=== PATIENT | female | born 1990 | race Caucasian/White ===

== ENCOUNTER 2020-11-03 13:00 | Outpatient (REF) | payer OTHER, SELFPAY ==
--- NOTE | ~2020-11-03 | CT_ITS ---
EXAMINATION: CT CHEST WITHOUT CONTRAST CLINICAL INFORMATION: Pulmonary nodules COMPARISON: Previous chest CT October 2019 TECHNIQUE: Multidetector volumetric CT imaging of the chest was done. Axial MIP volume rendering provided. Sagittal and coronal reformatted images were obtained. This CT examination was performed using dose optimization techniques as appropriate, variously including the following: *Automated exposure control *Adjustment of mA and/or kV according to patient size (this includes techniques or standardized protocols for targeted exams where dose is matched to indication/reason for exam; i.e. extremities or head) *Use of iterative reconstruction technique DLP: 250 mGy-cm FINDINGS: LUNGS: Evaluation of the lungs limited due to artifact from respiratory motion. There is a 3 mm peripheral or subpleural superior segment right lower lobe nodule axial image 135 series 6 that is stable. There is a 0.4 x 0.7 cm peripheral or subpleural right middle lobe nodule adjacent to the minor fissure axial image 1:15 2 series 6 that is stable. There is a 2 x 4 mm peripheral or subpleural right lower lobe nodule the major fissure axial image 176 series 6 that is stable. No new pulmonary nodule or MEDIASTINUM: The mediastinum is normal. PLEURA: There is no pleural effusion. No pleural mass or thickening. AXILLA: No lymphadenopathy. UPPER ABDOMEN: Unremarkable. OSSEOUS STRUCTURES: There is a 0.7 x 1.7 x 3 cm lytic lesion in the sternum that is stable going back to abdominal and pelvic CT October 2019. CT/CT chest wo con IMPRESSION: Limited exam due to respiratory motion. Stable right pulmonary nodules.
== END 2020-11-03 13:01 | disposition home or self-care (01) ==
LOC: HO.CT 13:00
PROVIDERS: PCP Internal Medicine; Visit Provider Internal Medicine Pulmonary Disease
DX: R91.8 Other nonspecific abnormal finding of lung field (principal)
CPT/HCPCS: 71250

== ENCOUNTER 2020-11-25 11:46 | Emergency (ER) | payer OTHER, SELFPAY ==
--- NOTE | ~2020-11-25 | XR_ITS ---
EXAMINATION: XR CHEST CLINICAL INFORMATION: Covid Pneumonia? Patient Shielded? Y COMPARISON: Chest x-ray June 30, 2019 TECHNIQUE: Frontal portable view of the chest was obtained. 3:20 PM FINDINGS: No significant abnormality is noted involving the heart, lungs, mediastinum, bony thorax or soft tissues. XR/XR chest 1V IMPRESSION: Unremarkable examination.
[2020-11-25 11:55] VITALS: BP 130/74; PULSE 89; RESP 20; TEMP 36.9; O2SAT 97; BMI 47.7
[2020-11-25 14:45] LABS: Influenza A PCR NEGATIVE (Negative); Influenza B PCR NEGATIVE (Negative); Resp Syncy Virus RNA Qual PCR NEGATIVE (Negative); SARS COV2 PCR INHOUSE POSITIVE (Negative)
--- NOTE | 2020-11-25 15:51 | ED_ITS ---
HPI - General Adult General Chief complaint: General Medical Stated complaint: diff breathing Time Seen by Provider: 11/25/20 15:20 Source: patient Mode of arrival: ambulatory Limitations: no limitations History of Present Illness HPI narrative: Patient presents to ED for COVID like symptoms. Patient states cough, body aches, fever, and chills. Patient is not vaccinated. Patient unaware of exposure, but does states she has been going onto the clubs. Related Data Home Medications Medication Instructions Recorded Confirmed albuterol sulfate 90 mcg/actuation 0 mcg INHALATION 05/26/20 10/06/20 aerosol inhaler aripiprazole 15 mg tablet 15 mg PO DAILY 05/26/20 10/06/20 fluticasone furoate 200 ea INHALATION 05/26/20 10/06/20 mcg-vilanterol 25 mcg/dose inhalation powder methylphenidate HCl 18 mg 18 mg PO QAM 05/26/20 10/06/20 tablet,extended release 24 hr Previous Rx's Medication Instructions Recorded desmopressin 0.2 mg tablet 0.6 mg PO BEDTIME 30 Days #90 tab 05/26/20 trazodone 100 mg tablet 100 mg PO BEDTIME PRN #30 tab 08/09/20 sulfamethoxazole 800 1 tab PO BID 5 Days #10 tab 10/06/20 mg-trimethoprim 160 mg tablet (Bactrim DS) simethicone 80 mg chewable tablet 80 mg PO QID #60 ea 10/07/20 montelukast 10 mg tablet 10 mg PO DAILY #30 tab 11/04/20 Allergies Allergy/AdvReac Type Severity Reaction Status Date / Time lithium [From LITHATE] Allergy Severe ANAPHYLAXIS Verified 10/06/20 13:58 codeine [CODEINE] Allergy Unknown UNKNOWN Verified 10/06/20 13:58 Review of Systems Review of Systems: Yes all other systems are reviewed and are negative Constitutional: Constitutional: Reports as per HPI, Reports no additional constitutional complaints, Reports body ache(s), Reports chills, Reports feve r(s) and Reports headache(s) Eyes: Eyes: Reports as per HPI and Reports no additional eye complaints ENT: Reports headache(s) Cardiovascular: Cardiovascular: Reports as per HPI and Reports no additional cardiovascular complaints Respiratory: Respiratory: Reports as per HPI, Reports no additional respiratory complaints and Reports cough Gastrointestinal: Gastrointestinal: Reports as per HPI and Reports no additional gastrointestinal complaints Genitourinary: Genitourinary: Reports no additional female genitourinary complaints and Reports as per HPI Musculoskeletal: Musculoskeletal: Reports no additional musculoskeletal complaints and Reports as per HPI Neurologic: Reports system reviewed and no additional complaints, except as documented, Reports as per HPI and Reports headache(s) Psychiatric: Psychiatric: Reports no additional psychiatric complaints and Reports as per HPI PMFSH Past Medical History Medical History (Reviewed 10/06/20 @ 13:55 by Portia Romero [facility]) Asthma Attention deficit hyperactivity disorder (ADHD) Bipolar affective disorder, current episode mixed GERD without esophagitis Insomnia Morbid obesity with BMI of 45.0-49.9, adult Nocturnal enuresis Pulmonary nodules Surgical History History of surgery Family History Family History Father Ketoacidosis Diabetes ADHD Chronic mental illness Substance abuse Mother Anxiety Hypertension Crohn disease Family/Other Chronic mental illness Social History Social History Housing: Apartment Alcohol intake: never Patient Tobacco Use Status: Never used Tobacco e-Cigarette/Vaping Use: Never Used Second Hand Smoke Exposure: Yes Advance Directives: Yes Advance Directives Information Provided: Yes Advance Directives on File: No service: No Current occupational status: unemployed Physical Exam Vital Signs: Vital Signs: Last Vital Signs Temp 98.5 F 11/25/20 11:55 Pulse 89 11/25/20 11:55 Resp 20 11/25/20 11:55 BP 130/74 11/25/20 11:55 Pulse Ox 97 11/25/20 11:55 Body Mass Index 47.7 Const: General: cooperative, healthy appearing, comfortable, no acute distress, well developed, alert, awake and Physically active Orientation/consciousness: patient oriented x3 HENMT: Head: Yes normal to inspection, Yes No palpable skull fracture present, Yes normocephalic, Yes atraumatic and No abrasion Eyes: General: appearance normal, both eyes and all related structures Neck: Neck: Yes normal visual inspection, Yes full ROM, Yes no lymphadenopathy, Yes no meningeal signs, Yes trachea midline, Yes supple and No tender Chest: Chest palpation & inspection: normal inspection of the chest and normal palpation of entire chest wall Resp: Effort & Inspection: normal respiratory effort and able to speak in complete sentences Auscultation: clear to auscultation bilaterally Cardio: Jugular venous distension: no JVD Heart sounds: S1 normal heart sound present and S2 normal heart sound present GI: Inspection: Yes normal to inspection and No abdominal wall ecchymosis Palpation (GI): Soft to palpation, not firm, nontender, no guarding and not rigid : General: No CVA tenderness and Yes no CVA tenderness Back/Spine/Pelvis: Back: no CVA tenderness, No CVA tenderness and No back tenderness Skin: General skin exam: no rashes or lesions noted and elasticity normal Neuro: General: patient oriented x3, no meningeal signs and CN's II-XI intact bilaterally Cranial nerves: Yes CN's II-XII intact bilaterally Extrem: Other: Lower extremities negative for swelling, pitting edema, redness, calf tenderness. General: Yes normal to inspection and Yes full ROM Psych: Appearance: grossly normal, well kempt and not disheveled Course Course Course Narrative: Patient speaking in full sentences and not using accessory muscles. Patient is not in distress. Patient is COVID positive. Was sent for chest x-ray. Patient typing on laptop. Reevaluation(s) Reevaluation #1: Chest x-ray came back negative for COVID pneumonia. Patient will be discharged. Patient informed to self quarantine for the next 14 days. Patient informed to return to the ED immediately if she has any chest pain, shortness of breath, weakness, dizziness, coughing up blood, or any other concerning symptoms. Time: 16:16 Medical Decision Making [facility] Narrative Medical decision making narrative: COVID-19 Lab Data Labs: Lab Results 11/25/20 Range/Units 13:30 Coronavirus (PCR) POSITIVE A (Negative) Influenza Type A (PCR) NEGATIVE (Negative) Influenza Type B (PCR) NEGATIVE (Negative) RSV RNA Qual (PCR) NEGATIVE (Negative) Discharge Plan Discharge Clinical Impression: COVID-19 Patient Disposition: Home, Self-Care Instructions: COVID-19 (Coronavirus Disease 2019) (ED) Additional Instructions: Recommend 14 days self-isolation. Return to the ED immediately for any chest pain, shortness of breath, nausea, vomiting, pleuritic chest pain, coughing up blood, weakness, dizziness, calf pain, intractable fever, or any other concerning symptoms. Please follow-up with PCP Prescriptions: No Action trazodone 100 mg tablet 100 mg PO BEDTIME PRN (Reason: for insomnia) Qty: 30 RF: 3 simethicone 80 mg tablet,chewable 80 mg PO QID Qty: 60 RF: 2 montelukast 10 mg tablet 10 mg PO DAILY Qty: 30 RF: 4 sulfamethoxazole-trimethoprim [Bactrim DS] 800-160 mg tablet 1 tab PO BID 5 Days Qty: 10 RF: 0 albuterol sulfate 90 mcg/actuation HFA aerosol inhaler 0 mcg inhalation RF: 0 aripiprazole 15 mg tablet 15 mg PO DAILY RF: 0 Breo Ellipta 200-25 mcg/dose blister with device inhalation RF: 0 methylphenidate HCl 18 mg tablet extended release 24hr 18 mg PO QAM RF: 0 desmopressin 0.2 mg tablet 0.6 mg PO BEDTIME 30 Days Qty: 90 RF: 3 Stand Alone Forms: Work/School Release Interventions: ED Discharge Assessment Last Done: 11/25/20 16:54 Discharge Date/Time: 11/25/20 16:54 Print Language: Swedish
== END 2020-11-25 16:54 | disposition home or self-care (01) ==
PROVIDERS: Emergency Provider Emergency Medicine Emergency Medical Services; PCP Internal Medicine
DX: U07.1 COVID-19 (principal); J45.909 Unspecified asthma, uncomplicated; Z79.899 Other long term (current) drug therapy
CPT/HCPCS: 0241U; 36415; 71045; 99283

== ENCOUNTER 2020-12-09 10:50 | Outpatient (REF) | payer OTHER, SELFPAY | END 2020-12-09 10:51 | disposition home or self-care (01) | LOC: HO.HMGCLDS 10:50 | PROVIDERS: PCP Internal Medicine; Visit Provider Internal Medicine | DX: Z20.822 Contact with and (suspected) exposure to COVID-19 (principal) | CPT/HCPCS: C9803; U0003; U0005 ==

== ENCOUNTER 2021-06-08 15:33 | Outpatient (REF) | payer OTHER, SELFPAY | END 2021-06-08 15:34 | disposition home or self-care (01) | LOC: HO.LAB 15:33 | PROVIDERS: PCP Internal Medicine | DX: N39.0 Urinary tract infection, site not specified (principal); N28.1 Cyst of kidney, acquired | CPT/HCPCS: 87086; 87088; 87186; 99202 ==

== ENCOUNTER 2021-07-13 08:15 | Outpatient (REF) | payer OTHER, SELFPAY ==
--- NOTE | ~2021-07-13 | US_ITS ---
EXAMINATION: US RETROPERITONEAL LIMITED (RENAL ONLY) CLINICAL INFORMATION: Cyst of kidney, acquired. COMPARISON: CT abdomen and pelvis with contrast 06/30/2019. Ultrasound abdomen complete 02/15/2017 and 07/29/2016. TECHNIQUE: Real-time imaging of the kidneys. FINDINGS: RIGHT KIDNEY: 11.4 x 5.0 x 5.0 cm (SAG x AP x TRV). The kidney is normal in size, contour, and echogenicity. Renal cortical thickness is normal. No renal calculi or hydronephrosis. There is an anechoic cyst mid to lower pole lateral cortex measuring 3.8 x 2.8 x 3.0 cm. It is unchanged to previous CT abdomen exam 06/30/2019. LEFT KIDNEY: 13.3 x 5.2 x 5.8 cm (SAG x AP x TRV). The kidney is normal in size, contour, and echogenicity. Renal cortical thickness is normal. No calculi or focal parenchymal lesions. No hydronephrosis. US/US renal BI IMPRESSION: Right renal cysts measuring 3.[address] it measured 3 cm. No echogenic renal calculi or hydronephrosis.
== END 2021-07-13 08:16 | disposition home or self-care (01) ==
LOC: HO.US 08:15
DX: N28.1 Cyst of kidney, acquired (principal)
CPT/HCPCS: 76775

== ENCOUNTER 2021-07-21 18:00 | Outpatient (REF) | payer OTHER, SELFPAY | END 2021-07-21 18:01 | disposition home or self-care (01) | LOC: HO.LNP 18:00 | PROVIDERS: Visit Provider Nurse Practitioner Family | DX: R30.0 Dysuria (principal) | CPT/HCPCS: 87086; 87088; 87186 ==

== ENCOUNTER 2021-07-22 09:35 | Outpatient (REF) | payer OTHER, SELFPAY ==
[2021-07-23 03:57] LABS: CT PCR NOT DETECTED (Not Detect.); NG PCR NOT DETECTED (Not Detect.)
[2021-07-23 10:58] LABS: BV Int Neg Control Negative (Negative); BV Int Pos Control Positive (Positive)
[2021-07-27 05:21] LABS: HPV 16 RNA NOT DETECTED (NOT DETECTED); HPV mRNA E6/E7 rflx Detected (Not Detected)
== END 2021-07-22 09:36 | disposition home or self-care (01) ==
LOC: HO.LAB 09:35
PROVIDERS: Visit Provider Advanced Practice Midwife
DX: Z01.419 Encounter for gynecological examination (general) (routine) without abnormal findings (principal); Z11.51 Encounter for screening for human papillomavirus (HPV); Z20.2 Contact with and (suspected) exposure to infections with a predominantly sexual mode of transmission; E66.01 Morbid (severe) obesity due to excess calories; Z68.43 Body mass index [BMI] 50.0-59.9, adult; Z71.3 Dietary counseling and surveillance
CPT/HCPCS: 87480; 87491; 87510; 87591; 87624; 87625; 87660; 88142

== ENCOUNTER 2021-09-14 10:22 | Emergency (ER) | payer OTHER, SELFPAY ==
[2021-09-14 10:50] VITALS: BP 127/74; PULSE 88; RESP 18; TEMP 36.8; O2SAT 98; BMI 48.9
[2021-09-14 11:17] LABS: Strep A Nucleic Acid Negative (Negative)
[2021-09-14 11:19] LABS: COVID-19 Test Negative (Negative); IDNOW Serial# 16C4AD1C
[2021-09-14 11:20] LABS: Influenza A Negative (Negative); Influenza B2 Negative (Negative)
--- NOTE | 2021-09-14 11:33 | ED_ITS ---
HPI - General Adult General Chief complaint: Upper Respiratory Symptoms Stated complaint: sore throat, body ache, headache Time Seen by Provider: 09/14/21 11:33 Source: patient Mode of arrival: ambulatory Limitations: no limitations History of Present Illness HPI narrative: Patient is a 31 year old female presenting to the emergency department today with a sore throat. Patient states that for the last few days, she has been having a worsening sore throat. Patient denies any dizziness, lightheadedness, abdominal pain, nausea, vomiting, fever, chills, blurry vision, double vision, loss of vision, chest pain, difficulty breathing, shortness of breath, back pain, night sweats, pain with urination, increased urinary frequency, increased urinary urgency, blood in her urine or stool, syncope or a near syncopal episode, recent trauma or falls, bowel incontinence, bladder incontinence, bowel retention, bladder retention, or any other complaints at this time. Onset (ago): day(s) Radiation: non-radiation Severity: mild Severity scale (1-10): 2 Quality: dull Pain Consistency: constant Relieving factors: none Exacerbating factors: none Associated symptoms: denies other symptoms Treatments prior to arrival: none Related Data Home Medications Medication Instructions Recorded Confirmed methylphenidate HCl 18 mg 18 mg PO QAM 05/26/20 07/22/21 tablet,extended release 24 hr Previous Rx's Medication Instructions Recorded simethicone 80 mg chewable tablet 80 mg PO QID #60 ea 10/07/20 montelukast 10 mg tablet 10 mg PO DAILY #30 tab 12/09/20 desmopressin 0.2 mg tablet 0.6 mg PO BEDTIME 30 Days #90 tab 04/12/21 NEBULIZER #1 ea 04/20/21 albuterol sulfate 2.5 mg (3 mL) INHALATION QID PRN 04/20/21 30 Days #120 ml fluticasone 250 mcg-salmeterol 50 1 inh INHALATION BID 30 Days #60 ea 04/20/21 mcg/dose blistr powdr for inhalation (Wixela Inhub) albuterol sulfate 90 mcg/actuation 2 puff INHALATION Q4-6H PRN #8.5 g 06/23/21 aerosol inhaler nitrofurantoin macrocrystal 100 mg 100 mg PO Q12H 5 Days #10 cap 04/06/22 capsule polyethylene glycol 3350 17 gram 17 g PO DAILY PRN #30 ea 07/21/21 oral powder packet (Miralax) sertraline 25 mg tablet 25 mg PO DAILY #30 tab 07/21/21 metronidazole 500 mg tablet 2,000 mg PO ONCE 1 Days #4 tab 08/04/21 trazodone 100 mg tablet 100 mg PO BEDTIME 30 Days #30 tab 08/20/21 lidocaine HCl 2 % mucosal solution 1.2 ml MUCOUS MEMBRANE BID PRN 09/14/21 (Lidocaine Viscous) #100 ml penicillin V potassium 500 mg 500 mg PO BID 10 Days #20 tab 09/14/21 tablet Allergies Allergy/AdvReac Type Severity Reaction Status Date / Time lithium [From LITHATE] Allergy Severe ANAPHYLAXIS Verified 09/14/21 10:49 codeine [CODEINE] Allergy Unknown UNKNOWN Verified 09/14/21 10:49 Review of Systems Constitutional: Constitutional: Reports no additional constitutional complaints, Denies chills, Denies fever(s) and Denies night sweats Eyes: Eyes: Reports no additional eye complaints, Denies blurry vision, Denies change in vision, Denies diplopia, Denies eye discharge, Denies loss of vision and Denies eye pain ENT: Denies dizziness and Reports sore throat Cardiovascular: Cardiovascular: Reports no additional cardiovascular complaints, Denies chest pain, Denies lightheadedness, Denies Loss of Consciousness and Denies dyspnea Respiratory: Respiratory: Reports no additional respiratory complaints and Denies dyspnea Gastrointestinal: Gastrointestinal: Reports no additional gastrointestinal complaints, Denies abdominal pain, Denies melena, Denies hematochezia, Denies change in bowel habits and Denies change in stool character Genitourinary: Genitourinary: Denies hematuria, Denies urinary frequency, Denies dysuria, Denies urinary incontinence, Denies urinary hesitancy and Denies urinary urgency Musculoskeletal: Musculoskeletal: Reports no additional musculoskeletal complaints, Denies numbness and Denies tingling Neurologic: Denies dizziness, Denies loss of vision, Denies numbness and Denies tingling Psychiatric: Psychiatric: Reports no additional psychiatric complaints Endocrine: Endocrine: Reports no additional endocrine complaints Hematologic/Lymphatic: Hematologic/Lymphatic: Reports no additional hematologic/lymphatic complaints Allergic/Immunologic: Allergic/Immunologic: Reports no additional allergic/immunologic complaints PMFSH Past Medical History Attestation statement: The following information was validated with the patient. Source: old records reviewed Medical History Asthma Attention deficit hyperactivity disorder (ADHD) Bipolar affective disorder, current episode mixed Environmental allergies GERD without esophagitis Insomnia Morbid obesity with BMI of 45.0-49.9, adult Nocturnal enuresis Obesity Pulmonary nodules Renal cyst Uses control UTI (urinary tract infection) Surgical History History of surgery Family History Family History Father Ketoacidosis Diabetes ADHD Chronic mental illness Substance abuse Mother Anxiety Hypertension Crohn disease Family/Other Chronic mental illness Social History Social History Housing: Apartment Alcohol intake: never Patient Tobacco Use Status: Never used Tobacco e-Cigarette/Vaping Use: Never Used Second Hand Smoke Exposure: Yes Advance Directives: No Advance Directives Information Provided: No service: No Current occupational status: employed Cognitive needs: No Hearing needs: No Vision needs: No Physical Exam ED Vital Signs: Vital Signs - 24 hr 09/14/21 10:50 Temperature 98.3 F Pulse Rate 88 Respiratory Rate 18 Blood Pressure 127/74 Pulse Oximetry 98 BMI result Body Mass Index 48.9 Const General: cooperative, no acute distress, alert and awake Nutritional Appearance: well nourished Orientation/consciousness: patient oriented x3 Limitations: no limitations HENMT Head: Yes normal to inspection and Yes atraumatic Ears: hearing grossly normal bilaterally and external ears normal General nose exam: Normal external nose present, no nasal discharge noted and no epistaxis Face and sinus: Yes normal facial exam, No abrasion and No laceration Mouth: Normal oral and palatal mucosa present, no drooling, no muffled voice and other (erythematous posterior pharynx) Eyes General: appearance normal, both eyes and all related structures Periorbital: periorbital findings normal Eyelids: Yes eyelids normal Conjunctivae: conjunctivae normal Pupils: Equal, round and reactive pupils present EOM: EOMs intact bilaterally Neck Neck: Yes normal visual inspection, Yes full ROM and Yes no lymphadenopathy Chest Chest palpation & inspection: normal inspection of the chest Resp Effort & Inspection: normal respiratory effort and able to speak in complete sentences Auscultation: clear to auscultation bilaterally Cardio Rate: regular rate Rhythm: regular rhythm GI Inspection: Yes normal to inspection Neuro General: patient oriented x3 and moves all extremities Cranial nerves: Yes Equal, round and reactive pupils present Cognition (Neuro): normal cognition Motor exam (neuro): 5/5 motor strength present throughout Sensory Exam: Normal double simultaneous stimulation for sensation Coordination: [id number] test normal Extrem General: Yes normal to inspection, Yes full ROM and Yes capillary refill normal Psych Appearance: grossly normal Mental Status: mental status grossly normal Affect: normal affect Attitude: cooperative Thought process: Normal thought process present Thought content: Normal thought content present Insight: Good insight present (Psych) Medical Decision Making MDM Narrative Medical decision making narrative: Patient is a 31 year old female presenting to the emergency department today with a sore throat. Patient's physical exam showed an erythematous posterior pharynx but was otherwise unremarkable. Patient's rapid COVID-19, influenza, and strep swabs were all negative. I explained my physical exam findings as well as all test results to the patient. I answered all questions asked by the patient. I stressed the importance of the patient taking her medication as prescribed. I stressed the importance of the patient following up with her primary care provider. I stressed the importance of the patient returning to the emergency department immediately if her symptoms were to worsen or if she were to develop any dizziness, shortness of breath, difficulty breathing, chest pain, blurry vision, loss of vision, nausea, vomiting, abdominal pain, fever, chills, back pain, or any other complaints. Patient verbalized agreement and understanding with this treatment plan and discharge. Differential Diagnosis Differential Diagnosis: pharyngitis Medical Records Medical records reviewed: Yes I reviewed the patient's medical records. Lab Data Lab results reviewed: Yes I reviewed the patient's lab results. Labs: Lab Results 09/14/21 09/14/21 09/14/21 Range/Units 10:53 10:53 10:53 COVID-19 ([facility]OSMO) Negative (Negative) COVID-19 Clin Com See Note Influenza Type A (AMEE) Negative (Negative) Influenza Type B (AMEE) Negative (Negative) Influenza A & B Note See Note S. pyogenes GrpA AMEE Negative (Negative) Discharge Plan Discharge Clinical Impression: Pharyngitis Patient Disposition: Home, Self-Care Instructions: Pharyngitis (ED) Additional Instructions: Follow up with your primary care provider. Return to the emergency department immediately if your symptoms worsen or if you develop any dizziness, shortness of breath, difficulty breathing, chest pain, blurry vision, loss of vision, nausea, vomiting, abdominal pain, fever, chills, back pain, or any other complaints. Prescriptions: New penicillin V potassium 500 mg tablet 500 mg PO BID 10 Days Qty: 20 0RF lidocaine HCl [Lidocaine Viscous] 2 % solution 1.2 ml mucous membrane BID PRN (Reason: pain) Qty: 100 0RF Rx Instructions: Gargle and spit. No Action simethicone 80 mg tablet,chewable 80 mg PO QID Qty: 60 2RF montelukast 10 mg tablet 10 mg PO DAILY Qty: 30 0RF desmopressin 0.2 mg tablet 0.6 mg PO BEDTIME 30 Days Qty: 90 3RF metronidazole 500 mg tablet 2,000 mg PO ONCE 1 Days Qty: 4 0RF Rx Instructions: Take with food, Avoid alcohol and vinegar products trazodone 100 mg tablet 100 mg PO BEDTIME 30 Days Qty: 30 1RF methylphenidate HCl 18 mg tablet extended release 24hr 18 mg PO QAM 0RF fluticasone propion-salmeterol [Wixela Inhub] 250-50 mcg/dose blister with device 1 inh inhalation BID 30 Days Qty: 60 3RF (DME) NEBULIZER See Rx Instructions .Route .MEDSUPPLY Qty: 1 0RF Rx Instructions: As directed 4 times a day as needed albuterol sulfate 2.5 mg /3 mL (0.083 %) solution for nebulization 2.5 mg inhalation QID PRN (Reason: shortness of breath or wheezing) 30 Days Qty: 120 5RF albuterol sulfate 90 mcg/actuation HFA aerosol inhaler 2 puff inhalation Q4-6H PRN (Reason: shortness of breath or wheezing) Qty: 8.5 3RF nitrofurantoin macrocrystal 100 mg capsule 100 mg PO Q12H 5 Days Qty: 10 0RF Rx Instructions: must administer with a meal/food sertraline 25 mg tablet 25 mg PO DAILY Qty: 30 0RF polyethylene glycol 3350 [Miralax] 17 gram powder in packet 17 g PO DAILY PRN (Reason: constipation) Qty: 30 0RF Referrals: Luis,Angelo S, MD [Primary Care Provider] - Print Language: Spanish
== END 2021-09-14 12:01 | disposition home or self-care (01) ==
PROVIDERS: Emergency Provider Emergency Medicine; PCP Internal Medicine
DX: J02.9 Acute pharyngitis, unspecified (principal); Z20.822 Contact with and (suspected) exposure to COVID-19
CPT/HCPCS: 87502; 87635; 87651; 99283

== ENCOUNTER 2021-09-27 14:50 | Outpatient (REF) | payer OTHER, SELFPAY ==
[2021-09-28 05:35] LABS: CT PCR NOT DETECTED (Not Detect.); NG PCR NOT DETECTED (Not Detect.)
[2021-09-28 13:11] LABS: BV Int Neg Control Negative (Negative); BV Int Pos Control Positive (Positive)
== END 2021-09-27 14:51 | disposition home or self-care (01) ==
LOC: HO.LAB 14:50
PROVIDERS: Visit Provider Advanced Practice Midwife
DX: Z11.3 Encounter for screening for infections with a predominantly sexual mode of transmission (principal); A59.9 Trichomoniasis, unspecified; Z20.2 Contact with and (suspected) exposure to infections with a predominantly sexual mode of transmission; F41.9 Anxiety disorder, unspecified; E66.01 Morbid (severe) obesity due to excess calories; Z68.42 Body mass index [BMI] 45.0-49.9, adult
CPT/HCPCS: 87480; 87491; 87510; 87591; 87660; 99212

== ENCOUNTER 2021-09-29 04:31 | Emergency (ER) | payer OTHER, SELFPAY ==
[2021-09-29 04:40] VITALS: BP 113/69; PULSE 77; RESP 20; TEMP 36.2; O2SAT 98; BMI 51.7
--- NOTE | 2021-09-29 06:32 | ED.SKABFB ---
HPI - Skin/Abscess/Foreign Bdy General Chief complaint: General Medical Stated complaint: Lac Time Seen by Provider: 09/29/21 06:31 Source: patient Mode of arrival: ambulatory Limitations: no limitations History of Present Illness complaint: lesion Onset (ago): day(s) (1) Tetanus up to date: yes Location: LLE and RLE Severity: moderate Quality: aching and dull Pain Consistency: constant Relieving factors: none Exacerbating factors: palpation Context: none Associated symptoms: other (no other symptoms just reports painful rash to anterior lower shins - no exposures no prior rash no swimming) Treatments prior to arrival: none Related Data Home Medications Medication Instructions Recorded Confirmed methylphenidate HCl 18 mg 18 mg PO QAM 05/26/20 09/27/21 tablet,extended release 24 hr etonogestrel 68 mg subdermal subdermal 09/27/21 09/27/21 implant (Nexplanon) Previous Rx's Medication Instructions Recorded desmopressin 0.2 mg tablet 0.6 mg PO BEDTIME 30 days #90 tabs 04/12/21 NEBULIZER #1 ea 04/20/21 fluticasone 250 mcg-salmeterol 50 1 inh inhalation BID 30 days #60 ea 04/20/21 mcg/dose blistr powdr for inhalation ([employer] Inhub) trazodone 100 mg tablet 100 mg PO BEDTIME 30 days #30 tabs 08/20/21 albuterol sulfate 2.5 mg (3 mL) inhalation QID PRN 09/24/21 shortness of breath or wheezing 30 days #120 mL albuterol sulfate 90 mcg/actuation 2 puff inhalation Q4-6H PRN 09/24/21 aerosol inhaler shortness of breath or wheezing #8.5 grams montelukast 10 mg tablet 10 mg PO DAILY #30 tabs 09/24/21 simethicone 80 mg chewable tablet 80 mg PO QID #60 ea 09/24/21 cephalexin 500 mg capsule 500 mg PO TID 7 days #21 caps 09/29/21 doxycycline hyclate 100 mg capsule 100 mg PO BID 7 days #14 caps 09/29/21 ondansetron 4 mg disintegrating 4 mg PO Q8H PRN nausea and 09/29/21 tablet vomiting #20 tabs prednisone 20 mg tablet 40 mg PO DAILY 5 days #10 tabs 09/29/21 Allergies Allergy/AdvReac Type Severity Reaction Status Date / Time lithium [From LITHATE] Allergy Severe ANAPHYLAXIS Verified 09/27/21 13:53 codeine [CODEINE] Allergy Unknown UNKNOWN Verified 09/27/21 13:53 Review of Systems Review of Systems: Constitutional : No Fever, No Chills ENT/Mouth : No sore throat, No Rhinorrhea Eyes: No Eye Pain, No Swelling, No Redness Cardiovascular : No Chest Pain, No SOB Respiratory : No Cough, No Sputum Gastrointestinal : No Nausea, No Vomiting, No Diarrhea, No abdominal Pain Genitourinary : No Dysuria, No Hematuria Musculoskeletal : No joint pain, No Myalgias, No Joint Swelling Skin : No Skin Lesions, positive skin rash Neuro : No Weakness, No Numbness, No Headache Psych : No Anxiety, No Depression Heme/Lymph: No Bruising, No Bleeding,No Lymphadenopathy Endocrine : No Polyuria, No Polydipsia All other systems reviewed and are negative PMFSH Past Medical History Attestation statement: The following information was validated with the patient. Medical History Environmental allergies Obesity Surgical History History of surgery Family History Family History Father Ketoacidosis Diabetes ADHD Chronic mental illness Substance abuse Mother Anxiety Hypertension Crohn disease Family/Other Chronic mental illness Social History Social History Housing: Apartment Alcohol intake: never Patient Tobacco Use Status: Never used Tobacco e-Cigarette/Vaping Use: Never Used Second Hand Smoke Exposure: Yes Advance Directives: No service: No Current occupational status: employed Cognitive needs: No Hearing needs: No Vision needs: No Physical Exam Vital Signs: Vital Signs: Last Vital Signs Temp 97.1 F 09/29/21 04:40 Pulse 77 09/29/21 04:40 Resp 20 09/29/21 04:40 BP 113/69 09/29/21 04:40 Pulse Ox 98 09/29/21 04:40 O2 Del Method 09/29/21 04:40 BMI result Body Mass Index 51.7 Appearance: Alert. Oriented X3. No acute distress. Eyes: Pupils equal, round and reactive to light. ENT: Pharynx normal. Neck: Normal inspection. Neck supple. CVS: Normal heart rate and rhythm. Pulses normal. Respiratory: No respiratory distress. Breath sounds normal. Abdomen: Soft and nontender. Skin: Skin warm and dry. Normal skin color. Normal skin turgor. Extremities: No lower extremity edema. Both anterior shins red raised nodules with mild surrounding erythema no fluctuance ttp no crepitus no calf pain not circumferential Neuro: Oriented X 3. No motor deficit. No sensory deficit. MDM - Skin/Abscess/Foreign Bdy MDM Narrative Medical decision making narrative: 31 yo female hx of asthma here with c/o painful red nodules over anterior shins - concerning for mild cellulitis vs erythema nodosum will start on antibiotics and low dose steroids - no signs of calf pain or swelling to suggest DVT Discharge Plan Discharge Clinical Impression: Erythema nodosum Cellulitis Qualifiers: Site of cellulitis: extremity Site of cellulitis of extremity: lower extremity Laterality: unspecified laterality Qualified Code(s): L03.119 - Cellulitis of unspecified part of limb Patient Disposition: Home, Self-Care Instructions: Cellulitis (ED) Additional Instructions: return to ED for any worsening symptoms or concerns possible skin infection vs inflammation of your skin in legs please follow up with your doctor to make this is not inflammatory condition called erythema nodosum take all medications follow up with doctor in 1 week Prescriptions: New doxycycline hyclate 100 mg capsule 100 mg PO BID 7 Days Qty: 14 0RF prednisone 20 mg tablet 40 mg PO DAILY 5 Days Qty: 10 0RF cephalexin 500 mg capsule 500 mg PO TID 7 Days Qty: 21 0RF ondansetron 4 mg tablet,disintegrating 4 mg PO Q8H PRN (Reason: nausea and vomiting) Qty: 20 0RF No Action desmopressin 0.2 mg tablet 0.6 mg PO BEDTIME 30 Days Qty: 90 3RF trazodone 100 mg tablet 100 mg PO BEDTIME 30 Days Qty: 30 1RF albuterol sulfate 2.5 mg /3 mL (0.083 %) solution for nebulization 2.5 mg inhalation QID PRN (Reason: shortness of breath or wheezing) 30 Days Qty: 120 5RF albuterol sulfate 90 mcg/actuation HFA aerosol inhaler 2 puff inhalation Q4-6H PRN (Reason: shortness of breath or wheezing) Qty: 8.5 3RF montelukast 10 mg tablet 10 mg PO DAILY Qty: 30 3RF simethicone 80 mg tablet,chewable 80 mg PO QID Qty: 60 3RF methylphenidate HCl 18 mg tablet extended release 24hr 18 mg PO QAM fluticasone propion-salmeterol [Wixela Inhub] 250-50 mcg/dose blister with device 1 inh inhalation BID 30 Days Qty: 60 3RF (DME) NEBULIZER See Rx Instructions .Route .MEDSUPPLY Qty: 1 0RF Rx Instructions: As directed 4 times a day as needed Nexplanon 68 mg implant subdermal Stand Alone Forms: Work/School Release
[2021-09-29] MEDS: cephALEXin 500 MG CAPSULE PO (06:48)
[2021-09-29 07:39] LABS: Basophils Percent Auto 0.3 % (0-2); Eosinophils Percent Auto 0.3 % (0-4); Hematocrit 35.9 % (37.0-47.0); Hemoglobin 11.9 g/dl (12.0-16.0); Imm Gran Abs Auto 0.02 X10*3/uL (0.00-0.03); Imm Gran Pct Auto 0.3 % (0.0-0.4); Lymphocytes Absolute Auto 2.8 X10*3/uL (1.2-4.9); Lymphocytes Percent Auto 41.1 % (20-40); MANUAL DIFF FLAG SCAN; Mean Corpuscular HGB Conc 33.1 g/dl (31.0-35.0); Mean Corpuscular Volume 84.5 fL (80.0-98.0); Mean Platelet Volume 9.9 fL (9.4-12.3); Monocytes Absolute Auto 0.6 X10*3/uL (0.1-1.2); Monocytes Percent Auto 8.7 % (2-11); Neutrophils Absolute Auto 3.3 x10*3/uL (2.0-8.3); Neutrophils Percent Auto 49.3 % (45-73); Platelet Count 238 X10*3/uL (160-400); Red Blood Count 4.25 X10*6/uL (4.20-5.50); Red Cell Distribution Width 13.2 % (11.0-16.0); SCAN SMEAR FLAG 1; White Blood Count 6.8 X10*3/uL (4.8-10.8)
[2021-09-29 07:52] LABS: Anion Gap 13 (12-20); Blood Urea Nitrogen 13 mg/dL (9-16); Calcium 9.4 mg/dL (8.4-10.2); Carbon Dioxide 25 mmol/L (22-29); Chloride 104 mmol/L (96-108); Creatinine Clr Calc Pharmacy 139.7; Estimated Glomerular Filt Rate > 60; Glucose Random 112 mg/dL (60-115); Potassium 3.5 mmol/L (3.3-5.1); Sodium 138 mmol/L (135-145)
[2021-09-29 07:58] LABS: SLIDE REVIEW VERIFIED
[2021-09-29 08:16] LABS: Erythrocyte Sedimentation Rate 34 MM/HR (0-20)
== END 2021-09-29 08:36 | disposition home or self-care (01) ==
PROVIDERS: Emergency Provider Emergency Medicine; PCP Internal Medicine
DX: L03.116 Cellulitis of left lower limb (principal); L03.115 Cellulitis of right lower limb; L52 Erythema nodosum; J45.909 Unspecified asthma, uncomplicated
CPT/HCPCS: 36415; 80048; 85025; 85652; 99282; 99283

== ENCOUNTER → 2021-10-13 13:52 | Outpatient (BNVA) | payer OTHER, SELFPAY | PROVIDERS: PCP Internal Medicine; Visit Provider Advanced Practice Midwife | DX: Z30.46 Encounter for surveillance of implantable subdermal contraceptive (principal); A59.9 Trichomoniasis, unspecified; E66.01 Morbid (severe) obesity due to excess calories; Z68.42 Body mass index [BMI] 45.0-49.9, adult; F41.9 Anxiety disorder, unspecified; F90.9 Attention-deficit hyperactivity disorder, unspecified type | CPT/HCPCS: 11982; 99212 ==

== ENCOUNTER 2021-11-02 10:00 | Emergency (ER) | payer OTHER, SELFPAY | END 2021-11-02 11:13 | disposition left against medical advice (07) | PROVIDERS: Emergency Provider Emergency Medicine; PCP Internal Medicine | DX: Z20.2 Contact with and (suspected) exposure to infections with a predominantly sexual mode of transmission (principal) ==

== ENCOUNTER 2021-12-16 12:07 | Emergency (ER) | payer OTHER, SELFPAY ==
[2021-12-16 12:11] VITALS: BP 126/67; PULSE 72; RESP 18; TEMP 36.9; O2SAT 99; BMI 45.3
--- NOTE | 2021-12-16 12:31 | ED_ITS ---
HPI - General Adult General Chief complaint: General Medical Stated complaint: STD issues/Covid symptoms Time Seen by Provider: 12/16/21 12:31 Source: patient Mode of arrival: ambulatory Limitations: no limitations History of Present Illness HPI narrative: 31-year-old female with history of obesity, anxiety, recurrent UTI, history of Trichomonas who presents to the ER for evaluation of painful urination, sore t hroat and body aches that started this morning. 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 She denies any abdominal pain, nausea, vomiting, diarrhea. She denies any pelvic pain or vaginal discharge. She denies any chance of . She reports she woke up in the middle of the night with a severe sore throat. she denies any cough or shortness of breath. No fever or chills. No known sick contacts. She reports her dysuria feels similar to her prior urinary tract infections. MD complaint: Dysuria, sore throat Onset (ago): hour(s) Location: mouth and genitals Radiation: non-radiation Severity: moderate Quality: burning and aching Pain Consistency: intermittent Relieving factors: none Exacerbating factors: other ( Swallowing worsened sore throat pain, and urination worsens her dysuria.) Associated symptoms: headaches, loss of appetite and malaise Treatments prior to arrival: none Related Data Home Medications Medication Instructions Recorded Confirmed methylphenidate HCl 18 mg 18 mg PO QAM 05/26/20 10/13/21 tablet,extended release 24 hr etonogestrel 68 mg subdermal subdermal 09/27/21 10/13/21 implant (Nexplanon) Previous Rx's Medication Instructions Recorded desmopressin 0.2 mg tablet 0.6 mg PO BEDTIME 30 days #90 tabs 04/12/21 NEBULIZER #1 ea 04/20/21 albuterol sulfate 2.5 mg/3 mL 2.5 mg (3 mL) inhalation QID PRN 09/24/21 (0.083 %) solution for nebulization shortness of breath or wheezing 30 days #120 mL albuterol sulfate 90 mcg/actuation 2 puff inhalation Q4-6H PRN 09/24/21 aerosol inhaler shortness of breath or wheezing #8.5 grams montelukast 10 mg tablet 10 mg PO DAILY #30 tabs 09/24/21 fluticasone 250 mcg-salmeterol 50 1 inh inhalation BID 30 days #60 ea 10/06/21 mcg/dose blistr powdr for inhalation ([employer] Inhub) sertraline 25 mg tablet 25 mg PO DAILY #30 tabs 11/01/21 nitrofurantoin 100 mg PO Q12H 7 days #14 caps 12/16/21 monohydrate/macrocrystals 100 mg capsule (Macrobid) Allergies Allergy/AdvReac Type Severity Reaction Status Date / Time lithium [From LITHATE] Allergy Severe ANAPHYLAXIS Verified 10/13/21 14:07 codeine [CODEINE] Allergy Unknown UNKNOWN Verified 10/13/21 14:07 Review of Systems Review of Systems: Constitutional: No Fever, No Chills ENT/Mouth: + sore throat, No Rhinorrhea, No Swallowing Difficulty Cardiovascular: No Chest Pain, No SOB Respiratory: No Cough, No Sputum, No Wheezing, No dyspnea Gastrointestinal: No Nausea, No Vomiting, No Diarrhea, No abdominal Pain Genitourinary: + Dysuria, + Urinary Frequency, No Hematuria Musculoskeletal: No joint pain, No Myalgias Skin: No Skin Lesions, No rash Neuro: No Weakness, No Dizziness, No Headache Psych: + Anxiety/Panic, No Depression Heme/Lymph: No Bruising, No Lymphadenopathy Endocrine: No Polyuria, No Polydipsia PMFSH Past Medical History Medical History Environmental allergies Obesity Surgical History History of surgery Family History Family History Father Ketoacidosis Diabetes ADHD Chronic mental illness Substance abuse Mother Anxiety Hypertension Crohn disease Family/Other Chronic mental illness Social History Social History Housing: Apartment Alcohol intake: never Patient Tobacco Use Status: Never used Tobacco e-Cigarette/Vaping Use: Never Used Second Hand Smoke Exposure: Yes Advance Directives: No Advance Directives Information Provided: No service: No Current occupational status: employed Cognitive needs: No Hearing needs: No Vision needs: No Physical Exam ED Vital Signs: Vital Signs - 24 hr 12/16/21 12:11 Temperature 98.4 F Pulse Rate 72 Respiratory Rate 18 Blood Pressure 126/67 Pulse Oximetry 99 Oxygen Delivery Method Room Air BMI result Body Mass Index 45.3 Appearance: Alert. Oriented X3. No acute distress. Eyes: Pupils equal, round and reactive to light. ENT: Pharynx with posterior pharyngeal erythema, no tonsillar exudate or swelling. Uvula midline. Handling secretions normally. Neck: Normal inspection. Neck supple. CVS: Normal heart rate and rhythm. Pulses normal. Respiratory: No respiratory distress. Breath sounds normal. Abdomen: Soft and nontender. +aBS x4. Pelvic deferred Skin: Skin warm and dry. Normal skin color. Normal skin turgor. No rashes. Extremities: No lower extremity edema. Neuro: Oriented X 3. Grossly normal, nonfocal Course Course Course Narrative: 31-year-old female with a history of HPV, recurrent UTIs, anxiety, Trichomonas, presents to the ER for evaluation of new onset dysuria that started this morning as well as sore throat that started last night and body aches. On arrival to the ER patient is afebrile with normal vital signs. Her exam is unremarkable. Her urinalysis is consistent with infection with positive nitrates. She is also found to be COVID positive. She is fully vaccinated. Her lungs are clear. We discussed the lab results and current management. Will give her a week of antibiotics for her UTI. She will follow-up with her PCP as needed. Return precautions were discussed. Stable for [place] Medical Decision Making Lab Data Labs: Lab Results 12/16/21 12/16/21 12/16/21 Range/Units 12:19 12:26 12:26 Urine Color Yellow Urine Appearance Cloudy Urine pH 5.5 (5.0-9.0) Ur Specific Central >= 1.030 H (1.005-1.025) Urine Protein 30 (1+) H (Neg-Trace) mg/dL Urine Glucose (UA) Negative (Negative) mg/dL Urine Ketones Negative (Negative) mg/dL Urine Blood Large (3+) H (Negative) Urine Nitrite Positive H (Negative) Ur Leukocyte Esterase Small (1+) H (Negative) Urine RBC >20 H (0-2) /HPF Urine WBC 11-20 (0-5) /HPF Ur Squamous Epith Cells 3-5 (0-2) /HPF Urine Bacteria 3+ (None Seen) Hyaline Casts 0-2 (0-2) /LPF Urine Test NEGATIVE (NEGATIVE) COVID-19 (COSMO) Positive A (Negative) COVID-19 Clin Com See Note Discharge Plan Discharge Clinical Impression: COVID-19, UTI (urinary tract infection) Patient Disposition: Home, Self-Care Instructions: Covid-19 Viral Syndrome and Novel Coronavirus (ED) Hey/Ath, Urinary Tract Infection in Women (ED) Additional Instructions: Your urinalysis today showed evidence of a urinary tract infection. It was negative for . Take the prescribed antibiotic as directed, complete the entire course. Rest and drink plenty fluids. Your also found to be COVID positive today. Do not go on public while not feeling well. Take [id number] cold and flu medicine as needed for your symptoms. If you develop new or worsening symptoms call 911 or come back to the ER for further evaluation. Prescriptions: New nitrofurantoin monohyd/m-cryst [Macrobid] 100 mg capsule 100 mg PO Q12H 7 Days Qty: 14 0RF Rx Instructions: must administer with a meal/food No Action desmopressin 0.2 mg tablet 0.6 mg PO BEDTIME 30 Days Qty: 90 3RF albuterol sulfate 2.5 mg /3 mL (0.083 %) solution for nebulization 2.5 mg inhalation QID PRN (Reason: shortness of breath or wheezing) 30 Days Qty: 120 5RF albuterol sulfate 90 mcg/actuation HFA aerosol inhaler 2 puff inhalation Q4-6H PRN (Reason: shortness of breath or wheezing) Qty: 8.5 3RF montelukast 10 mg tablet 10 mg PO DAILY Qty: 30 3RF fluticasone propion-salmeterol [Wixela Inhub] 250-50 mcg/dose blister with device 1 inh inhalation BID 30 Days Qty: 60 3RF sertraline 25 mg tablet 25 mg PO DAILY Qty: 30 3RF (DME) NEBULIZER See Rx Instructions .Route .MEDSUPPLY Qty: 1 0RF Rx Instructions: As directed 4 times a day as needed methylphenidate HCl 18 mg tablet extended release 24hr 18 mg PO QAM Nexplanon 68 mg implant subdermal Referrals: Angelo Smith MD [Primary Care Provider] - Stand Alone Forms: Work/School Release Interventions: ED Discharge Assessment Last Done: 12/16/21 13:08 Discharge Date/Time: 12/16/21 13:09
[2021-12-16 12:36] LABS: Appearance Urine Cloudy; Color Urine Yellow; Glucose Urine UA Negative (Negative); Leukocyte Esterase Urine Small (1+) (Negative); Nitrite Urine Positive (Negative); PH 5.5 (5.0-9.0); Specific Gravity - Urine >= 1.030 (1.005-1.025); Urine Blood Large (3+) (Negative); Urine Ketones Negative (Negative); Urine Protein 30 (1+) mg/dL (Neg-Trace)
[2021-12-16 12:38] LABS: COVID-19 Test Positive (Negative); IDNOW Serial# 16C4AD1C
[2021-12-16 12:39] LABS: UPreg QC Valid YES; Urine Pregnancy NEGATIVE (NEGATIVE)
[2021-12-16 12:48] LABS: RBC Urine >20 /HPF (0-2); UACC Culture Trigger YES
[2021-12-16 12:49] LABS: Hyaline Casts Urine 0-2 /LPF (0-2)
[2021-12-16 12:50] LABS: Bacteria Urine 3+ (None Seen)
== END 2021-12-16 13:09 | disposition home or self-care (01) ==
PROVIDERS: Emergency Provider Student in an Organized Health Care Education/Training Program; PCP Internal Medicine
DX: U07.1 COVID-19 (principal); N39.0 Urinary tract infection, site not specified
CPT/HCPCS: 81001; 81025; 87086; 87635; 99282; 99283

== ENCOUNTER 2022-03-17 11:45 | Outpatient (REF) | payer OTHER, SELFPAY ==
[2022-03-19 01:34] LABS: Rubella IgG Antibody 2.31 Index
== END 2022-03-17 11:46 | disposition home or self-care (01) ==
LOC: HO.LAB 11:45
PROVIDERS: PCP Internal Medicine; Visit Provider Internal Medicine
DX: Z01.84 Encounter for antibody response examination (principal); Z28.39 Other underimmunization status
CPT/HCPCS: 36415; 86735; 86762; 86765; 86787

== ENCOUNTER 2022-05-24 08:42 | Emergency (ER) | payer OTHER, SELFPAY ==
[2022-05-24 08:44] VITALS: BP 131/73; PULSE 76; RESP 16; TEMP 35.9; O2SAT 100; BMI 47.5
--- NOTE | 2022-05-24 08:51 | ED.FEMALEGU ---
HPI - Female Genitourinary General Chief complaint: Urogenital-Female Stated complaint: quest uti and Time Seen by Provider: 05/24/22 08:47 Source: patient Mode of arrival: ambulatory Limitations: no limitations History of Present Illness HPI Narrative: Patient is a 31 year old assigned female at with a history of asthma, ADHD, and UTIs presenting to the emergency department today with lower abdominal pain and pain with urination. Patient states that she has been having lower abdominal pain and pain with urination over the last 2 days. Patient denies any dizziness, lightheadedness, nausea, vomiting, fever, chills, blurry vision, double vision, loss of vision, chest pain, difficulty breathing, shortness of breath, back pain, night sweats, increased urinary frequency, increased urinary urgency, blood in her stool, syncope or a near syncopal episode, recent trauma or falls, bowel incontinence, bladder incontinence, bowel retention, bladder retention, or any other complaints at this time. MD elicited complaint: dysuria and UTI Pertinent past history: recurrent UTIs Onset (ago): day(s) (2) Severity: mild Severity scale (1-10): 2 Urinary symptoms: Dysuria Exacerbating factors: none Relieving factors: none Associated symptoms: abdominal pain Treatment prior to arrival: none Patient : No Related Data Home Medications Medication Instructions Recorded Confirmed methylphenidate HCl 18 mg 18 mg PO QAM 05/26/20 03/31/22 tablet,extended release 24 hr etonogestrel 68 mg subdermal subdermal 09/27/21 03/31/22 implant (Nexplanon) amoxicillin 500 mg capsule 500 mg PO TID 03/31/22 03/31/22 Previous Rx's Medication Instructions Recorded NEBULIZER #1 ea 04/20/21 albuterol sulfate 2.5 mg/3 mL 2.5 mg (3 mL) inhalation QID PRN 09/24/21 (0.083 %) solution for nebulization shortness of breath or wheezing 30 days #120 mL albuterol sulfate 90 mcg/actuation 2 puff inhalation Q4-6H PRN 09/24/21 aerosol inhaler shortness of breath or wheezing #8.5 grams montelukast 10 mg tablet 10 mg PO DAILY #30 tabs 09/24/21 desmopressin 0.2 mg tablet 0.6 mg PO BEDTIME 30 days #90 tabs 03/31/22 fluoxetine 20 mg capsule (Prozac) 20 mg PO DAILY #30 caps 03/31/22 fluticasone 250 mcg-salmeterol 50 1 inh inhalation BID 30 days #60 ea 03/31/22 mcg/dose blistr powdr for inhalation (Wixela Inhub) cephalexin 500 mg capsule 500 mg PO Q6H 7 days #28 caps 05/24/22 Allergies Allergy/AdvReac Type Severity Reaction Status Date / Time lithium [From LITHATE] Allergy Severe ANAPHYLAXIS Verified 03/31/22 10:58 codeine [CODEINE] Allergy Unknown UNKNOWN Verified 03/31/22 10:58 Review of Systems Constitutional: Constitutional: Reports no additional constitutional complaints, Denies chills, Denies fever(s) and Denies night sweats Eyes: Eyes: Reports no additional eye complaints, Denies blurry vision, Denies change in vision, Denies diplopia, Denies eye discharge, Denies loss of vision and Denies eye pain ENT: Denies dizziness Cardiovascular: Cardiovascular: Reports no additional cardiovascular complaints, Denies chest pain, Denies lightheadedness, Denies Loss of Consciousness and Denies dyspnea Respiratory: Respiratory: Reports no additional respiratory complaints and Denies dyspnea Gastrointestinal: Gastrointestinal: Reports no additional gastrointestinal complaints, Reports abdominal pain, Denies melena, Denies hematochezia, Denies change in bowel habits and Denies change in stool character Genitourinary: Genitourinary: Reports hematuria, Denies urinary frequency, Reports dysuria, Denies urinary incontinence, Denies urinary hesitancy and Denies urinary urgency Musculoskeletal: Musculoskeletal: Reports no additional musculoskeletal complaints, Denies numbness and Denies tingling Neurologic: Denies dizziness, Denies loss of vision, Denies numbness and Denies tingling Psychiatric: Psychiatric: Reports no additional psychiatric complaints Endocrine: Endocrine: Reports no additional endocrine complaints Hematologic/Lymphatic: Hematologic/Lymphatic: Reports no additional hematologic/lymphatic complaints Allergic/Immunologic: Allergic/Immunologic: Reports no additional allergic/immunologic complaints PMFSH Past Medical History Attestation statement: The following information was validated with the patient. Source: old records reviewed and nursing notes reviewed Medical History Asthma Attention deficit hyperactivity disorder (ADHD) Bipolar affective disorder, current episode mixed Environmental allergies GERD without esophagitis Insomnia Lumbar back pain Morbid obesity with BMI of 45.0-49.9, adult Nocturnal enuresis Obesity Pulmonary nodules Renal cyst Right knee pain Uses control UTI (urinary tract infection) Surgical History History of surgery Family History Family History Father Ketoacidosis Diabetes ADHD Chronic mental illness Substance abuse Mother Anxiety Hypertension Crohn disease Family/Other Chronic mental illness Social History Social History Housing: Apartment Alcohol intake: never Patient Tobacco Use Status: Never used Tobacco e-Cigarette/Vaping Use: Never Used Second Hand Smoke Exposure: Yes Advance Directives: No service: No Current occupational status: employed Cognitive needs: No Hearing needs: No Vision needs: No Physical Exam Vital Signs: Vital Signs: Last Vital Signs Temp 96.6 F L 05/24/22 08:44 Pulse 76 05/24/22 08:44 Resp 16 05/24/22 08:44 BP 131/73 05/24/22 08:44 Pulse Ox 100 05/24/22 08:44 O2 Del Method 05/24/22 08:44 BMI result Body Mass Index 47.5 Const: General: cooperative, no acute distress, alert and awake Nutritional Appearance: well nourished Orientation/consciousness: patient oriented x3 Limitations: no limitations HEENT: Head: Yes normal to inspection and Yes atraumatic Ears: hearing grossly normal bilaterally and external ears normal General nose exam: Normal external nose present, no nasal discharge noted and no epistaxis Face and sinus: Yes normal facial exam, No abrasion and No laceration Mouth: Normal oral and palatal mucosa present, no drooling and no muffled voice Eyes: General: appearance normal, both eyes and all related structures Periorbital: periorbital findings normal Eyelids: Yes eyelids normal Conjunctivae: conjunctivae normal Pupils: Equal, round and reactive pupils present EOM: EOMs intact bilaterally Neck: Neck: Yes normal visual inspection, Yes full ROM and Yes no lymphadenopathy Chest: Chest palpation & inspection: normal inspection of the chest Resp: Effort & Inspection: normal respiratory effort and able to speak in complete sentences Auscultation: clear to auscultation bilaterally GI: Inspection: Yes normal to inspection Palpation (GI): Soft to palpation, not firm, nontender, no guarding and not rigid Neuro: General: patient oriented x3 and moves all extremities Cranial nerves: Yes Equal, round and reactive pupils present Cognition (Neuro): normal cognition Motor exam (neuro): 5/5 motor strength present throughout Sensory Exam: Normal double simultaneous stimulation for sensation Coordination: [id number] test normal Extrem: General: Yes normal to inspection, Yes full ROM and Yes capillary refill normal Psych: Appearance: grossly normal Mental Status: mental status grossly normal Affect: normal affect Attitude: cooperative Thought process: Normal thought process present Thought content: Normal thought content present Insight: Good insight present (Psych) Medical Decision Making Medical Decision Making MDM Narrative: Patient is a 31 year old assigned female at with a history of asthma, ADHD, and recurrent UTIs presenting to the emergency department today with lower abdominal pain and pain with urination. Patient's physical exam was unremarkable. Patient's urine showed an acute UTI. I explained my physical exam findings as well as all test results to the patient. I answered all questions asked by the patient. I stressed the importance of the patient taking her medication as prescribed. I stressed the importance of the patient following up with her primary care provider. I stressed the importance of the patient returning to the emergency department immediately if her symptoms were to worsen or if she were to develop any dizziness, shortness of breath, difficulty breathing, chest pain, blurry vision, loss of vision, nausea, vomiting, abdominal pain, fever, chills, back pain, or any other complaints. Patient verbalized agreement and understanding with this treatment plan and discharge. Differential Diagnosis Differential Diagnoses: The differential diagnosis associated with the presentation includes UTI Lab Data [facility] Lab Attestation statement: I reviewed the patient's lab results. Labs: Lab Results 05/24/22 05/24/22 Range/Units 08:57 08:57 Urine Color Yellow Urine Appearance Clear Urine pH 5.5 (5.0-9.0) Ur Specific [place] 1.025 (1.005-1.025) Urine Protein Negative (Neg-Trace) mg/dL Urine Glucose (UA) Negative (Negative) mg/dL Urine Ketones Negative (Negative) mg/dL Urine Blood Large (3+) H (Negative) Urine Nitrite Positive H (Negative) Ur Leukocyte Esterase Small (1+) H (Negative) Urine RBC 11-20 H (0-2) /HPF Urine WBC 6-10 H (0-5) /HPF Ur Squamous Epith Cells 0-2 (0-2) /HPF Urine Bacteria 3+ (None Seen) Hyaline Casts 0-2 (0-2) /LPF Urine Test NEGATIVE (NEGATIVE) Discharge Plan Discharge Clinical Impression: UTI (urinary tract infection) Patient Disposition: Home, Self-Care Instructions: Urinary Tract Infection in Women (ED) Additional Instructions: Follow up with your primary care provider. Return to the emergency department immediately if your symptoms worsen or if you develop any dizziness, shortness of breath, difficulty breathing, chest pain, blurry vision, loss of vision, nausea, vomiting, abdominal pain, fever, chills, back pain, or any other complaints. Prescriptions: New cephalexin 500 mg capsule 500 mg PO Q6H 7 Days Qty: 28 0RF No Action albuterol sulfate 2.5 mg /3 mL (0.083 %) solution for nebulization 2.5 mg inhalation QID PRN (Reason: shortness of breath or wheezing) 30 Days Qty: 120 5RF albuterol sulfate 90 mcg/actuation HFA aerosol inhaler 2 puff inhalation Q4-6H PRN (Reason: shortness of breath or wheezing) Qty: 8.5 3RF montelukast 10 mg tablet 10 mg PO DAILY Qty: 30 3RF methylphenidate HCl 18 mg tablet extended release 24hr 18 mg PO QAM amoxicillin 500 mg capsule 500 mg PO TID desmopressin 0.2 mg tablet 0.6 mg PO BEDTIME 30 Days Qty: 90 3RF fluticasone propion-salmeterol [Wixela Inhub] 250-50 mcg/dose blister with device 1 inh inhalation BID 30 Days Qty: 60 3RF fluoxetine [Prozac] 20 mg capsule 20 mg PO DAILY Qty: 30 3RF (DME) NEBULIZER See Rx Instructions .Route .MEDSUPPLY Qty: 1 0RF Rx Instructions: As directed 4 times a day as needed Nexplanon 68 mg implant subdermal Referrals: Angelo Smith MD [Primary Care Provider] - Interventions: ED Discharge Assessment Last Done: 05/24/22 09:52 Discharge Date/Time: 05/24/22 09:53 Print Language: Mauritanian
--- NOTE | 2022-05-24 09:01 | PC.NURSE ---
Patient present with complaints of burning with urination. UA/C+S with u preg sent to lab. Patient appears well. Ambulating around ED and in NAD.
[2022-05-24 09:09] LABS: Appearance Urine Clear; Color Urine Yellow; Glucose Urine UA Negative (Negative); Leukocyte Esterase Urine Small (1+) (Negative); Nitrite Urine Positive (Negative); PH 5.5 (5.0-9.0); Specific Gravity - Urine 1.025 (1.005-1.025); UMIC TRIGGER UACC YES; Urine Blood Large (3+) (Negative); Urine Ketones Negative (Negative); Urine Protein Negative (Neg-Trace)
[2022-05-24 09:11] LABS: UPreg QC Valid YES; Urine Pregnancy NEGATIVE (NEGATIVE)
[2022-05-24 09:14] LABS: Bacteria Urine 3+ (None Seen); Hyaline Casts Urine 0-2 /LPF (0-2); Squamous Epithelial Cell Urine 0-2 /HPF (0-2); UACC Culture Trigger YES
== END 2022-05-24 09:53 | disposition home or self-care (01) ==
PROVIDERS: Emergency Provider Emergency Medicine; PCP Internal Medicine
DX: N39.0 Urinary tract infection, site not specified (principal); Z79.899 Other long term (current) drug therapy
CPT/HCPCS: 81001; 81025; 87086; 87088; 87186; 99282; 99283

== ENCOUNTER 2022-06-08 11:35 | Emergency (ER) | payer OTHER, SELFPAY ==
[2022-06-08 11:50] VITALS: BP 100/70; PULSE 71; RESP 16; TEMP 36.6; O2SAT 99; BMI 46.5
--- NOTE | 2022-06-08 11:52 | ED_ITS ---
HPI - General Adult General Chief complaint: General Medical Stated complaint: chronic uti, vomitting Time Seen by Provider: 06/08/22 14:34 Related Data Previous Rx's Medication Instructions Recorded NEBULIZER #1 ea 04/20/21 albuterol sulfate 2.5 mg/3 mL 2.5 mg (3 mL) inhalation QID PRN 09/24/21 (0.083 %) solution for nebulization shortness of breath or wheezing 30 days #120 mL albuterol sulfate 90 mcg/actuation 2 puff inhalation Q4-6H PRN 09/24/21 aerosol inhaler shortness of breath or wheezing #8.5 grams montelukast 10 mg tablet 10 mg PO DAILY #30 tabs 09/24/21 desmopressin 0.2 mg tablet 0.6 mg PO BEDTIME 30 days #90 tabs 06/08/22 fluticasone 250 mcg-salmeterol 50 1 inh inhalation BID 30 days #60 ea 06/08/22 mcg/dose blistr powdr for inhalation (Wixela Inhub) nitrofurantoin macrocrystal 100 mg 100 mg PO BID 7 days #14 caps 06/08/22 capsule Allergies Allergy/AdvReac Type Severity Reaction Status Date / Time lithium [From LITHATE] Allergy Severe ANAPHYLAXIS Verified 06/08/22 13:20 codeine [CODEINE] Allergy Unknown UNKNOWN Verified 06/08/22 13:20 [facility] Past Medical History Medical History Asthma Attention deficit hyperactivity disorder (ADHD) Bipolar affective disorder, current episode mixed Environmental allergies GERD without esophagitis Insomnia Lumbar back pain Morbid obesity with BMI of 45.0-49.9, adult Nocturnal enuresis Obesity Pulmonary nodules Renal cyst Right knee pain Uses control UTI (urinary tract infection) Surgical History History of surgery Family History Family History Father Ketoacidosis Diabetes ADHD Chronic mental illness Substance abuse Mother Anxiety Hypertension Crohn disease Family/Other Chronic mental illness Social History Social History Housing: Apartment Alcohol intake: never Patient Tobacco Use Status: Never used Tobacco e-Cigarette/Vaping Use: Never Used Second Hand Smoke Exposure: Yes service: No Current occupational status: employed Current occupational exposures/hazards: No Cognitive needs: No Hearing needs: No Vision needs: No Physical Exam ED Vital Signs: BMI result Body Mass Index 46.5 Course Course Course Narrative: RME: 31 y/o F presenting for evaluation of ?UTI x 2 weeks. Recently dx on 05/24/22 with E.coli UTI but did not complete the antibiotics. Has recurrent UTIs. Having low back pain, suprapubic pain, body aches, nausea. vaginal discharge, and foul smelling urine. Requesting HCG and STI testing. VSS in triage. Will order UA, hcg, and basic labs. Stable to return to the waiting room until room becomes available. Medical Decision Making Lab Data 06/08/22 12:38 06/08/22 12:38 Labs: Lab Results 06/08/22 06/08/22 Range/Units 12:38 12:38 WBC 8.8 (4.8-10.8) X10*3/uL RBC 4.63 (4.20-5.50) X10*6/uL Hgb 13.5 (12.0-16.0) g/dl Hct 40.7 (37.0-47.0) % MCV 87.9 (80.0-98.0) fL MCH 29.2 (27.0-33.0) pg MCHC 33.2 (31.0-35.0) g/dl RDW 12.9 (11.0-16.0) % Plt Count 210 (160-400) X10*3/uL MPV 11.2 (9.4-12.3) fL Immature Gran % (Auto) 0.2 (0.0-0.4) % Neut % (Auto) 60.1 (45-73) % Lymph % (Auto) 31.1 (20-40) % [place] % (Auto) 7.4 (2-11) % Eos % (Auto) 0.9 (0-4) % Baso % (Auto) 0.3 (0-2) % Lymph # (Auto) 2.7 (1.2-4.9) X10*3/uL [place] # (Auto) 0.7 (0.1-1.2) X10*3/uL Eos # (Auto) 0.1 (0.0-0.4) X10*3/uL Baso # (Auto) 0.0 (0.0-0.2) X10*3/uL Abs Immat Gran (auto) 0.02 (0.00-0.03) X10*3/uL Absolute Neuts (auto) 5.3 (2.0-8.3) x10*3/uL Absolute Nucleated RBC 0.000 (0.0-0.012) X10*3/uL Nucleated RBC % (auto) 0.0 (0.0-0.2) /100WBC Smear Tech's Comments VERIFIED Sodium 141 (135-145) mmol/L Potassium 4.2 (3.3-5.1) mmol/L Chloride 105 (96-108) mmol/L Carbon Dioxide 28 (22-29) mmol/L Anion Gap 12 (12-20) BUN 17 H (9-16) mg/dL Creatinine 0.85 (0.5-1.4) mg/dL Estim Creat Clear Calc 124.1 Estimated GFR > 60 Random Glucose 64 (60-115) mg/dL Calcium 9.6 (8.4-10.2) mg/dL Magnesium 1.9 (1.6-2.6) mg/dL Total Bilirubin 0.6 (0.0-1.0) mg/dL Direct Bilirubin 0.2 (0.0-0.5) mg/dL AST 17 (5-31) U/L ALT 26 (0-31) U/L Alkaline Phosphatase 111 (39-117) U/L Total Protein 8.2 H (6.5-8.0) g/dL Albumin 4.9 (3.5-5.0) g/dL Discharge Plan Discharge Clinical Impression: Recurrent UTI Patient Disposition: Elopement Prescriptions: No Action albuterol sulfate 2.5 mg /3 mL (0.083 %) solution for nebulization 2.5 mg inhalation QID PRN (Reason: shortness of breath or wheezing) 30 Days Qty: 120 5RF albuterol sulfate 90 mcg/actuation HFA aerosol inhaler 2 puff inhalation Q4-6H PRN (Reason: shortness of breath or wheezing) Qty: 8.5 3RF montelukast 10 mg tablet 10 mg PO DAILY Qty: 30 3RF nitrofurantoin macrocrystal 100 mg capsule 100 mg PO BID 7 Days Qty: 14 0RF Rx Instructions: must administer with a meal/food desmopressin 0.2 mg tablet 0.6 mg PO BEDTIME 30 Days Qty: 90 3RF fluticasone propion-salmeterol [Wixela Inhub] 250-50 mcg/dose blister with device 1 inh inhalation BID 30 Days Qty: 60 3RF (DME) NEBULIZER See Rx Instructions .Route .MEDSUPPLY Qty: 1 0RF Rx Instructions: As directed 4 times a day as needed Discharge Date/Time: 06/08/22 15:03
[2022-06-08 12:44] LABS: Hemoglobin 13.5 g/dl (12.0-16.0); Imm Gran Abs Auto 0.02 X10*3/uL (0.00-0.03); Imm Gran Pct Auto 0.2 % (0.0-0.4); MANUAL DIFF FLAG SCAN; Mean Corpuscular Hemoglobin 29.2 pg (27.0-33.0); PLT CLUMP 1; Red Blood Count 4.63 X10*6/uL (4.20-5.50); Red Cell Distribution Width 12.9 % (11.0-16.0); SCAN SMEAR FLAG 1
[2022-06-08 12:45] LABS: Basophils Percent Auto 0.3 % (0-2); Eosinophils Absolute Auto 0.1 X10*3/uL (0.0-0.4); Eosinophils Percent Auto 0.9 % (0-4); Hematocrit 40.7 % (37.0-47.0); Lymphocytes Absolute Auto 2.7 X10*3/uL (1.2-4.9); Lymphocytes Percent Auto 31.1 % (20-40); Mean Corpuscular HGB Conc 33.2 g/dl (31.0-35.0); Mean Corpuscular Volume 87.9 fL (80.0-98.0); Monocytes Absolute Auto 0.7 X10*3/uL (0.1-1.2); Monocytes Percent Auto 7.4 % (2-11); Neutrophils Absolute Auto 5.3 x10*3/uL (2.0-8.3); Neutrophils Percent Auto 60.1 % (45-73)
[2022-06-08 12:46] LABS: White Blood Count 8.8 X10*3/uL (4.8-10.8)
[2022-06-08 12:58] LABS: Alanine Aminotransferase 26 U/L (0-31); Albumin Level 4.9 g/dL (3.5-5.0); Alkaline Phosphatase 111 U/L (39-117); Anion Gap 12 (12-20); Aspartate Amino Transferase 17 U/L (5-31); Bilirubin Direct 0.2 mg/dL (0.0-0.5); Bilirubin Total 0.6 mg/dL (0.0-1.0); Blood Urea Nitrogen 17 mg/dL (9-16); Calcium 9.6 mg/dL (8.4-10.2); Carbon Dioxide 28 mmol/L (22-29); Chloride 105 mmol/L (96-108); Creatinine Clr Calc Pharmacy 124.1; Estimated Glomerular Filt Rate > 60; Glucose Random 64 mg/dL (60-115); Magnesium 1.9 mg/dL (1.6-2.6); Potassium 4.2 mmol/L (3.3-5.1); Sodium 141 mmol/L (135-145); Total Protein 8.2 g/dL (6.5-8.0)
[2022-06-08 13:06] LABS: Mean Platelet Volume 11.2 fL (9.4-12.3); Platelet Count 210 X10*3/uL (160-400)
[2022-06-08 13:07] LABS: SLIDE REVIEW VERIFIED
== END 2022-06-08 15:03 | disposition left against medical advice (07) ==
PROVIDERS: Physician Assistant; Emergency Provider Emergency Medicine
DX: N39.0 Urinary tract infection, site not specified (principal); Z79.899 Other long term (current) drug therapy
CPT/HCPCS: 36415; 80048; 80076; 83735; 85025; 99281; 99283

== ENCOUNTER 2022-06-08 18:31 | Outpatient (REF) | payer OTHER, SELFPAY | END 2022-06-08 18:32 | disposition home or self-care (01) | LOC: HO.LNP 18:31 | PROVIDERS: Visit Provider Internal Medicine | DX: R30.0 Dysuria (principal) | CPT/HCPCS: 87086 ==

== ENCOUNTER 2022-09-14 10:12 | Outpatient (REF) | payer OTHER, SELFPAY ==
[2022-09-14 13:12] LABS: Appearance Urine Cloudy; Color Urine Yellow; Glucose Urine UA Negative (Negative); Leukocyte Esterase Urine Small (1+) (Negative); Nitrite Urine Positive (Negative); PH 5.5 (5.0-9.0); Specific Gravity - Urine >= 1.030 (1.005-1.025); UMIC TRIGGER UACC YES; Urine Blood Trace (Negative); Urine Ketones Negative (Negative); Urine Protein Negative (Neg-Trace)
[2022-09-14 13:19] LABS: Bacteria Urine 4+ (None Seen); Hyaline Casts Urine 0-2 /LPF (0-2); RBC Urine 0-2 /HPF (0-2); Squamous Epithelial Cell Urine >20 /HPF (0-2); UACC Culture Trigger YES
== END 2022-09-14 10:13 | disposition home or self-care (01) ==
LOC: HO.LAB 10:12
PROVIDERS: PCP Internal Medicine; Visit Provider Internal Medicine
DX: R39.9 Unspecified symptoms and signs involving the genitourinary system (principal)
CPT/HCPCS: 81001; 81003; 87086

== ENCOUNTER 2022-09-20 03:05 | Emergency (ER) | payer OTHER, SELFPAY ==
[2022-09-20 03:13] VITALS: BP 102/46; PULSE 47; RESP 19; TEMP 36.7; O2SAT 100
[2022-09-20 03:17] VITALS: BP 102/46; BP 140/90; PULSE 48; PULSE 62; RESP 18; O2SAT 97; BMI 28.3
--- NOTE | 2022-09-20 04:54 | ED_ITS ---
HPI - Back Pain/Injury General Chief Complaint: Back Pain/Injury Stated Complaint: Multiple Complaints Time Seen by Provider: 09/20/22 04:44 Related Data Previous Rx's Medication Instructions Recorded NEBULIZER #1 ea 04/20/21 albuterol sulfate 2.5 mg/3 mL 2.5 mg (3 mL) inhalation QID PRN 09/24/21 (0.083 %) solution for nebulization shortness of breath or wheezing 30 days #120 mL montelukast 10 mg tablet 10 mg PO DAILY #30 tabs 09/24/21 desmopressin 0.2 mg tablet 0.6 mg PO BEDTIME 30 days #90 tabs 06/08/22 fluticasone 250 mcg-salmeterol 50 1 inh inhalation BID 30 days #60 ea 06/08/22 mcg/dose blistr powdr for inhalation (Wixela Inhub) nitrofurantoin macrocrystal 100 mg 100 mg PO BID 7 days #14 caps 06/08/22 capsule trazodone 100 mg tablet 100 mg PO BEDTIME 30 days #30 tabs 09/07/22 albuterol sulfate 90 mcg/actuation 2 puff PO Q4-6H PRN for wheezing 09/16/22 aerosol inhaler (Ventolin HFA) #18 ea nitrofurantoin 100 mg PO Q12H 7 days #14 caps 09/16/22 monohydrate/macrocrystals 100 mg capsule (Macrobid) Allergies Allergy/AdvReac Type Severity Reaction Status Date / Time lithium [From LITHATE] Allergy Severe ANAPHYLAXIS Verified 06/08/22 13:20 codeine [CODEINE] Allergy Unknown UNKNOWN Verified 06/08/22 13:20 [facility] Past Medical History Medical History Asthma Attention deficit hyperactivity disorder (ADHD) Bipolar affective disorder, current episode mixed Environmental allergies GERD without esophagitis Insomnia Lumbar back pain Morbid obesity with BMI of 45.0-49.9, adult Nocturnal enuresis Obesity Pulmonary nodules Renal cyst Right knee pain Uses control UTI (urinary tract infection) Surgical History History of surgery Family History Family History Father Ketoacidosis Diabetes ADHD Chronic mental illness Substance abuse Mother Anxiety Hypertension Crohn disease Family/Other Chronic mental illness Social History Social History Housing: Apartment Alcohol intake: never Patient Tobacco Use Status: Never used Tobacco e-Cigarette/Vaping Use: Never Used Second Hand Smoke Exposure: Yes Advance Directives: No Advance Directives Information Provided: Yes service: No Current occupational status: employed Current occupational exposures/hazards: No Cognitive needs: No Hearing needs: No Vision needs: No Physical Exam Vital Signs: Vital Signs: Last Vital Signs Temp 98.0 F 09/20/22 03:13 Pulse 48 L 09/20/22 03:17 Resp 18 09/20/22 03:17 BP 102/46 L 09/20/22 03:17 Pulse Ox 97 09/20/22 03:17 O2 Del Method Room Air 09/20/22 03:17 BMI result Body Mass Index 28.3 Medications Administered Discontinued Medications Generic Name Dose Route Start Last Admin Trade Name Freq PRN Reason Stop Dose Admin Hydromorphone HCl 0.5 mg 09/20/22 04:51 09/20/22 05:34 Hydromorphone Hcl 0.5 Mg/0.5 Ml Syringe IVPUSH 09/20/22 04:52 Not Given ONCE ONE Protocol Sodium Chloride 1,000 mls @ 999 mls/hr 09/20/22 05:00 09/20/22 06:34 Ns IV 09/20/22 06:00 Infused .Q1H1M WOO Infusion Ketorolac Tromethamine 30 mg 09/20/22 04:51 09/20/22 05:33 Ketorolac Tromethamine 30 Mg/Ml Vial IVPUSH 09/20/22 04:52 30 mg ONCE ONE Administration Medical Decision Making Medical Decision Making [facility] Narrative: Patient complaining of flank pain. CT scan of the abdomen ordered to rule out the possibility of kidney stone. Patient white count was normal. Hemoglobin is 11. Kidney function is normal at 0.79 creatinine test was negative. Patient did not provide a urine. Did not wait for CT scan. Understood the risk of infection. Understood the risk of kidney stone. Leaving against medical advice. Patient's BNP is 21 there is no evidence of congestive heart failure. She is in stable condition Lab Data [facility] Lab Attestation statement: I reviewed the patient's lab results. 09/20/22 05:16 09/20/22 05:16 Labs: Lab Results 09/20/22 09/20/22 09/20/22 Range/Units 05:16 05:16 05:16 WBC 7.7 (4.8-10.8) X10*3/uL RBC 3.92 L (4.20-5.50) X10*6/uL Hgb 11.5 L (12.0-16.0) g/dl Hct 34.7 L (37.0-47.0) % MCV 88.5 (80.0-98.0) fL MCH 29.3 (27.0-33.0) pg MCHC 33.1 (31.0-35.0) g/dl RDW 12.8 (11.0-16.0) % Plt Count 243 (160-400) X10*3/uL MPV 9.8 (9.4-12.3) fL Immature Gran % (Auto) 0.4 (0.0-0.4) % Neut % (Auto) 58.2 (45-73) % Lymph % (Auto) 32.4 (20-40) % [place] % (Auto) 7.8 (2-11) % Eos % (Auto) 0.9 (0-4) % Baso % (Auto) 0.3 (0-2) % Lymph # (Auto) 2.5 (1.2-4.9) X10*3/uL [place] # (Auto) 0.6 (0.1-1.2) X10*3/uL Eos # (Auto) 0.1 (0.0-0.4) X10*3/uL Baso # (Auto) 0.0 (0.0-0.2) X10*3/uL Abs Immat Gran (auto) 0.03 (0.00-0.03) X10*3/uL Absolute Neuts (auto) 4.5 (2.0-8.3) x10*3/uL Absolute Nucleated RBC 0.000 (0.0-0.012) X10*3/uL Nucleated RBC % (auto) 0.0 (0.0-0.2) /100WBC Sodium 139 (135-145) mmol/L Potassium 4.1 (3.3-5.1) mmol/L Chloride 104 (96-108) mmol/L Carbon Dioxide 28 (22-29) mmol/L Anion Gap 11 L (12-20) BUN 18 H (9-16) mg/dL Creatinine 0.79 (0.5-1.4) mg/dL Estim Creat Clear Calc 97.6 Estimated GFR > 60 Random Glucose 94 (60-115) mg/dL Calcium 9.3 (8.4-10.2) mg/dL Total Bilirubin 0.5 (0.0-1.0) mg/dL Direct Bilirubin 0.1 (0.0-0.5) mg/dL AST 14 (5-31) U/L ALT 14 (0-31) U/L Alkaline Phosphatase 91 (39-117) U/L B-Natriuretic Peptide (<100) pg/mL Total Protein 6.8 (6.5-8.0) g/dL Albumin 4.1 (3.5-5.0) g/dL Lipase 24 (8-78) U/L Beta HCG, Quant < 2 mIU/mL 09/20/22 Range/Units 05:16 WBC (4.8-10.8) X10*3/uL RBC (4.20-5.50) X10*6/uL Hgb (12.0-16.0) g/dl Hct (37.0-47.0) % MCV (80.0-98.0) fL MCH (27.0-33.0) pg MCHC (31.0-35.0) g/dl RDW (11.0-16.0) % Plt Count (160-400) X10*3/uL MPV (9.4-12.3) fL Immature Gran % (Auto) (0.0-0.4) % Neut % (Auto) (45-73) % Lymph % (Auto) (20-40) % [place] % (Auto) (2-11) % Eos % (Auto) (0-4) % Baso % (Auto) (0-2) % Lymph # (Auto) (1.2-4.9) X10*3/uL [place] # (Auto) (0.1-1.2) X10*3/uL Eos # (Auto) (0.0-0.4) X10*3/uL Baso # (Auto) (0.0-0.2) X10*3/uL Abs Immat Gran (auto) (0.00-0.03) X10*3/uL Absolute Neuts (auto) (2.0-8.3) x10*3/uL Absolute Nucleated RBC (0.0-0.012) X10*3/uL Nucleated RBC % (auto) (0.0-0.2) /100WBC Sodium (135-145) mmol/L Potassium (3.3-5.1) mmol/L Chloride (96-108) mmol/L Carbon Dioxide (22-29) mmol/L Anion Gap (12-20) BUN (9-16) mg/dL Creatinine (0.5-1.4) mg/dL Estim Creat Clear Calc Estimated GFR Random Glucose (60-115) mg/dL Calcium (8.4-10.2) mg/dL Total Bilirubin (0.0-1.0) mg/dL Direct Bilirubin (0.0-0.5) mg/dL AST (5-31) U/L ALT (0-31) U/L Alkaline Phosphatase (39-117) U/L B-Natriuretic Peptide 21 (<100) pg/mL Total Protein (6.5-8.0) g/dL Albumin (3.5-5.0) g/dL Lipase (8-78) U/L Beta HCG, Quant mIU/mL Discharge Plan Discharge Clinical Impression: Abdominal pain Patient Disposition: Home, Self-Care Instructions: Abdominal Pain (ED) Additional Instructions: Risk of kidney stone exists. Risk of urinary tract infection exists. You are leaving against medical advice. If he change of mind please come back to the hospital. Prescriptions: No Action albuterol sulfate 2.5 mg /3 mL (0.083 %) solution for nebulization 2.5 mg inhalation QID PRN (Reason: shortness of breath or wheezing) 30 Days Qty: 120 5RF montelukast 10 mg tablet 10 mg PO DAILY Qty: 30 3RF trazodone 100 mg tablet 100 mg PO BEDTIME 30 Days Qty: 30 1RF nitrofurantoin monohyd/m-cryst [Macrobid] 100 mg capsule 100 mg PO Q12H 7 Days Qty: 14 0RF Rx Instructions: must administer with a meal/food albuterol sulfate [Ventolin HFA] 90 mcg/actuation HFA aerosol inhaler 2 puff PO Q4-6H PRN (Reason: for wheezing) Qty: 18 1RF nitrofurantoin macrocrystal 100 mg capsule 100 mg PO BID 7 Days Qty: 14 0RF Rx Instructions: must administer with a meal/food desmopressin 0.2 mg tablet 0.6 mg PO BEDTIME 30 Days Qty: 90 3RF fluticasone propion-salmeterol [Wixela Inhub] 250-50 mcg/dose blister with device 1 inh inhalation BID 30 Days Qty: 60 3RF (DME) NEBULIZER See Rx Instructions .Route .MEDSUPPLY Qty: 1 0RF Rx Instructions: As directed 4 times a day as needed Referrals: Angelo Smith MD [Primary Care Provider] - 09/22/22 Stand Alone Forms: Against Medical Advice
[2022-09-20 05:27] LABS: MANUAL DIFF FLAG NO
[2022-09-20 05:28] LABS: Basophils Percent Auto 0.3 % (0-2); Eosinophils Absolute Auto 0.1 X10*3/uL (0.0-0.4); Eosinophils Percent Auto 0.9 % (0-4); Hematocrit 34.7 % (37.0-47.0); Hemoglobin 11.5 g/dl (12.0-16.0); Imm Gran Abs Auto 0.03 X10*3/uL (0.00-0.03); Imm Gran Pct Auto 0.4 % (0.0-0.4); Lymphocytes Absolute Auto 2.5 X10*3/uL (1.2-4.9); Lymphocytes Percent Auto 32.4 % (20-40); Mean Corpuscular HGB Conc 33.1 g/dl (31.0-35.0); Mean Corpuscular Hemoglobin 29.3 pg (27.0-33.0); Mean Corpuscular Volume 88.5 fL (80.0-98.0); Mean Platelet Volume 9.8 fL (9.4-12.3); Monocytes Absolute Auto 0.6 X10*3/uL (0.1-1.2); Monocytes Percent Auto 7.8 % (2-11); Neutrophils Absolute Auto 4.5 x10*3/uL (2.0-8.3); Neutrophils Percent Auto 58.2 % (45-73); Platelet Count 243 X10*3/uL (160-400); Red Blood Count 3.92 X10*6/uL (4.20-5.50); Red Cell Distribution Width 12.8 % (11.0-16.0); White Blood Count 7.7 X10*3/uL (4.8-10.8)
[2022-09-20] MEDS: 0.9 % Sodium Chloride 1,000 ML 999 ML IV (05:33)
[2022-09-20] MEDS: Ketorolac Tromethamine 30 MG/ML VIAL IVPUSH (05:33)
[2022-09-20 05:47] LABS: Alanine Aminotransferase 14 U/L (0-31); Albumin Level 4.1 g/dL (3.5-5.0); Alkaline Phosphatase 91 U/L (39-117); Anion Gap 11 (12-20); Aspartate Amino Transferase 14 U/L (5-31); Bilirubin Direct 0.1 mg/dL (0.0-0.5); Bilirubin Total 0.5 mg/dL (0.0-1.0); Blood Urea Nitrogen 18 mg/dL (9-16); Calcium 9.3 mg/dL (8.4-10.2); Carbon Dioxide 28 mmol/L (22-29); Chloride 104 mmol/L (96-108); Creatinine Clr Calc Pharmacy 97.6; Estimated Glomerular Filt Rate > 60; Glucose Random 94 mg/dL (60-115); Lipase 24 U/L (8-78); Potassium 4.1 mmol/L (3.3-5.1); Sodium 139 mmol/L (135-145); Total Protein 6.8 g/dL (6.5-8.0)
[2022-09-20 05:48] LABS: B Type Natriuretic Peptide 21 pg/mL (<100)
[2022-09-20 05:52] LABS: HCG Quantitative < 2 mIU/mL
== END 2022-09-20 08:14 | disposition home or self-care (01) ==
PROVIDERS: Emergency Provider Emergency Medicine Emergency Medical Services; PCP Internal Medicine
DX: R10.9 Unspecified abdominal pain (principal)
CPT/HCPCS: 36415; 80048; 80076; 83690; 83880; 84702; 85025; 96361; 96374; 99283; 99284; J1885

== ENCOUNTER 2022-10-09 18:21 | Emergency (ER) | payer OTHER, SELFPAY ==
--- NOTE | ~2022-10-09 | XR_ITS ---
EXAMINATION: XR CHEST CLINICAL INFORMATION: Chest pain COMPARISON: 11/25/2020 TECHNIQUE: 2 views of the chest were obtained. FINDINGS: Heart size is upper limits of normal. No significant abnormality is noted involving the heart, lungs, mediastinum, bony thorax or soft tissues. No interval change compared with 11/25/2020. XR/XR chest 2V IMPRESSION: No acute intrathoracic disease.
--- NOTE | ~2022-10-09 | US_ITS ---
EXAMINATION: US VENOUS ULTRASOUND WITH DOPPLER LOWER EXTREMITY, LEFT CLINICAL INFORMATION: Left lower extremity swelling COMPARISON: None available. TECHNIQUE: Ultrasound of the deep veins is performed from the hip to the calf with compression sonography and color and pulse Doppler assessment. Spectral analysis with color-flow imaging is performed. FINDINGS: There is normal venous compression and respiratory variation and augmented flow. The visualized common femoral vein, superficial femoral vein, profunda femoral vein, popliteal vein, and the trifurcation region shows no evidence of deep venous thrombosis. There is no significant popliteal fossa cyst. Contralateral right common femoral vein appears normal. If the patient's symptoms persist, followup ultrasound in 5 days 7 days might be of value to exclude proximal propagation from a non-visualized calf vein. US/US venous duplex LE IMPRESSION: No DVT demonstrated in the left lower extremity.
[2022-10-09 18:27] VITALS: BP 138/88; PULSE 62; O2SAT 97
[2022-10-09 19:06] VITALS: BP 111/91; PULSE 61; RESP 19; TEMP 36.8; O2SAT 98; BMI 46.9
--- NOTE | 2022-10-09 19:07 | ED.GENADULT ---
HPI - General Adult General Chief complaint: Chest Pain Stated complaint: leg edema chest pain Time Seen by Provider: 10/09/22 23:29 Related Data Previous Rx's Medication Instructions Recorded NEBULIZER #1 ea 04/20/21 albuterol sulfate 2.5 mg/3 mL 2.5 mg (3 mL) inhalation QID PRN 09/24/21 (0.083 %) solution for nebulization shortness of breath or wheezing 30 days #120 mL montelukast 10 mg tablet 10 mg PO DAILY #30 tabs 09/24/21 desmopressin 0.2 mg tablet 0.6 mg PO BEDTIME 30 days #90 tabs 06/08/22 fluticasone 250 mcg-salmeterol 50 1 inh inhalation BID 30 days #60 ea 06/08/22 mcg/dose blistr powdr for inhalation (Wixela Inhub) nitrofurantoin macrocrystal 100 mg 100 mg PO BID 7 days #14 caps 06/08/22 capsule trazodone 100 mg tablet 100 mg PO BEDTIME 30 days #30 tabs 09/07/22 albuterol sulfate 90 mcg/actuation 2 puff PO Q4-6H PRN for wheezing 09/16/22 aerosol inhaler (Ventolin HFA) #18 ea nitrofurantoin 100 mg PO Q12H 7 days #14 caps 09/16/22 monohydrate/macrocrystals 100 mg capsule (Macrobid) nitrofurantoin 100 mg PO Q12H 7 days #14 caps 10/10/22 monohydrate/macrocrystals 100 mg capsule (Macrobid) Allergies Allergy/AdvReac Type Severity Reaction Status Date / Time lithium [From LITHATE] Allergy Severe ANAPHYLAXIS Verified 06/08/22 13:20 codeine [CODEINE] Allergy Unknown UNKNOWN Verified 06/08/22 13:20 [facility] [place] Past Medical History Medical History Asthma Attention deficit hyperactivity disorder (ADHD) Bipolar affective disorder, current episode mixed Environmental allergies GERD without esophagitis Insomnia Lumbar back pain Morbid obesity with BMI of 45.0-49.9, adult Nocturnal enuresis Obesity Pulmonary nodules Renal cyst Right knee pain Uses control UTI (urinary tract infection) Surgical History History of surgery Family History Family History Father Ketoacidosis Diabetes ADHD Chronic mental illness Substance abuse Mother Anxiety Hypertension Crohn disease Family/Other Chronic mental illness Social History Social History Housing: Apartment Alcohol intake: former Patient Tobacco Use Status: Never used Tobacco Smoked in Last 30 Days: No e-Cigarette/Vaping Use: Never Used Second Hand Smoke Exposure: Yes Use of substances other than those prescribed or required for medical reasons: No Advance Directives: No Advance Directives Information Provided: Yes Patient : No service: No Current occupational status: employed Current occupational exposures/hazards: No Cognitive needs: No Hearing needs: No Vision needs: No Physical Exam ED Vital Signs: BMI result Body Mass Index 46.9 Course Course Course Narrative: This is an RME: Additional HPI, ROS, PE not included below will be deferred to primary provider. Patient is a 32-year-old female who presents emergency department via EMS. She is Complaining of mid chest pain x1 week, sharp in nature, that is intermittent in nature, unable to identify exacerbating factors, self-resolving. Has productive cough with dark green phlegm, and shortness of breath. Also she is reporting extremity swelling, she has a reported history of edema to the bilateral extremities, however, she is now experiencing unilateral increase of swelling to the left lower extremity chest, there is no pain to the lower extremity, erythema, warmth. No precipitating injury. Plan: Serum labs, venous duplex left lower extremity, EKG, chest XR Medications Administered Discontinued Medications Generic Name Dose Route Start Last Admin Trade Name Freq PRN Reason Stop Dose Admin Nitrofurantoin Macrocrystals 100 mg 10/10/22 00:27 10/10/22 00:30 Nitrofurantoin Monohyd/M-Cryst 100 Mg Capsule PO 10/10/22 00:28 100 mg ONCE ONE Administration Medical Decision Making Lab Data 10/09/22 20:13 10/09/22 20:13 Labs: Lab Results 10/09/22 10/09/22 10/09/22 Range/Units 20:12 20:13 20:13 WBC 7.6 (4.8-10.8) X10*3/uL RBC 3.92 L (4.20-5.50) X10*6/uL Hgb 11.4 L (12.0-16.0) g/dl Hct 34.7 L (37.0-47.0) % MCV 88.5 (80.0-98.0) fL MCH 29.1 (27.0-33.0) pg MCHC 32.9 (31.0-35.0) g/dl RDW 13.0 (11.0-16.0) % Plt Count 262 (160-400) X10*3/uL MPV 9.9 (9.4-12.3) fL Immature Gran % (Auto) 0.1 (0.0-0.4) % Neut % (Auto) 55.2 (45-73) % Lymph % (Auto) 35.8 (20-40) % [place] % (Auto) 7.8 (2-11) % Eos % (Auto) 0.8 (0-4) % Baso % (Auto) 0.3 (0-2) % Lymph # (Auto) 2.7 (1.2-4.9) X10*3/uL [place] # (Auto) 0.6 (0.1-1.2) X10*3/uL Eos # (Auto) 0.1 (0.0-0.4) X10*3/uL Baso # (Auto) 0.0 (0.0-0.2) X10*3/uL Abs Immat Gran (auto) 0.01 (0.00-0.03) X10*3/uL Absolute Neuts (auto) 4.2 (2.0-8.3) x10*3/uL Absolute Nucleated RBC 0.000 (0.0-0.012) X10*3/uL Nucleated RBC % (auto) 0.0 (0.0-0.2) /100WBC PT 11.0 (10.0-13.1) SEC INR 1.0 (0.9-1.1) Sodium (135-145) mmol/L Potassium (3.3-5.1) mmol/L Chloride (96-108) mmol/L Carbon Dioxide (22-29) mmol/L Anion Gap (12-20) BUN (9-16) mg/dL Creatinine (0.5-1.4) mg/dL Estim Creat Clear Calc Estimated GFR Random Glucose (60-115) mg/dL Calcium (8.4-10.2) mg/dL Total Bilirubin (0.0-1.0) mg/dL AST (5-31) U/L ALT (0-31) U/L Alkaline Phosphatase (39-117) U/L Troponin I High Sens (<3.5-17.0) ng/L B-Natriuretic Peptide 56 (<100) pg/mL Total Protein (6.5-8.0) g/dL Albumin (3.5-5.0) g/dL Urine Color Urine Appearance Urine pH (5.0-9.0) Ur Specific [place] (1.005-1.025) Urine Protein (Neg-Trace) mg/dL Urine Glucose (UA) (Negative) mg/dL Urine Ketones (Negative) mg/dL Urine Blood (Negative) Urine Nitrite (Negative) Ur Leukocyte Esterase (Negative) Urine RBC (0-2) /HPF Urine WBC (0-5) /HPF Ur Squamous Epith Cells (0-2) /HPF Urine Bacteria (None Seen) Hyaline Casts (0-2) /LPF 10/09/22 10/09/22 10/09/22 Range/Units 20:13 20:13 22:44 WBC (4.8-10.8) X10*3/uL RBC (4.20-5.50) X10*6/uL Hgb (12.0-16.0) g/dl Hct (37.0-47.0) % MCV (80.0-98.0) fL MCH (27.0-33.0) pg MCHC (31.0-35.0) g/dl RDW (11.0-16.0) % Plt Count (160-400) X10*3/uL MPV (9.4-12.3) fL Immature Gran % (Auto) (0.0-0.4) % Neut % (Auto) (45-73) % Lymph % (Auto) (20-40) % [place] % (Auto) (2-11) % Eos % (Auto) (0-4) % Baso % (Auto) (0-2) % Lymph # (Auto) (1.2-4.9) X10*3/uL [place] # (Auto) (0.1-1.2) X10*3/uL Eos # (Auto) (0.0-0.4) X10*3/uL Baso # (Auto) (0.0-0.2) X10*3/uL Abs Immat Gran (auto) (0.00-0.03) X10*3/uL Absolute Neuts (auto) (2.0-8.3) x10*3/uL Absolute Nucleated RBC (0.0-0.012) X10*3/uL Nucleated RBC % (auto) (0.0-0.2) /100WBC PT (10.0-13.1) SEC INR (0.9-1.1) Sodium 140 (135-145) mmol/L Potassium 4.0 (3.3-5.1) mmol/L Chloride 106 (96-108) mmol/L Carbon Dioxide 27 (22-29) mmol/L Anion Gap 11 L (12-20) BUN 17 H (9-16) mg/dL Creatinine 0.93 (0.5-1.4) mg/dL Estim Creat Clear Calc 112.9 Estimated GFR > 60 Random Glucose 87 (60-115) mg/dL Calcium 9.5 (8.4-10.2) mg/dL Total Bilirubin 0.4 (0.0-1.0) mg/dL AST 15 (5-31) U/L ALT 14 (0-31) U/L Alkaline Phosphatase 111 (39-117) U/L Troponin I High Sens < 2.7 (<3.5-17.0) ng/L B-Natriuretic Peptide (<100) pg/mL Total Protein 7.4 (6.5-8.0) g/dL Albumin 4.2 (3.5-5.0) g/dL Urine Color Yellow Urine Appearance Cloudy Urine pH 7.0 (5.0-9.0) Ur Specific [place] >= 1.030 H (1.005-1.025) Urine Protein Trace (Neg-Trace) mg/dL Urine Glucose (UA) Negative (Negative) mg/dL Urine Ketones Negative (Negative) mg/dL Urine Blood Large (3+) H (Negative) Urine Nitrite Positive H (Negative) Ur Leukocyte Esterase Small (1+) H (Negative) Urine RBC 11-20 H (0-2) /HPF Urine WBC 6-10 H (0-5) /HPF Ur Squamous Epith Cells 3-5 (0-2) /HPF Urine Bacteria 4+ (None Seen) Hyaline Casts 0-2 (0-2) /LPF Discharge Plan Discharge Clinical Impression: UTI (urinary tract infection), Chest pain, Pedal edema Patient Disposition: Home, Self-Care Instructions: Chest Pain (DC), Urinary Tract Infection in Women (DC), Leg Edema (ED) Prescriptions: New nitrofurantoin monohyd/m-cryst [Macrobid] 100 mg capsule 100 mg PO Q12H 7 Days Qty: 14 0RF Rx Instructions: must administer with a meal/food No Action albuterol sulfate 2.5 mg /3 mL (0.083 %) solution for nebulization 2.5 mg inhalation QID PRN (Reason: shortness of breath or wheezing) 30 Days Qty: 120 5RF montelukast 10 mg tablet 10 mg PO DAILY Qty: 30 3RF trazodone 100 mg tablet 100 mg PO BEDTIME 30 Days Qty: 30 1RF nitrofurantoin monohyd/m-cryst [Macrobid] 100 mg capsule 100 mg PO Q12H 7 Days Qty: 14 0RF Rx Instructions: must administer with a meal/food albuterol sulfate [Ventolin HFA] 90 mcg/actuation HFA aerosol inhaler 2 puff PO Q4-6H PRN (Reason: for wheezing) Qty: 18 1RF nitrofurantoin macrocrystal 100 mg capsule 100 mg PO BID 7 Days Qty: 14 0RF Rx Instructions: must administer with a meal/food desmopressin 0.2 mg tablet 0.6 mg PO BEDTIME 30 Days Qty: 90 3RF fluticasone propion-salmeterol [Wixela Inhub] 250-50 mcg/dose blister with device 1 inh inhalation BID 30 Days Qty: 60 3RF (DME) NEBULIZER See Rx Instructions .Route .MEDSUPPLY Qty: 1 0RF Rx Instructions: As directed 4 times a day as needed Referrals: Samy Shook MD [Physician] - Marco Antonio Hare MD [Physician] - Physician,Unknown J [Primary Care Provider] - Interventions: ED Discharge Assessment Last Done: 10/10/22 00:35 Discharge Date/Time: 10/10/22 00:35
--- NOTE | 2022-10-09 19:12 | ECG_ITS ---
Test Reason : CHEST PAIN Blood Pressure : / mmHG Vent. Rate : 066 BPM Atrial Rate : 066 BPM P-R Int : 214 ms QRS Dur : 098 ms QT Int : 426 ms P-R-T Axes : 033 012 027 degrees QTc Int : 446 ms Sinus rhythm with 1st degree A-V block Incomplete right bundle branch block Cannot rule out Anterior infarct , age undetermined Abnormal ECG When compared with ECG of 30-JUN-2019 13:58, OR interval has increased Referred By: Portia Baker Electronically Signed By:RAMONA ALEJO
--- NOTE | 2022-10-09 19:55 | MHC.EDTECH ---
Delayed EKG for chest pain due to patient being x-rayed and then taken to ultrasound.
[2022-10-09 20:18] LABS: MANUAL DIFF FLAG NO
[2022-10-09 20:19] LABS: Basophils Percent Auto 0.3 % (0-2); Eosinophils Absolute Auto 0.1 X10*3/uL (0.0-0.4); Eosinophils Percent Auto 0.8 % (0-4); Hematocrit 34.7 % (37.0-47.0); Hemoglobin 11.4 g/dl (12.0-16.0); Imm Gran Abs Auto 0.01 X10*3/uL (0.00-0.03); Imm Gran Pct Auto 0.1 % (0.0-0.4); Lymphocytes Absolute Auto 2.7 X10*3/uL (1.2-4.9); Lymphocytes Percent Auto 35.8 % (20-40); Mean Corpuscular HGB Conc 32.9 g/dl (31.0-35.0); Mean Corpuscular Hemoglobin 29.1 pg (27.0-33.0); Mean Corpuscular Volume 88.5 fL (80.0-98.0); Mean Platelet Volume 9.9 fL (9.4-12.3); Monocytes Absolute Auto 0.6 X10*3/uL (0.1-1.2); Monocytes Percent Auto 7.8 % (2-11); Neutrophils Absolute Auto 4.2 x10*3/uL (2.0-8.3); Neutrophils Percent Auto 55.2 % (45-73); Platelet Count 262 X10*3/uL (160-400); Red Blood Count 3.92 X10*6/uL (4.20-5.50); White Blood Count 7.6 X10*3/uL (4.8-10.8)
[2022-10-09 20:42] LABS: Alanine Aminotransferase 14 U/L (0-31); Albumin Level 4.2 g/dL (3.5-5.0); Alkaline Phosphatase 111 U/L (39-117); Anion Gap 11 (12-20); Aspartate Amino Transferase 15 U/L (5-31); Bilirubin Total 0.4 mg/dL (0.0-1.0); Blood Urea Nitrogen 17 mg/dL (9-16); Calcium 9.5 mg/dL (8.4-10.2); Carbon Dioxide 27 mmol/L (22-29); Chloride 106 mmol/L (96-108); Creatinine Clr Calc Pharmacy 112.9; Estimated Glomerular Filt Rate > 60; Glucose Random 87 mg/dL (60-115); Sodium 140 mmol/L (135-145); Total Protein 7.4 g/dL (6.5-8.0)
[2022-10-09 20:48] LABS: B Type Natriuretic Peptide 56 pg/mL (<100)
[2022-10-09 20:49] LABS: Troponin-I High Sensitivity < 2.7 ng/L (<3.5-17.0)
[2022-10-09 22:26] VITALS: BP 113/62; PULSE 66; PULSE 70; RESP 16; TEMP 36.5; O2SAT 99
[2022-10-09 22:52] LABS: Appearance Urine Cloudy; Color Urine Yellow; Glucose Urine UA Negative (Negative); Leukocyte Esterase Urine Small (1+) (Negative); Nitrite Urine Positive (Negative); Specific Gravity - Urine >= 1.030 (1.005-1.025); UMIC TRIGGER UACC YES; Urine Blood Large (3+) (Negative); Urine Ketones Negative (Negative); Urine Protein Trace mg/dL (Neg-Trace)
[2022-10-09 22:57] LABS: Bacteria Urine 4+ (None Seen); Hyaline Casts Urine 0-2 /LPF (0-2); UACC Culture Trigger YES
--- NOTE | 2022-10-10 00:04 | ED_ITS ---
HPI - Chest Pain General Chief Complaint: Chest Pain Stated Complaint: leg edema chest pain Time Seen by Provider: 10/09/22 23:29 History of Present Illness HPI narrative: patient is a 32-year-old female presents today with having chest pain has been ongoing all day today been on and off all week. No diaphoresis. No fever no chills. No shortness of breath. No specific trigger. No history of blood clot. Positive leg swelling to the left side. Patient from home. She has no travel. No history of blood clots. No history of control. No history of cancer. No history of diabetes, hypertension, high cholesterol, smoking, [place]. positive history of leg swelling in the past patient feels her left leg is more swollen. There is no trauma. She is able to ambulate well. Related Data Previous Rx's Medication Instructions Recorded NEBULIZER #1 ea 04/20/21 albuterol sulfate 2.5 mg/3 mL 2.5 mg (3 mL) inhalation QID PRN 09/24/21 (0.083 %) solution for nebulization shortness of breath or wheezing 30 days #120 mL montelukast 10 mg tablet 10 mg PO DAILY #30 tabs 09/24/21 desmopressin 0.2 mg tablet 0.6 mg PO BEDTIME 30 days #90 tabs 06/08/22 fluticasone 250 mcg-salmeterol 50 1 inh inhalation BID 30 days #60 ea 06/08/22 mcg/dose blistr powdr for inhalation (Wixela Inhub) nitrofurantoin macrocrystal 100 mg 100 mg PO BID 7 days #14 caps 06/08/22 capsule trazodone 100 mg tablet 100 mg PO BEDTIME 30 days #30 tabs 09/07/22 albuterol sulfate 90 mcg/actuation 2 puff PO Q4-6H PRN for wheezing 09/16/22 aerosol inhaler (Ventolin HFA) #18 ea nitrofurantoin 100 mg PO Q12H 7 days #14 caps 09/16/22 monohydrate/macrocrystals 100 mg capsule (Macrobid) nitrofurantoin 100 mg PO Q12H 7 days #14 caps 10/10/22 monohydrate/macrocrystals 100 mg capsule (Macrobid) Allergies Allergy/AdvReac Type Severity Reaction Status Date / Time lithium [From LITHATE] Allergy Severe ANAPHYLAXIS Verified 06/08/22 13:20 codeine [CODEINE] Allergy Unknown UNKNOWN Verified 06/08/22 13:20 Review of Systems Review of Systems: Positive left leg swelling. Positive chest pain. No diaphoresis Yes all other systems are reviewed and are negative [facility] Past Medical History Attestation statement: The following information was validated with the patient. Medical History Asthma Attention deficit hyperactivity disorder (ADHD) Bipolar affective disorder, current episode mixed Environmental allergies GERD without esophagitis Insomnia Lumbar back pain Morbid obesity with BMI of 45.0-49.9, adult Nocturnal enuresis Obesity Pulmonary nodules Renal cyst Right knee pain Uses control UTI (urinary tract infection) Surgical History History of surgery Family History Family History Father Ketoacidosis Diabetes ADHD Chronic mental illness Substance abuse Mother Anxiety Hypertension Crohn disease Family/Other Chronic mental illness Social History Social History Housing: Apartment Alcohol intake: former Patient Tobacco Use Status: Never used Tobacco Smoked in Last 30 Days: No e-Cigarette/Vaping Use: Never Used Second Hand Smoke Exposure: Yes Use of substances other than those prescribed or required for medical reasons: No Advance Directives: No Advance Directives Information Provided: Yes Patient : No service: No Current occupational status: employed Current occupational exposures/hazards: No Cognitive needs: No Hearing needs: No Vision needs: No Physical Exam Vital Signs: Vital Signs: Last Vital Signs Temp 97.7 F 10/09/22 22:26 Pulse 66 10/09/22 22:26 Resp 16 10/09/22 22:26 BP 113/62 10/09/22 22:26 Pulse Ox 99 10/09/22 22:26 O2 Del Method Room Air 10/09/22 22:26 BMI result Body Mass Index 46.9 Appearance: Alert. Oriented X3. No acute distress. Eyes: Pupils equal, round and reactive to light. ENT: Pharynx normal. Neck: Normal inspection. Neck supple. No lymph nodes noted. No crepitus CVS: Normal heart rate and rhythm. Pulses normal. Normal S1 and S2 Respiratory: No respiratory distress. Breath sounds normal. No Wheezing. No rales Abdomen: Soft and nontender. No rigidity. No distention. good BS x4 Skin: Skin warm and dry. Normal skin color. Normal skin turgor. Extremities: positive edema to the left lower extremity, 2+ edema distal pulses intact. Sensation intact no tenderness on palpation.. Neurovascular intact to all extremities. No Lacerations. No Rash Neuro: Oriented X 3. No motor deficit. No sensory deficit. Moving all extermities. No slurred speech Medical Decision Making Medical Decision Making [facility] Narrative: Doppler of the left lower extremity was negative for any acute evidence of DVT. My interpretation of the patient's EKG showed a sinus rhythm heart rate is 65 NC QRS QTC within normal limits is no acute ST elevation. Patient's troponin is negative despite having chest pain all day. Has no significant cardiac risk factor her pain is atypical. Making ACS unlikely. History not consistent with PE. Doppler of the lower extremity showed no DVT. Patient urine however did show a urinary tract infection. Patient's previous culture was reviewed. Positive history of having E coli grown out. Positive history of having resistance to Bactrim. Will go ahead and give patient Macrobid for 7 days. Close follow-up on an outpatient basis. No CVA tenderness elicited on palpation. Patient did complain of urinary symptoms. She will need follow-up with Urology she constantly has urinary tract infection in the past. In stable condition. Follow up Cardiology for the chest pain. Patient's BMP is 56 is no evidence for congestive heart failure Differential Diagnosis congestive heart failure, ACS, PE, DVT, pneumonia, liver disease, UTI, related issues Lab Data [facility] Lab Attestation statement: I reviewed the patient's lab results. 10/09/22 20:13 10/09/22 20:13 Labs: Lab Results 10/09/22 10/09/22 10/09/22 Range/Units 20:12 20:13 20:13 WBC 7.6 (4.8-10.8) X10*3/uL RBC 3.92 L (4.20-5.50) X10*6/uL Hgb 11.4 L (12.0-16.0) g/dl Hct 34.7 L (37.0-47.0) % MCV 88.5 (80.0-98.0) fL MCH 29.1 (27.0-33.0) pg MCHC 32.9 (31.0-35.0) g/dl RDW 13.0 (11.0-16.0) % Plt Count 262 (160-400) X10*3/uL MPV 9.9 (9.4-12.3) fL Immature Gran % (Auto) 0.1 (0.0-0.4) % Neut % (Auto) 55.2 (45-73) % Lymph % (Auto) 35.8 (20-40) % [place] % (Auto) 7.8 (2-11) % Eos % (Auto) 0.8 (0-4) % Baso % (Auto) 0.3 (0-2) % Lymph # (Auto) 2.7 (1.2-4.9) X10*3/uL [place] # (Auto) 0.6 (0.1-1.2) X10*3/uL Eos # (Auto) 0.1 (0.0-0.4) X10*3/uL Baso # (Auto) 0.0 (0.0-0.2) X10*3/uL Abs Immat Gran (auto) 0.01 (0.00-0.03) X10*3/uL Absolute Neuts (auto) 4.2 (2.0-8.3) x10*3/uL Absolute Nucleated RBC 0.000 (0.0-0.012) X10*3/uL Nucleated RBC % (auto) 0.0 (0.0-0.2) /100WBC PT 11.0 (10.0-13.1) SEC INR 1.0 (0.9-1.1) Sodium (135-145) mmol/L Potassium (3.3-5.1) mmol/L Chloride (96-108) mmol/L Carbon Dioxide (22-29) mmol/L Anion Gap (12-20) BUN (9-16) mg/dL Creatinine (0.5-1.4) mg/dL Estim Creat Clear Calc Estimated GFR Random Glucose (60-115) mg/dL Calcium (8.4-10.2) mg/dL Total Bilirubin (0.0-1.0) mg/dL AST (5-31) U/L ALT (0-31) U/L Alkaline Phosphatase (39-117) U/L Troponin I High Sens (<3.5-17.0) ng/L B-Natriuretic Peptide 56 (<100) pg/mL Total Protein (6.5-8.0) g/dL Albumin (3.5-5.0) g/dL Urine Color Urine Appearance Urine pH (5.0-9.0) Ur Specific [place] (1.005-1.025) Urine Protein (Neg-Trace) mg/dL Urine Glucose (UA) (Negative) mg/dL Urine Ketones (Negative) mg/dL Urine Blood (Negative) Urine Nitrite (Negative) Ur Leukocyte Esterase (Negative) Urine RBC (0-2) /HPF Urine WBC (0-5) /HPF Ur Squamous Epith Cells (0-2) /HPF Urine Bacteria (None Seen) Hyaline Casts (0-2) /LPF 10/09/22 10/09/22 10/09/22 Range/Units 20:13 20:13 22:44 WBC (4.8-10.8) X10*3/uL RBC (4.20-5.50) X10*6/uL Hgb (12.0-16.0) g/dl Hct (37.0-47.0) % MCV (80.0-98.0) fL MCH (27.0-33.0) pg MCHC (31.0-35.0) g/dl RDW (11.0-16.0) % Plt Count (160-400) X10*3/uL MPV (9.4-12.3) fL Immature Gran % (Auto) (0.0-0.4) % Neut % (Auto) (45-73) % Lymph % (Auto) (20-40) % [place] % (Auto) (2-11) % Eos % (Auto) (0-4) % Baso % (Auto) (0-2) % Lymph # (Auto) (1.2-4.9) X10*3/uL [place] # (Auto) (0.1-1.2) X10*3/uL Eos # (Auto) (0.0-0.4) X10*3/uL Baso # (Auto) (0.0-0.2) X10*3/uL Abs Immat Gran (auto) (0.00-0.03) X10*3/uL Absolute Neuts (auto) (2.0-8.3) x10*3/uL Absolute Nucleated RBC (0.0-0.012) X10*3/uL Nucleated RBC % (auto) (0.0-0.2) /100WBC PT (10.0-13.1) SEC INR (0.9-1.1) Sodium 140 (135-145) mmol/L Potassium 4.0 (3.3-5.1) mmol/L Chloride 106 (96-108) mmol/L Carbon Dioxide 27 (22-29) mmol/L Anion Gap 11 L (12-20) BUN 17 H (9-16) mg/dL Creatinine 0.93 (0.5-1.4) mg/dL Estim Creat Clear Calc 112.9 Estimated GFR > 60 Random Glucose 87 (60-115) mg/dL Calcium 9.5 (8.4-10.2) mg/dL Total Bilirubin 0.4 (0.0-1.0) mg/dL AST 15 (5-31) U/L ALT 14 (0-31) U/L Alkaline Phosphatase 111 (39-117) U/L Troponin I High Sens < 2.7 (<3.5-17.0) ng/L B-Natriuretic Peptide (<100) pg/mL Total Protein 7.4 (6.5-8.0) g/dL Albumin 4.2 (3.5-5.0) g/dL Urine Color Yellow Urine Appearance Cloudy Urine pH 7.0 (5.0-9.0) Ur Specific [place] >= 1.030 H (1.005-1.025) Urine Protein Trace (Neg-Trace) mg/dL Urine Glucose (UA) Negative (Negative) mg/dL Urine Ketones Negative (Negative) mg/dL Urine Blood Large (3+) H (Negative) Urine Nitrite Positive H (Negative) Ur Leukocyte Esterase Small (1+) H (Negative) Urine RBC 11-20 H (0-2) /HPF Urine WBC 6-10 H (0-5) /HPF Ur Squamous Epith Cells 3-5 (0-2) /HPF Urine Bacteria 4+ (None Seen) Hyaline Casts 0-2 (0-2) /LPF Independent Interpretation I performed an independent interpretation of an: EKG and Plain X-Ray Interpretation: my interpretation of the patient's EKG showed a sinus rhythm heart rate is 65 NC QRS QTC within normal limits there is no acute ST segment elevation noted. My interpretation of the patient's chest x-ray showed no pneumonia no pneumothorax Radiology Impression Discussion of test interpretation with radiology: I have reviewed the radiologist's reading. External Record Review External record reviewed: Inpatient record Chronic Conditions asthma Discharge Plan Discharge Clinical Impression: UTI (urinary tract infection), Chest pain, Pedal edema Patient Disposition: Home, Self-Care Instructions: Chest Pain (DC), Urinary Tract Infection in Women (DC), Leg Edema (ED) Prescriptions: New nitrofurantoin monohyd/m-cryst [Macrobid] 100 mg capsule 100 mg PO Q12H 7 Days Qty: 14 0RF Rx Instructions: must administer with a meal/food No Action albuterol sulfate 2.5 mg /3 mL (0.083 %) solution for nebulization 2.5 mg inhalation QID PRN (Reason: shortness of breath or wheezing) 30 Days Qty: 120 5RF montelukast 10 mg tablet 10 mg PO DAILY Qty: 30 3RF trazodone 100 mg tablet 100 mg PO BEDTIME 30 Days Qty: 30 1RF nitrofurantoin monohyd/m-cryst [Macrobid] 100 mg capsule 100 mg PO Q12H 7 Days Qty: 14 0RF Rx Instructions: must administer with a meal/food albuterol sulfate [Ventolin HFA] 90 mcg/actuation HFA aerosol inhaler 2 puff PO Q4-6H PRN (Reason: for wheezing) Qty: 18 1RF nitrofurantoin macrocrystal 100 mg capsule 100 mg PO BID 7 Days Qty: 14 0RF Rx Instructions: must administer with a meal/food desmopressin 0.2 mg tablet 0.6 mg PO BEDTIME 30 Days Qty: 90 3RF fluticasone propion-salmeterol [Wixela Inhub] 250-50 mcg/dose blister with device 1 inh inhalation BID 30 Days Qty: 60 3RF (DME) NEBULIZER See Rx Instructions .Route .MEDSUPPLY Qty: 1 0RF Rx Instructions: As directed 4 times a day as needed Referrals: Samy Shook MD [Physician] - Marco Antonio Hare MD [Physician] - Physician,Figueroa J [Primary Care Provider] -
[2022-10-10 00:08] VITALS: BP 129/73; PULSE 60; RESP 18; TEMP 36.5; O2SAT 99
[2022-10-10] MEDS: Nitrofurantoin Monohyd/M-Cryst 100 MG CAPSULE PO (00:30)
== END 2022-10-10 00:35 | disposition home or self-care (01) ==
PROVIDERS: Nurse Practitioner Family; Emergency Provider Emergency Medicine Emergency Medical Services
DX: N39.0 Urinary tract infection, site not specified (principal); R07.89 Other chest pain; R60.0 Localized edema; R06.02 Shortness of breath; Z79.899 Other long term (current) drug therapy
CPT/HCPCS: 36415; 71046; 80053; 81001; 83880; 84484; 85025; 85610; 87086; 93005; 93971; 99285

== ENCOUNTER 2022-11-09 10:57 | Outpatient (AMB) | payer OTHER, SELFPAY ==
--- NOTE | 2022-11-09 11:44 | MHC.OFFWIV ---
Intake Vital Signs 11/09/22 11:46 BP 124/72 Blood Pressure Location Rt brachial Position Sitting Pulse 72 Pulse Source Pulse Oximeter Temp 97.5 F Temp Source Temporal Artery Scan Pulse Oximetry (%) 97 Oxygen Delivery Method Room Air Intake Visit Reasons: EP leg swelling LT leg (lobby) Intake Note: Patient here for left leg swelling for about a month and possible UTI. Patient Tobacco Use Status: Tobacco use Unknown Allergies lithium [From LITHATE] Allergy (Severe, Verified 11/09/22 11:44) ANAPHYLAXIS codeine [CODEINE] Allergy (Unknown, Verified 11/09/22 11:44) UNKNOWN Do you need a note to return to daycare/school/sports/work: No HPI EP leg swelling LT leg (lobby) HPI Details 32-year-old female presents to the walk-in clinic today for multiple complaints. she has had left greater than right lower leg and ankle swelling for the last month. She states she has gained 15 lb over the last 2 months. She was seen in a [facility] emergency department on 10/09 for chest pain, lower extremity swelling, UTI. Cardiac event and DVT were ruled out. She was started on Macrobid for UTI. she reports that her UTI symptoms were improved for about a week, and then symptoms recurred. She was referred to Cardiology and also to urology for recurring UTIs. She returns today as she missed her scheduled primary care visit with Dr. Smith this morning and would like labs ordered as she continues to have weight gain, ankle swelling L>R as well as urinary frequency and burning. [facility] Medical History Asthma Attention deficit hyperactivity disorder (ADHD) Bipolar affective disorder, current episode mixed Environmental allergies GERD without esophagitis Insomnia Lumbar back pain Morbid obesity with BMI of 45.0-49.9, adult Nocturnal enuresis Obesity Pulmonary nodules Renal cyst Right knee pain Uses control UTI (urinary tract infection) Surgical History History of surgery Family History Father Ketoacidosis Diabetes ADHD Chronic mental illness Substance abuse Mother Anxiety Hypertension Crohn disease Family/Other Chronic mental illness Social History (Reviewed 11/09/22 @ 14:16 by FEDE Castillo Housing: Apartment Alcohol intake: former Patient Tobacco Use Status: Tobacco use Unknown e-Cigarette/Vaping Use: Never Used Second Hand Smoke Exposure: Yes service: No Current occupational status: employed Current occupational exposures/hazards: No Cognitive needs: No Hearing needs: No Vision needs: No Female Reproductive History Menstrual Age of Menarche: 11 Review of Systems Const All systems reviewed & are unremarkable except as noted in HPI and below Physical Exam Vital Signs: Last Vital Signs Temp 97.5 F 11/09/22 11:46 Pulse 72 11/09/22 11:46 BP 124/72 11/09/22 11:46 Pulse Ox 97 11/09/22 11:46 Oxygen Delivery Method Room Air 11/09/22 11:46 Const General: cooperative and no acute distress Nutritional Appearance: obese Neck Neck: Yes no lymphadenopathy Resp Effort & Inspection: normal respiratory effort and able to speak in complete sentences Auscultation: clear to auscultation bilaterally Cardio Jugular venous distension: no JVD Palpation: normal PMI Rate: regular rate Rhythm: regular rhythm GI Palpation (GI): Soft to palpation and No hepatosplenomegaly present General: Yes bladder normal to palpation and Yes no CVA tenderness Bimanual exam- vagina & uterus: bladder normal to palpation Back/Spine/Pelvis Back: no CVA tenderness Skin General skin exam: no rashes or lesions noted Neuro General: gait normal and deep tendon reflexes 2+ bilaterally Extrem Other: bilateral lower extremities with 1+ pedal and ankle edema, L slightly worse than R General: Yes capillary refill normal Psych Mental Status: mental status grossly normal Affect: Anxious affect present Results AMB Urinalysis, Automated UA Leukoctes 0 Santos/uL Last Edit by MAGNUS Rizvi on 11/09/22 11:58 UA Nitrite Positive Last Edit by MAGNUS Rizvi on 11/09/22 11:58 UA Urobilinogen 0.2 mg/dL Last Edit by MAGNUS Rizvi on 11/09/22 11:58 UA Protein 0 mg/dL Last Edit by MAGNUS Rizvi on 11/09/22 11:58 UA pH 6.0 Last Edit by MAGNUS Rizvi on 11/09/22 11:58 UA Blood 0 Os[place]/uL Last Edit by MAGNUS Rizvi on 11/09/22 11:58 UA Specific [place] 1.025 Last Edit by Morris Cordova CCM on 11/09/22 11:58 UA Ketone Negative Last Edit by Morris Cordova CCM on 11/09/22 11:58 UA Bilirubin 0 mg/dL Last Edit by Morris Cordova [facility] on 11/09/22 11:58 UA Glucose 0 mg/dL Last Edit by Morris Cordova [facility] on 11/09/22 11:58 Results Reviewed Results Reviewed: Laboratory Last Values Urine pH (Auto) 6.0 11/09/22 11:56 Specific [place] (Auto) 1.025 11/09/22 11:56 Urine Protein (Auto) 0 mg/dL 11/09/22 11:56 Glucose (UA)(Auto) 0 mg/dL 11/09/22 11:56 Urine Ketones (Auto) Negative 11/09/22 11:56 Urine Blood (Auto) 0 Os[place]/uL 11/09/22 11:56 Urine Nitrite (Auto) Positive 11/09/22 11:56 Urine Bilirubin (Auto) 0 mg/dL 11/09/22 11:56 Urine Urobilinogen (Auto) 0.2 mg/dL 11/09/22 11:56 Leukocyte Esterase (Auto) 0 Santos/uL 11/09/22 11:56 Assessment & Plan Assessment & Plan (1) Pedal edema: Code(s): R60.0 - Localized edema Plan: Patient continue to have mild LE edema and weight gain. She was supposed to see her PCP this morning however missed her appointment. I will order some labs today ( CBC, BMP, TSH, A1c) and I strongly encouraged her to f/u with her PCP as soon as possible. She can continue to wear compression stockings and I encouraged healthy, lower sodium diet. If new symptoms develop in the interim she should return to the clinic or the ED for further evaluation. (2) Weight gain: Code(s): R63.5 - Abnormal weight gain (3) Dysuria: Code(s): R30.0 - Dysuria Plan: Patient has recurrent UTI. She was recently on Macrobid. I will start her on Bactrim BID 3 days. She should return to clinic if unimproved with treatment. Advised to increase hydration. Orders: Orders Basic Metabolic Panel Today R60.0 - Localized edema Hemoglobin A1c Today R63.5 - Abnormal weight gain TSH reflex Free T4 Today R63.5 - Abnormal weight gain Complete Blood Count Auto Diff Today R60.0 - Localized edema AMB Urinalysis Automated Today Z13.9 - Encounter for screening, unspecified Medications: New sulfamethoxazole-trimethoprim 800-160 mg 1 tab PO BID 3 days 6 tabs 0RF R30.0 - Dysuria Coding Level of Care Code Est Pt Level 3 (38152) Diagnoses Pedal edema R60.0 Weight gain R63.5 Dysuria R30.0
[2022-11-09 11:46] VITALS: BP 124/72; PULSE 72; TEMP 36.4; O2SAT 97
== END 2022-11-09 13:00 | disposition home or self-care (01) ==
PROVIDERS: PCP Internal Medicine; Visit Provider Nurse Practitioner Family
DX: R60.0 Localized edema (principal); R63.5 Abnormal weight gain; R30.0 Dysuria
CPT/HCPCS: 81003; 99213

== ENCOUNTER 2022-11-09 12:28 | Outpatient (REF) | payer OTHER, SELFPAY ==
[2022-11-09 16:03] LABS: MANUAL DIFF FLAG NO
[2022-11-09 16:46] LABS: Basophils Percent Auto 0.1 % (0-2); Eosinophils Percent Auto 0.4 % (0-4); Hematocrit 37.9 % (37.0-47.0); Hemoglobin 12.3 g/dl (12.0-16.0); Imm Gran Abs Auto 0.03 X10*3/uL (0.00-0.03); Imm Gran Pct Auto 0.4 % (0.0-0.4); Lymphocytes Absolute Auto 2.3 X10*3/uL (1.2-4.9); Lymphocytes Percent Auto 27.5 % (20-40); Mean Corpuscular HGB Conc 32.5 g/dl (31.0-35.0); Mean Corpuscular Hemoglobin 28.9 pg (27.0-33.0); Mean Corpuscular Volume 89.2 fL (80.0-98.0); Mean Platelet Volume 10.5 fL (9.4-12.3); Monocytes Absolute Auto 0.6 X10*3/uL (0.1-1.2); Monocytes Percent Auto 6.8 % (2-11); Neutrophils Absolute Auto 5.3 x10*3/uL (2.0-8.3); Neutrophils Percent Auto 64.8 % (45-73); Platelet Count 264 X10*3/uL (160-400); Red Blood Count 4.25 X10*6/uL (4.20-5.50); Red Cell Distribution Width 12.5 % (11.0-16.0); White Blood Count 8.2 X10*3/uL (4.8-10.8)
[2022-11-09 16:57] LABS: Estimated Average Glucose 94 mg/dL; Hemoglobin A1c % 4.9 %
[2022-11-09 17:37] LABS: Anion Gap 14 (12-20); Blood Urea Nitrogen 19 mg/dL (9-16); Calcium 9.2 mg/dL (8.4-10.2); Carbon Dioxide 22 mmol/L (22-29); Chloride 106 mmol/L (96-108); Estimated Glomerular Filt Rate > 60; Glucose Random 90 mg/dL (60-115); Potassium 3.9 mmol/L (3.3-5.1); Sodium 138 mmol/L (135-145)
== END 2022-11-09 12:29 | disposition home or self-care (01) ==
LOC: HO.HMGCLDS 12:28
PROVIDERS: PCP Internal Medicine; Visit Provider Nurse Practitioner Family
DX: R60.0 Localized edema (principal); R53.83 Other fatigue; R35.0 Frequency of micturition; E66.01 Morbid (severe) obesity due to excess calories; Z83.3 Family history of diabetes mellitus
CPT/HCPCS: 36415; 80048; 83036; 84443; 85025

== ENCOUNTER 2022-11-25 03:17 | Emergency (ER) | payer OTHER, SELFPAY ==
--- NOTE | 2022-11-25 | ECG_ITS ---
Test Reason : CHEST PAIN Blood Pressure : / mmHG Vent. Rate : 060 BPM Atrial Rate : 060 BPM P-R Int : 218 ms QRS Dur : 098 ms QT Int : 444 ms P-R-T Axes : 029 007 029 degrees QTc Int : 444 ms Sinus rhythm with 1st degree A-V block Cannot rule out Anterior infarct (cited on or before 09-OCT-2022) Abnormal ECG When compared with ECG of 09-OCT-2022 20:03, Incomplete right bundle branch block is no longer Present Referred By: Generic ED Physician Electronically Signed By:Marco Antonio Hare
--- NOTE | ~2022-11-25 | CT_ITS ---
EXAMINATION: CT ABDOMEN AND PELVIS WITHOUT CONTRAST CLINICAL INFORMATION: Right flank pain. COMPARISON: 06/30/2019. Correlation made with CT of the chest performed 11/03/2020. TECHNIQUE: Multidetector volumetric imaging was performed from the superior aspect of the liver through the pubic symphysis. Sagittal and coronal reformatted images were obtained on the technologist's workstation. This CT examination was performed using dose optimization techniques as appropriate, variously including the following: *Automated exposure control *Adjustment of mA and/or kV according to patient size (this includes techniques or standardized protocols for targeted exams where dose is matched to indication/reason for exam; i.e. extremities or head) *Use of iterative reconstruction technique DLP: 1165 mGy-cm FINDINGS: LUNG BASES: There is scarring at the right lung base. There is a 6 mm right middle lobe nodule not imaged previously. LIVER, GALLBLADDER, AND BILIARY TREE: The liver is normal in size, shape, and attenuation. No focal hepatic lesion or biliary ductal dilatation is present. The gallbladder is unremarkable with no evidence of radiopaque gallstones, gallbladder wall thickening, or obvious pericholecystic inflammatory changes. PANCREAS: Unremarkable. SPLEEN: Unremarkable. ADRENAL GLANDS: Unremarkable. KIDNEYS AND URETERS: The kidneys are normal in size, shape, and attenuation. There is a 1 to 2 mm nonobstructing calculus midpole left kidney. There is no hydronephrosis. No perinephric stranding. There is a 3.5 cm cyst mid to lower pole right kidney similar to previous. BLADDER: Unremarkable. GASTROINTESTINAL TRACT: There is retained stool. The appendix is unremarkable. ABDOMINAL WALL: No significant hernia is appreciated. LYMPH NODES: Normal. VASCULAR: Unremarkable. PELVIC VISCERA: Unremarkable. OSSEOUS STRUCTURES: Unremarkable. CT/CT abdomen pelvis wo IV con IMPRESSION: 1-2 mm nonobstructing calculus midpole left kidney. No hydronephrosis. No acute intra-abdominal process. 6 mm right middle lobe nodule was seen on CT of the chest performed 11/03/2020 Fleischner guidelines were followed.
[2022-11-25 03:27] VITALS: BP 108/55; PULSE 50; RESP 17; TEMP 36.6; O2SAT 99; BMI 46.3
[2022-11-25 03:33] VITALS: BP 141/71; PULSE 62; O2SAT 99
--- NOTE | 2022-11-25 03:59 | ED.CHESTPAIN ---
HPI - Chest Pain General Chief Complaint: Chest Pain Stated Complaint: Chest pressure Time Seen by Provider: 11/25/22 03:49 Source: patient Mode of arrival: ambulatory Limitations: no limitations History of Present Illness HPI narrative: Patient history of anxiety depression frequent UTI with history of kidney cyst comes here for dysuria frequency for last few days patient was seen at urgent care and given Bactrim for 3 days still feel that she still has a UTI no fever no chills no nausea vomiting does have chronic flank pain also patient complaining of chest pain which on the right side started just prior to arrival is gone now also does have dependent edema which is going on for a long time off from no fever no chills Related Data Previous Rx's Medication Instructions Recorded NEBULIZER #1 ea 04/20/21 albuterol sulfate 2.5 mg/3 mL 2.5 mg (3 mL) inhalation QID PRN 09/24/21 (0.083 %) solution for nebulization shortness of breath or wheezing 30 days #120 mL montelukast 10 mg tablet 10 mg PO DAILY #30 tabs 09/24/21 desmopressin 0.2 mg tablet 0.6 mg PO BEDTIME 30 days #90 tabs 06/08/22 fluticasone 250 mcg-salmeterol 50 1 inh inhalation BID 30 days #60 ea 06/08/22 mcg/dose blistr powdr for inhalation (Wixela Inhub) nitrofurantoin macrocrystal 100 mg 100 mg PO BID 7 days #14 caps 06/08/22 capsule albuterol sulfate 90 mcg/actuation 2 puff PO Q4-6H PRN for wheezing 09/16/22 aerosol inhaler (Ventolin HFA) #18 ea nitrofurantoin 100 mg PO Q12H 7 days #14 caps 09/16/22 monohydrate/macrocrystals 100 mg capsule (Macrobid) nitrofurantoin 100 mg PO Q12H 7 days #14 caps 10/10/22 monohydrate/macrocrystals 100 mg capsule (Macrobid) trazodone 100 mg tablet 100 mg PO BEDTIME 30 days #30 tabs 11/01/22 sulfamethoxazole 800 1 tab PO BID 3 days #6 tabs 11/09/22 mg-trimethoprim 160 mg tablet cefuroxime axetil 250 mg tablet 250 mg PO BID 7 days #14 tabs 11/25/22 Allergies Allergy/AdvReac Type Severity Reaction Status Date / Time lithium [From LITHATE] Allergy Severe ANAPHYLAXIS Verified 11/09/22 11:44 codeine [CODEINE] Allergy Unknown UNKNOWN Verified 11/09/22 11:44 Review of Systems Review of Systems: Yes all other systems are reviewed and are negative [facility] Past Medical History Medical History Asthma Attention deficit hyperactivity disorder (ADHD) Bipolar affective disorder, current episode mixed Environmental allergies GERD without esophagitis Insomnia Lumbar back pain Morbid obesity with BMI of 45.0-49.9, adult Nocturnal enuresis Obesity Pulmonary nodules Renal cyst Right knee pain Uses control UTI (urinary tract infection) Surgical History History of surgery Family History Family History Father Ketoacidosis Diabetes ADHD Chronic mental illness Substance abuse Mother Anxiety Hypertension Crohn disease Family/Other Chronic mental illness Social History Social History Housing: Apartment Alcohol intake: never Patient Tobacco Use Status: Tobacco use Unknown Smoked in Last 30 Days: No e-Cigarette/Vaping Use: Never Used Second Hand Smoke Exposure: Yes Use of substances other than those prescribed or required for medical reasons: No Advance Directives: No Advance Directives Information Provided: No Patient : No service: No Current occupational status: employed Current occupational exposures/hazards: No Cognitive needs: No Hearing needs: No Vision needs: No Physical Exam Vital Signs: Vital Signs: Last Vital Signs Temp 97.7 F 11/25/22 06:16 Pulse 45 L 11/25/22 06:16 Resp 20 11/25/22 06:16 BP 113/65 11/25/22 06:16 Pulse Ox 99 11/25/22 03:27 O2 Del Method Room Air 11/25/22 03:27 BMI result Body Mass Index 46.3 Appearance: Alert. Oriented X3. No acute distress. Eyes: PERRLA, No Nystagmus ENT: Pharynx normal. Oral Mucosa moist Neck: Normal inspection. Neck supple. CVS: Normal heart rate and rhythm. Pulses normal. Respiratory: No respiratory distress. Equal air entry bilateral, no wheezing/rales/rhonchi Abdomen: Soft and nontender. Bowel sounds are present, no mass palpable, R CVA tenderness+ Skin: Skin warm and dry. Normal skin color. Normal skin turgor. Extremities: No calf tenderness nonpitting edema Neuro: Oriented X 3. No motor deficit. No sensory deficit.No cerebellar signs , cranial nerves II-XII intact Medications Administered Discontinued Medications Generic Name Dose Route Start Last Admin Trade Name Jacquelyn PRN Reason Stop Dose Admin Ceftriaxone Sodium 1 gm/ 50 mls @ 100 mls/hr 11/25/22 04:15 11/25/22 04:37 Sodium Chloride IV 11/25/22 04:44 100 mls/hr ONCE ONE Administration Sodium Chloride 1,000 mls @ 999 mls/hr 11/25/22 04:17 11/25/22 04:37 Ns IV 11/25/22 05:17 999 mls/hr .Q1H1M ONE Administration Ketorolac Tromethamine 30 mg 11/25/22 04:17 11/25/22 04:37 Ketorolac Tromethamine 30 Mg/Ml Vial IVPUSH 11/25/22 04:18 30 mg ONCE ONE Administration Medical Decision Making Medical Decision Making [facility] Narrative: Patient with possible interstitial cystitis has not been diagnosed in the past CT scan showed right kidney cyst final report is pending had atypical chest pain on the right side cardiac enzymes negative EKG without any ischemic changes will discharge patient home on Ceftin advised to follow-up with urology Differential Diagnosis Differential Diagnoses: The differential diagnosis associated with the presentation includes Musculoskeletal chest pain/UTI/interstitial cystitis Lab Data MDM Lab Attestation statement: I reviewed the patient's lab results. 11/25/22 03:56 11/25/22 03:56 Labs: Lab Results 11/25/22 11/25/22 11/25/22 Range/Units 03:56 03:56 03:56 WBC 6.8 (4.8-10.8) X10*3/uL RBC 3.83 L (4.20-5.50) X10*6/uL Hgb 11.1 L (12.0-16.0) g/dl Hct 33.9 L (37.0-47.0) % MCV 88.5 (80.0-98.0) fL MCH 29.0 (27.0-33.0) pg MCHC 32.7 (31.0-35.0) g/dl RDW 12.9 (11.0-16.0) % Plt Count 227 (160-400) X10*3/uL MPV 10.1 (9.4-12.3) fL Immature Gran % (Auto) 0.1 (0.0-0.4) % Neut % (Auto) 53.9 (45-73) % Lymph % (Auto) 37.5 (20-40) % [place] % (Auto) 7.1 (2-11) % Eos % (Auto) 1.0 (0-4) % Baso % (Auto) 0.4 (0-2) % Lymph # (Auto) 2.5 (1.2-4.9) X10*3/uL [place] # (Auto) 0.5 (0.1-1.2) X10*3/uL Eos # (Auto) 0.1 (0.0-0.4) X10*3/uL Baso # (Auto) 0.0 (0.0-0.2) X10*3/uL Abs Immat Gran (auto) 0.01 (0.00-0.03) X10*3/uL Absolute Neuts (auto) 3.7 (2.0-8.3) x10*3/uL Absolute Nucleated RBC 0.000 (0.0-0.012) X10*3/uL Nucleated RBC % (auto) 0.0 (0.0-0.2) /100WBC Sodium 140 (135-145) mmol/L Potassium 3.8 (3.3-5.1) mmol/L Chloride 110 H (96-108) mmol/L Carbon Dioxide 22 (22-29) mmol/L Anion Gap 12 (12-20) BUN 14 (9-16) mg/dL Creatinine 0.85 (0.5-1.4) mg/dL Estim Creat Clear Calc 122.7 Estimated GFR > 60 Random Glucose 102 (60-115) mg/dL Lactic Acid 1.1 (0.5-2.0) mmol/L Calcium 9.2 (8.4-10.2) mg/dL Total Bilirubin 0.2 (0.0-1.0) mg/dL AST 16 (5-31) U/L ALT 17 (0-31) U/L Alkaline Phosphatase 99 (39-117) U/L Troponin I High Sens (<3.5-17.0) ng/L Total Protein 6.7 (6.5-8.0) g/dL Albumin 3.9 (3.5-5.0) g/dL Urine Color Urine Appearance Urine pH (5.0-9.0) Ur Specific [place] (1.005-1.025) Urine Protein (Neg-Trace) mg/dL Urine Glucose (UA) (Negative) mg/dL Urine Ketones (Negative) mg/dL Urine Blood (Negative) Urine Nitrite (Negative) Ur Leukocyte Esterase (Negative) Urine RBC (0-2) /HPF Urine WBC (0-5) /HPF Ur Squamous Epith Cells (0-2) /HPF Urine Bacteria (None Seen) Hyaline Casts (0-2) /LPF Urine Test (NEGATIVE) 11/25/22 11/25/22 11/25/22 Range/Units 03:56 04:09 04:09 WBC (4.8-10.8) X10*3/uL RBC (4.20-5.50) X10*6/uL Hgb (12.0-16.0) g/dl Hct (37.0-47.0) % MCV (80.0-98.0) fL MCH (27.0-33.0) pg MCHC (31.0-35.0) g/dl RDW (11.0-16.0) % Plt Count (160-400) X10*3/uL MPV (9.4-12.3) fL Immature Gran % (Auto) (0.0-0.4) % Neut % (Auto) (45-73) % Lymph % (Auto) (20-40) % [place] % (Auto) (2-11) % Eos % (Auto) (0-4) % Baso % (Auto) (0-2) % Lymph # (Auto) (1.2-4.9) X10*3/uL [place] # (Auto) (0.1-1.2) X10*3/uL Eos # (Auto) (0.0-0.4) X10*3/uL Baso # (Auto) (0.0-0.2) X10*3/uL Abs Immat Gran (auto) (0.00-0.03) X10*3/uL Absolute Neuts (auto) (2.0-8.3) x10*3/uL Absolute Nucleated RBC (0.0-0.012) X10*3/uL Nucleated RBC % (auto) (0.0-0.2) /100WBC Sodium (135-145) mmol/L Potassium (3.3-5.1) mmol/L Chloride (96-108) mmol/L Carbon Dioxide (22-29) mmol/L Anion Gap (12-20) BUN (9-16) mg/dL Creatinine (0.5-1.4) mg/dL Estim Creat Clear Calc Estimated GFR Random Glucose (60-115) mg/dL Lactic Acid (0.5-2.0) mmol/L Calcium (8.4-10.2) mg/dL Total Bilirubin (0.0-1.0) mg/dL AST (5-31) U/L ALT (0-31) U/L Alkaline Phosphatase (39-117) U/L Troponin I High Sens < 2.7 (<3.5-17.0) ng/L Total Protein (6.5-8.0) g/dL Albumin (3.5-5.0) g/dL Urine Color Yellow Urine Appearance Clear Urine pH 6.5 (5.0-9.0) Ur Specific [place] 1.025 (1.005-1.025) Urine Protein Negative (Neg-Trace) mg/dL Urine Glucose (UA) Negative (Negative) mg/dL Urine Ketones Negative (Negative) mg/dL Urine Blood Moderate (2+) H (Negative) Urine Nitrite Negative (Negative) Ur Leukocyte Esterase Small (1+) H (Negative) Urine RBC >20 H (0-2) /HPF Urine WBC 6-10 H (0-5) /HPF Ur Squamous Epith Cells 6-10 (0-2) /HPF Urine Bacteria 3+ (None Seen) Hyaline Casts 0-2 (0-2) /LPF Urine Test NEGATIVE (NEGATIVE) Independent Interpretation I performed an independent interpretation of an: EKG Interpretation: First-degree heart block heart rate 60 beats per minute no acute ST changes no acute ischemia Discharge Plan Discharge Clinical Impression: Recurrent UTI, Atypical chest pain Patient Disposition: Home, Self-Care Instructions: Urinary Tract Infection in Women (DC), Noncardiac Chest Pain (ED) Additional Instructions: Drink plenty fluids Is not very clear that your UTI possible you have interstitial cystitis which is inflammation of the bladder not infection For now take the antibiotic and follow with urologist for further management Prescriptions: New cefuroxime axetil 250 mg tablet 250 mg PO BID 7 Days Qty: 14 0RF No Action albuterol sulfate 2.5 mg /3 mL (0.083 %) solution for nebulization 2.5 mg inhalation QID PRN (Reason: shortness of breath or wheezing) 30 Days Qty: 120 5RF montelukast 10 mg tablet 10 mg PO DAILY Qty: 30 3RF nitrofurantoin monohyd/m-cryst [Macrobid] 100 mg capsule 100 mg PO Q12H 7 Days Qty: 14 0RF Rx Instructions: must administer with a meal/food albuterol sulfate [Ventolin HFA] 90 mcg/actuation HFA aerosol inhaler 2 puff PO Q4-6H PRN (Reason: for wheezing) Qty: 18 1RF trazodone 100 mg tablet 100 mg PO BEDTIME 30 Days Qty: 30 1RF nitrofurantoin monohyd/m-cryst [Macrobid] 100 mg capsule 100 mg PO Q12H 7 Days Qty: 14 0RF Rx Instructions: must administer with a meal/food nitrofurantoin macrocrystal 100 mg capsule 100 mg PO BID 7 Days Qty: 14 0RF Rx Instructions: must administer with a meal/food desmopressin 0.2 mg tablet 0.6 mg PO BEDTIME 30 Days Qty: 90 3RF fluticasone propion-salmeterol [Wixela Inhub] 250-50 mcg/dose blister with device 1 inh inhalation BID 30 Days Qty: 60 3RF (DME) NEBULIZER See Rx Instructions .Route .MEDSUPPLY Qty: 1 0RF Rx Instructions: As directed 4 times a day as needed sulfamethoxazole-trimethoprim 800-160 mg tablet 1 tab PO BID 3 Days Qty: 6 0RF Referrals: Samy Shook MD [Physician] - 1 week
[2022-11-25 04:02] LABS: MANUAL DIFF FLAG NO
[2022-11-25 04:03] LABS: Basophils Percent Auto 0.4 % (0-2); Eosinophils Absolute Auto 0.1 X10*3/uL (0.0-0.4); Hematocrit 33.9 % (37.0-47.0); Hemoglobin 11.1 g/dl (12.0-16.0); Imm Gran Abs Auto 0.01 X10*3/uL (0.00-0.03); Imm Gran Pct Auto 0.1 % (0.0-0.4); Lymphocytes Absolute Auto 2.5 X10*3/uL (1.2-4.9); Lymphocytes Percent Auto 37.5 % (20-40); Mean Corpuscular HGB Conc 32.7 g/dl (31.0-35.0); Mean Corpuscular Volume 88.5 fL (80.0-98.0); Mean Platelet Volume 10.1 fL (9.4-12.3); Monocytes Absolute Auto 0.5 X10*3/uL (0.1-1.2); Monocytes Percent Auto 7.1 % (2-11); Neutrophils Absolute Auto 3.7 x10*3/uL (2.0-8.3); Neutrophils Percent Auto 53.9 % (45-73); Platelet Count 227 X10*3/uL (160-400); Red Blood Count 3.83 X10*6/uL (4.20-5.50); Red Cell Distribution Width 12.9 % (11.0-16.0); White Blood Count 6.8 X10*3/uL (4.8-10.8)
[2022-11-25 04:14] LABS: Lactic Acid 1.1 mmol/L (0.5-2.0)
[2022-11-25 04:19] LABS: Appearance Urine Clear; Color Urine Yellow; Glucose Urine UA Negative (Negative); Leukocyte Esterase Urine Small (1+) (Negative); Nitrite Urine Negative (Negative); PH 6.5 (5.0-9.0); Specific Gravity - Urine 1.025 (1.005-1.025); UMIC TRIGGER UACC YES; Urine Blood Moderate (2+) (Negative); Urine Ketones Negative (Negative); Urine Protein Negative (Neg-Trace)
[2022-11-25 04:19] LABS: Alanine Aminotransferase 17 U/L (0-31); Albumin Level 3.9 g/dL (3.5-5.0); Alkaline Phosphatase 99 U/L (39-117); Anion Gap 12 (12-20); Aspartate Amino Transferase 16 U/L (5-31); Bilirubin Total 0.2 mg/dL (0.0-1.0); Blood Urea Nitrogen 14 mg/dL (9-16); Calcium 9.2 mg/dL (8.4-10.2); Carbon Dioxide 22 mmol/L (22-29); Chloride 110 mmol/L (96-108); Creatinine Clr Calc Pharmacy 122.7; Estimated Glomerular Filt Rate > 60; Glucose Random 102 mg/dL (60-115); Potassium 3.8 mmol/L (3.3-5.1); Sodium 140 mmol/L (135-145); Total Protein 6.7 g/dL (6.5-8.0)
[2022-11-25 04:23] LABS: Troponin-I High Sensitivity < 2.7 ng/L (<3.5-17.0)
[2022-11-25 04:24] LABS: Bacteria Urine 3+ (None Seen); Hyaline Casts Urine 0-2 /LPF (0-2); RBC Urine >20 /HPF (0-2); UACC Culture Trigger YES
[2022-11-25 04:27] LABS: UPreg QC Valid YES; Urine Pregnancy NEGATIVE (NEGATIVE)
[2022-11-25] MEDS: 0.9 % Sodium Chloride 1,000 ML 999 ML IV (04:37)
[2022-11-25] MEDS: Ketorolac Tromethamine 30 MG/ML VIAL IVPUSH (04:37)
[2022-11-25] MEDS: cefTRIAXone sodium 1 GM in 0.9 % Sodium Chloride 50 ML IV (04:37)
--- NOTE | 2022-11-25 04:47 | PC.NURSE ---
PT BIBA with cc of chest pain and left ankle edema. PT states chest pain began today and edema began yesterday. This RN noted a foul smell when PT got off stretcher. PT noted she did have burning sensation when urinating, and lower back pain. Was recently treated for a UTI at [facility] took the full course of antibiotics with no relief of symptoms PT has chronic uti due to kidney cyst. EKG completed, 20 g IV access established in left forearm, labs drawn, UA sample collected, vss-pt afebrile, hr in the 50s, and medications administer per MAR. call gatica within reach.
[2022-11-25 06:16] VITALS: BP 113/65; PULSE 45; RESP 20; TEMP 36.5
== END 2022-11-25 07:07 | disposition home or self-care (01) ==
PROVIDERS: Emergency Provider Internal Medicine; PCP Internal Medicine
DX: R07.89 Other chest pain (principal); Z87.440 Personal history of urinary (tract) infections; R60.0 Localized edema; R10.9 Unspecified abdominal pain; E66.9 Obesity, unspecified; Z68.42 Body mass index [BMI] 45.0-49.9, adult
CPT/HCPCS: 36415; 74176; 80053; 81001; 81025; 83605; 84484; 85025; 87040; 87086; 93005; 96374; 96375; 99284; 99285; J0696; J1885

== ENCOUNTER → 2022-11-25 03:42 | Outpatient (BNV) | payer OTHER, SELFPAY | PROVIDERS: Emergency Provider Internal Medicine; PCP Internal Medicine; Visit Provider Internal Medicine Cardiovascular Disease | DX: I44.0 Atrioventricular block, first degree (principal); R94.31 Abnormal electrocardiogram [ECG] [EKG] | CPT/HCPCS: 93010 ==

== ENCOUNTER 2022-11-26 17:37 | Emergency (ER) | payer OTHER, SELFPAY ==
[2022-11-26 18:18] VITALS: BP 102/58; PULSE 56; RESP 16; TEMP 36.2; O2SAT 98; BMI 46.3
--- NOTE | 2022-11-26 18:20 | ED.GENADULT ---
HPI - General Adult General Chief complaint: Urogenital-Female Stated complaint: cyst/ blood in urine Time Seen by Provider: 11/26/22 19:38 Source: patient Mode of arrival: ambulatory Limitations: no limitations History of Present Illness HPI narrative: Patient is a 32 year old assigned female at with a history of asthma, anxiety, and recent UTI presenting to the emergency department today with flank pain. Patient states that she is continuing to have flank pain even though she started her antibiotic for her UTI yesterday. Patient denies any dizziness, lightheadedness, abdominal pain, nausea, vomiting, fever, chills, blurry vision, double vision, loss of vision, chest pain, difficulty breathing, shortness of breath, back pain, night sweats, pain with urination, increased urinary frequency, increased urinary urgency, blood in her stool, syncope or a near syncopal episode, recent trauma or falls, bowel incontinence, bladder incontinence, bowel retention, bladder retention, or any other complaints at this time. Onset (ago): day(s) Severity: mild Severity scale (1-10): 3 Quality: aching and dull Pain Consistency: constant Relieving factors: none Exacerbating factors: none Associated symptoms: denies other symptoms Treatments prior to arrival: other (antibiotic for UTI) Related Data Previous Rx's Medication Instructions Recorded NEBULIZER #1 ea 04/20/21 albuterol sulfate 2.5 mg/3 mL 2.5 mg (3 mL) inhalation QID PRN 09/24/21 (0.083 %) solution for nebulization shortness of breath or wheezing 30 days #120 mL montelukast 10 mg tablet 10 mg PO DAILY #30 tabs 09/24/21 desmopressin 0.2 mg tablet 0.6 mg PO BEDTIME 30 days #90 tabs 06/08/22 fluticasone 250 mcg-salmeterol 50 1 inh inhalation BID 30 days #60 ea 06/08/22 mcg/dose blistr powdr for inhalation (Wixela Inhub) nitrofurantoin macrocrystal 100 mg 100 mg PO BID 7 days #14 caps 06/08/22 capsule albuterol sulfate 90 mcg/actuation 2 puff PO Q4-6H PRN for wheezing 09/16/22 aerosol inhaler (Ventolin HFA) #18 ea nitrofurantoin 100 mg PO Q12H 7 days #14 caps 09/16/22 monohydrate/macrocrystals 100 mg capsule (Macrobid) nitrofurantoin 100 mg PO Q12H 7 days #14 caps 10/10/22 monohydrate/macrocrystals 100 mg capsule (Macrobid) trazodone 100 mg tablet 100 mg PO BEDTIME 30 days #30 tabs 11/01/22 sulfamethoxazole 800 1 tab PO BID 3 days #6 tabs 11/09/22 mg-trimethoprim 160 mg tablet cefuroxime axetil 250 mg tablet 250 mg PO BID 7 days #14 tabs 11/25/22 ibuprofen 400 mg tablet 400 mg PO Q6H 3 days #12 tabs 11/26/22 Allergies Allergy/AdvReac Type Severity Reaction Status Date / Time lithium [From LITHATE] Allergy Severe ANAPHYLAXIS Verified 11/26/22 18:18 codeine [CODEINE] Allergy Unknown UNKNOWN Verified 11/26/22 18:18 Review of Systems Constitutional: Constitutional: Reports no additional constitutional complaints, Denies chills, Denies fever(s) and Denies night sweats Eyes: Eyes: Reports no additional eye complaints, Denies blurry vision, Denies change in vision, Denies diplopia, Denies eye discharge, Denies loss of vision and Denies eye pain ENT: Denies dizziness Cardiovascular: Cardiovascular: Reports no additional cardiovascular complaints, Denies chest pain, Denies lightheadedness, Denies Loss of Consciousness and Denies dyspnea Respiratory: Respiratory: Reports no additional respiratory complaints and Denies dyspnea Gastrointestinal: Gastrointestinal: Reports no additional gastrointestinal complaints, Denies abdominal pain, Denies melena, Denies hematochezia, Denies change in bowel habits and Denies change in stool character Genitourinary: Genitourinary: Denies hematuria, Denies urinary frequency, Denies dysuria, Reports flank pain, Denies urinary incontinence, Denies urinary hesitancy and Denies urinary urgency Musculoskeletal: Musculoskeletal: Reports no additional musculoskeletal complaints, Denies numbness and Denies tingling Neurologic: Denies dizziness, Denies loss of vision, Denies numbness and Denies tingling Psychiatric: Psychiatric: Reports no additional psychiatric complaints Endocrine: Endocrine: Reports no additional endocrine complaints Hematologic/Lymphatic: Hematologic/Lymphatic: Reports no additional hematologic/lymphatic complaints Allergic/Immunologic: Allergic/Immunologic: Reports no additional allergic/immunologic complaints PMFSH Past Medical History Attestation statement: The following information was validated with the patient. Source: old records reviewed and nursing notes reviewed Medical History Asthma Attention deficit hyperactivity disorder (ADHD) Bipolar affective disorder, current episode mixed control counseling Cervical cancer screening Constipation COVID-19 Dysuria Dysuria Encounter for Nexplanon removal Environmental allergies Etonogestrel implant for control GERD without esophagitis Insomnia Lumbar back pain Missed period Morbid obesity with BMI of 45.0-49.9, adult Morbid obesity with BMI of 45.0-49.9, adult Nocturnal enuresis Obesity Obesity, morbid, BMI 50 or higher Potential exposure to STD Pulmonary nodules Recurrent UTI Renal cyst Right knee pain Trichomoniasis Uses control UTI (urinary tract infection) Women's annual routine gynecological examination Surgical History History of surgery Family History Family History Father Ketoacidosis Diabetes ADHD Chronic mental illness Substance abuse Mother Anxiety Hypertension Crohn disease Family/Other Chronic mental illness Social History Social History Housing: Apartment Alcohol intake: former Patient Tobacco Use Status: Tobacco use Unknown Smoked in Last 30 Days: No e-Cigarette/Vaping Use: Never Used Second Hand Smoke Exposure: Yes Use of substances other than those prescribed or required for medical reasons: No Advance Directives: No Advance Directives Information Provided: No Patient : No service: No Current occupational status: employed Current occupational exposures/hazards: No Cognitive needs: No Hearing needs: No Vision needs: No Physical Exam ED Vital Signs: Vital Signs - 24 hr 11/26/22 18:18 11/26/22 19:39 Temperature 97.1 F 98.0 F Pulse Rate 56 55 Respiratory Rate 16 18 Blood Pressure 102/58 L 115/61 Pulse Oximetry 98 98 Oxygen Delivery Method Room Air Room Air BMI result Body Mass Index 46.3 Const General: cooperative, no acute distress, alert and awake Nutritional Appearance: well nourished Orientation/consciousness: patient oriented x3 Limitations: no limitations HENMT Head: Yes normal to inspection and Yes atraumatic Ears: hearing grossly normal bilaterally and external ears normal General nose exam: Normal external nose present, no nasal discharge noted and no epistaxis Face and sinus: Yes normal facial exam, No abrasion and No laceration Mouth: Normal oral and palatal mucosa present, no drooling and no muffled voice Eyes General: appearance normal, both eyes and all related structures Periorbital: periorbital findings normal Eyelids: Yes eyelids normal Conjunctivae: conjunctivae normal Pupils: Equal, round and reactive pupils present EOM: EOMs intact bilaterally Neck Neck: Yes normal visual inspection, Yes full ROM and Yes no lymphadenopathy Chest Chest palpation & inspection: normal inspection of the chest Resp Effort & Inspection: normal respiratory effort and able to speak in complete sentences Auscultation: clear to auscultation bilaterally Cardio Rate: regular rate Rhythm: regular rhythm GI Inspection: Yes normal to inspection Palpation (GI): Soft to palpation, not firm, nontender and no guarding General: Yes Bimanual renal exam normal bilaterally and Yes no CVA tenderness Back/Spine/Pelvis Back: no CVA tenderness Neuro General: patient oriented x3 and moves all extremities Cranial nerves: Yes Equal, round and reactive pupils present Cognition (Neuro): normal cognition Motor exam (neuro): 5/5 motor strength present throughout Sensory Exam: Normal double simultaneous stimulation for sensation Coordination: [id number] test normal Extrem General: Yes normal to inspection, Yes full ROM and Yes capillary refill normal Psych Appearance: grossly normal Mental Status: mental status grossly normal Affect: normal affect Attitude: cooperative Thought process: Normal thought process present Thought content: Normal thought content present Insight: Good insight present (Psych) Course Course Course Narrative: RME- 32 year old female presents for evaluation of blood her urine and flank pain. She was seen here yesterday and had a workup a consistent labs, UA and CT scan of the pelvis. She reports blood worsened since yesterday despite being on antibiotics. Plan for repeat UA, lab Medical Decision Making Medical Decision Making MDM Narrative: Patient is a 32 year old assigned female at with a history of anxiety, asthma, and recent UTI presenting to the emergency department today with flank pain. Patient's physical exam was unremarkable. Patient's blood work was unremarkable. Patient's urine showed an improving UTI. I explained my physical exam findings as well as all test results to the patient. I answered all questions asked by the patient. I stressed the importance of the patient taking her medication as prescribed. I stressed the importance of the patient following up with her primary care provider. I stressed the importance of the patient returning to the emergency department immediately if her symptoms were to worsen or if she were to develop any dizziness, shortness of breath, difficulty breathing, chest pain, blurry vision, loss of vision, nausea, vomiting, abdominal pain, fever, chills, back pain, or any other complaints. Patient verbalized agreement and understanding with this treatment plan and discharge. Differential Diagnosis Differential Diagnoses: The differential diagnosis associated with the presentation includes Flank pain UTI Pyelonephritis Admission/Observation Consideration of admission/observation: Escalation of care including admission/observation considered Patient would have been admitted to the hospital had her work up had any findings where hospital admission was appropriate and her clinical presentation warranted hospital admission. Lab Data MDM Lab Attestation statement: I reviewed the patient's lab results. My interpretation of these studies and their corresponding values is that they are grossly normal. 11/26/22 18:48 11/26/22 18:48 Labs: Lab Results 11/26/22 11/26/22 11/26/22 Range/Units 18:48 18:48 18:48 WBC 8.0 (4.8-10.8) X10*3/uL RBC 3.78 L (4.20-5.50) X10*6/uL Hgb 11.1 L (12.0-16.0) g/dl Hct 33.3 L (37.0-47.0) % MCV 88.1 (80.0-98.0) fL MCH 29.4 (27.0-33.0) pg MCHC 33.3 (31.0-35.0) g/dl RDW 12.6 (11.0-16.0) % Plt Count 257 (160-400) X10*3/uL MPV 10.6 (9.4-12.3) fL Immature Gran % (Auto) 0.7 H (0.0-0.4) % Neut % (Auto) 59.4 (45-73) % Lymph % (Auto) 32.5 (20-40) % Garvin % (Auto) 6.2 (2-11) % Eos % (Auto) 1.0 (0-4) % Baso % (Auto) 0.2 (0-2) % Lymph # (Auto) 2.6 (1.2-4.9) X10*3/uL Garvin # (Auto) 0.5 (0.1-1.2) X10*3/uL Eos # (Auto) 0.1 (0.0-0.4) X10*3/uL Baso # (Auto) 0.0 (0.0-0.2) X10*3/uL Abs Immat Gran (auto) 0.06 H (0.00-0.03) X10*3/uL Absolute Neuts (auto) 4.8 (2.0-8.3) x10*3/uL Absolute Nucleated RBC 0.000 (0.0-0.012) X10*3/uL Nucleated RBC % (auto) 0.0 (0.0-0.2) /100WBC Sodium 139 (135-145) mmol/L Potassium 3.9 (3.3-5.1) mmol/L Chloride 107 (96-108) mmol/L Carbon Dioxide 23 (22-29) mmol/L Anion Gap 13 (12-20) BUN 17 H (9-16) mg/dL Creatinine 0.84 (0.5-1.4) mg/dL Estim Creat Clear Calc 124.1 Estimated GFR > 60 Random Glucose 86 (60-115) mg/dL Calcium 9.5 (8.4-10.2) mg/dL Urine Color Yellow Urine Appearance Clear Urine pH 6.5 (5.0-9.0) Ur Specific Piercy 1.020 (1.005-1.025) Urine Protein Negative (Neg-Trace) mg/dL Urine Glucose (UA) Negative (Negative) mg/dL Urine Ketones Negative (Negative) mg/dL Urine Blood Moderate (2+) H (Negative) Urine Nitrite Negative (Negative) Ur Leukocyte Esterase Negative (Negative) Urine RBC >20 H (0-2) /HPF Urine WBC 0-5 (0-5) /HPF Ur Squamous Epith Cells 3-5 (0-2) /HPF Urine Bacteria None Seen (None Seen) Hyaline Casts 0-2 (0-2) /LPF Discharge Plan Discharge Clinical Impression: Acute flank pain Patient Disposition: Home, Self-Care Instructions: Flank Pain (ED) Additional Instructions: Continue taking your antibiotic as prescribed. Follow up with your primary care provider. Return to the emergency department immediately if your symptoms worsen or if you develop any dizziness, shortness of breath, difficulty breathing, chest pain, blurry vision, loss of vision, nausea, vomiting, abdominal pain, fever, chills, back pain, or any other complaints. Prescriptions: New ibuprofen 400 mg tablet 400 mg PO Q6H 3 Days Qty: 12 0RF No Action albuterol sulfate 2.5 mg /3 mL (0.083 %) solution for nebulization 2.5 mg inhalation QID PRN (Reason: shortness of breath or wheezing) 30 Days Qty: 120 5RF montelukast 10 mg tablet 10 mg PO DAILY Qty: 30 3RF nitrofurantoin monohyd/m-cryst [Macrobid] 100 mg capsule 100 mg PO Q12H 7 Days Qty: 14 0RF Rx Instructions: must administer with a meal/food albuterol sulfate [Ventolin HFA] 90 mcg/actuation HFA aerosol inhaler 2 puff PO Q4-6H PRN (Reason: for wheezing) Qty: 18 1RF trazodone 100 mg tablet 100 mg PO BEDTIME 30 Days Qty: 30 1RF nitrofurantoin monohyd/m-cryst [Macrobid] 100 mg capsule 100 mg PO Q12H 7 Days Qty: 14 0RF Rx Instructions: must administer with a meal/food cefuroxime axetil 250 mg tablet 250 mg PO BID 7 Days Qty: 14 0RF nitrofurantoin macrocrystal 100 mg capsule 100 mg PO BID 7 Days Qty: 14 0RF Rx Instructions: must administer with a meal/food desmopressin 0.2 mg tablet 0.6 mg PO BEDTIME 30 Days Qty: 90 3RF fluticasone propion-salmeterol [Wixela Inhub] 250-50 mcg/dose blister with device 1 inh inhalation BID 30 Days Qty: 60 3RF (DME) NEBULIZER See Rx Instructions .Route .MEDSUPPLY Qty: 1 0RF Rx Instructions: As directed 4 times a day as needed sulfamethoxazole-trimethoprim 800-160 mg tablet 1 tab PO BID 3 Days Qty: 6 0RF Referrals: Angelo Smith MD [Primary Care Provider] - Stand Alone Forms: Work/School Release Interventions: ED Discharge Assessment Last Done: 11/26/22 20:16 Discharge Date/Time: 11/26/22 20:17 Print Language: Guamanian
[2022-11-26 18:54] LABS: MANUAL DIFF FLAG NO
[2022-11-26 18:57] LABS: Appearance Urine Clear; Color Urine Yellow; Glucose Urine UA Negative (Negative); Leukocyte Esterase Urine Negative (Negative); Nitrite Urine Negative (Negative); PH 6.5 (5.0-9.0); UMIC TRIGGER UACC YES; Urine Blood Moderate (2+) (Negative); Urine Ketones Negative (Negative); Urine Protein Negative (Neg-Trace)
[2022-11-26 18:59] LABS: Bacteria Urine None Seen (None Seen); Hyaline Casts Urine 0-2 /LPF (0-2); RBC Urine >20 /HPF (0-2); WBC Urine 0-5 /HPF (0-5)
[2022-11-26 19:02] LABS: Basophils Percent Auto 0.2 % (0-2); Eosinophils Absolute Auto 0.1 X10*3/uL (0.0-0.4); Hematocrit 33.3 % (37.0-47.0); Hemoglobin 11.1 g/dl (12.0-16.0); Imm Gran Abs Auto 0.06 X10*3/uL (0.00-0.03); Imm Gran Pct Auto 0.7 % (0.0-0.4); Lymphocytes Absolute Auto 2.6 X10*3/uL (1.2-4.9); Lymphocytes Percent Auto 32.5 % (20-40); Mean Corpuscular HGB Conc 33.3 g/dl (31.0-35.0); Mean Corpuscular Hemoglobin 29.4 pg (27.0-33.0); Mean Corpuscular Volume 88.1 fL (80.0-98.0); Mean Platelet Volume 10.6 fL (9.4-12.3); Monocytes Absolute Auto 0.5 X10*3/uL (0.1-1.2); Monocytes Percent Auto 6.2 % (2-11); Neutrophils Absolute Auto 4.8 x10*3/uL (2.0-8.3); Neutrophils Percent Auto 59.4 % (45-73); Platelet Count 257 X10*3/uL (160-400); Red Blood Count 3.78 X10*6/uL (4.20-5.50); Red Cell Distribution Width 12.6 % (11.0-16.0)
[2022-11-26 19:22] LABS: Anion Gap 13 (12-20); Blood Urea Nitrogen 17 mg/dL (9-16); Calcium 9.5 mg/dL (8.4-10.2); Carbon Dioxide 23 mmol/L (22-29); Chloride 107 mmol/L (96-108); Creatinine Clr Calc Pharmacy 124.1; Estimated Glomerular Filt Rate > 60; Glucose Random 86 mg/dL (60-115); Potassium 3.9 mmol/L (3.3-5.1); Sodium 139 mmol/L (135-145)
[2022-11-26 19:39] VITALS: BP 115/61; PULSE 55; RESP 18; TEMP 36.7; O2SAT 98
== END 2022-11-26 20:17 | disposition home or self-care (01) ==
PROVIDERS: Physician Assistant; Emergency Provider Emergency Medicine; PCP Internal Medicine
DX: R10.9 Unspecified abdominal pain (principal); Z87.440 Personal history of urinary (tract) infections
CPT/HCPCS: 36415; 80048; 81001; 85025; 99283; 99284

== ENCOUNTER 2022-12-21 07:44 | Emergency (ER) | payer OTHER, SELFPAY ==
[2022-12-21 08:00] VITALS: BP 124/77; PULSE 69; RESP 20; TEMP 36.4; O2SAT 97; BMI 46.3
[2022-12-21 08:57] LABS: COVID-19 Test Negative (Negative); IDNOW Serial# 08D9AD1C
== END 2022-12-21 09:12 | disposition left against medical advice (07) ==
PROVIDERS: Emergency Provider Emergency Medicine; PCP Internal Medicine
DX: J06.9 Acute upper respiratory infection, unspecified (principal); Z20.822 Contact with and (suspected) exposure to COVID-19
CPT/HCPCS: 87635; 99281; 99283

== ENCOUNTER 2023-01-16 14:53 | Outpatient (AMB) | payer OTHER, SELFPAY ==
--- NOTE | 2023-01-16 14:56 | A.OFFVIS_ITS ---
Intake Intake Visit Reasons: renal stones Intake Note: NEW Patient presents today to established treatment for Renal Stone: Meds- Noned Allergies to Antibiotic- No Known Allergies Blood Thinner- None Patient Symptoms: Dysuria, bleeding & lower back pain Public Area Supervisor Required: No Accompanied by: Self / Same As Patient Allergies lithium [From LITHATE] Allergy (Severe, Verified 01/16/23 14:58) ANAPHYLAXIS codeine [CODEINE] Allergy (Unknown, Verified 01/16/23 14:58) UNKNOWN HPI HPI Comments History of Present Illness Details Kamala is a 32-year-old female who presents today to the office to establish as a new patient to me for an evaluation of renal stones. 01/16/2023? She presents today for an evaluation of renal stones. She was in the ED on 11/26/22 for flank pain and blood in the urine. She states she has noted intermittent blood per her urethra. She complains of recurrent UTI's I reviewed the CT abdomen/pelvis results from 11/25/2022 revealed 1-2 mm nonobstructing calculus midpole left kidney. No hydronephrosis. I reviewed the urine culture results from 11/25/2022 which came back > 100,000 cfu/ml mixed bacterial lydia characteristic of urogenital contamination. She was started on Ceftin 250 mg on 11/25/2022. Evaluation today?UA? Leukocytes: negative; Nitrite: positive; blood: 3 +. Plan Metabolic work-up for kidney stone, serum calcium and serum PTH was ordered. Ordered 24-hour urine collection test. Start Vit B6 100 mg daily Instructed on diet modifications, Macrobid 100 mg BID for 7 days was ordered. and follow-up Cystoscopy for persistent gross hematuria. [facility] Medical History Morbid obesity with BMI of 45.0-49.9, adult Missed period Dysuria Right knee pain Lumbar back pain Encounter for Nexplanon removal Etonogestrel implant for control Trichomoniasis Obesity, morbid, BMI 50 or higher Potential exposure to STD Cervical cancer screening Women's annual routine gynecological examination control counseling Recurrent UTI Constipation Uses control Renal cyst UTI (urinary tract infection) Obesity Environmental allergies COVID-19 Dysuria Insomnia Morbid obesity with BMI of 45.0-49.9, adult Attention deficit hyperactivity disorder (ADHD) Bipolar affective disorder, current episode mixed Nocturnal enuresis GERD without esophagitis Pulmonary nodules Asthma Surgical History History of surgery Family History Father Ketoacidosis Diabetes ADHD Chronic mental illness Substance abuse Mother Anxiety Hypertension Crohn disease Family/Other Chronic mental illness Social History Housing: Apartment Alcohol intake: former Patient Tobacco Use Status: Tobacco use Unknown e-Cigarette/Vaping Use: Never Used Second Hand Smoke Exposure: Yes service: No Current occupational status: employed Current occupational exposures/hazards: No Cognitive needs: No Hearing needs: No Vision needs: No Female Reproductive History Menstrual Age of Menarche: 11 Review of Systems Const All systems reviewed & are unremarkable except as noted in HPI and below Reports no additional complaints Eyes Reports no additional complaints ENT Reports no additional complaints Card Denies dyspnea Resp Denies cough and Denies dyspnea GI Reports no additional complaints Reports no additional complaints Musc Reports no additional complaints Skin/Breast Denies rash and Denies unusual bruising Neuro Reports no additional complaints Psych Reports no additional complaints Endo Reports no additional complaints Osman/Lymph Reports no additional complaints Aller/Immun Reports no additional complaints Physical Exam Const General: cooperative, healthy appearing and no acute distress Nutritional Appearance: obese Orientation/consciousness: patient oriented x3 HEENT Head: Yes normal to inspection, Yes normocephalic and Yes atraumatic Eyes Conjunctivae: conjunctivae normal Neck Neck: Yes normal visual inspection and Yes trachea midline Chest Chest palpation & inspection: normal inspection of the chest Resp Effort & Inspection: normal respiratory effort Cardio Rate: regular rate GI Inspection: Yes normal to inspection Skin General skin exam: no rashes or lesions noted Neuro General: patient oriented x3 Extrem General: No edema Psych Appearance: grossly normal Results AMB Urinalysis, Automated UA Leukoctes 0 Santos/uL Last Edit by Rashmi Champagne Cehli on 01/16/23 15:12 UA Nitrite Positive Last Edit by Rashmi Champagne A on 01/16/23 15:12 UA Urobilinogen 0.2 mg/dL Last Edit by Rashmi Champagne A on 01/16/23 15:1 2 UA Protein 0 mg/dL Last Edit by Rashmi Champagne A on 01/16/23 15:12 UA pH 6.0 Last Edit by Rashmi Champagne A on 01/16/23 15:12 UA Blood 200 Osmin/uL Last Edit by Rashmi Champagne A on 01/16/23 15:12 3+ Rashmi Champagne 01/16/23 15:12 UA Specific Mohall 1.030 Last Edit by Rashmi Champagne [facility] on 01/16/23 15: 12 UA Ketone Negative Last Edit by Rashmi Champagne Cheli on 01/16/23 15:12 UA Bilirubin 0 mg/dL Last Edit by Rashmi Champagne [facility] on 01/16/23 15:12 UA Glucose 0 mg/dL Last Edit by Rashmi Champagne [facility] on 01/16/23 15:12 Results Reviewed Results Reviewed: Laboratory Last Values Urine pH (Auto) 6.0 01/16/23 14:58 Specific Mohall (Auto) 1.030 01/16/23 14:58 Urine Protein (Auto) 0 mg/dL 01/16/23 14:58 Glucose (UA)(Auto) 0 mg/dL 01/16/23 14:58 Urine Ketones (Auto) Negative 01/16/23 14:58 Urine Blood (Auto) 200 Osmin/uL 01/16/23 14:58 Urine Nitrite (Auto) Positive 01/16/23 14:58 Urine Bilirubin (Auto) 0 mg/dL 01/16/23 14:58 Urine Urobilinogen (Auto) 0.2 mg/dL 01/16/23 14:58 Leukocyte Esterase (Auto) 0 Santos/uL 01/16/23 14:58 Ordered:? Urine Culture? Procedure?Result?Verified?Site ? Urine Culture? Final?11/26/22-1115 ? Report Result?> 100,000 cfu/ml ? Mixed bacterial lydia characteristic of ? urogenital contamination. Date of Service: 11/25/22 EXAMINATION: CT ABDOMEN AND PELVIS WITHOUT CONTRAST?? CLINICAL INFORMATION: Right flank pain.?? COMPARISON: 06/30/2019. Correlation made with CT of the chest performed 11/03/2020. FINDINGS: LUNG BASES: There is scarring at the right lung base. There is a 6 mm right middle lobe nodule not imaged previously. LIVER, GALLBLADDER, AND BILIARY TREE: The liver is normal in size, shape, and attenuation. No focal hepatic lesion or biliary ductal dilatation is present. The gallbladder is unremarkable with no evidence of radiopaque gallstones, gallbladder wall thickening, or obvious pericholecystic inflammatory changes.?? PANCREAS: Unremarkable.?? SPLEEN: Unremarkable.?? ADRENAL GLANDS: Unremarkable.?? KIDNEYS AND URETERS: The kidneys are normal in size, shape, and attenuation. There is a 1 to 2 mm nonobstructing calculus midpole left kidney. There is no hydronephrosis. No perinephric stranding. There is a 3.5 cm cyst mid to lower pole right kidney similar to previous. BLADDER: Unremarkable.?? GASTROINTESTINAL TRACT: There is retained stool. The appendix is unremarkable.?? ABDOMINAL WALL: No significant hernia is appreciated.?? LYMPH NODES: Normal. VASCULAR: Unremarkable. PELVIC VISCERA: Unremarkable.?? OSSEOUS STRUCTURES: Unremarkable.?? IMPRESSION: 1-2 mm nonobstructing calculus midpole left kidney. No hydronephrosis. No acute intra-abdominal process. 6 mm right middle lobe nodule was seen on CT of the chest performed 11/03/2020 Assessment & Plan Assessment & Plan (1) Kidney stone on left side: Code(s): N20.0 - Calculus of kidney (2) Renal cyst: Code(s): N28.1 - Cyst of kidney, acquired (3) Gross hematuria: Code(s): R31.0 - Gross hematuria (4) UTI (urinary tract infection): Code(s): N39.0 - Urinary tract infection, site not specified Plan Metabolic work-up for kidney stone, serum calcium and serum PTH was ordered. Ordered 24-hour urine collection test. Start Vit B6 100 mg daily Instructed on diet modifications, Macrobid 100 mg BID for 7 days was ordered. and follow-up Cystoscopy for persistent gross hematuria. Orders: Orders AMB Urinalysis Automated 01/16/23 Z13.9 - Encounter for screening, unspecified Urine Culture 01/16/23 N39.0 - Urinary tract infection, site not specified Parathyroid Hormone Related Pr 01/16/23 N20.0 - Calculus of kidney Calcium 01/16/23 N20.0 - Calculus of kidney Medications: New pyridoxine (vitamin B6) 100 mg PO DAILY 90 tabs 3RF nitrofurantoin monohyd/m-cryst 100 mg (Macrobid) must administer with a meal/food 100 mg PO BID 14 caps 0RF Patient Instructions: The patient had an opportunity to ask questions regarding treatment plan. All questions were answered. Imaging, Laboratory studies and physical exam results were discussed and reviewed in detail. No major barriers to understanding were identified. The patient expressed understanding and agreement with the above treatment plan.? ? ? The patient is aware they should contact our office by phone for worsening of their current condition or the appearance of new symptoms. Compliance is encouraged with any medications and followup testing that is ordered.? ? ? It is a privilege to be allowed the opportunity to participate in the urologic care of your patient. If you have any questions or concerns regarding treatment for the above conditions please do not hesitate to contact me. The office telephone contact is [phone].? ? ? This note is constructed in part using voice recognition software. While every effort has been made to ensure accuracy rn outpatient surgery errors may have been included.? ? ? Yours sincerely,? ? ? Vincent Boyer MD? Coding Level of Care Code Est Pt Level 4 (57002) Diagnoses Kidney stone on left side N20.0 Renal cyst N28.1 Gross hematuria R31.0 UTI (urinary tract infection) N39.0
== END 2023-01-16 15:35 | disposition home or self-care (01) ==
PROVIDERS: PCP Internal Medicine; Visit Provider Urology
DX: N20.0 Calculus of kidney (principal); N28.1 Cyst of kidney, acquired; R31.0 Gross hematuria; N39.0 Urinary tract infection, site not specified
CPT/HCPCS: 99214

== ENCOUNTER 2023-01-16 14:53 | Outpatient (REF) | payer OTHER, SELFPAY | END 2023-01-16 14:54 | disposition home or self-care (01) | LOC: HO.LAB 14:53 | PROVIDERS: PCP Internal Medicine; Visit Provider Urology | DX: N39.0 Urinary tract infection, site not specified (principal); R31.0 Gross hematuria; N20.0 Calculus of kidney; R30.0 Dysuria; M54.50 Low back pain, unspecified; N28.1 Cyst of kidney, acquired | CPT/HCPCS: 81003; 87086; 87088; 87186; 99212 ==

== ENCOUNTER 2023-01-26 11:34 | Outpatient (REF) | payer OTHER, SELFPAY ==
[2023-01-26 12:59] LABS: Calcium 9.4 mg/dL (8.4-10.2)
[2023-01-31 18:14] LABS: Parathyroid Hormone Related Pr 12 pg/mL (11-20)
== END 2023-01-26 11:35 | disposition home or self-care (01) ==
LOC: HO.LAB 11:34
PROVIDERS: PCP Internal Medicine; Visit Provider Urology
DX: N20.0 Calculus of kidney (principal)
CPT/HCPCS: 36415; 82310; 83519

== ENCOUNTER 2023-04-15 13:24 | Emergency (ER) | payer OTHER, SELFPAY | END 2023-04-15 16:06 | disposition left against medical advice (07) | PROVIDERS: Emergency Provider Emergency Medicine; PCP Internal Medicine | DX: R05.9 Cough, unspecified (principal) ==

== ENCOUNTER 2023-06-26 02:00 | Emergency (ER) | payer OTHER, SELFPAY ==
[2023-06-26 02:01] VITALS: BP 120/58; PULSE 57; RESP 18; TEMP 36.8; O2SAT 98; BMI 48.3
[2023-06-26 02:30] LABS: Appearance Urine Turbid; Color Urine Yellow; Glucose Urine UA Negative (Negative); Leukocyte Esterase Urine Large (3+) (Negative); Nitrite Urine Positive (Negative); UMIC TRIGGER UACC YES; Urine Blood Trace (Negative); Urine Ketones Negative (Negative); Urine Protein 30 (1+) mg/dL (Neg-Trace)
[2023-06-26 02:35] LABS: Bacteria Urine 4+ (None Seen); Hyaline Casts Urine 0-2 /LPF (0-2); RBC Urine 0-2 /HPF (0-2); Squamous Epithelial Cell Urine 0-2 /HPF (0-2); UACC Culture Trigger YES; WBC Urine >50 /HPF (0-5)
[2023-06-26 02:50] LABS: Influenza A PCR NEGATIVE (Negative); Influenza B PCR NEGATIVE (Negative); Resp Syncy Virus RNA Qual PCR NEGATIVE (Negative); SARS COV2 PCR INHOUSE NEGATIVE (Negative)
[2023-06-26 03:28] LABS: IDNOW Serial# 6674DD1D; Strep A Nucleic Acid Negative (Negative)
[2023-06-26 06:32] VITALS: BP 137/81; PULSE 59; RESP 16; TEMP 36.4; O2SAT 99
[2023-06-26 07:00] LABS: CT PCR NOT DETECTED (Not Detect.); NG PCR NOT DETECTED (Not Detect.)
--- NOTE | 2023-06-26 07:00 | ED.GENADULT ---
HPI - General Adult General Chief complaint: General Medical Stated complaint: gen med Time Seen by Provider: 06/26/23 06:58 Source: patient Mode of arrival: ambulatory Limitations: no limitations History of Present Illness HPI narrative: 33 yo female PMH of asthma, UTI, bipolar here with c/o having sexual intercourse with person no condom used now with sore throat and dysuria. No vesicles noted in genital area. No fevers, n/v/d. She wants STI treatment and swabs / urine done. She does know this person. No other complaints MD complaint: sore throat, dysuria Onset (ago): day(s) (1) Location: mouth and genitals Radiation: non-radiation Severity: mild Quality: burning Pain Consistency: intermittent Relieving factors: none Exacerbating factors: other (swallowing, urination) Associated symptoms: denies other symptoms Treatments prior to arrival: none Related Data Home Medications Medication Instructions Recorded Confirmed aripiprazole 10 mg tablet 10 mg PO DAILY 01/16/23 guanfacine 1 mg tablet,extended 2 mg PO DAILY 01/16/23 release 24 hr sertraline 25 mg tablet 25 mg PO DAILY 01/16/23 Previous Rx's Medication Instructions Recorded NEBULIZER #1 ea 04/20/21 albuterol sulfate 2.5 mg/3 mL 2.5 mg (3 mL) inhalation QID PRN 09/24/21 (0.083 %) solution for nebulization shortness of breath or wheezing 30 days #120 mL fluticasone 250 mcg-salmeterol 50 1 inh inhalation BID 30 days #60 ea 06/08/22 mcg/dose blistr powdr for inhalation (Wixela Inhub) albuterol sulfate 90 mcg/actuation 2 puff PO Q4-6H PRN for wheezing 09/16/22 aerosol inhaler (Ventolin HFA) #18 ea ibuprofen 400 mg tablet 400 mg PO Q6H 3 days #12 tabs 11/26/22 trazodone 100 mg tablet 100 mg PO BEDTIME 30 days #30 tabs 12/20/22 NEBULIZER and all related #1 ea 01/06/23 accessories nitrofurantoin 100 mg PO BID #14 caps 01/16/23 monohydrate/macrocrystals 100 mg capsule (Macrobid) pyridoxine (vitamin B6) 100 mg 100 mg PO DAILY #90 tabs 01/16/23 tablet nitrofurantoin 100 mg PO BID 7 days #14 caps 06/26/23 monohydrate/macrocrystals 100 mg capsule (Macrobid) Allergies Allergy/AdvReac Type Severity Reaction Status Date / Time lithium [From LITHATE] Allergy Severe ANAPHYLAXIS Verified 06/26/23 02:03 codeine [CODEINE] Allergy Unknown UNKNOWN Verified 06/26/23 02:03 Review of Systems Review of Systems: Constitutional : No Fever, No Chills, No Fatigue ENT/Mouth : pos sore throat, No Rhinorrhea Eyes: No Eye Pain, No Swelling, No Redness Cardiovascular : No Chest Pain, No SOB, No Dyspnea on Exertion Respiratory : No Cough, No Sputum Gastrointestinal : No Nausea, No Vomiting, No Diarrhea, No abdominal Pain Genitourinary : pos Dysuria, pos Urinary Frequency, No Hematuria, Musculoskeletal : No joint pain, No Myalgias, No Joint Swelling Skin : No Skin Lesions, No rash Neuro : No Weakness, No Numbness, No Dizziness, no Headache Psych : No Anxiety/Panic, No Depression All other systems reviewed and are negative [facility] Past Medical History Attestation statement: The following information was validated with the patient. Source: old records reviewed Medical History Morbid obesity with BMI of 45.0-49.9, adult Missed period Dysuria Right knee pain Lumbar back pain Encounter for Nexplanon removal Etonogestrel implant for control Trichomoniasis Obesity, morbid, BMI 50 or higher Potential exposure to STD Cervical cancer screening Women's annual routine gynecological examination control counseling Recurrent UTI Constipation Uses control Renal cyst UTI (urinary tract infection) Obesity Environmental allergies COVID-19 Dysuria Insomnia Morbid obesity with BMI of 45.0-49.9, adult Attention deficit hyperactivity disorder (ADHD) Bipolar affective disorder, current episode mixed Nocturnal enuresis GERD without esophagitis Pulmonary nodules Asthma Surgical History History of surgery Family History Family History Father Ketoacidosis Diabetes ADHD Chronic mental illness Substance abuse Mother Anxiety Hypertension Crohn disease Family/Other Chronic mental illness Social History Social History Housing: Apartment Alcohol intake: former Patient Tobacco Use Status: Tobacco use Unknown Smoked in Last 30 Days: No e-Cigarette/Vaping Use: Never Used Second Hand Smoke Exposure: Yes Use of substances other than those prescribed or required for medical reasons: No Advance Directives: No Advance Directives Information Provided: No Patient : No service: No Current occupational status: employed Current occupational exposures/hazards: No Cognitive needs: No Hearing needs: No Vision needs: No Physical Exam ED Vital Signs: Vital Signs - 24 hr 06/26/23 02:01 06/26/23 06:32 Temperature 98.2 F 97.6 F Pulse Rate 57 59 Respiratory Rate 18 16 Blood Pressure 120/58 L 137/81 Pulse Oximetry 98 99 Oxygen Delivery Method Room Air Room Air BMI result Body Mass Index 48.3 Appearance: Alert. Oriented X3. No acute distress. Eyes: Pupils equal, round and reactive to light. ENT: Pharynx normal. no exudates no vesicles Neck: Normal inspection. Neck supple. CVS: Normal heart rate and rhythm. Pulses normal. Respiratory: No respiratory distress. Breath sounds normal. Abdomen: Soft and non-tender. Back: no CVA ttp Skin: Skin warm and dry. Normal skin color. Normal skin turgor. Extremities: No lower extremity edema. Neuro: Oriented X 3. No motor deficit. No sensory deficit. Medical Decision Making Medical Decision Making MDM Narrative: 33 yo female PMH of asthma, UTI, bipolar here with c/o dysuria and pharyngitis at this time not toxic appearing no n/v no CVA ttp no signs of vesicles in the throat at this time will offer ceftriaxone and doxy which she wants as well as macrobid for UTI - last UA S to macrobid. She has no signs of pyelo. Differential Diagnosis Differential Diagnoses: The differential diagnosis associated with the presentation includes pharyngitis, UTI, STI exposure Admission/Observation Consideration of admission/observation: Escalation of care including admission/observation considered no systemic symptoms not toxic Lab Data [facility] Lab Attestation statement: I reviewed the patient's lab results. Labs: Lab Results 06/26/23 06/26/23 Range/Units 02:07 02:18 Urine Color Yellow Urine Appearance Turbid Urine pH 6.0 (5.0-9.0) Ur Specific [place] 1.020 (1.005-1.025) Urine Protein 30 (1+) H (Neg-Trace) mg/dL Urine Glucose (UA) Negative (Negative) mg/dL Urine Ketones Negative (Negative) mg/dL Urine Blood Trace H (Negative) Urine Nitrite Positive H (Negative) Ur Leukocyte Esterase Large (3+) H (Negative) Urine RBC 0-2 (0-2) /HPF Urine WBC >50 H (0-5) /HPF Ur Squamous Epith Cells 0-2 (0-2) /HPF Urine Bacteria 4+ (None Seen) Hyaline Casts 0-2 (0-2) /LPF Chlam trachomat DNA PCR NOT DETECTED (Not Detect.) Influenza Type A (PCR) NEGATIVE (Negative) Influenza Type B (PCR) NEGATIVE (Negative) N.gonorrhoeae DNA (PCR) NOT DETECTED (Not Detect.) RSV RNA Qual (PCR) NEGATIVE (Negative) SARS-CoV-2 RNA (RT-PCR) NEGATIVE (Negative) S. pyogenes GrpA AMEE Negative (Negative) External Record Review External record reviewed: Office record Prescription Management I considered prescription management with: Antibiotic Discharge Plan Discharge Clinical Impression: Encounter for assessment of STD exposure, Acute UTI Pharyngitis Qualifiers: Pharyngitis/tonsillitis etiology: unspecified etiology Qualified Code(s): J02.9 - Acute pharyngitis, unspecified Patient Disposition: Home, Self-Care Instructions: Urinary Tract Infection in Women (ED), Pharyngitis (ED) Additional Instructions: you were treated for uti and possible gonorrhea and chlamydia throat swab will not be back for 48 hours if positive we will call you [facility]ill[facility] and further testing. practice safe sex in the future return for worsening symptoms, fevers, vomiting, inability to tolerate PO Prescriptions: New nitrofurantoin monohyd/m-cryst [Macrobid] 100 mg capsule 100 mg PO BID 7 Days Qty: 14 0RF Rx Instructions: must administer with a meal/food No Action albuterol sulfate 2.5 mg /3 mL (0.083 %) solution for nebulization 2.5 mg inhalation QID PRN (Reason: shortness of breath or wheezing) 30 Days Qty: 120 5RF albuterol sulfate [Ventolin HFA] 90 mcg/actuation HFA aerosol inhaler 2 puff PO Q4-6H PRN (Reason: for wheezing) Qty: 18 1RF trazodone 100 mg tablet 100 mg PO BEDTIME 30 Days Qty: 30 1RF (DME) NEBULIZER and all related accessories See Rx Instructions .Route .MEDSUPPLY Qty: 1 0RF Rx Instructions: As directed ibuprofen 400 mg tablet 400 mg PO Q6H 3 Days Qty: 12 0RF fluticasone propion-salmeterol [Wixela Inhub] 250-50 mcg/dose blister with device 1 inh inhalation BID 30 Days Qty: 60 3RF (DME) NEBULIZER See Rx Instructions .Route .MEDSUPPLY Qty: 1 0RF Rx Instructions: As directed 4 times a day as needed nitrofurantoin monohyd/m-cryst [Macrobid] 100 mg capsule 100 mg PO BID Qty: 14 0RF Rx Instructions: must administer with a meal/food guanfacine 1 mg tablet extended release 24 hr 2 mg PO DAILY sertraline 25 mg tablet 25 mg PO DAILY aripiprazole 10 mg tablet 10 mg PO DAILY pyridoxine (vitamin B6) 100 mg tablet 100 mg PO DAILY Qty: 90 3RF
[2023-06-26] MEDS: cefTRIAXone sodium 500 MG, Lidocaine HCl 1 % MPF 1 ML IM (07:46)
[2023-06-26] MEDS: Doxycycline Monohydrate 100 MG CAPSULE PO (07:47)
[2023-07-01 15:03] LABS: C. Trachomatis RNA TMA, Throat NOT DETECTED; N. gonorrhoeae RNA TMA, Throat NOT DETECTED
== END 2023-06-26 07:58 | disposition home or self-care (01) ==
PROVIDERS: Emergency Provider Emergency Medicine; PCP Internal Medicine
DX: N39.0 Urinary tract infection, site not specified (principal); J02.9 Acute pharyngitis, unspecified; J45.909 Unspecified asthma, uncomplicated; Z20.2 Contact with and (suspected) exposure to infections with a predominantly sexual mode of transmission; Z11.52 Encounter for screening for COVID-19; Z20.828 Contact with and (suspected) exposure to other viral communicable diseases
CPT/HCPCS: 0241U; 0353U; 81001; 87086; 87088; 87186; 87491; 87591; 87651; 96372; 99284; J0696

== ENCOUNTER 2023-08-13 22:22 | Emergency (ER) | payer OTHER, SELFPAY ==
--- NOTE | 2023-08-13 | ECG_ITS ---
Test Reason : CP Blood Pressure : / mmHG Vent. Rate : 062 BPM Atrial Rate : 062 BPM P-R Int : 194 ms QRS Dur : 102 ms QT Int : 432 ms P-R-T Axes : 020 008 023 degrees QTc Int : 438 ms Normal sinus rhythm Incomplete right bundle branch block Borderline ECG When compared with ECG of 25-NOV-2022 03:42, No significant change was found Referred By: Generic ED Physician Electronically Signed By:RAMONA ALEJO
[2023-08-13 22:27] VITALS: BP 130/90; PULSE 64; O2SAT 99
[2023-08-13 22:45] VITALS: BP 109/72; PULSE 64; RESP 16; TEMP 36.4; O2SAT 99; BMI 57.0
[2023-08-13 23:09] LABS: Hematocrit 34.4 % (37.0-47.0); Hemoglobin 11.7 g/dl (12.0-16.0); Mean Corpuscular Hemoglobin 29.2 pg (27.0-33.0); Mean Corpuscular Volume 85.8 fL (80.0-98.0); Mean Platelet Volume 9.8 fL (9.4-12.3); Platelet Count 282 X10*3/uL (160-400); Red Blood Count 4.01 X10*6/uL (4.20-5.50); White Blood Count 8.5 X10*3/uL (4.8-10.8)
[2023-08-13 23:11] LABS: Appearance Urine Cloudy; Color Urine Yellow; Glucose Urine UA Negative (Negative); Leukocyte Esterase Urine Small (1+) (Negative); Nitrite Urine Positive (Negative); PH 5.5 (5.0-9.0); Specific Gravity - Urine 1.025 (1.005-1.025); UMIC TRIGGER UACC YES; Urine Blood Large (3+) (Negative); Urine Ketones Negative (Negative); Urine Protein Trace mg/dL (Neg-Trace)
[2023-08-13 23:13] LABS: Bacteria Urine 3+ (None Seen); Hyaline Casts Urine 0-2 /LPF (0-2); RBC Urine >20 /HPF (0-2); UACC Culture Trigger YES; WBC Urine 21-50 /HPF (0-5)
[2023-08-13 23:22] LABS: Alanine Aminotransferase 20 U/L (0-31); Albumin Level 4.3 g/dL (3.5-5.0); Alkaline Phosphatase 111 U/L (39-117); Anion Gap 13 (12-20); Aspartate Amino Transferase 16 U/L (5-31); Bilirubin Total 0.3 mg/dL (0.0-1.0); Blood Urea Nitrogen 19 mg/dL (9-16); Calcium 9.6 mg/dL (8.4-10.2); Carbon Dioxide 24 mmol/L (22-29); Chloride 105 mmol/L (96-108); Creatinine Clr Calc Pharmacy 176.5; Estimated Glomerular Filt Rate > 60; Glucose Random 100 mg/dL (60-115); Potassium 3.8 mmol/L (3.3-5.1); Sodium 138 mmol/L (135-145); Total Protein 7.6 g/dL (6.5-8.0)
[2023-08-13 23:32] LABS: Troponin-I High Sensitivity < 2.7 ng/L (<3.5-17.0)
--- NOTE | 2023-08-14 00:22 | ED_ITS ---
HPI - Back Pain/Injury General Chief Complaint: Back Pain/Injury Stated Complaint: low back pain x 4days Time Seen by Provider: 08/14/23 00:10 Source: patient Mode of arrival: ambulatory Limitations: no limitations History of Present Illness HPI Narrative: Patient has irregular periods has not seen any winding inspector and tester lately not taking any control pills not sexually active comes here for back pain dysuria frequency had last menstrual period ended 1 week ago and restarted in 4 days ago unlikely to be per patient no fever no chills no nausea no vomiting Related Data Home Medications ?Medication ?Instructions ?Recorded ?Confirmed aripiprazole 10 mg tablet 10 mg PO DAILY 01/16/23 guanfacine 1 mg tablet,extended 2 mg PO DAILY 01/16/23 release 24 hr sertraline 25 mg tablet 25 mg PO DAILY 01/16/23 Previous Rx's ?Medication ?Instructions ?Recorded NEBULIZER #1 ea 04/20/21 albuterol sulfate 2.5 mg/3 mL 2.5 mg (3 mL) inhalation QID PRN 09/24/21 (0.083 %) solution for nebulization shortness of breath or wheezing 30 days #120 mL fluticasone 250 mcg-salmeterol 50 1 inh inhalation BID 30 days #60 ea 06/08/22 mcg/dose blistr powdr for inhalation (Wixela Inhub) albuterol sulfate 90 mcg/actuation 2 puff PO Q4-6H PRN for wheezing 09/16/22 aerosol inhaler (Ventolin HFA) #18 ea ibuprofen 400 mg tablet 400 mg PO Q6H 3 days #12 tabs 11/26/22 trazodone 100 mg tablet 100 mg PO BEDTIME 30 days #30 tabs 12/20/22 NEBULIZER and all related #1 ea 01/06/23 accessories nitrofurantoin 100 mg PO BID #14 caps 01/16/23 monohydrate/macrocrystals 100 mg capsule (Macrobid) pyridoxine (vitamin B6) 100 mg 100 mg PO DAILY #90 tabs 01/16/23 tablet nitrofurantoin 100 mg PO BID 7 days #14 caps 06/26/23 monohydrate/macrocrystals 100 mg capsule (Macrobid) cefuroxime axetil 250 mg tablet 250 mg PO BID 7 days #14 tabs 04/29/24 ibuprofen 600 mg tablet 600 mg PO Q6H PRN fever or pain 08/14/23 #30 tabs Allergies Allergy/AdvReac Type Severity Reaction Status Date / Time lithium [From LITHATE] Allergy Severe ANAPHYLAXIS Verified 08/13/23 22:51 codeine [CODEINE] Allergy Unknown UNKNOWN Verified 08/13/23 22:51 Review of Systems 2 Review of Systems: Yes all other systems are reviewed and are negative PMFSH Past Medical History Medical History Morbid obesity with BMI of 45.0-49.9, adult Missed period Dysuria Right knee pain Lumbar back pain Encounter for Nexplanon removal Etonogestrel implant for control Trichomoniasis Obesity, morbid, BMI 50 or higher Potential exposure to STD Cervical cancer screening Women's annual routine gynecological examination control counseling Recurrent UTI Constipation Uses control Renal cyst UTI (urinary tract infection) Obesity Environmental allergies COVID-19 Dysuria Insomnia Morbid obesity with BMI of 45.0-49.9, adult Attention deficit hyperactivity disorder (ADHD) Bipolar affective disorder, current episode mixed Nocturnal enuresis GERD without esophagitis Pulmonary nodules Asthma Surgical History History of surgery Family History Family History Father Ketoacidosis Diabetes ADHD Chronic mental illness Substance abuse Mother Anxiety Hypertension Crohn disease Family/Other Chronic mental illness Social History Social History Housing: Apartment Alcohol intake: former Patient Tobacco Use Status: Tobacco use Unknown e-Cigarette/Vaping Use: Never Used Second Hand Smoke Exposure: Yes Advance Directives: No Advance Directives Information Provided: No Do you have a plan to hurt others: No Plan service: No Current occupational status: employed Current occupational exposures/hazards: No Cognitive needs: No Hearing needs: No Vision needs: No Physical Exam 2 Vital Signs: Vital Signs: Last Vital Signs Temp 98.7 F 08/14/23 00:50 Pulse 79 08/14/23 00:50 Resp 17 08/14/23 00:50 BP 124/79 08/14/23 00:50 Pulse Ox 98 08/14/23 00:50 O2 Del Method Room Air 08/14/23 00:50 BMI result Body Mass Index 57.0 Appearance: Alert. Oriented X3. No acute distress. Eyes: No pallor or icterus ENT: Pharynx normal. Oral Mucosa moist Neck: Normal inspection. Neck supple. CVS: Normal heart rate and rhythm. Pulses normal. Respiratory: No respiratory distress. Equal air entry bilateral, no wheezing/rales/rhonchi Abdomen: Soft and nontender. Bowel sounds are present, no mass palpable, L CVA tenderness Skin: Skin warm and dry. Normal skin color. Normal skin turgor. Neuro: Oriented X 3. No motor deficit. Medications Administered Discontinued Medications Generic Name Dose Route Start Last Admin Trade Name Freq PRN Reason Stop Dose Admin Cefuroxime Axetil 250 mg 08/14/23 00:29 08/14/23 00:48 Cefuroxime Axetil 250 Mg Tablet PO 08/14/23 00:30 250 mg ONCE ONE Administration Phenazopyridine HCl 200 mg 08/14/23 00:29 08/14/23 00:47 Phenazopyridine Hcl 200 Mg Tablet PO 08/14/23 00:30 200 mg ONCE ONE Administration Medical Decision Making Medical Decision Making [facility] Narrative: Patient with UTI with low back pain with dysfunctional uterine bleed. Patient is not urine shows WBCs discharge patient home on Ceftin advised to follow with winding inspector and tester for further management Lab Data [facility] Lab Attestation statement: I reviewed the patient's lab results. 08/13/23 23:02 08/13/23 23:02 Labs: Lab Results 08/13/23 Range/Units 23:02 WBC 8.5 (4.8-10.8) X10*3/uL RBC 4.01 L (4.20-5.50) X10*6/uL Hgb 11.7 L (12.0-16.0) g/dl Hct 34.4 L (37.0-47.0) % MCV 85.8 (80.0-98.0) fL MCH 29.2 (27.0-33.0) pg MCHC 34.0 (31.0-35.0) g/dl RDW 13.0 (11.0-16.0) % Plt Count 282 (160-400) X10*3/uL MPV 9.8 (9.4-12.3) fL Absolute Nucleated RBC 0.000 (0.0-0.012) X10*3/uL Nucleated RBC % (auto) 0.0 (0.0-0.2) /100WBC Sodium 138 (135-145) mmol/L Potassium 3.8 (3.3-5.1) mmol/L Chloride 105 (96-108) mmol/L Carbon Dioxide 24 (22-29) mmol/L Anion Gap 13 (12-20) BUN 19 H (9-16) mg/dL Creatinine 0.69 (0.5-1.4) mg/dL Estim Creat Clear Calc 176.5 Estimated GFR > 60 Random Glucose 100 (60-115) mg/dL Calcium 9.6 (8.4-10.2) mg/dL Total Bilirubin 0.3 (0.0-1.0) mg/dL AST 16 (5-31) U/L ALT 20 (0-31) U/L Alkaline Phosphatase 111 (39-117) U/L Troponin I High Sens < 2.7 (<3.5-17.0) ng/L Total Protein 7.6 (6.5-8.0) g/dL Albumin 4.3 (3.5-5.0) g/dL Urine Color Yellow Urine Appearance Cloudy Urine pH 5.5 (5.0-9.0) Ur Specific [place] 1.025 (1.005-1.025) Urine Protein Trace (Neg-Trace) mg/dL Urine Glucose (UA) Negative (Negative) mg/dL Urine Ketones Negative (Negative) mg/dL Urine Blood Large (3+) H (Negative) Urine Nitrite Positive H (Negative) Ur Leukocyte Esterase Small (1+) H (Negative) Urine RBC >20 H (0-2) /HPF Urine WBC 21-50 H (0-5) /HPF Ur Squamous Epith Cells 6-10 (0-2) /HPF Urine Bacteria 3+ (None Seen) Hyaline Casts 0-2 (0-2) /LPF Urine Test NEGATIVE (NEGATIVE) Discharge Plan Discharge Clinical Impression: UTI (urinary tract infection), DUB (dysfunctional uterine bleeding) Patient Disposition: Home, Self-Care Instructions: Dysfunctional Uterine Bleeding (ED), Urinary Tract Infection in Women (ED) Additional Instructions: Drink plenty of fluids Antibiotic as prescribed Follow up with winding inspector and tester for further evaluation about irregular periods Your test is negative Prescriptions: New cefuroxime axetil 250 mg tablet 250 mg PO BID 7 Days Qty: 14 0RF ibuprofen 600 mg tablet 600 mg PO Q6H PRN (Reason: fever or pain) Qty: 30 0RF No Action albuterol sulfate 2.5 mg /3 mL (0.083 %) solution for nebulization 2.5 mg inhalation QID PRN (Reason: shortness of breath or wheezing) 30 Days Qty: 120 5RF albuterol sulfate [Ventolin HFA] 90 mcg/actuation HFA aerosol inhaler 2 puff PO Q4-6H PRN (Reason: for wheezing) Qty: 18 1RF trazodone 100 mg tablet 100 mg PO BEDTIME 30 Days Qty: 30 1RF (DME) NEBULIZER and all related accessories See Rx Instructions .Route .MEDSUPPLY Qty: 1 0RF Rx Instructions: As directed ibuprofen 400 mg tablet 400 mg PO Q6H 3 Days Qty: 12 0RF nitrofurantoin monohyd/m-cryst [Macrobid] 100 mg capsule 100 mg PO BID 7 Days Qty: 14 0RF Rx Instructions: must administer with a meal/food fluticasone propion-salmeterol [Wixela Inhub] 250-50 mcg/dose blister with device 1 inh inhalation BID 30 Days Qty: 60 3RF (DME) NEBULIZER See Rx Instructions .Route .MEDSUPPLY Qty: 1 0RF Rx Instructions: As directed 4 times a day as needed nitrofurantoin monohyd/m-cryst [Macrobid] 100 mg capsule 100 mg PO BID Qty: 14 0RF Rx Instructions: must administer with a meal/food guanfacine 1 mg tablet extended release 24 hr 2 mg PO DAILY sertraline 25 mg tablet 25 mg PO DAILY aripiprazole 10 mg tablet 10 mg PO DAILY pyridoxine (vitamin B6) 100 mg tablet 100 mg PO DAILY Qty: 90 3RF Interventions: ED Discharge Assessment Last Done: 08/14/23 00:50 Discharge Date/Time: 08/14/23 00:50 Print Language: Bangladeshi
[2023-08-14 00:34] LABS: UPreg QC Valid YES; Urine Pregnancy NEGATIVE (NEGATIVE)
[2023-08-14] MEDS: Phenazopyridine HCL 200 MG TABLET PO (00:47)
[2023-08-14] MEDS: cefuroxime axetiL 250 MG TABLET PO (00:48)
[2023-08-14 00:49] VITALS: BP 124/79; PULSE 79; RESP 17; TEMP 37.1; O2SAT 98
[2023-08-14 00:50] VITALS: BP 124/79; PULSE 79; RESP 17; TEMP 37.1; O2SAT 98
== END 2023-08-14 00:50 | disposition home or self-care (01) ==
PROVIDERS: Emergency Provider Internal Medicine; PCP Internal Medicine
DX: N39.0 Urinary tract infection, site not specified (principal); N93.8 Other specified abnormal uterine and vaginal bleeding; I45.10 Unspecified right bundle-branch block; M54.50 Low back pain, unspecified; R07.89 Other chest pain; R30.0 Dysuria; R35.0 Frequency of micturition; Z79.899 Other long term (current) drug therapy
CPT/HCPCS: 36415; 80053; 81001; 81025; 84484; 85027; 87086; 87088; 87186; 93005; 99283; 99284

== ENCOUNTER → 2023-08-13 22:31 | Outpatient (BNV) | payer OTHER, SELFPAY | PROVIDERS: Emergency Provider Internal Medicine; PCP Internal Medicine; Visit Provider Internal Medicine | DX: I45.10 Unspecified right bundle-branch block (principal) | CPT/HCPCS: 93010 ==

== ENCOUNTER 2023-08-22 12:57 | Outpatient (AMB) | payer OTHER, SELFPAY ==
[2023-08-22 12:58] VITALS: BP 118/70; PULSE 64; O2SAT 97; BMI 54.2
--- NOTE | 2023-08-22 12:58 | MHC.PC.OV ---
Vital Signs 08/22/23 12:58 Height 5 ft 5 in Weight 326 lb 0.6 oz BMI 54.2 BP 118/70 Blood Pressure Location Lt brachial Position Sitting Pulse 64 Pulse Source Pulse Oximeter Pulse Oximetry (%) 97 Oxygen Delivery Method Room Air Intake Visit Reasons: Annual PE Intake Note: Patient is here today for a physical. 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 Allergies lithium [From LITHATE] Allergy (Severe, Verified 02/02/24 11:29) ANAPHYLAXIS codeine [CODEINE] Allergy (Unknown, Verified 02/02/24 11:29) UNKNOWN Medication List - Last Reconciled 08/22/23 by Angelo Smith MD albuterol sulfate 90 mcg/actuation (Ventolin HFA) 2 puffs PO Q4-6H PRN albuterol sulfate 2.5 mg continuous nebulization QID PRN aripiprazole 10 mg PO DAILY atomoxetine 18 mg PO QAM cefuroxime axetil 250 mg PO BID 7 days fluticasone propion-salmeterol 250-50 mcg/dose (Wixela Inhub) 1 inh inhalation BID 30 days guanfacine ER 2 mg PO DAILY ibuprofen 600 mg PO Q6H PRN [NEBULIZER As directed 4 times a day as needed] [NEBULIZER and all related accessories As directed] pyridoxine (vitamin B6) 100 mg PO DAILY sertraline 100 mg PO DAILY trazodone 100 mg PO BEDTIME 30 days Tobacco use date assessed: 08/22/23 Dental Screening Dental Screen Date: 08/22/23 Did you have a dental visit in the last 12 months?: Yes Did you have a dental problem in the last 6 months where you did not have access to dental care?: No Was dental information given to patient?: Patient has dentist HPI Annual PE HPI Details Patient comes in today for her annual physical examination She went to the ER last week for increasing low back pain x 4 days Work ups done in the ER revealed findings of UTI - she was started on oral Cefuroxime x 7 days, with gradual resolution of her symptoms Patient states that she currently feels okay and that her low back pain has completely cleared up with treatment She denies any headaches or dizziness Denies any chest pains, no SOB No nausea/vomiting, no abdominal pain Relates that she frequently has loose stools and would like to know what she can do to help correct this - states that she has not noticed any blood or mucus in her stool She denies any acute urinary symptoms at present She has not seen gynecology in over a year and is due for her yearly gynecology exam [facility] Medical History (Updated 02/04/24 @ 08:25 by Angelo Smith MD) Cervical cancer screening Anemia Vitamin D deficiency Morbid obesity with BMI of 50.0-59.9, adult Morbid obesity with BMI of 45.0-49.9, adult Missed period Dysuria Right knee pain Lumbar back pain Encounter for Nexplanon removal Etonogestrel implant for control Trichomoniasis Obesity, morbid, BMI 50 or higher Potential exposure to STD Women's annual routine gynecological examination control counseling Recurrent UTI Constipation Uses control Renal cyst UTI (urinary tract infection) Obesity Environmental allergies COVID-19 Dysuria Insomnia Morbid obesity with BMI of 45.0-49.9, adult Attention deficit hyperactivity disorder (ADHD) Bipolar affective disorder, current episode mixed Nocturnal enuresis GERD without esophagitis Pulmonary nodules Asthma Surgical History History of surgery Family History Father Ketoacidosis Diabetes ADHD Chronic mental illness Substance abuse Mother Anxiety Hypertension Crohn disease Family/Other Chronic mental illness Social History Housing: Apartment Alcohol intake: former Patient Tobacco Use Status: Tobacco use Unknown e-Cigarette/Vaping Use: Never Used Second Hand Smoke Exposure: Yes service: No Current occupational status: employed Current occupational exposures/hazards: No Cognitive needs: No Hearing needs: No Vision needs: No Female Reproductive History Menstrual Age of Menarche: 11 Questionnaire PHQ-9 Over the last 2 weeks, how often have you been bothered by any of the following problems? 1. Little interest or pleasure in doing things: not at all 2. Feeling down, depressed, or hopeless: not at all 3. Trouble falling or staying asleep, or sleeping too much: not at all 4. Feeling tired or having little energy: not at all 5. Poor appetite or overeating: not at all 6. Feeling bad about yourself - or that you are a failure or have let yourself or your family down: not at all 7. Trouble concentrating on things, such as reading the newspaper or watching television: not at all 8. Moving or speaking so slowly that other people could have noticed. Or the opposite - being so fidgety or restless that you have been moving around a lot more than usual: not at all 9. Thoughts that you would be better off or of hurting yourself in some way: not at all Total score: 0 Depression Screening Interpretation: Positive Depression Screening Follow-up: Existing condition and In treatment Depression Screening Done: Yes 27540 - PHQ-9 Billing: Yes Source: Developed by Drs. Gerald Costa, Emily Villalobos, Jonathon Delcid and colleagues, with an educational yandel from [employer]. Thrive Questionnaire Date Thrive assessed: 08/22/23 I am a: Patient What is your living situation today?: I have a steady place to live Within the past 12 months, did the food you bought not last and you didn't have the money to get more?: Never true Within the past 12 months, did you worry whether your food would run out before you got money to buy more?: Never true Do you have trouble paying for medicines?: No Do you have trouble getting transportation to medical appointments?: No Do you have trouble paying your heating and electricity bill?: No Do you have trouble taking care of your child, family member or friend?: No Do you have trouble with day-to-day activities such as bathing, preparing meals, shopping, managing finances, etc.?: No Are you currently unemployed and looking for a job?: No Are you interested in more education?: No Please select the resources that you would like help with: None Currently or been in a relationship where the following occur: no concerns reported THRIVE Score: 0 AUDIT C Alcohol Use Questionnaire (AUDIT-C) 1. How often do you have a drink containing alcohol?: Never 3. How often do you have six or more drinks on one occasion?: Never Total Score: 0 Score Reviewed/Action Taken: Yes DESIRE-7 AMB Questionnaire DESIRE-7 Date DESIRE - 7 assessed: 08/22/23 Feeling nervous, anxious, or on edge: 0 = Not at all Not being able to stop or control worryin = Not at all Worrying too much about different things: 0 = Not at all Trouble relaxin = Not at all Being so restless that it is hard to sit still: 0 = Not at all Becoming easily annoyed or irritable: 0 = Not at all Feeling afraid as if something awful might happen: 0 = Not at all Total DESIRE-7 score (0-4 normal; 5-9 mild; 10-14 moderate; 15-21 severe): 0 Source: Developed by Drs. Gerald Costa, Emily Villalobos, Jonathon Delcid and colleagues, with an educational yandel from [employer]. DESIRE-7 Assessment Billing DESIRE-7 Assessment Tool: DESIRE-7 Assessment 94114 Review of Systems Const Denies chills, Denies fatigue, Denies fever(s), Denies headache(s) and Denies malaise Eyes Denies blurry vision, Denies change in vision, Denies irritation and Denies itchy eyes ENT Denies dysphagia, Denies dizziness, Denies otalgia, Denies headache(s), Denies nasal congestion, Denies neck pain, Denies odynophagia, Denies sinus pain and Denies sore throat Card Denies chest pain, Denies rapid heart rate, Denies irregular heart rhythm, Denies palpitations and Denies dyspnea Resp Denies chest congestion, Denies cough, Denies dyspnea and Denies wheezing GI Denies abdominal pain, Denies bloating, Denies constipation, Denies dysphagia, Denies heartburn, Reports loose stools (frequent/recurrent), Denies nausea, Denies odynophagia and Denies vomiting Denies hematuria, Denies urinary frequency, Denies dysuria, Denies urinary incontinence and Denies urinary urgency Musc Denies back pain, Denies arthralgias, Denies joint swelling, Denies muscle weakness and Denies neck pain Skin/Breast Denies breast pain, Denies breast mass, Denies change in pigmentation, Denies lesions, Denies rash and Denies unusual bruising Neuro Denies dizziness, Denies headache(s) and Denies paresthesias Psych Denies anxiety and Denies depression Endo Denies fatigue and Denies palpitations Osman/Lymph Denies easy bruising Aller/Immun Denies itchy eyes and Denies wheezing Physical exam (Primary Care) Vital Signs: Last Vital Signs Pulse 64 05/07/24 12:58 BP 118/70 08/22/23 12:58 Pulse Ox 97 08/22/23 12:58 Oxygen Delivery Method Room Air 08/22/23 12:58 BMI result Body Mass Index 54.2 Tobacco/Smoking Status: Tobacco use Status Tobacco use date assessed 08/22/23 08/22/23 12:59 Patient Tobacco Use Status Tobacco use Unknown 08/22/23 12:59 e-Cigarette/Vaping Use Never Used 08/22/23 12:59 PHQ-9: PHQ-9 Score PHQ-9: Total score 0 08/22/23 13:41 Depression Screening Interpretation: Positive Depression Screening Follow-up: Existing condition and In treatment Thrive Assessment: Date of Thrive Assessment Date Thrive assessed 08/22/23 08/22/23 12:59 Currently or been in a relationship where the following occur: no concerns reported Const General: no acute distress, alert and awake Orientation/consciousness: patient oriented x3 HENMT Head: Yes normocephalic and Yes atraumatic Ears: external ears normal, TM's normal bilaterally and EAC's normal General nose exam: No nasal discharge present Face and sinus: Yes normal facial exam and Yes sinuses nontender Teeth and gingiva: dentition normal Throat: Yes posterior oropharynx normal and Yes tonsils normal (no TP congestion) Eyes Eyelids: Yes eyelids normal Conjunctivae: conjunctivae normal Pupils: Equal, round and reactive pupils present EOM: EOMs intact bilaterally Neck Neck: Yes no lymphadenopathy and Yes supple Thyroid: Thyroid normal Resp Auscultation: clear to auscultation bilaterally, no rales and no wheezes Cardio Rate: regular rate Rhythm: regular rhythm Heart sounds: no murmurs GI Palpation (GI): Soft to palpation, nontender and No hepatosplenomegaly present Auscultation: normal bowel sounds General: Yes no CVA tenderness Back/Spine/Pelvis Back: no CVA tenderness Thoracic/Lumbar Spine: thoracic and lumbar spine normal to inspection Skin Lesions: no lesions Rashes: no rashes Neuro General: patient oriented x3, moves all extremities, no focal motor deficits and CN's II-XI intact bilaterally Cranial nerves: Yes Equal, round and reactive pupils present Cognition (Neuro): normal cognition Gait exam (Neuro): Normal gait present Extrem General: Yes no clubbing, cyanosis or edema Coding Level of Care Code Est Pt Prev Care 18-39y(54918) Diagnoses Annual physical exam Z00.00 Iron deficiency anemia due to chronic blood loss D50.0 Anemia type: iron deficiency Iron deficiency anemia type: chronic blood loss Moderate persistent asthma, unspecified whether complicated J45.40 Asthma severity: moderate Asthma persistence: persistent Asthma complication type: unspecified Renal cyst N28.1 Vitamin D deficiency E55.9 Diarrhea, unspecified type R19.7 Diarrhea type: unspecified type Insomnia, unspecified type G47.00 Insomnia type: unspecified Attention deficit hyperactivity disorder (ADHD), unspecified ADHD type F90.9 Attention deficit-hyperactivity disorder type: unspecified Anxiety F41.9 Bipolar affective disorder, current episode mixed, current episode severity unspecified F31.60 Current episode severity: unspecified Morbid obesity with BMI of 50.0-59.9, adult E66.01; Z68.43 Cervical cancer screening Z12.4 Additional Codes DESIRE-7 Assessment Billing - DESIRE-7 Assessment Tool: DESIRE-7 Assessment 92495 ([id number])
== END 2023-08-22 13:52 | disposition home or self-care (01) ==
PROVIDERS: PCP Internal Medicine; Visit Provider Internal Medicine
DX: Z00.00 Encounter for general adult medical examination without abnormal findings (principal); D50.0 Iron deficiency anemia secondary to blood loss (chronic); J45.40 Moderate persistent asthma, uncomplicated; N28.1 Cyst of kidney, acquired; E55.9 Vitamin D deficiency, unspecified; R19.7 Diarrhea, unspecified; G47.00 Insomnia, unspecified; F90.9 Attention-deficit hyperactivity disorder, unspecified type; F41.9 Anxiety disorder, unspecified; F31.60 Bipolar disorder, current episode mixed, unspecified; E66.01 Morbid (severe) obesity due to excess calories; Z68.43 Body mass index [BMI] 50.0-59.9, adult; Z12.4 Encounter for screening for malignant neoplasm of cervix
CPT/HCPCS: 99499

== ENCOUNTER 2023-08-23 07:36 | Outpatient (REF) | payer OTHER, SELFPAY ==
[2023-08-23 07:50] LABS: MANUAL DIFF FLAG NO
[2023-08-23 08:30] LABS: Basophils Percent Auto 0.1 % (0-2); Eosinophils Percent Auto 0.3 % (0-4); Hemoglobin 11.7 g/dl (12.0-16.0); Imm Gran Abs Auto 0.02 X10*3/uL (0.00-0.03); Imm Gran Pct Auto 0.3 % (0.0-0.4); Lymphocytes Absolute Auto 2.3 X10*3/uL (1.2-4.9); Lymphocytes Percent Auto 31.7 % (20-40); Mean Corpuscular HGB Conc 33.4 g/dl (31.0-35.0); Mean Corpuscular Hemoglobin 29.1 pg (27.0-33.0); Mean Corpuscular Volume 87.1 fL (80.0-98.0); Monocytes Absolute Auto 0.5 X10*3/uL (0.1-1.2); Monocytes Percent Auto 6.7 % (2-11); Neutrophils Absolute Auto 4.4 x10*3/uL (2.0-8.3); Neutrophils Percent Auto 60.9 % (45-73); Platelet Count 275 X10*3/uL (160-400); Red Blood Count 4.02 X10*6/uL (4.20-5.50); Red Cell Distribution Width 12.9 % (11.0-16.0); White Blood Count 7.3 X10*3/uL (4.8-10.8)
[2023-08-23 09:21] LABS: Alanine Aminotransferase 23 U/L (0-31); Albumin Level 4.2 g/dL (3.5-5.0); Alkaline Phosphatase 97 U/L (39-117); Anion Gap 13 (12-20); Aspartate Amino Transferase 18 U/L (5-31); Bilirubin Total 0.3 mg/dL (0.0-1.0); Blood Urea Nitrogen 14 mg/dL (9-16); Calcium 9.5 mg/dL (8.4-10.2); Carbon Dioxide 27 mmol/L (22-29); Chloride 103 mmol/L (96-108); Cholesterol 147 mg/dL (<200); Estimated Glomerular Filt Rate > 60; Glucose Fasting 93 mg/dL (60-99); HDL Cholesterol 53 mg/dL (>40); LDL Cholesterol Calculated 82 mg/dL (<100); Potassium 4.3 mmol/L (3.3-5.1); Sodium 139 mmol/L (135-145); Total Protein 7.4 g/dL (6.5-8.0); Triglycerides 62 mg/dL (<150)
[2023-08-23 09:28] LABS: TSH reflex Free T4 1.22 uIU/mL (0.32-4.0); Vitamin D 25-OH Total 23.6 ng/mL (>30)
[2023-08-23 09:55] LABS: Appearance Urine Clear; Color Urine Yellow; Glucose Urine UA Negative (Negative); Leukocyte Esterase Urine Negative (Negative); Nitrite Urine Negative (Negative); PH 6.5 (5.0-9.0); Urine Blood Negative (Negative); Urine Ketones Negative (Negative); Urine Protein Negative (Neg-Trace)
[2023-08-24 11:04] LABS: Rubella IgG Antibody 1.75 Index
[2023-08-26 07:24] LABS: TS Negative Control Passed; TS Panel A 0; TS Panel B 0; TS Positive Control Passed; TSpotTB Negative (Negative)
== END 2023-08-23 07:37 | disposition home or self-care (01) ==
LOC: HO.LAB 07:36
PROVIDERS: Visit Provider Internal Medicine
DX: Z00.00 Encounter for general adult medical examination without abnormal findings (principal); D64.9 Anemia, unspecified; E78.00 Pure hypercholesterolemia, unspecified; E55.9 Vitamin D deficiency, unspecified; Z28.39 Other underimmunization status; R30.0 Dysuria
CPT/HCPCS: 36415; 80053; 80061; 81003; 82306; 84443; 85025; 86481; 86735; 86762; 86765; 86787

== ENCOUNTER 2023-11-27 09:22 | Outpatient (AMB) | payer OTHER, SELFPAY ==
[2023-11-27 09:44] VITALS: BP 120/90; PULSE 70; O2SAT 96; BMI 54.9
--- NOTE | 2023-11-27 09:44 | MHC.OFFWIV ---
Intake Vital Signs 11/27/23 09:44 Height 5 ft 5 in Weight 330 lb BMI 54.9 BP 120/90 H Blood Pressure Location Rt brachial Position Sitting Pulse 70 Pulse Source Pulse Oximeter Pulse Oximetry (%) 96 Oxygen Delivery Method Room Air Intake Visit Reasons: EP ?UTI Intake Note: Patient here for possible UTI, burning when urinating, chills, foul odor which has been worsening over the past 2 days. She notes that she has had a UTI before and this has been similar. She has had no back pain. Patient Tobacco Use Status: Tobacco use Unknown Allergies lithium [From LITHATE] Allergy (Severe, Verified 11/27/23 09:46) ANAPHYLAXIS codeine [CODEINE] Allergy (Unknown, Verified 11/27/23 09:46) UNKNOWN Do you need a note to return to daycare/school/sports/work: Yes HPI EP ?UTI HPI Details This note is constructed using voice recognition software. While every effort has been made to ensure accuracy, medical transcriptionist errors may have been included. The patient is a 33 year old female who presents to the clinic today with concern for urinary tract infection. She complains of burning, urgency, frequency as well as chills over the past 2 days. [facility] Medical History Morbid obesity with BMI of 45.0-49.9, adult Missed period Dysuria Right knee pain Lumbar back pain Encounter for Nexplanon removal Etonogestrel implant for control Trichomoniasis Obesity, morbid, BMI 50 or higher Potential exposure to STD Cervical cancer screening Women's annual routine gynecological examination control counseling Recurrent UTI Constipation Uses control Renal cyst UTI (urinary tract infection) Obesity Environmental allergies COVID-19 Dysuria Insomnia Morbid obesity with BMI of 45.0-49.9, adult Attention deficit hyperactivity disorder (ADHD) Bipolar affective disorder, current episode mixed Nocturnal enuresis GERD without esophagitis Pulmonary nodules Asthma Surgical History History of surgery Family History Father Ketoacidosis Diabetes ADHD Chronic mental illness Substance abuse Mother Anxiety Hypertension Crohn disease Family/Other Chronic mental illness Social History Housing: Apartment Alcohol intake: former Patient Tobacco Use Status: Tobacco use Unknown e-Cigarette/Vaping Use: Never Used Second Hand Smoke Exposure: Yes service: No Current occupational status: employed Current occupational exposures/hazards: No Cognitive needs: No Hearing needs: No Vision needs: No Female Reproductive History Menstrual Age of Menarche: 11 Review of Systems Const All systems reviewed & are unremarkable except as noted in HPI and below Physical Exam Vital Signs: Last Vital Signs Pulse 70 11/27/23 09:44 BP 120/90 H 11/27/23 09:44 Pulse Ox 96 11/27/23 09:44 Oxygen Delivery Method Room Air 11/27/23 09:44 BMI result Body Mass Index 54.9 Const General: cooperative, healthy appearing, comfortable, no acute distress and alert Orientation/consciousness: patient oriented x3 Limitations: no limitations Resp Effort & Inspection: normal respiratory effort and able to speak in complete sentences Auscultation: clear to auscultation bilaterally Cardio Jugular venous distension: no JVD Palpation: normal PMI Rate: regular rate Heart sounds: S1 normal heart sound present, S2 normal heart sound present, no click, no gallops, no murmurs and no rubs General: Yes no CVA tenderness Back/Spine/Pelvis Back: no CVA tenderness Skin General skin exam: no rashes or lesions noted, elasticity normal and turgor normal Neuro General: patient oriented x3 Psych Appearance: grossly normal Mental Status: mental status grossly normal Speech and movement: Normal speech and movement present Affect: normal affect Results AMB Urinalysis, Automated UA Leukoctes 0 Santos/uL Last Edit by MAGNUS Rizvi on 11/27/23 09:59 UA Nitrite Negative Last Edit by MAGNUS Rizvi on 11/27/23 09:59 UA Urobilinogen 0.2 mg/dL Last Edit by MAGNUS Rizvi on 11/27/23 09:59 UA Protein 0 mg/dL Last Edit by MAGNUS Rizvi on 11/27/23 09:59 UA pH 5.5 Last Edit by MAGNUS Rizvi on 11/27/23 09:59 UA Blood 10 Osmin/uL Last Edit by MAGNUS Rizvi on 11/27/23 09:59 UA Specific [place] 1.015 Last Edit by MAGNUS Rizvi on 11/27/23 09:59 UA Ketone Negative Last Edit by MAGNUS Rizvi on 11/27/23 09:59 UA Bilirubin 0 mg/dL Last Edit by MAGNUS Rizvi on 11/27/23 09:59 UA Glucose 0 mg/dL Last Edit by MAGNUS Rizvi on 11/27/23 09:59 Results Reviewed Results Reviewed: Laboratory Last Values Urine pH (Auto) 5.5 11/27/23 09:58 Specific [place] (Auto) 1.015 11/27/23 09:58 Urine Protein (Auto) 0 mg/dL 11/27/23 09:58 Glucose (UA)(Auto) 0 mg/dL 11/27/23 09:58 Urine Ketones (Auto) Negative 11/27/23 09:58 Urine Blood (Auto) 10 Osmin/uL 11/27/23 09:58 Urine Nitrite (Auto) Negative 11/27/23 09:58 Urine Bilirubin (Auto) 0 mg/dL 11/27/23 09:58 Urine Urobilinogen (Auto) 0.2 mg/dL 11/27/23 09:58 Leukocyte Esterase (Auto) 0 Santos/uL 11/27/23 09:58 Assessment & Plan Assessment & Plan (1) Dysuria: Code(s): R30.0 - Dysuria Plan: In office urine does not appear consistent with UTI, however symptoms do appear to be, and we will treat based on symptoms. Antimicrobial therapy sent to requested pharmacy. Advised patient to follow up with worsening symptoms or failure to resolve, especially in setting of results of rapid urinalysis. Advised to increase hydration. Plan See above for full details and plan. Orders: Orders AMB Urinalysis Automated Today Yazmin Wang PA-C Z13.9 - Encounter for screening, unspecified Medications: New nitrofurantoin monohyd/m-cryst 100 mg (Macrobid) must administer with a meal/food 100 mg PO Q12H 3 days 6 caps 0RF Marina Lee NP Coding Level of Care Code Est Pt Level 3 (06417) Diagnoses Dysuria R30.0
== END 2023-11-27 10:15 | disposition home or self-care (01) ==
PROVIDERS: PCP Internal Medicine; Visit Provider Registered Nurse
DX: R30.0 Dysuria (principal); Z13.9 Encounter for screening, unspecified
CPT/HCPCS: 81003; 99213

== ENCOUNTER 2023-12-06 14:55 | Emergency (ER) | payer OTHER, SELFPAY ==
--- NOTE | ~2023-12-06 | XR_ITS ---
EXAMINATION: XR CHEST CLINICAL INFORMATION: Pain, cough COMPARISON: 10/09/2022 TECHNIQUE: 2 views of the chest were obtained. FINDINGS: Cardiomediastinal silhouette is stable. No consolidation, pleural effusion or pneumothorax. Low lung volumes. No acute osseous abnormalities. XR/XR chest 2V IMPRESSION: Low lung volumes. No acute cardiopulmonary process. Electronically signed by: Gerald Sánchez MD 12/06/2023 05:05 PM EDT RP
--- NOTE | 2023-12-06 14:59 | ECG_ITS ---
Test Reason : chest pain Blood Pressure : / mmHG Vent. Rate : 079 BPM Atrial Rate : 079 BPM P-R Int : 200 ms QRS Dur : 096 ms QT Int : 376 ms P-R-T Axes : 020 000 009 degrees QTc Int : 431 ms Normal sinus rhythm Incomplete right bundle branch block Borderline ECG When compared with ECG of 13-AUG-2023 22:31, Nonspecific T wave abnormality now evident in Anterior leads Referred By: Generic ED Physician Electronically Signed By:VALENTINE NIELSEN
[2023-12-06 15:01] VITALS: BP 118/76; BP 129/84; PULSE 73; PULSE 79; RESP 18; TEMP 36.5; O2SAT 98; BMI 57.9
[2023-12-06 15:17] LABS: MANUAL DIFF FLAG NO
[2023-12-06 15:19] LABS: Basophils Percent Auto 0.2 % (0-2); Eosinophils Absolute Auto 0.1 X10*3/uL (0.0-0.4); Eosinophils Percent Auto 0.6 % (0-4); Hematocrit 37.5 % (37.0-47.0); Hemoglobin 12.3 g/dl (12.0-16.0); Imm Gran Abs Auto 0.04 X10*3/uL (0.00-0.03); Imm Gran Pct Auto 0.4 % (0.0-0.4); Lymphocytes Absolute Auto 2.3 X10*3/uL (1.2-4.9); Lymphocytes Percent Auto 22.8 % (20-40); Mean Corpuscular HGB Conc 32.8 g/dl (31.0-35.0); Mean Corpuscular Hemoglobin 27.7 pg (27.0-33.0); Mean Corpuscular Volume 84.5 fL (80.0-98.0); Mean Platelet Volume 9.8 fL (9.4-12.3); Monocytes Absolute Auto 0.6 X10*3/uL (0.1-1.2); Monocytes Percent Auto 6.3 % (2-11); Neutrophils Absolute Auto 6.9 x10*3/uL (2.0-8.3); Neutrophils Percent Auto 69.7 % (45-73); Platelet Count 273 X10*3/uL (160-400); Red Blood Count 4.44 X10*6/uL (4.20-5.50); Red Cell Distribution Width 12.9 % (11.0-16.0); White Blood Count 9.9 X10*3/uL (4.8-10.8)
[2023-12-06 15:27] LABS: Prothrombin Time 12.2 SEC (11.1-13.3)
[2023-12-06 15:34] LABS: Alanine Aminotransferase 25 U/L (0-31); Albumin Level 4.2 g/dL (3.5-5.0); Alkaline Phosphatase 93 U/L (39-117); Anion Gap 10 (12-20); Aspartate Amino Transferase 18 U/L (5-31); Bilirubin Total 0.4 mg/dL (0.0-1.0); Blood Urea Nitrogen 15 mg/dL (9-16); Calcium 9.6 mg/dL (8.4-10.2); Carbon Dioxide 28 mmol/L (22-29); Chloride 104 mmol/L (96-108); Creatinine Clr Calc Pharmacy 158.3; Estimated Glomerular Filt Rate > 60; Glucose Random 98 mg/dL (60-115); Sodium 138 mmol/L (135-145); Total Protein 7.5 g/dL (6.5-8.0)
[2023-12-06 15:41] LABS: Troponin-I High Sensitivity 31.5 ng/L (<3.5-17.0)
[2023-12-06] MEDS: Ibuprofen 600 MG TABLET PO (16:42)
== END 2023-12-06 18:33 | disposition left against medical advice (07) ==
PROVIDERS: Emergency Provider Emergency Medicine
DX: R05.9 Cough, unspecified (principal); R07.9 Chest pain, unspecified; Z53.21 Procedure and treatment not carried out due to patient leaving prior to being seen by health care provider
CPT/HCPCS: 36415; 71046; 80053; 84484; 85025; 85610; 93005; 99283

== ENCOUNTER 2024-02-02 11:01 | Outpatient (AMB) | payer OTHER, SELFPAY ==
[2024-02-02 11:08] VITALS: BP 122/78; PULSE 83; O2SAT 98; BMI 57.8
--- NOTE | 2024-02-02 11:08 | MHC.PC.OV ---
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: No Accompanied by: Self / Same As Patient Allergies lithium [From LITHATE] Allergy (Severe, Verified 02/02/24 11:29) ANAPHYLAXIS codeine [CODEINE] Allergy (Unknown, Verified 02/02/24 11:29) UNKNOWN Medication List - Last Reconciled 02/02/24 by Angelo Smith MD albuterol sulfate 2.5 mg continuous nebulization QID PRN albuterol sulfate 90 mcg/actuation (Ventolin HFA) 2 puffs PO Q4-6H PRN aripiprazole 10 mg PO DAILY cholecalciferol (vitamin D3) 25 mcg PO DAILY ferrous sulfate 325 mg PO DAILY 90 days fluticasone propion-salmeterol 250-50 mcg/dose (Wixela Inhub) 1 inh inhalation BID 30 days guanfacine ER 2 mg PO DAILY ibuprofen 600 mg PO Q6H PRN [NEBULIZER As directed 4 times a day as needed] [NEBULIZER and all related accessories As directed] sertraline 100 mg PO DAILY trazodone 100 mg PO BEDTIME 30 days Tobacco use date assessed: 02/02/24 Dental Screening Dental Screen Date: 02/02/24 Did you have a dental visit in the last 12 months?: Yes Did you have a dental problem in the last 6 months where you did not have access to dental care?: No Was dental information given to patient?: Patient has dentist HPI left leg edema and numbness and tingling HPI Details Patient comes in today complaining of increasing swelling and on and off pain of her left lower leg and foot for the past month now She denies any recent injury or trauma to her left leg She denies any SOB or chest pains - states that her asthma has been well-controlled on her current Rx and she will need her Wixela Rx refilled Denies any fever, headaches or dizziness No nausea/vomiting; reports (+) recurrent abdominal cramping pain and frequent passage of loose stools, which she states have been going on for some time now She has never noticed any blood in her stool in the past Abdominal and pelvic CT done last year (2022) revealed no acute intra-abdominal findings Adds that she has been experiencing recurrent low back pain again lately and would like to have her urine checked as well to make sure she does not have a UTI Would also like to get referred to PT again but she would like to have this somewhere closer to home for her, as she now lives [facility] on [facility] in [facility] Medical History (Updated 02/02/24 @ 12:00 by Angelo Smith MD) Vitamin D deficiency Morbid obesity with BMI of 50.0-59.9, adult Morbid obesity with BMI of 45.0-49.9, adult Missed period Dysuria Right knee pain Lumbar back pain Encounter for Nexplanon removal Etonogestrel implant for control Trichomoniasis Obesity, morbid, BMI 50 or higher Potential exposure to STD Cervical cancer screening Women's annual routine gynecological examination control counseling Recurrent UTI Constipation Uses control Renal cyst UTI (urinary tract infection) Obesity Environmental allergies COVID-19 Dysuria Insomnia Morbid obesity with BMI of 45.0-49.9, adult Attention deficit hyperactivity disorder (ADHD) Bipolar affective disorder, current episode mixed Nocturnal enuresis GERD without esophagitis Pulmonary nodules Asthma Surgical History History of surgery Family History Father Ketoacidosis Diabetes ADHD Chronic mental illness Substance abuse Mother Anxiety Hypertension Crohn disease Family/Other Chronic mental illness Social History Housing: Apartment Alcohol intake: former Patient Tobacco Use Status: Tobacco use Unknown e-Cigarette/Vaping Use: Never Used Second Hand Smoke Exposure: Yes service: No Current occupational status: employed Current occupational exposures/hazards: No Cognitive needs: No Hearing needs: No Vision needs: No Female Reproductive History Menstrual Age of Menarche: 11 Questionnaire PHQ-9 Over the last 2 weeks, how often have you been bothered by any of the following problems? 1. Little interest or pleasure in doing things: not at all 2. Feeling down, depressed, or hopeless: not at all 3. Trouble falling or staying asleep, or sleeping too much: not at all 4. Feeling tired or having little energy: not at all 5. Poor appetite or overeating: not at all 6. Feeling bad about yourself - or that you are a failure or have let yourself or your family down: not at all 7. Trouble concentrating on things, such as reading the newspaper or watching television: not at all 8. Moving or speaking so slowly that other people could have noticed. Or the opposite - being so fidgety or restless that you have been moving around a lot more than usual: not at all 9. Thoughts that you would be better off or of hurting yourself in some way: not at all Total score: 0 Depression Screening Interpretation: Positive Depression Screening Follow-up: Existing condition and In treatment Depression Screening Done: Yes 55843 - PHQ-9 Billing: Yes Source: Developed by Drs. Gerald Costa, Emily Villalobos, Jonathon Delcid and colleagues, with an educational yandel from [employer]. Thrive Questionnaire Date Thrive assessed: 02/02/24 I am a: Patient What is your living situation today?: I have a steady place to live Within the past 12 months, did the food you bought not last and you didn't have the money to get more?: Never true Within the past 12 months, did you worry whether your food would run out before you got money to buy more?: Never true Do you have trouble paying for medicines?: No Do you have trouble getting transportation to medical appointments?: No Do you have trouble paying your heating and electricity bill?: No Do you have trouble taking care of your child, family member or friend?: No Do you have trouble with day-to-day activities such as bathing, preparing meals, shopping, managing finances, etc.?: No Are you currently unemployed and looking for a job?: No Are you interested in more education?: No Please select the resources that you would like help with: None Currently or been in a relationship where the following occur: No concerns reported THRIVE Score: 0 AUDIT C Alcohol Use Questionnaire (AUDIT-C) 1. How often do you have a drink containing alcohol?: Never 3. How often do you have six or more drinks on one occasion?: Never Total Score: 0 Score Reviewed/Action Taken: Yes DESIRE-7 AMB Questionnaire DESIRE-7 Date DESIRE - 7 assessed: 02/02/24 Feeling nervous, anxious, or on edge: 0 = Not at all Not being able to stop or control worryin = Not at all Worrying too much about different things: 0 = Not at all Trouble relaxin = Not at all Being so restless that it is hard to sit still: 0 = Not at all Becoming easily annoyed or irritable: 0 = Not at all Feeling afraid as if something awful might happen: 0 = Not at all Total DESIRE-7 score (0-4 normal; 5-9 mild; 10-14 moderate; 15-21 severe): 0 Source: Developed by Drs. Gerald Costa, Emily Villalobos, Jonathon Delcid and colleagues, with an educational yandel from [employer]. DESIRE-7 Assessment Billing DESIRE-7 Assessment Tool: DESIRE-7 Assessment 89503 Review of Systems Const Denies chills, Denies fatigue, Denies fever(s) and Denies headache(s) ENT Denies dysphagia, Denies dizziness, Denies otalgia, Denies headache(s), Denies neck pain, Denies odynophagia and Denies sore throat Card Denies chest pain, Denies palpitations and Denies dyspnea Resp Denies cough and Denies dyspnea GI Reports abdominal pain (on and off cramping pain), Denies hematochezia, Denies constipation, Denies dysphagia, Denies heartburn, Reports loose stools (frequent), Denies nausea, Denies odynophagia and Denies vomiting Denies difficulty voiding, Denies nocturia, Denies dysuria and Denies urinary urgency Musc Details: increasing pain and swelling of her left lower extremity lately Reports back pain (recurrent, over the lower back) and Denies neck pain Skin/Breast Denies rash Neuro Denies dizziness and Denies headache(s) Endo Denies fatigue and Denies palpitations Physical exam (Primary Care) Vital Signs: Last Vital Signs Pulse 83 02/02/24 11:08 BP 122/78 02/02/24 11:08 Pulse Ox 98 02/02/24 11:08 Oxygen Delivery Method Room Air 02/02/24 11:08 BMI result Body Mass Index 57.8 Tobacco/Smoking Status: Tobacco use Status Tobacco use date assessed 02/02/24 02/02/24 11:12 Patient Tobacco Use Status Tobacco use Unknown 02/02/24 11:12 e-Cigarette/Vaping Use Never Used 02/02/24 11:12 PHQ-9: PHQ-9 Score PHQ-9: Total score 0 02/02/24 11:12 Depression Screening Interpretation: Positive Depression Screening Follow-up: Existing condition and In treatment Thrive Assessment: Date of Thrive Assessment Date Thrive assessed 02/02/24 02/02/24 11:12 Currently or been in a relationship where the following occur: No concerns reported Const General: no acute distress and alert HENMT Throat: Yes posterior oropharynx normal and Yes tonsils normal (no TP congestion) Neck Neck: Yes no lymphadenopathy and Yes supple Thyroid: Thyroid normal Resp Auscultation: clear to auscultation bilaterally, no rales and no wheezes Cardio Rate: regular rate Rhythm: regular rhythm Heart sounds: no murmurs GI Palpation (GI): Soft to palpation and nontender Auscultation: normal bowel sounds General: Yes no CVA tenderness Back/Spine/Pelvis Back: no CVA tenderness Thoracic/Lumbar Spine: lumbar spinal tenderness Extrem Other: 3+ pitting edema on the left lower extremity; 2+ edema on the right lower extremity Office Procedures Flu Questionnaire Does the patient have a severe egg allergy?: No Immunizations Fluarix Triv [id number] (PF) 45 mcg (15 mcg x 3)/0.5 mL IM syringe Performing Provider: Angelo Smith MD Per[facility] [place] [facility] Documented (not given) by: PARKER Damon on 02/02/24 11:13 Reason Not Given: Patient Refused Coding Level of Care Code Est Pt Level 4 (22732) Diagnoses Pain and swelling of left lower extremity M79.605; M79.89 Bilateral chronic knee pain M25.561; M25.562; G89.29 Lumbar back pain M54.50 Diarrhea, unspecified type R19.7 Diarrhea type: unspecified type Moderate persistent asthma, unspecified whether complicated J45.40 Asthma severity: moderate Asthma persistence: persistent Asthma complication type: unspecified Vitamin D deficiency E55.9 Insomnia, unspecified type G47.00 Insomnia type: unspecified Anxiety F41.9 Bipolar affective disorder, current episode mixed, current episode severity unspecified F31.60 Current episode severity: unspecified Morbid obesity with BMI of 50.0-59.9, adult E66.01; Z68.43 Additional Codes DESIRE-7 Assessment Billing - DESIRE-7 Assessment Tool: DESIRE-7 Assessment 20977 ([id number]) Assessment & Plan Assessment & Plan (1) Pain and swelling of left lower extremity: Code(s): M79.605 - Pain in left leg; M79.89 - Other specified soft tissue disorders Category: Medical Plan: Will send patient for some labs AILEEN for further evaluation Will also send her for an urgent venous doppler of the left lower extremity AILEEN to r/o DVT (2) Bilateral chronic knee pain: Code(s): M25.561 - Pain in right knee; M25.562 - Pain in left knee; G89.29 - Other chronic pain Category: Medical Plan: Per request, will refer her to physical therapy for her knees - she prefers somewhere in [place] that is closer to home for her Continue Ibuprofen 600 mg Q 6 hours PRN with food for pain (3) Lumbar back pain: Code(s): M54.50 - Low back pain, unspecified Category: Medical Plan: Reinforced activity and weight-lifting restrictions Will also refer her to PT for her low back pain (4) Frequent loose stools: Code(s): R19.7 - Diarrhea, unspecified Category: Medical Qualifiers: Diarrhea type: unspecified type Qualified Code(s): R19.7 - Diarrhea, unspecified Plan: Will refer her to GI for further evaluation and management She did have abdominal and pelvic CT done last year (2022) that revealed no acute intra-abdominal findings (5) Asthma: Code(s): J45.909 - Unspecified asthma, uncomplicated Category: Medical Qualifiers: Asthma severity: moderate Asthma persistence: persistent Asthma complication type: unspecified Qualified Code(s): J45.40 - Moderate persistent asthma, uncomplicated Plan: Appears to be stable lately Continue Wixela Inhub 250-50 mcg 1 inhalation BID (Rx refilled) and Albuterol HFA 1 to 2 inhalations Q 6 hours PRN (6) Vitamin D deficiency: Code(s): E55.9 - Vitamin D deficiency, unspecified Category: Medical Plan: Continue Vitamin D3 1000 units QD (7) Insomnia: Code(s): G47.00 - Insomnia, unspecified Category: Medical Qualifiers: Insomnia type: unspecified Qualified Code(s): G47.00 - Insomnia, unspecified Plan: Sleep hygiene reinforced Continue Trazodone 100 mg Q HS PRN (8) Anxiety: Code(s): F41.9 - Anxiety disorder, unspecified Category: Medical Plan: Continue Setraline 100 mg QD (9) Bipolar affective disorder, current episode mixed: Code(s): F31.60 - Bipolar disorder, current episode mixed, unspecified Category: Medical Qualifiers: Current episode severity: unspecified Qualified Code(s): F31.60 - Bipolar disorder, current episode mixed, unspecified Plan: Continue Aripiprazole 10 mg Q HS and Sertraline 100 mg QD Follow up with psychiatry as scheduled (10) Morbid obesity with BMI of 50.0-59.9, adult: Code(s): E66.01 - Morbid (severe) obesity due to excess calories; Z68.43 - Body mass index [BMI] 50.0-59.9, adult Category: Medical Plan: Reinforced diet/exercise as tolerated/lose weight Plan To return as scheduled in August 2024 for her next annual physical examination Orders: Orders Complete Blood Count Auto Diff Today D64.9 - Anemia, unspecified, M79.605 - Pain in left leg, M79.89 - Other specified soft tissue disorders Comprehensive Met. Panel Today M79.605 - Pain in left leg, M79.89 - Other specified soft tissue disorders B Type Natriuretic Peptide Today R60.9 - Edema, unspecified UA CC w/rflx Micro + Cult Today R30.0 - Dysuria Influenza [id number] Immunization Today Z23 - Encounter for immunization Erythrocyte Sedimentation Rate Today M79.605 - Pain in left leg, M79.89 - Other specified soft tissue disorders D Dimer High Sensitivity Today M79.605 - Pain in left leg, M79.89 - Other specified soft tissue disorders US venous duplex LE LT Today M79.605 - Pain in left leg, M79.89 - Other specified soft tissue disorders PT Evaluation and Treatment Today G89.29 - Other chronic pain, M25.561 - Pain in right knee, M25.562 - Pain in left knee, M54.50 - Low back pain, unspecified Referrals Gastroenterology Referral R19.7 - Diarrhea, unspecified Medications: Refilled fluticasone propion-salmeterol 250-50 mcg/dose (Ej Marie) 1 inh inhalation BID 30 days 60 ea 3RF
== END 2024-02-02 11:49 | disposition home or self-care (01) ==
PROVIDERS: PCP Internal Medicine; Visit Provider Internal Medicine
DX: M79.605 Pain in left leg (principal); F31.60 Bipolar disorder, current episode mixed, unspecified; Z68.43 Body mass index [BMI] 50.0-59.9, adult; E66.813 Obesity, class 3; M79.89 Other specified soft tissue disorders; M25.561 Pain in right knee; M25.562 Pain in left knee; G89.29 Other chronic pain; M54.50 Low back pain, unspecified; R19.7 Diarrhea, unspecified; J45.40 Moderate persistent asthma, uncomplicated; E55.9 Vitamin D deficiency, unspecified

== ENCOUNTER → 2024-02-02 11:01 | Outpatient (BNVA) | payer OTHER, SELFPAY | PROVIDERS: PCP Internal Medicine; Visit Provider Internal Medicine | DX: M79.605 Pain in left leg (principal); M79.89 Other specified soft tissue disorders; G89.29 Other chronic pain; M25.561 Pain in right knee; M25.562 Pain in left knee; M54.50 Low back pain, unspecified; R19.7 Diarrhea, unspecified; J45.40 Moderate persistent asthma, uncomplicated; E55.9 Vitamin D deficiency, unspecified; G47.00 Insomnia, unspecified; F41.9 Anxiety disorder, unspecified; F31.60 Bipolar disorder, current episode mixed, unspecified; E66.01 Morbid (severe) obesity due to excess calories; Z68.43 Body mass index [BMI] 50.0-59.9, adult; Z79.899 Other long term (current) drug therapy; Z28.21 Immunization not carried out because of patient refusal | CPT/HCPCS: 90471; 96127; 99212 ==

== ENCOUNTER 2024-02-02 12:15 | Outpatient (REF) | payer OTHER, SELFPAY ==
--- NOTE | ~2024-02-02 | US_ITS ---
EXAMINATION: US TRIPLEX LOWER EXTREMITY, LEFT CLINICAL INFORMATION: Pain in left leg COMPARISON: Ultrasound 10/09/2022 TECHNIQUE: Color-flow triplex imaging with spectral analysis and compression Doppler were performed on the left lower extremity. FINDINGS: Respiratory variation, normal compression and augmented flow are noted throughout the left lower extremity. The visualized common femoral vein, superficial femoral vein, profunda femoral vein, popliteal vein and midcalf peroneal and posterior tibial venous segments show no evidence of deep venous thrombosis. There is no Souza's cyst. US/US venous duplex LE LT IMPRESSION: No evidence of deep venous thrombosis involving the left lower extremity. Electronically signed by: Jeff Mustafa MD 02/02/2024 02:26 PM EDT
[2024-02-02 13:11] LABS: MANUAL DIFF FLAG NO
[2024-02-02 13:29] LABS: Basophils Percent Auto 0.3 % (0-2); Eosinophils Absolute Auto 0.1 X10*3/uL (0.0-0.4); Eosinophils Percent Auto 0.8 % (0-4); Hematocrit 34.9 % (37.0-47.0); Hemoglobin 11.4 g/dl (12.0-16.0); Imm Gran Abs Auto 0.02 X10*3/uL (0.00-0.03); Imm Gran Pct Auto 0.3 % (0.0-0.4); Lymphocytes Absolute Auto 2.3 X10*3/uL (1.2-4.9); Mean Corpuscular HGB Conc 32.7 g/dl (31.0-35.0); Mean Corpuscular Volume 85.7 fL (80.0-98.0); Mean Platelet Volume 9.9 fL (9.4-12.3); Monocytes Absolute Auto 0.7 X10*3/uL (0.1-1.2); Monocytes Percent Auto 8.2 % (2-11); Neutrophils Absolute Auto 4.9 x10*3/uL (2.0-8.3); Neutrophils Percent Auto 61.4 % (45-73); Platelet Count 286 X10*3/uL (160-400); Red Blood Count 4.07 X10*6/uL (4.20-5.50); Red Cell Distribution Width 13.7 % (11.0-16.0)
[2024-02-02 13:34] LABS: D Dimer High Sensitivity < 150 NG/ML
[2024-02-02 13:36] LABS: Appearance Urine Clear; Color Urine Yellow; Glucose Urine UA Negative (Negative); Leukocyte Esterase Urine Negative (Negative); Nitrite Urine Positive (Negative); Specific Gravity - Urine 1.025 (1.005-1.025); UMIC TRIGGER UACC YES; Urine Blood Large (3+) (Negative); Urine Ketones Negative (Negative); Urine Protein Negative (Neg-Trace)
[2024-02-02 13:47] LABS: Bacteria Urine 4+ (None Seen); Hyaline Casts Urine 0-2 /LPF (0-2); RBC Urine 0-2 /HPF (0-2); UACC Culture Trigger YES; WBC Urine 0-5 /HPF (0-5)
[2024-02-02 14:04] LABS: Erythrocyte Sedimentation Rate 14 MM/HR (0-20)
[2024-02-02 14:12] LABS: Alanine Aminotransferase 29 U/L (0-31); Albumin Level 4.1 g/dL (3.5-5.0); Alkaline Phosphatase 98 U/L (39-117); Anion Gap 12 (12-20); Aspartate Amino Transferase 21 U/L (5-31); Bilirubin Total 0.4 mg/dL (0.0-1.0); Blood Urea Nitrogen 11 mg/dL (9-16); Calcium 8.8 mg/dL (8.4-10.2); Carbon Dioxide 29 mmol/L (22-29); Chloride 105 mmol/L (96-108); Estimated Glomerular Filt Rate > 60; Glucose Random 96 mg/dL (60-115); Potassium 3.9 mmol/L (3.3-5.1); Sodium 142 mmol/L (135-145); Total Protein 6.9 g/dL (6.5-8.0)
[2024-02-02 14:14] LABS: B Type Natriuretic Peptide 67 pg/mL (<100)
== END 2024-02-02 12:16 | disposition home or self-care (01) ==
LOC: HO.US 12:15
PROVIDERS: PCP Internal Medicine; Visit Provider Internal Medicine
DX: M79.605 Pain in left leg (principal); R60.0 Localized edema; D64.9 Anemia, unspecified; R82.90 Unspecified abnormal findings in urine
CPT/HCPCS: 36415; 80053; 81001; 83880; 85025; 85379; 85652; 87086; 87088; 87186; 93971

== ENCOUNTER 2024-03-16 04:45 | Emergency (ER) | payer OTHER, SELFPAY ==
[2024-03-16 04:47] VITALS: BP 148/78; PULSE 81; RESP 20; TEMP 36.8; O2SAT 98; BMI 56.1
[2024-03-16 05:13] LABS: Appearance Urine Cloudy; Color Urine Yellow; Glucose Urine UA Negative (Negative); Leukocyte Esterase Urine Small (1+) (Negative); Nitrite Urine Negative (Negative); UMIC TRIGGER UACC YES; Urine Blood Negative (Negative); Urine Ketones Negative (Negative); Urine Protein Negative (Neg-Trace)
[2024-03-16 05:21] LABS: Bacteria Urine 4+ (None Seen); Hyaline Casts Urine 0-2 /LPF (0-2); RBC Urine 0-2 /HPF (0-2); Squamous Epithelial Cell Urine 0-2 /HPF (0-2); UACC Culture Trigger YES; WBC Urine 21-50 /HPF (0-5)
--- NOTE | 2024-03-16 05:43 | ED.GENADULT ---
HPI - General Adult General Chief complaint: General Medical Stated complaint: gen med Time Seen by Provider: 03/16/24 05:29 Source: patient Mode of arrival: ambulatory Limitations: no limitations History of Present Illness ED Provider: HPI narrative: Patient has been complaining of dysuria frequency for last 3 days along with having sore throat and cough and nasal congestion no fever does not have any vaginal discharge but requesting STI testing Related Data Home Medications ?Medication ?Instructions ?Recorded ?Confirmed aripiprazole 10 mg tablet 10 mg PO DAILY 01/16/23 02/02/24 guanfacine 1 mg tablet,extended 2 mg PO DAILY 01/16/23 02/02/24 release 24 hr albuterol sulfate 2.5 mg/3 mL 2.5 mg continuous nebulization QID 08/22/23 02/02/24 (0.083 %) solution for nebulization PRN shortness of breath or wheezing sertraline 100 mg tablet 100 mg PO DAILY 08/22/23 02/02/24 Previous Rx's ?Medication ?Instructions ?Recorded NEBULIZER #1 ea 04/20/21 trazodone 100 mg tablet 100 mg PO BEDTIME 30 days #30 tabs 12/20/22 NEBULIZER and all related #1 ea 01/06/23 accessories ibuprofen 600 mg tablet 600 mg PO Q6H PRN fever or pain 08/14/23 #30 tabs cholecalciferol (vitamin D3) 25 25 mcg PO DAILY #90 caps 01/10/24 mcg (1,000 unit) capsule ferrous sulfate 325 mg (65 mg 325 mg PO DAILY 90 days #90 tabs 01/31/24 iron) tablet fluticasone 250 mcg-salmeterol 50 1 inh inhalation BID 30 days #60 ea 02/02/24 mcg/dose blistr powdr for inhalation (Wixela Inhub) albuterol sulfate 90 mcg/actuation 2 puff PO Q4-6H PRN for wheezing 02/27/24 aerosol inhaler (Ventolin HFA) #18 ea cefuroxime axetil 500 mg tablet 500 mg PO BID 7 days #14 tabs 03/16/24 phenazopyridine 200 mg tablet 200 mg PO TID 2 days #6 tabs 03/16/24 (Pyridium) Allergies Allergy/AdvReac Type Severity Reaction Status Date / Time lithium [From LITHATE] Allergy Severe ANAPHYLAXIS Verified 03/16/24 04:50 codeine [CODEINE] Allergy Unknown UNKNOWN Verified 03/16/24 04:50 Review of Systems Review of Systems: Yes all other systems are reviewed and are negative [facility] Past Medical History Medical History Cervical cancer screening Anemia Vitamin D deficiency Morbid obesity with BMI of 50.0-59.9, adult Morbid obesity with BMI of 45.0-49.9, adult Missed period Dysuria Right knee pain Lumbar back pain Encounter for Nexplanon removal Etonogestrel implant for control Trichomoniasis Obesity, morbid, BMI 50 or higher Potential exposure to STD Women's annual routine gynecological examination control counseling Recurrent UTI Constipation Uses control Renal cyst UTI (urinary tract infection) Obesity Environmental allergies COVID-19 Dysuria Insomnia Morbid obesity with BMI of 45.0-49.9, adult Attention deficit hyperactivity disorder (ADHD) Bipolar affective disorder, current episode mixed Nocturnal enuresis GERD without esophagitis Pulmonary nodules Asthma Surgical History History of surgery Family History Family History Father Ketoacidosis Diabetes ADHD Chronic mental illness Substance abuse Mother Anxiety Hypertension Crohn disease Family/Other Chronic mental illness Social History Social History Housing: Apartment Alcohol intake: former Patient Tobacco Use Status: Tobacco use Unknown e-Cigarette/Vaping Use: Never Used Second Hand Smoke Exposure: Yes Advance Directives: No Advance Directives Information Provided: Yes Do you have a plan to hurt others: No Plan service: No Current occupational status: employed Current occupational exposures/hazards: No Cognitive needs: No Hearing needs: No Vision needs: No Physical Exam ED Vital Signs: Vital Signs - 24 hr 03/16/24 04:47 Temperature 98.2 F Pulse Rate 81 Respiratory Rate 20 Blood Pressure 148/78 H Pulse Oximetry 98 Oxygen Delivery Method Room Air BMI result Body Mass Index 56.1 Appearance: Alert. Oriented X3. No acute distress. ENT: Pharynx erythematous Oral Mucosa moist Neck: Normal inspection. Neck supple. CVS: Normal heart rate and rhythm. Pulses normal. Respiratory: No respiratory distress. Equal air entry bilateral, no wheezing/rales/rhonchi Abdomen: Soft and nontender. Bowel sounds are present, no mass palpable, no CVA tenderness Skin: Skin warm and dry. Normal skin color. Normal skin turgor. Extremities: No lower extremity edema. No calf tenderness Neuro: Oriented X 3. No motor deficit. No sensory deficit.No cerebellar signs , cranial nerves II-XII intact Medical Decision Making Lab Data MDM Lab Attestation statement: I reviewed the patient's lab results. Labs: Lab Results 03/16/24 03/16/24 Range/Units 05:05 05:45 Urine Color Yellow Urine Appearance Cloudy Urine pH 7.0 (5.0-9.0) Ur Specific [place] 1.020 (1.005-1.025) Urine Protein Negative (Neg-Trace) mg/dL Urine Glucose (UA) Negative (Negative) mg/dL Urine Ketones Negative (Negative) mg/dL Urine Blood Negative (Negative) Urine Nitrite Negative (Negative) Ur Leukocyte Esterase Small (1+) H (Negative) Urine RBC 0-2 (0-2) /HPF Urine WBC 21-50 H (0-5) /HPF Ur Squamous Epith Cells 0-2 (0-2) /HPF Urine Bacteria 4+ (None Seen) Hyaline Casts 0-2 (0-2) /LPF Influenza Type A (PCR) NEGATIVE (Negative) Influenza Type B (PCR) NEGATIVE (Negative) RSV RNA Qual (PCR) NEGATIVE (Negative) SARS-CoV-2 RNA (RT-PCR) NEGATIVE (Negative) S. pyogenes GrpA AMEE Negative (Negative) Discharge Plan Discharge Clinical Impression: UTI (urinary tract infection), URI (upper respiratory infection) Patient Disposition: Home, Self-Care Instructions: Urinary Tract Infection in Women (DC), Upper Respiratory Infection (DC) Additional Instructions: Drink plenty of fluids Take antibiotic as prescribed Pyridium for pain Follow with your PCP if not better Your COVID flu strep negative Prescriptions: New phenazopyridine [Pyridium] 200 mg tablet 200 mg PO TID 2 Days Qty: 6 0RF cefuroxime axetil 500 mg tablet 500 mg PO BID 7 Days Qty: 14 0RF No Action trazodone 100 mg tablet 100 mg PO BEDTIME 30 Days Qty: 30 1RF (DME) NEBULIZER and all related accessories See Rx Instructions .Route .MEDSUPPLY Qty: 1 0RF Rx Instructions: As directed cholecalciferol (vitamin D3) 25 mcg (1,000 unit) capsule 25 mcg PO DAILY Qty: 90 3RF ferrous sulfate 325 mg (65 mg iron) tablet 325 mg PO DAILY 90 Days Qty: 90 1RF albuterol sulfate [Ventolin HFA] 90 mcg/actuation HFA aerosol inhaler 2 puff PO Q4-6H PRN (Reason: for wheezing) Qty: 18 1RF ibuprofen 600 mg tablet 600 mg PO Q6H PRN (Reason: fever or pain) Qty: 30 0RF (DME) NEBULIZER See Rx Instructions .Route .MEDSUPPLY Qty: 1 0RF Rx Instructions: As directed 4 times a day as needed sertraline 100 mg tablet 100 mg PO DAILY albuterol sulfate 2.5 mg /3 mL (0.083 %) solution for nebulization 2.5 mg continuous nebulization QID PRN (Reason: shortness of breath or wheezing) guanfacine 1 mg tablet extended release 24 hr 2 mg PO DAILY aripiprazole 10 mg tablet 10 mg PO DAILY fluticasone propion-salmeterol [Wixela Inhub] 250-50 mcg/dose blister with device 1 inh inhalation BID 30 Days Qty: 60 3RF Print Language: Mongolian
[2024-03-16 05:49] LABS: Influenza A PCR NEGATIVE (Negative); Influenza B PCR NEGATIVE (Negative); Resp Syncy Virus RNA Qual PCR NEGATIVE (Negative); SARS COV2 PCR INHOUSE NEGATIVE (Negative)
[2024-03-16 06:02] LABS: IDNOW Serial# 6674DD1D; Strep A Nucleic Acid Negative (Negative)
[2024-03-16] MEDS: Phenazopyridine HCL 200 MG TABLET PO (06:13)
[2024-03-16] MEDS: cefuroxime axetiL 500 MG TABLET PO (06:13)
[2024-03-16 06:14] VITALS: BP 134/61; PULSE 76; RESP 16; TEMP 36.7; O2SAT 99
[2024-03-16 06:42] LABS: CT PCR NOT DETECTED (Not Detect.); NG PCR NOT DETECTED (Not Detect.)
== END 2024-03-16 06:35 | disposition home or self-care (01) ==
PROVIDERS: Emergency Provider Internal Medicine; PCP Internal Medicine
DX: N39.0 Urinary tract infection, site not specified (principal); J06.9 Acute upper respiratory infection, unspecified; J02.9 Acute pharyngitis, unspecified; Z03.818 Encounter for observation for suspected exposure to other biological agents ruled out; J45.909 Unspecified asthma, uncomplicated
CPT/HCPCS: 0241U; 81001; 87086; 87088; 87186; 87491; 87591; 87651; 99283; 99284

== ENCOUNTER 2024-07-22 13:22 | Outpatient (REF) | payer OTHER, SELFPAY ==
[2024-07-22 14:25] LABS: Hematocrit 37.8 % (37.0-47.0); Hemoglobin 12.5 g/dl (12.0-16.0); Mean Corpuscular HGB Conc 33.1 g/dl (31.0-35.0); Mean Corpuscular Hemoglobin 28.2 pg (27.0-33.0); Mean Corpuscular Volume 85.1 fL (80.0-98.0); Mean Platelet Volume 9.8 fL (9.4-12.3); Platelet Count 280 X10*3/uL (160-400); Red Blood Count 4.44 X10*6/uL (4.20-5.50); Red Cell Distribution Width 13.2 % (11.0-16.0); White Blood Count 7.5 X10*3/uL (4.8-10.8)
--- OUTSIDE RECORDS SUMMARY | 2024-07-22 16:41 | XMS_ITS | Clinical Summary ---
Author Organization [facility] it Address [address] [place] [address] Care Team Providers Care Department Editor Name Role Phone Unavailable Primary Care Provider [...]
[2024-07-22 19:09] LABS: Alanine Aminotransferase 40 U/L (0-31); Albumin Level 4.3 g/dL (3.5-5.0); Alkaline Phosphatase 103 U/L (39-117); Anion Gap 11 (12-20); Aspartate Amino Transferase 32 U/L (5-31); Bilirubin Total 0.4 mg/dL (0.0-1.0); Blood Urea Nitrogen 17 mg/dL (9-16); Calcium 9.7 mg/dL (8.4-10.2); Carbon Dioxide 24 mmol/L (22-29); Chloride 107 mmol/L (96-108); Estimated Glomerular Filt Rate > 60; Glucose Random 92 mg/dL (60-115); Potassium 4.1 mmol/L (3.3-5.1); Sodium 138 mmol/L (135-145); Total Protein 7.6 g/dL (6.5-8.0)
[2024-07-22 19:15] LABS: TSH reflex Free T4 1.71 uIU/mL (0.32-4.0); Vitamin D 25-OH Total 17.4 ng/mL (>30)
[2024-07-23 04:38] LABS: HBS Num1 74.16 mIU/mL (0-7.99); HBc Num1 0.13 S/CO (0.00-0.79); HBsAGNum1 0.28 S/CO (0.00-0.99); HIV AB/AG Nonreactive (Nonreactive); HIV Num 1 0.07 S/CO (0.00-0.99); Hepatitis B Core Antibody Nonreactive (Nonreactive); Hepatitis B Surface Antigen Negative (Negative); ~HepC Num1 0.22 S/CO (0.00-0.79); ~Hepatitis B Surface Antibody REACTIVE (Nonreactive); ~Hepatitis C Antibody Nonreactive (Nonreactive)
[2024-07-24 04:39] LABS: Hepatitis A Antibody IgG Nonreactive (Nonreactive); ~Hepatitis A Antibody IgG 0.32 S/CO (0.00-0.99)
[2024-07-24 05:53] LABS: Transglutaminase IgA <1.0 U/mL
[2024-07-24 08:44] LABS: HCV Log PCR <1.18 NOT DETECTED Log IU/mL (NOT DETECTED); HepC Viral Load <15 NOT DETECTED IU/mL (NOT DETECTED)
== END 2024-07-22 13:23 | disposition home or self-care (01) ==
LOC: HO.LAB 13:22
PROVIDERS: PCP Internal Medicine; Visit Provider Internal Medicine
DX: E66.01 Morbid (severe) obesity due to excess calories (principal); Z68.43 Body mass index [BMI] 50.0-59.9, adult; K52.9 Noninfective gastroenteritis and colitis, unspecified; B18.2 Chronic viral hepatitis C; K74.60 Unspecified cirrhosis of liver; E55.9 Vitamin D deficiency, unspecified
CPT/HCPCS: 36415; 80053; 82306; 84443; 85027; 86364; 86704; 86706; 86708; 86803; 87340; 87389; 87522; 99202

== ENCOUNTER 2024-07-22 13:22 | Outpatient (AMB) | payer OTHER, SELFPAY ==
[2024-07-22 13:26] VITALS: BP 125/95; PULSE 79; BMI 57.9
--- NOTE | 2024-07-22 13:26 | A.OFFVIS_ITS ---
Vital Signs 07/22/24 13:26 Height 5 ft 4 in Weight 337 lb 4.916 oz BMI 57.9 BP 125/95 H Blood Pressure Location Lt radial Position Sitting Pulse 79 Intake Visit Reasons: Diarrhea Intake Note: Kamala presents in the office as a new patient for diarrhea. CC: She states that she is not sure if it is her kidneys but she has frequent UTis. She has issues with diarrhea that she states it is all the time. She states that she eats bad but that it is not normal the way her bowels come out. Mom had crohns. She states no matter what she eats she has to have a BM. 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 Reports has had poor dietary habits in the previous 2-3years leading to significant weight gain. Has gone up by 5 pant sizes since 2022. Reports having 10 slices of pizza last night due to impulse control issue. Main CC is chronic diarrhea. Reports has always had frequent BMs even as a child. More recently has increased to 3-4 BMs per day. Stools are mushy sometimes with blood in it. BM itself green/yellow. Sees blood on wiping. Sometimes has burning pain in ano. Fluctuates with really hard stools occasionally 2-3 times a day. Has urgency. Has to wake up at night to go to the bathroom. Has lower abd pain and cramping which gets worse with defecation. Also reports frequent UTIs due to hx of renal stones. On Abx at least once a month. Last use was 1 month ago. No fam hx of CRC, mom may have gotten diagnosed with crohns. [facility] Medical History Cervical cancer screening Anemia Vitamin D deficiency Morbid obesity with BMI of 50.0-59.9, adult Morbid obesity with BMI of 45.0-49.9, adult Missed period Dysuria Right knee pain Lumbar back pain Encounter for Nexplanon removal Etonogestrel implant for control Trichomoniasis Obesity, morbid, BMI 50 or higher Potential exposure to STD Women's annual routine gynecological examination control counseling Recurrent UTI Constipation Uses control Renal cyst UTI (urinary tract infection) Obesity Environmental allergies COVID-19 Dysuria Insomnia Morbid obesity with BMI of 45.0-49.9, adult Attention deficit hyperactivity disorder (ADHD) Bipolar affective disorder, current episode mixed Nocturnal enuresis GERD without esophagitis Pulmonary nodules Asthma Surgical History History of surgery Family History Father Ketoacidosis Diabetes ADHD Chronic mental illness Substance abuse Mother Anxiety Hypertension Crohn disease Family/Other Chronic mental illness Social History Housing: Apartment Alcohol intake: former Patient Tobacco Use Status: Tobacco use Unknown e-Cigarette/Vaping Use: Never Used Second Hand Smoke Exposure: Yes service: No Current occupational status: employed Current occupational exposures/hazards: No Cognitive needs: No Hearing needs: No Vision needs: No Female Reproductive History Menstrual Age of Menarche: 11 Review of Systems Const All systems reviewed & are unremarkable except as noted in HPI and below Physical Exam Vital Signs: Last Vital Signs Pulse 79 07/22/24 13:26 BP 125/95 H 07/22/24 13:26 BMI result Body Mass Index 57.9 No apparent distress Nonicteric Abdomen soft, nondistended Alert and oriented x3, normal gait Assessment & Plan Assessment & Plan (1) Chronic diarrhea: Code(s): K52.9 - Noninfective gastroenteritis and colitis, unspecified Category: Medical (2) Morbid obesity with BMI of 50.0-59.9, adult: Code(s): E66.01 - Morbid (severe) obesity due to excess calories; Z68.43 - Body mass index [BMI] 50.0-59.9, adult Category: Medical (3) Vitamin D deficiency: Code(s): E55.9 - Vitamin D deficiency, unspecified Category: Medical Plan Ddx include malabsorption, dietary intolerance to dairy or gluten for e.g, CSID, IBD, SIBO, IBS. Pt also with frequent exposure to Abx so will check CDiff as well. Plan: - Labs as below - Empiric trial of gluten and dairy avoidance x 4-6 weeks - Add fiber as a bulking agent - Eventually, will also need to review concern for binge eating disorder given eating patterns described by the pt - may also need eval for ? derek murillo Follow up 6 weeks Orders: Orders TSH reflex Free T4 Today E66.01 - Morbid (severe) obesity due to excess calories, K52.9 - Noninfective gastroenteritis and colitis, unspecified, Z68.43 - Body mass index [BMI] 50.0-59.9, adult HIV Ab/Ag Today E66.01 - Morbid (severe) obesity due to excess calories, K52.9 - Noninfective gastroenteritis and colitis, unspecified, Z68.43 - Body mass index [BMI] 50.0-59.9, adult Hepatitis C Antibody Today E66.01 - Morbid (severe) obesity due to excess calories, K52.9 - Noninfective gastroenteritis and colitis, unspecified, Z68.43 - Body mass index [BMI] 50.0-59.9, adult Hepatitis B Surface Antibody Today E66.01 - Morbid (severe) obesity due to excess calories, K52.9 - Noninfective gastroenteritis and colitis, unspecified, Z68.43 - Body mass index [BMI] 50.0-59.9, adult Calprotectin, Fecal Today E66.01 - Morbid (severe) obesity due to excess calories, K52.9 - Noninfective gastroenteritis and colitis, unspecified, Z68.43 - Body mass index [BMI] 50.0-59.9, adult CDiff Gene PCR Today E66.01 - Morbid (severe) obesity due to excess calories, K52.9 - Noninfective gastroenteritis and colitis, unspecified, Z68.43 - Body mass index [BMI] 50.0-59.9, adult Complete Blood Count no Diff Today E66.01 - Morbid (severe) obesity due to excess calories, K52.9 - Noninfective gastroenteritis and colitis, unspecified, Z68.43 - Body mass index [BMI] 50.0-59.9, adult Comprehensive Met. Panel Today E66.01 - Morbid (severe) obesity due to excess calories, K52.9 - Noninfective gastroenteritis and colitis, unspecified, Z68.43 - Body mass index [BMI] 50.0-59.9, adult Transglutaminase IgA Today E66.01 - Morbid (severe) obesity due to excess calories, K52.9 - Noninfective gastroenteritis and colitis, unspecified, Z68.43 - Body mass index [BMI] 50.0-59.9, adult Hepatitis C Viral Load Today B18.2 - Chronic viral hepatitis C, E66.01 - Morbid (severe) obesity due to excess calories, K52.9 - Noninfective gastroenteritis and colitis, unspecified, Z68.43 - Body mass index [BMI] 50.0-59.9, adult Hepatitis C Antibody Reflex Today E66.01 - Morbid (severe) obesity due to excess calories, K52.9 - Noninfective gastroenteritis and colitis, unspecified, K74.60 - Unspecified cirrhosis of liver, Z68.43 - Body mass index [BMI] 50.0- 59.9, adult Hepatitis A IgG Today E66.01 - Morbid (severe) obesity due to excess calories, K52.9 - Noninfective gastroenteritis and colitis, unspecified, Z68.43 - Body mass index [BMI] 50.0-59.9, adult Hepatitis B Core Antibody Today E66.01 - Morbid (severe) obesity due to excess calories, K52.9 - Noninfective gastroenteritis and colitis, unspecified, Z68.43 - Body mass index [BMI] 50.0-59.9, adult Hepatitis B Surface Antigen Today E66.01 - Morbid (severe) obesity due to excess calories, K52.9 - Noninfective gastroenteritis and colitis, unspecified, Z68.43 - Body mass index [BMI] 50.0-59.9, adult Vitamin D 25-OH Total Today E55.9 - Vitamin D deficiency, unspecified Coding Level of Care Code New Pt Level 4 (03055) Complex EM visit Add On G2211 Diagnoses Chronic diarrhea K52.9 Morbid obesity with BMI of 50.0-59.9, adult E66.01; Z68.43 Vitamin D deficiency E55.9
--- OUTSIDE RECORDS SUMMARY | 2024-07-22 15:54 | XMS_ITS | Clinical Summary ---
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 Name Role Phone Unavailable Primary Care Provider Unavailabl e Social History Tobacco Use Types Packs/Day Years Used Date Smoking Tobacco: Never Assessed Comments Unknown Sex and Gender Information Value Date Recorded Sex Assigned at Not on file Legal Sex Female 10:23 PM EST Gender Identity Not on file Sexual Orientation Not on file Plan of Treatment Health Maintenance Due Date Last Done Comments DTaP,Tdap,and Td Vaccines (1 - Tdap) 2009 Hepatitis B Vaccines (1 of 3 - 19+ 3-dose series) 2009 Cervical Cancer Screening: P ap Smear 06/18/2011 Depression Screening 03/20/2022 HIV Screening 03/20/2022 Hepatitis C Screening 03/20/2022 Social Influencers of Health Screening 03/20/2022 COVID-19 Vaccine ( - 2023-2 5 season) 2023 Influenza Vaccine (#1) 2023 HIB Vaccines Aged Out No longer eligi ble based on patient's age to complete this topic HPV Vaccines Aged Out No longer eligi ble based on patient's age to complete this topic Hepatitis A Vaccines Aged Out No long er eligible based on patient's age to complete this topic IPV Vaccines Aged Out No longer eligi ble based on patient's age to complete this topic MMR Vaccines Aged Out No longer eligi ble based on patient's age to complete this topic Meningococcal ACWY Vaccine Aged Out N o longer eligible based on patient's age to complete this topic Meningococcal B Vaccine Aged Out No l onger eligible based on patient's age to complete this topic Pneumococcal Vaccine: Pediat rics (0 to 5 Years) and At-Risk Patients (6 to 64 Years) Aged Out No longer eligible b ased on patient's age to complete this topic RSV Immunization Patients Un becky 20 months Aged Out No longer eligible b ased on patient's age to complete this topic Varicella Vaccines Aged Out No longer eligible based on patient's age to complete this topic
== END 2024-07-22 13:50 | disposition home or self-care (01) ==
LOC: HO.HGI 13:23
PROVIDERS: PCP Internal Medicine; Visit Provider Internal Medicine
DX: K52.9 Noninfective gastroenteritis and colitis, unspecified (principal); E66.01 Morbid (severe) obesity due to excess calories; Z68.43 Body mass index [BMI] 50.0-59.9, adult; E55.9 Vitamin D deficiency, unspecified
CPT/HCPCS: 99204; G2211

== ENCOUNTER 2024-07-25 10:13 | Emergency (ER) | payer OTHER, SELFPAY ==
--- NOTE | ~2024-07-25 | CT_ITS ---
EXAMINATION: CT ABDOMEN AND PELVIS WITHOUT CONTRAST CLINICAL INFORMATION: Flank pain. COMPARISON: 11/25/2022. 06/30/2019. TECHNIQUE: Multidetector volumetric imaging was performed from the superior aspect of the liver through the pubic symphysis. Sagittal and coronal reformatted images were obtained on the technologist's workstation. This CT examination was performed using dose optimization techniques as appropriate, variously including the following: *Automated exposure control *Adjustment of mA and/or kV according to patient size (this includes techniques or standardized protocols for targeted exams where dose is matched to indication/reason for exam; i.e. extremities or head) *Use of iterative reconstruction technique FINDINGS: LUNG BASES: Lung bases are clear bilaterally. 6 mm groundglass nodule right middle lobe, unchanged. 3 mm pleural-based nodule right lower lobe posteriorly, unchanged. There are no effusions. There is mild cardiac enlargement. LIVER, GALLBLADDER, AND BILIARY TREE: The liver is enlarged with diffuse fatty infiltration. There is no suspicious focal lesion along for nonenhanced technique. The gallbladder is unremarkable with no evidence of radiopaque gallstones, gallbladder wall thickening, or obvious pericholecystic inflammatory changes. PANCREAS: Mild fatty change of the head. It is otherwise normal without definite inflammation. SPLEEN: Mildly enlarged measuring 13.9 cm in length. Otherwise normal. ADRENAL GLANDS: Unremarkable. KIDNEYS AND URETERS: No hydronephrosis or hydroureter. Nonobstructing 3 mm calculus left kidney midpole. There is a 3.6 cm simple cyst in the inferior pole of the right kidney. Focal scarring in both kidneys and abdominal milan. No masses. BLADDER: Unremarkable. GASTROINTESTINAL TRACT: Normal appendix. Stomach is largely decompressed. Duodenum appears normal. The small bowel is normal in caliber and course. No wall thickening or inflammation. The colon is normal in caliber and course. No wall thickening or inflammation. ABDOMINAL WALL: No significant hernia is appreciated. LYMPH NODES: Normal. VASCULAR: Unremarkable. PELVIC VISCERA: The uterus and adnexa are unremarkable. OSSEOUS STRUCTURES: No suspicious lytic or blastic bone lesions. CT/CT abdomen pelvis wo IV con IMPRESSION: 1. Nonobstructing 3 mm calculus left mid kidney. No hydronephrosis or hydroureter. 2. Diffuse fatty infiltration of the liver. Hepatosplenomegaly. 3. Stable 6 mm groundglass very nodule right middle lobe. This is unchanged from 2020 consistent with a benign entity. Electronically signed by: Mann Fleming MD 07/25/2024 12:42 PM EDT RP
[2024-07-25 10:38] VITALS: BP 150/93; PULSE 85; RESP 20; TEMP 36.6; O2SAT 96; BMI 56.8
[2024-07-25 11:05] LABS: MANUAL DIFF FLAG NO
[2024-07-25 11:10] LABS: Basophils Percent Auto 0.3 % (0-2); Eosinophils Percent Auto 0.1 % (0-4); Hematocrit 37.9 % (37.0-47.0); Imm Gran Abs Auto 0.02 X10*3/uL (0.00-0.03); Imm Gran Pct Auto 0.3 % (0.0-0.4); Lymphocytes Absolute Auto 1.9 X10*3/uL (1.2-4.9); Lymphocytes Percent Auto 28.4 % (20-40); Mean Corpuscular HGB Conc 34.3 g/dl (31.0-35.0); Mean Corpuscular Hemoglobin 28.1 pg (27.0-33.0); Mean Platelet Volume 9.5 fL (9.4-12.3); Monocytes Absolute Auto 0.4 X10*3/uL (0.1-1.2); Monocytes Percent Auto 6.1 % (2-11); Neutrophils Absolute Auto 4.4 x10*3/uL (2.0-8.3); Neutrophils Percent Auto 64.8 % (45-73); Platelet Count 258 X10*3/uL (160-400); Red Blood Count 4.62 X10*6/uL (4.20-5.50); Red Cell Distribution Width 13.2 % (11.0-16.0); White Blood Count 6.8 X10*3/uL (4.8-10.8)
[2024-07-25 11:15] LABS: Appearance Urine Cloudy; Color Urine Yellow; Glucose Urine UA Negative (Negative); Leukocyte Esterase Urine Moderate (2+) (Negative); Nitrite Urine Positive (Negative); Specific Gravity - Urine 1.025 (1.005-1.025); UMIC TRIGGER UACC YES; Urine Blood Large (3+) (Negative); Urine Ketones Negative (Negative); Urine Protein Trace mg/dL (Neg-Trace)
[2024-07-25 11:17] LABS: Bacteria Urine 4+ (None Seen); Hyaline Casts Urine 0-2 /LPF (0-2); RBC Urine >20 /HPF (0-2); Squamous Epithelial Cell Urine 0-2 /HPF (0-2); UACC Culture Trigger YES; UPreg QC Valid YES; Urine Pregnancy NEGATIVE (NEGATIVE); WBC Urine >50 /HPF (0-5)
[2024-07-25 11:19] LABS: Anion Gap 12 (12-20); Blood Urea Nitrogen 12 mg/dL (9-16); Calcium 9.2 mg/dL (8.4-10.2); Carbon Dioxide 24 mmol/L (22-29); Chloride 106 mmol/L (96-108); Creatinine Clr Calc Pharmacy 169.4; Estimated Glomerular Filt Rate > 60; Glucose Random 100 mg/dL (60-115); Potassium 3.9 mmol/L (3.3-5.1); Sodium 138 mmol/L (135-145)
--- NOTE | 2024-07-25 11:37 | ED.GENADULT ---
HPI - General Adult General Chief complaint: General Medical Stated complaint: facial infection? , UTI Time Seen by Provider: 07/25/24 11:37 Source: patient, RN notes reviewed and old records reviewed Mode of arrival: ambulatory Limitations: no limitations History of Present Illness ED Provider: Usha Colby PA-C HPI narrative: Patient seeks medical attention emergency department today for evaluation of symptoms associated with flank pain. Onset was approximately 5 days ago she has had 2 episodes of feeling nauseous with vomiting pain is not intractable or colicky like in nature but she thinks she has a kidney stone. Every time she urinates she reports dysuria and urgency. She has had UTIs before in the past 2 months ago and this feels the same to her. She is without any vaginal symptoms and would like to make sure she does not have an STI. She has not had any fevers chills or sweats. Denying any respiratory symptoms. She has no abdominal discomfort either. She is able tolerate p.o. fluids and void regularly. Denies any pelvic trauma. No history of kidney stones in the past no falls. She is not currently feel nauseous pain is well-controlled. Pain is only present when she urinates. She also notes a rash on the left side of her face which is not painful or itchy but does report that is crusting and discharge she has tried Vaseline on it as well as bacitracin does not seem to be going away or spreading. The rash is nowhere else on the rest of her body. She can not recall this ever happened to her before in the past she is not sure how it started either. No lip or tongue swelling no difficulty with breathing and no nasal congestion or sore throat. Patient saw urologist Dr. Titi kendrick via [facility] for renal stones no surgery last visit being on 01/16/2023. A cystoscopy was part of plan, but I do not see results for this or any f/u with urology after this original consult. Related Data Home Medications ?Medication ?Instructions ?Recorded ?Confirmed albuterol sulfate 2.5 mg/3 mL 2.5 mg continuous nebulization QID 08/22/23 02/02/24 (0.083 %) solution for nebulization PRN shortness of breath or wheezing trazodone 100 mg tablet 100 mg PO BEDTIME PRN 07/22/24 Previous Rx's ?Medication ?Instructions ?Recorded NEBULIZER #1 ea 04/20/21 NEBULIZER and all related #1 ea 01/06/23 accessories ibuprofen 600 mg tablet 600 mg PO Q6H PRN fever or pain 08/14/23 #30 tabs cholecalciferol (vitamin D3) 25 25 mcg PO DAILY #90 caps 01/10/24 mcg (1,000 unit) capsule ferrous sulfate 325 mg (65 mg 325 mg PO DAILY 90 days #90 tabs 01/31/24 iron) tablet fluticasone 250 mcg-salmeterol 50 1 inh inhalation BID 30 days #60 ea 02/02/24 mcg/dose blistr powdr for inhalation (Wixela Inhub) albuterol sulfate 90 mcg/actuation 2 puff PO Q4-6H PRN for wheezing 02/27/24 aerosol inhaler (Ventolin HFA) #18 ea sertraline 100 mg tablet 100 mg PO DAILY 90 days #90 tabs 07/02/24 cephalexin 500 mg capsule 500 mg PO QID UTI as well as 07/25/24 impetigo 7 days #28 caps mupirocin 2 % topical ointment 1 appl topical TID Apply thin 07/25/24 amount to rash on face 7 days #15 grams Allergies Allergy/AdvReac Type Severity Reaction Status Date / Time lithium [From LITHATE] Allergy Severe ANAPHYLAXIS Verified 07/25/24 10:40 codeine [CODEINE] Allergy Unknown UNKNOWN Verified 07/25/24 10:40 [facility] Past Medical History Attestation statement: The following information was validated with the patient. Source: old records reviewed and nursing notes reviewed Medical History Cervical cancer screening Anemia Vitamin D deficiency Morbid obesity with BMI of 50.0-59.9, adult Morbid obesity with BMI of 45.0-49.9, adult Missed period Dysuria Right knee pain Lumbar back pain Encounter for Nexplanon removal Etonogestrel implant for control Trichomoniasis Obesity, morbid, BMI 50 or higher Potential exposure to STD Women's annual routine gynecological examination control counseling Recurrent UTI Constipation Uses control Renal cyst UTI (urinary tract infection) Obesity Environmental allergies COVID-19 Dysuria Insomnia Morbid obesity with BMI of 45.0-49.9, adult Attention deficit hyperactivity disorder (ADHD) Bipolar affective disorder, current episode mixed Nocturnal enuresis GERD without esophagitis Pulmonary nodules Asthma Surgical History History of surgery Family History Family History Father Ketoacidosis Diabetes ADHD Chronic mental illness Substance abuse Mother Anxiety Hypertension Crohn disease Family/Other Chronic mental illness Social History Social History Housing: Apartment Alcohol intake: never Patient Tobacco Use Status: Tobacco use Unknown e-Cigarette/Vaping Use: Never Used Second Hand Smoke Exposure: Yes service: No Current occupational status: employed Current occupational exposures/hazards: No Cognitive needs: No Hearing needs: No Vision needs: No Physical Exam ED Vital Signs: Vital Signs - 24 hr 07/25/24 10:38 Temperature 97.9 F Pulse Rate 85 Respiratory Rate 20 Blood Pressure 150/93 H Pulse Oximetry 96 Oxygen Delivery Method Room Air BMI result Body Mass Index 56.8 Face: Patch on the skin 2 cm lateral to the lateral lip closure on the left side there is a 1.5 cm patch of skin that is erythematous base honey-crusted but nontender, no pustules spares the rest of face Const General: cooperative, healthy appearing, comfortable, no acute distress and alert Nutritional Appearance: obese Orientation/consciousness: patient oriented x3 Limitations: no limitations HENMT Head: Yes normal to inspection General nose exam: Normal external nose present, Normal nares present and Normal nasal mucous membranes and turbinates present Face and sinus: Yes other Mouth: Normal oral and palatal mucosa present Throat: Yes posterior oropharynx normal Eyes General: appearance normal, both eyes and all related structures Conjunctivae: conjunctivae normal Sclerae: sclerae normal Pupils: Equal, round and reactive pupils present Neck Neck: Yes full ROM and Yes no lymphadenopathy Resp Effort & Inspection: normal respiratory effort and able to speak in complete sentences Auscultation: clear to auscultation bilaterally Cardio Jugular venous distension: no JVD Rate: regular rate Rhythm: regular rhythm GI Inspection: Yes normal to inspection and Yes other (Morbid obese abdomen but nontender, suprapubic tenderness noted) General: Yes CVA tenderness bilateral Back/Spine/Pelvis Back: CVA tenderness Skin General skin exam: other (See above for rash on face) Neuro General: patient oriented x3 Cranial nerves: Yes Equal, round and reactive pupils present Cognition (Neuro): normal cognition Motor exam (neuro): 5/5 motor strength present throughout Sensory Exam: Normal double simultaneous stimulation for sensation Medical Decision Making Medical Decision Making [facility] Narrative: Well-appearing 34-year-old female here today for evaluation of symptoms and rash on her face. She is nontoxic or ill appearing with reassuring vitals. Given her complaint of symptoms and back pain associated with single episode nausea vomiting abdominal labs were ordered along with a UA. She is exhibiting bilateral CVA tenderness were order CT of the abdomen non-con to rule out potential kidney stone that she has had renal cyst before in the past and UA is suggestive of urinary tract infection. She has a nontender nonacute abdomen otherwise. Not currently nauseous pain well controlled. No evidence of leukocytosis or electrolyte imbalance or kidney or metabolic dysfunction. She has a rash on face is a honey-crusted like appearance most consistent with impetigo. Anticipate placing on both topical mupirocin as well as a cephalosporin to provider co-coverage for urinary tract infection. We will continue to monitor while awaiting CT results but anticipate discharging home with oral antibiotics and will update plan if any obstruction noted. Differential Diagnosis Differential Diagnoses: The differential diagnosis associated with the presentation includes See above Lab Data [facility] Lab Attestation statement: I reviewed the patient's lab results. 07/25/24 11:01 07/25/24 11:01 Labs: Lab Results 07/25/24 07/25/24 Range/Units 11:01 11:09 WBC 6.8 (4.8-10.8) X10*3/uL RBC 4.62 (4.20-5.50) X10*6/uL Hgb 13.0 (12.0-16.0) g/dl Hct 37.9 (37.0-47.0) % MCV 82.0 (80.0-98.0) fL MCH 28.1 (27.0-33.0) pg MCHC 34.3 (31.0-35.0) g/dl RDW 13.2 (11.0-16.0) % Plt Count 258 (160-400) X10*3/uL MPV 9.5 (9.4-12.3) fL Immature Gran % (Auto) 0.3 (0.0-0.4) % Neut % (Auto) 64.8 (45-73) % Lymph % (Auto) 28.4 (20-40) % Hoke % (Auto) 6.1 (2-11) % Eos % (Auto) 0.1 (0-4) % Baso % (Auto) 0.3 (0-2) % Lymph # (Auto) 1.9 (1.2-4.9) X10*3/uL Hoke # (Auto) 0.4 (0.1-1.2) X10*3/uL Eos # (Auto) 0.0 (0.0-0.4) X10*3/uL Baso # (Auto) 0.0 (0.0-0.2) X10*3/uL Abs Immat Gran (auto) 0.02 (0.00-0.03) X10*3/uL Absolute Neuts (auto) 4.4 (2.0-8.3) x10*3/uL Absolute Nucleated RBC 0.000 (0.0-0.012) X10*3/uL Nucleated RBC % (auto) 0.0 (0.0-0.2) /100WBC Sodium 138 (135-145) mmol/L Potassium 3.9 (3.3-5.1) mmol/L Chloride 106 (96-108) mmol/L Carbon Dioxide 24 (22-29) mmol/L Anion Gap 12 (12-20) BUN 12 (9-16) mg/dL Creatinine 0.71 (0.5-1.4) mg/dL Estim Creat Clear Calc 169.4 Estimated GFR > 60 Random Glucose 100 (60-115) mg/dL Calcium 9.2 (8.4-10.2) mg/dL Urine Color Yellow Urine Appearance Cloudy Urine pH 6.0 (5.0-9.0) Ur Specific Climax 1.025 (1.005-1.025) Urine Protein Trace (Neg-Trace) mg/dL Urine Glucose (UA) Negative (Negative) mg/dL Urine Ketones Negative (Negative) mg/dL Urine Blood Large (3+) H (Negative) Urine Nitrite Positive H (Negative) Ur Leukocyte Esterase Moderate (2+) H (Negative) Urine RBC >20 H (0-2) /HPF Urine WBC >50 H (0-5) /HPF Ur Squamous Epith Cells 0-2 (0-2) /HPF Urine Bacteria 4+ (None Seen) Hyaline Casts 0-2 (0-2) /LPF Urine Test NEGATIVE (NEGATIVE) Independent Interpretation I performed an independent interpretation of an: CT Scan Interpretation: No obstructive stone or hydronephrosis. Radiology Impression Discussion of test interpretation with radiology: I have reviewed the radiologist's reading. Radiologist Impression: see report. External Record Review External record reviewed: Outpatient record and Primary care record Prescription Management I considered prescription management with: Antibiotic Discharge Plan Discharge Clinical Impression: UTI (urinary tract infection), Impetigo, Bilateral flank pain Patient Disposition: Home, Self-Care Instructions: Urinary Tract Infection in Women (DC), Impetigo (DC) Additional Instructions: You were seen in the emergency department today over concerns of a urinary tract infection as well as a rash on her face. You had imaging done of your abdomen and pelvis showing no evidence of an obstructive stone or hydronephrosis concerning for pyelonephritis you have no increased white blood cell count for this either. Her urine did show evidence for urinary tract infection I am placing you on Keflex which will also help cover for the rash on your face. Take the antibiotics as prescribed.?? Even if you are feeling better, take the entire prescription of antibiotics to further ensure complete resolution of the infection.?? Drink plenty of fluids.? Return to the emergency room if your symptoms worsen (fever, flank/back pain, nausea/vomiting) or if your symptoms are not improved by 72 hours after starting treatment. Face: Give a bacterial infection on her face noticed impetigo see handout for additional details about this. Please use the prescription medication to put on it topically the medicine for UTI also will help with this as well. Please return if you notice any fevers with this or worsening of symptoms however you should follow up with your primary care provider to ensure adequate resolution it could take 1-2 weeks. Prescriptions: New cephalexin 500 mg capsule 500 mg PO QID 7 Days Qty: 28 0RF mupirocin 2 % ointment 1 appl topical TID 7 Days Qty: 15 0RF No Action (DME) NEBULIZER and all related accessories See Rx Instructions .Route .MEDSUPPLY Qty: 1 0RF Rx Instructions: As directed cholecalciferol (vitamin D3) 25 mcg (1,000 unit) capsule 25 mcg PO DAILY Qty: 90 3RF ferrous sulfate 325 mg (65 mg iron) tablet 325 mg PO DAILY 90 Days Qty: 90 1RF albuterol sulfate [Ventolin HFA] 90 mcg/actuation HFA aerosol inhaler 2 puff PO Q4-6H PRN (Reason: for wheezing) Qty: 18 1RF sertraline 100 mg tablet 100 mg PO DAILY 90 Days Qty: 90 0RF ibuprofen 600 mg tablet 600 mg PO Q6H PRN (Reason: fever or pain) Qty: 30 0RF (DME) NEBULIZER See Rx Instructions .Route .MEDSUPPLY Qty: 1 0RF Rx Instructions: As directed 4 times a day as needed albuterol sulfate 2.5 mg /3 mL (0.083 %) solution for nebulization 2.5 mg continuous nebulization QID PRN (Reason: shortness of breath or wheezing) fluticasone propion-salmeterol [Wixela Inhub] 250-50 mcg/dose blister with device 1 inh inhalation BID 30 Days Qty: 60 3RF trazodone 100 mg tablet 100 mg PO BEDTIME PRN Interventions: ED Discharge Assessment Last Done: 07/25/24 13:25 Discharge Date/Time: 07/25/24 13:27 Print Language: Montserratian
[2024-07-25 13:25] VITALS: BP 130/74; PULSE 66; RESP 16; TEMP 36.6; O2SAT 100
--- OUTSIDE RECORDS SUMMARY | 2024-07-25 14:06 | XMS_ITS | Clinical Summary ---
Author Organization [facility] it Address [address] [place] [address] Care Team Providers Care Mobile Paint Specialist Name Role Phone Unavailable Primary Care Provider [...] - 2023-2 5 season) 2023 Influenza Vaccine (Season Ended) 2024 HIB Vaccines Aged Out No longer eligi [...]
== END 2024-07-25 13:27 | disposition home or self-care (01) ==
PROVIDERS: Emergency Provider Emergency Medicine; PCP Internal Medicine
DX: N39.0 Urinary tract infection, site not specified (principal); L01.00 Impetigo, unspecified; R10.9 Unspecified abdominal pain; R10.2 Pelvic and perineal pain; Z79.899 Other long term (current) drug therapy
CPT/HCPCS: 36415; 74176; 80048; 81001; 81025; 83993; 85025; 87086; 87088; 87186; 87493; 99284

== ENCOUNTER → 2024-07-25 11:55 | Outpatient (BNV) | payer OTHER, SELFPAY | PROVIDERS: Emergency Provider Emergency Medicine; PCP Internal Medicine; Visit Provider Radiology Diagnostic Radiology | DX: N20.0 Calculus of kidney (principal); R16.2 Hepatomegaly with splenomegaly, not elsewhere classified; R91.8 Other nonspecific abnormal finding of lung field | CPT/HCPCS: 74176 ==

== ENCOUNTER 2024-07-25 21:30 | Outpatient (REF) | payer OTHER, SELFPAY ==
--- OUTSIDE RECORDS SUMMARY | 2024-07-26 11:59 | XMS_ITS | Clinical Summary ---
Author Organization [facility] it Address [address] [place] [address] Care Team Providers Care Field Sales Trainer Name Role Phone Unavailable Primary Care Provider [...]
[2024-07-26 12:01] LABS: CDiff Gene PCR NEGATIVE (Negative)
[2024-08-03 04:18] LABS: Calprotectin, Fecal 48 mcg/g
== END 2024-07-25 21:31 | disposition home or self-care (01) ==
LOC: HO.LNP 21:30
PROVIDERS: Visit Provider Internal Medicine
DX: Z13.89 Encounter for screening for other disorder (principal)
CPT/HCPCS: 83993; 87493

== ENCOUNTER → 2024-09-02 08:40 | Outpatient (AMB) | payer OTHER, SELFPAY ==
--- NOTE | 2024-09-02 08:41 | MHC.OFFVIS ---
Intake Visit Reasons: 6 weeks f/u Intake Note: Kamala presents as as telehehealth today. CC: She is concerned of her lab results and want to know if she tested positive for anything. She is realizing gluten and diary seem to give her diarrhea. Allergies lithium [From LITHATE] Allergy (Severe, Verified 09/02/24 08:41) ANAPHYLAXIS codeine [CODEINE] Allergy (Unknown, Verified 09/02/24 08:41) UNKNOWN HPI Comments Details: 34 y.o F with PMH of obesity BMI 57 who is here for chronic diarrhea x 1 year. Reports has had poor dietary habits in the previous 2-3years leading to significant weight gain. Has gone up by 5 pant sizes since 2022. Reports having 10 slices of pizza last night due to impulse control issue. Main CC is chronic diarrhea. Reports has always had frequent BMs even as a child. More recently has increased to 3-4 BMs per day. Stools are mushy sometimes with blood in it. BM itself green/yellow. Sees blood on wiping. Sometimes has burning pain in ano. Fluctuates with really hard stools occasionally 2-3 times a day. Has urgency. Has to wake up at night to go to the bathroom. Has lower abd pain and cramping which gets worse with defecation. Also reports frequent UTIs due to hx of renal stones. On Abx at least once a month. Last use was 1 month ago. No fam hx of CRC, mom may have gotten diagnosed with crohns. 09/02/24: Being seen as video televisit. Reports good response to resolution of sx with avoidance of gluten and dairy. Thinks sx may be more 2/2 dairy as having an ice cream 2 days ago triggered abd bloating and diarrhea despite no gluten ingestion that day. Minimal fiber in deit - again reminded to picker / packer psyllium or a variation OTC. Impulse control remains an issue. Seems not just with food, also lost temper over the phone with the PCP office - see workloads. Has appt with endocrine in 2 weeks for super morbid obesity. Labs reviewed and all normal including thyroid, fecal felicia, CDiff. TTg IgA normal, however IgA not checked inadvertently. Will reorder, to be done on non urgent basis. [facility] Medical History Cervical cancer screening Anemia Vitamin D deficiency Morbid obesity with BMI of 50.0-59.9, adult Morbid obesity with BMI of 45.0-49.9, adult Missed period Dysuria Right knee pain Lumbar back pain Encounter for Nexplanon removal Etonogestrel implant for control Trichomoniasis Obesity, morbid, BMI 50 or higher Potential exposure to STD Women's annual routine gynecological examination control counseling Recurrent UTI Constipation Uses control Renal cyst UTI (urinary tract infection) Obesity Environmental allergies COVID-19 Dysuria Insomnia Morbid obesity with BMI of 45.0-49.9, adult Attention deficit hyperactivity disorder (ADHD) Bipolar affective disorder, current episode mixed Nocturnal enuresis GERD without esophagitis Pulmonary nodules Asthma Surgical History History of surgery Family History Father Ketoacidosis Diabetes ADHD Chronic mental illness Substance abuse Mother Anxiety Hypertension Crohn disease Family/Other Chronic mental illness Social History Housing: Apartment Alcohol intake: never Patient Tobacco Use Status: Tobacco use Unknown e-Cigarette/Vaping Use: Never Used Second Hand Smoke Exposure: Yes service: No Current occupational status: employed Current occupational exposures/hazards: No Cognitive needs: No Hearing needs: No Vision needs: No Female Reproductive History Menstrual Age of Menarche: 11 Review of Systems Const All systems reviewed & are unremarkable except as noted in HPI and below Physical Exam Vital Signs: Video visit: No acute distress No icterus noted No facial asymmetry Speaking in full sentences Telehealth Telehealth Telehealth Platform: [employer] MasonWebPT Location of provider rendering services: practice address Location of patient: address on file Patient Identification confirmed using: Name, : Yes Telehealth method: video Patient verbally consented to treatment: Yes Patient verbally consented to billing insurance company: Yes Patient informed of any privacy concerns related to visit: Yes Minutes spent on Phone/Video with Pt.: 16 Assessment & Plan Assessment & Plan (1) Chronic diarrhea: Code(s): K52.9 - Noninfective gastroenteritis and colitis, unspecified Category: Medical (2) Morbid obesity with BMI of 50.0-59.9, adult: Code(s): E66.01 - Morbid (severe) obesity due to excess calories; Z68.43 - Body mass index [BMI] 50.0-59.9, adult Category: Medical (3) Food intolerance: Code(s): K90.49 - Malabsorption due to intolerance, not elsewhere classified Category: Medical Plan So far clinical assessment consistent with dietary intolerance to dairy and/or gluten. Reviewed with the patient to keep symptom diary and try 4 weeks gluten free followed by 4 weeks dairy free diet to help delineate what the intolerance may be. If this is truly lactose intolerance, okay to take Lactaid as needed. Also reviewed that although tissue transglutaminase antibody negative, have some additional testing pending to rule out celiac definitively. This can be done anytime she goes for blood work. Testing to be done while there is active gluten ingestion in the background. Patient also request composition mixer referral for food allergy testing. Plan: - Labs as below to r/o celiac - Elimination diet trial as above - Low FODMAP diet handout to be mailed - pt requests this be mailed after a few days as she is figuring out mail forwarding with the local post office - Add fiber as a bulking agent - Endocrine referral pending - Allergy referral requested - No indication for urgent endoscopy at this time Follow up 6 months Orders: Orders Immunoglobulin G Today K90.49 - Malabsorption due to intolerance, not elsewhere classified Immunoglobulin A Today K90.49 - Malabsorption due to intolerance, not elsewhere classified Transglutaminase Ab IgG Today K90.49 - Malabsorption due to intolerance, not elsewhere classified Referrals Allergy & Immunology Referral K90.49 - Malabsorption due to intolerance, not elsewhere classified Coding Level of Care Code Tele Est Pt Level 4 (13225) Diagnoses Chronic diarrhea K52.9 Morbid obesity with BMI of 50.0-59.9, adult E66.01; Z68.43 Food intolerance K90.49
--- OUTSIDE RECORDS SUMMARY | 2024-09-02 08:47 | XMS_ITS | Clinical Summary ---
Author Organization [facility] it Address [address] [place] [address] Care Team Providers Care Ecosystem Ecology Professor Name Role Phone Unavailable Primary Care Provider [...]
== END ==
LOC: HO.HGI 08:40
PROVIDERS: PCP Internal Medicine; Visit Provider Internal Medicine
DX: K52.9 Noninfective gastroenteritis and colitis, unspecified (principal); E66.01 Morbid (severe) obesity due to excess calories; Z68.43 Body mass index [BMI] 50.0-59.9, adult; K90.49 Malabsorption due to intolerance, not elsewhere classified
CPT/HCPCS: 99214

== ENCOUNTER 2024-09-19 10:10 | Outpatient (AMB) | payer OTHER, SELFPAY ==
[2024-09-19 10:13] VITALS: BP 130/76; PULSE 91; O2SAT 97; BMI 57.6
--- NOTE | 2024-09-19 10:13 | MHC.OFFVIS ---
Vital Signs 09/19/24 10:13 Height 5 ft 5 in Weight 346 lb 2.012 oz BMI 57.6 BP 130/76 Blood Pressure Location Lt brachial Position Sitting Pulse 91 Pulse Source Pulse Oximeter Pulse Oximetry (%) 97 Oxygen Delivery Method Room Air Intake Visit Reasons: Obesity Intake Note: New patient present today for Obesity. Lathe Winder Required: No Accompanied by: Self / Same As Patient Allergies lithium [From LITHATE] Allergy (Severe, Verified 09/19/24 10:17) ANAPHYLAXIS codeine [CODEINE] Allergy (Unknown, Verified 09/19/24 10:17) UNKNOWN Medication List - Last Reconciled 09/19/24 by Joselyn Harp MD albuterol sulfate 2.5 mg continuous nebulization QID PRN albuterol sulfate 90 mcg/actuation (Ventolin HFA) 2 puffs PO Q4-6H PRN cholecalciferol (vitamin D3) 1,250 mcg PO QWEEK 90 days ferrous sulfate 325 mg PO DAILY 90 days fluticasone propion-salmeterol 250-50 mcg/dose (Wixela Inhub) 1 inh inhalation BID 30 days ibuprofen 600 mg PO Q6H PRN mupirocin 2% 1 appl topical TID 7 days [NEBULIZER As directed 4 times a day as needed] [NEBULIZER and all related accessories As directed] sertraline 100 mg PO DAILY 90 days trazodone 100 mg PO BEDTIME PRN HPI Comments Details: 34-year-old female coming in today for initial evaluation of obesity. 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, 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 she is on her feet all days Lives by herself Exericise: Hasnt for the last few months, but just hired a clinical trainer went this Thursday, to [employer], plan is to go 4-5 days a week, they are also providing her with a meal plan Hasnt seen a pressure supervisor Diet : FODMAP diet due to chronic diarrhea DOwnloaded weight watchers today Feels like impulse could be sometimes an issue Binge eating is an issue when she has depressive episodes / low mood She isnt interested in weight loss surgery Family history Maternal aunt : DM Maternal GM : DM Mother: Crohns , HTN GF : colon cancer PMHx: Anxiety Depression PTSD ADHD Frequent UTIs PSHx: some repair of a boil Physical exam General: sitting comfortably in no acute distress HEENT: normocephalic/atraumatic, Neck: supple, symmetrical, does have dorsocervical and supraclavicular fat pads Cardiac: normal heart sounds Pulm: normal breath sounds B/L, no added breath sounds Abd: not distended, no tenderness, stretch parson noted on abdomen, however not purple or thick. Extremities: Mild bilateral pitting edema Neuro: AAO x3, Speech: normal, no facial droop, moving all 4 extremities Laboratory Tests 11/09/22 08/23/23 07/22/24 12:39 07:49 14:12 Creatinine Estimated GFR Random Glucose Hemoglobin A1c % 4.9 AST 32 H ALT 40 H Triglycerides 62 Cholesterol 147 LDL Cholesterol, Calc 82 HDL Cholesterol 53 TSH 1.71 07/25/24 11:01 Creatinine 0.71 Estimated GFR > 60 Random Glucose 100 Hemoglobin A1c % AST ALT Triglycerides Cholesterol LDL Cholesterol, Calc HDL Cholesterol TSH [facility] Medical History Cervical cancer screening Anemia Vitamin D deficiency Morbid obesity with BMI of 50.0-59.9, adult Morbid obesity with BMI of 45.0-49.9, adult Missed period Dysuria Right knee pain Lumbar back pain Encounter for Nexplanon removal Etonogestrel implant for control Trichomoniasis Obesity, morbid, BMI 50 or higher Potential exposure to STD Women's annual routine gynecological examination control counseling Recurrent UTI Constipation Uses control Renal cyst UTI (urinary tract infection) Obesity Environmental allergies COVID-19 Dysuria Insomnia Morbid obesity with BMI of 45.0-49.9, adult Attention deficit hyperactivity disorder (ADHD) Bipolar affective disorder, current episode mixed Nocturnal enuresis GERD without esophagitis Pulmonary nodules Asthma Surgical History History of surgery Family History Father Ketoacidosis Diabetes ADHD Chronic mental illness Substance abuse Mother Anxiety Hypertension Crohn disease Family/Other Chronic mental illness Social History Housing: Apartment Alcohol intake: never Patient Tobacco Use Status: Tobacco use Unknown e-Cigarette/Vaping Use: Never Used Second Hand Smoke Exposure: Yes service: No Current occupational status: employed Current occupational exposures/hazards: No Cognitive needs: No Hearing needs: No Vision needs: No Female Reproductive History Menstrual Age of Menarche: 11 Assessment & Plan Assessment & Plan (1) Morbid obesity with BMI of 50.0-59.9, adult: Code(s): E66.01 - Morbid (severe) obesity due to excess calories; Z68.43 - Body mass index [BMI] 50.0-59.9, adult Category: Medical Plan: 34-year-old female coming in today for initial evaluation for morbid obesity with BMI 57.6 kg per m2, current weight 346 lb. This is the highest weight patient has ever been, she also had weight management issues as a child, however says that in her teenage years she was able to come down to 120 lb, while she was having mental health issues. It does seem she has a component of binge eating with food cravings but usually this follows pattern of mood symptoms, and seems to be associated with depressive feelings. Also I think the fact that she endorses that her weight reduced to 120 lb in her teenage years, lower likelihood of monogenic causes of obesity. She does report change in shoe size, I will check IGF-1 level to rule out acromegaly. She does endorse some easy bruising, and given morbid obesity I will check 24 hour urine cortisol level however we will have to be careful about results because sometimes patients with the obesity can have pseudo Peyman's. However we will check 24 hour urine cortisol levels but she does not have any facial plethora, skin thinning, abdominal striae or any specific features of Peyman's. No history of diabetes. I reviewed with patient the importance of weight loss as it relates to decreasing the risk of diabetes, cardiovascular disease, obstructive sleep apnea,PCOS, arthritis. We reviewed the importance of decreasing total calorie consumption, minimizing fats and carbohydrates. We reviewed the importance of calorie counting, with the 500 calorie deficit daily leading to 1 lb weight loss per week, she just downloaded weight watchers today, and is planning to calorie restrict through that. She was advised to start exercising 30-45 mins a day for 5 days a week for aerobic exercise +2-3 days of resistance training. She meets criteria for weight loss surgery and given morbid obesity she would be a good candidate for it. However she is not interested in surgical management. She would be a good candidate for weight loss medications, given her current weight, she needs at least 20% of weight loss, she would be a good candidate for GLP 1 agonist which result in 15-20% weight loss. She does not have any history of pancreatitis, does not drink alcohol, no family history of thyroid cancer. We will see her back in 5 weeks with the above testing and then consider starting weight loss medications. In the meantime she is going to continue going to the gym which she recently started and working with her personal banking officer along with following calorie deficit plan through weight watchers. Plan: -ordered IGF-1 level, 24 hour urine cortisol level, lipid panel, A1c -lifestyle modification as discussed above -nutrition referral placed -follow up in 5 weeks Plan I spent 45 minutes in reviewing the record, seeing the patient and documenting in the medical record. Orders: Orders IGF-1 (Somatomedin C) Today E66.01 - Morbid (severe) obesity due to excess calories, Z68.43 - Body mass index [BMI] 50.0-59.9, adult Lipid Panel Today E66.01 - Morbid (severe) obesity due to excess calories, Z68.43 - Body mass index [BMI] 50.0-59.9, adult Hemoglobin A1c Today E66.01 - Morbid (severe) obesity due to excess calories, Z68.43 - Body mass index [BMI] 50.0-59.9, adult Human Growth Hormone Today E66.01 - Morbid (severe) obesity due to excess calories, Z68.43 - Body mass index [BMI] 50.0-59.9, adult Cortisol, Free 24Hr Urine Today E66.01 - Morbid (severe) obesity due to excess calories, Z68.43 - Body mass index [BMI] 50.0-59.9, adult Creatinine, 24 Hr Group Today E66.01 - Morbid (severe) obesity due to excess calories, Z68.43 - Body mass index [BMI] 50.0-59.9, adult Referrals Field Identification Specialist Nutrition Referral E66.01 - Morbid (severe) obesity due to excess calories, Z68.43 - Body mass index [BMI] 50.0-59.9, adult Patient Instructions: 30 mins of aerobic exercise 5 days a week ,plus 2-3 days of resistance training in a week Weight loss counselling ? Limit added sugars to less than 25 grams daily. There are 4.2 grams of sugar per teaspoon of sugar. A teaspoon of honey has 6 grams of sugar! Bread also can have more sugar than you think-check labels ? No soda or juices. Drink water, unsweetened iced tea or seltzer ? Limit eating out/take out or prepared meals to twice weekly at most ? Avoid red meat, hot dogs, cheema and deli meat. Substitute plant protein for animal protein as much as you can. Beans, nuts, tofu, soy milk ? Limit cheese to 1 ounce a few times weekly ? Eat high fiber foods like beans, apples and green veggies, salsa is a great snack with whole grain cracker like Wasa ? Look for the whole grain stamp when choosing bread etc. Aim for 48 grams of whole grains daily. Whole wheat does not equal whole grains! ? Don't keep tempting treats in the house. Go out once in a while for a treat. ? Don't eat anything deep fried or cream based-no sour cream 24 hr urine collection instructions You have been asked to collect your urine for 24 hours to assess for cortisol excretion. You must choose a 24 hour period of time when you will be home. The morning of the first day, DISCARD the FIRST morning void and then note the time. You will collect every single void from then on for 24 hours. For example, if you wake up at 6am and urinate, flush down that void. You will then collect every drop of urine all day and all night through 6am the following day. You will urinate one last time at 6am for the collection. The jug of urine must be kept in the refrigerator until you bring it to the lab. Do fasting blood work Referral for nutrionist Follow up in 5 weeks Coding Level of Care Code New Pt Level 4 (40239) Diagnoses Morbid obesity with BMI of 50.0-59.9, adult E66.01; Z68.43 Time Spent (min) 45
== END 2024-09-19 11:02 | disposition home or self-care (01) ==
LOC: HO.ENCR 10:11
PROVIDERS: PCP Internal Medicine; Visit Provider Student in an Organized Health Care Education/Training Program
DX: E66.01 Morbid (severe) obesity due to excess calories (principal); Z68.43 Body mass index [BMI] 50.0-59.9, adult
CPT/HCPCS: 99204

== ENCOUNTER → 2024-09-19 10:10 | Outpatient (BNVA) | payer OTHER, SELFPAY | PROVIDERS: PCP Internal Medicine; Visit Provider Student in an Organized Health Care Education/Training Program | DX: E66.01 Morbid (severe) obesity due to excess calories (principal); Z68.43 Body mass index [BMI] 50.0-59.9, adult | CPT/HCPCS: 99202 ==

== ENCOUNTER 2024-09-29 15:42 | Emergency (ER) | payer OTHER, SELFPAY ==
[2024-09-29 15:59] VITALS: BP 150/81; PULSE 83; RESP 18; TEMP 36.2; O2SAT 96; BMI 57.6
--- NOTE | 2024-09-29 16:01 | ED.WOUNDLAC ---
HPI - Wound/Laceration General Chief Complaint: Fall Stated Complaint: fell in a carter, laceration controlled bledding Time Seen by Provider: 09/29/24 16:00 Source: patient, EMS, RN notes reviewed and old records reviewed Mode of arrival: EMS Limitations: no limitations History of Present Illness ED Provider: Usha Colby PA-C HPI narrative: Patient reports to the emergency department today for evaluation of laceration to her right posterior arm and chin. She states that she was walking outside and she accidentally tripped falling into a carter causing the branch hit her right side of her arm as well as the chin. She denies any head trauma to the ground or directly fall onto the cement. She denies any prodromal symptoms following this and does not feel dizzy. He had even though she reported LOC to EMS patient and I talked again about this but she states she only closed her eyes upon following but there was no loss of consciousness she knew the entire time what will happen both before and after the fall. She does not have a headache and no visual changes. She denies any chest pain or shortness of breath. Her tetanus is up-to-date she is not on any anticoagulation. Patient also noted to be on the phone with her mom and tell her the same story as myself but I repaired her wound. She is denying any paresthesias or weakness and no associated neck pain or other injuries reported other than noted above Place: other Patient tetanus UTD: Yes Context: accidental Associated symptoms: pain Treatments prior to arrival: bandage Related Data Home Medications ?Medication ?Instructions ?Recorded ?Confirmed albuterol sulfate 2.5 mg/3 mL 2.5 mg continuous nebulization QID 08/22/23 09/19/24 (0.083 %) solution for nebulization PRN shortness of breath or wheezing trazodone 100 mg tablet 100 mg PO BEDTIME PRN 07/22/24 09/19/24 Previous Rx's ?Medication ?Instructions ?Recorded NEBULIZER #1 ea 04/20/21 NEBULIZER and all related #1 ea 01/06/23 accessories ibuprofen 600 mg tablet 600 mg PO Q6H PRN fever or pain 08/14/23 #30 tabs ferrous sulfate 325 mg (65 mg 325 mg PO DAILY 90 days #90 tabs 01/31/24 iron) tablet fluticasone 250 mcg-salmeterol 50 1 inh inhalation BID 30 days #60 ea 02/02/24 mcg/dose blistr powdr for inhalation (Wixela Inhub) albuterol sulfate 90 mcg/actuation 2 puff PO Q4-6H PRN for wheezing 02/27/24 aerosol inhaler (Ventolin HFA) #18 ea mupirocin 2 % topical ointment 1 appl topical TID Apply thin 07/25/24 amount to rash on face 7 days #15 grams cholecalciferol (vitamin D3) 1,250 1,250 mcg PO QWEEK 90 days #13 caps 08/19/24 mcg (50,000 unit) capsule cephalexin 500 mg capsule 500 mg PO Q8H #21 caps 09/29/24 sertraline 100 mg tablet 100 mg PO DAILY #90 tabs 10/01/24 Allergies Allergy/AdvReac Type Severity Reaction Status Date / Time lithium (From LITHATE) Allergy Severe ANAPHYLAXIS Verified 09/29/24 16:00 codeine (CODEINE) Allergy Unknown UNKNOWN Verified 09/29/24 16:00 Review of Systems Review of Systems: Yes all other systems are reviewed and are negative PMFSH Past Medical History Attestation statement: The following information was validated with the patient. Source: old records reviewed and nursing notes reviewed Medical History Cervical cancer screening Anemia Vitamin D deficiency Morbid obesity with BMI of 50.0-59.9, adult Morbid obesity with BMI of 45.0-49.9, adult Missed period Dysuria Right knee pain Lumbar back pain Encounter for Nexplanon removal Etonogestrel implant for control Trichomoniasis Obesity, morbid, BMI 50 or higher Potential exposure to STD Women's annual routine gynecological examination control counseling Recurrent UTI Constipation Uses control Renal cyst UTI (urinary tract infection) Obesity Environmental allergies COVID-19 Dysuria Insomnia Morbid obesity with BMI of 45.0-49.9, adult Attention deficit hyperactivity disorder (ADHD) Bipolar affective disorder, current episode mixed Nocturnal enuresis GERD without esophagitis Pulmonary nodules Asthma Surgical History History of surgery Family History Family History Father Ketoacidosis Diabetes ADHD Chronic mental illness Substance abuse Mother Anxiety Hypertension Crohn disease Family/Other Chronic mental illness Social History Social History Housing: Apartment Alcohol intake: never Patient Tobacco Use Status: Tobacco use Unknown e-Cigarette/Vaping Use: Never Used Second Hand Smoke Exposure: Yes service: No Current occupational status: employed Current occupational exposures/hazards: No Cognitive needs: No Hearing needs: No Vision needs: No Physical Exam Vital Signs: Vital Signs: Last Vital Signs Temp 98.4 F 09/29/24 18:06 Pulse 66 09/29/24 18:06 Resp 16 09/29/24 18:06 BP 133/71 09/29/24 18:06 Pulse Ox 99 09/29/24 18:06 O2 Del Method Room Air 09/29/24 18:06 BMI result Body Mass Index 57.6 Const: Orientation/consciousness: patient oriented x3 HEENT: Other: 5.7cm puncture wound of right posterior mid upper arm, only approx 2.75cm shows subcutaneous tissue, the rest is shallow, no visible f/b able to explore entire wound margins, no tendon rupture arterior bleed or muscle puncture, some carter present, multiple superficial abrasions right arm and on chin, nontender, full ROM all limbs. Cranial nerves II through XII intact, speech fluent and appropriate, no [id number] ataxia, no [id number] ataxia, no palmar drift, strength 4+ throughout, sensory intact throughout to soft touch and equal bilaterally, no raccoon eyes, castillo sign, septal hematoma or hemotympanum noted bilaterally. No midline tenderness step-offs or deformities of entire spine able to move neck 45 degrees each direction without any pain, morbidly obese Head: Yes normal to inspection Ears: TM's normal bilaterally General nose exam: Normal external nose present Face and sinus: Yes normal facial exam Mouth: Normal oral and palatal mucosa present Teeth and gingiva: dentition normal Eyes: General: appearance normal, both eyes and all related structures Eyelids: Yes eyelids normal Conjunctivae: conjunctivae normal Sclerae: sclerae normal Corneas: corneas normal Pupils: Equal, round and reactive pupils present EOM: EOMs intact bilaterally Chest: Chest palpation & inspection: normal inspection of the chest Resp: Effort & Inspection: normal respiratory effort and able to speak in complete sentences Auscultation: clear to auscultation bilaterally Cardio: Rate: regular rate Rhythm: regular rhythm Peripheral pulses: Peripheral pulses 2+ throughout GI: Inspection: Yes normal to inspection Neuro: General: patient oriented x3, gait normal, tone normal, moves all extremities, Normal light touch and pain sensation and no focal motor deficits Cranial nerves: Yes CN's II-XII intact bilaterally, Yes Facial sensation intact/muscles of mastication intact and Yes Equal, round and reactive pupils present Cognition (Neuro): normal cognition Gait exam (Neuro): Normal gait present Romberg Test: Negative Medical Decision Making Medical Decision Making MDM Narrative: Pt is a ?34 yo F who presents after trip and fall outside into a carter. There was no head trauma or direct fall to the ground patient does not present with evidence of ICH or concussion clinically. She has no risk for cervical spine fracture via nexus criteria. Secondary trauma exam is clinically significant for laceration to her right forearm. As she is not on anticoagulation blood work was deferred. X-ray was considered but given mechanism of the injury and the ablility to explore the wound margins was therefore deferred: no concern for ?fracture, dislocation, or foreign body. Laceration likely contaminated requiring PO ABX. Clean bottom of a bloodless field was witnessed on exam. Neurosensory exams and circulation appropriate distal to the wound. FROM. Wound closed with both nonabsorbable and absorbable sutures with steri strips and neurosensory + circulatory exams same after repair as before. Will DC with return precautions, instructions for home care and follow up for suture removal. Pain is under control. Admission/Observation Consideration of admission/observation: Escalation of care including admission/observation considered Patient would have been admitted to the hospital had [his/her/their] work up had any findings where hospital admission was appropriate and [his/her/their] clinical presentation warranted hospital admission. Independent Historian Clinical information obtained from an independent historian. History obtained from or confirmed by: EMS Tests considered The following testing was considered but not selected: see MDM Prescription Management I considered prescription management with: Antibiotic Chronic Conditions Patient?s care impacted by: Other OBESITY Discharge Plan Discharge Clinical Impression: Laceration of muscle of right upper arm, Abrasion, multiple sites Patient Disposition: Home, Self-Care Instructions: Laceration (ED), Skin Adhesive Strips (ED) Additional Instructions: You were seen in the emergency department today status post a trip and fall that resulted in a puncture wound to her right posterior arm. You did have slight contamination and there width pieces of brush that were debrided out. There was no puncture into the muscle or tendon tissue. No evidence of arterial bleed either or neurovascular compromise. After wound was cleansed thoroughly of contaminants we then closed it with stitches both on the inside which are absorbable as well as stitches on the outside. The stitches that are on the outside we will need to be removed in the next 10-14 days. You had 5 sutures placed on the outside with several Steri-Strips. Do not pick the strips off, they will fall off? naturally in the next few days.?? Try not to get the strips wet with fluid as this can loosen the adhesive and the strips can fall off prematurely.?? If the strips fall off in the next day or so and the wound opens up, then return to the Urgent Care or pcp for re-evaluation or the emergency department. Keep clean and dry for 24 hours. After this showering and washing is OK but no soaking in water until the sutures have been removed. Keep the area clean with gentle soap and water- do not put the wound directly under a high pressure stream of water.? Cover the wound with antibiotic ointment and a band-aid or sterile gauze dressing 2-3 times a day.? You will need your sutures removed in 10-14 days.? You may return to the clinic to have these removed. Return immediately or call your doctor for signs of infection that include the following:? Red streaks from wound or surrounding the wound, pus draining from the wound, increased pain, or fever > 100.4 degrees F.? The amount of scarring will take 6 months to a year to be determined.? To minimize the risk of scarring, avoid prolonged sunlight exposure (i.e., use sunscreen when the sutures are removed). Prescriptions: New cephalexin 500 mg capsule 500 mg PO Q8H Qty: 21 0RF No Action (DME) NEBULIZER and all related accessories See Rx Instructions .Route .MEDSUPPLY Qty: 1 0RF Rx Instructions: As directed ferrous sulfate 325 mg (65 mg iron) tablet 325 mg PO DAILY 90 Days Qty: 90 1RF albuterol sulfate [Ventolin HFA] 90 mcg/actuation HFA aerosol inhaler 2 puff PO Q4-6H PRN (Reason: for wheezing) Qty: 18 1RF cholecalciferol (vitamin D3) 1,250 mcg (50,000 unit) capsule 1,250 mcg PO QWEEK 90 Days Qty: 13 1RF sertraline 100 mg tablet 100 mg PO DAILY Qty: 90 0RF ibuprofen 600 mg tablet 600 mg PO Q6H PRN (Reason: fever or pain) Qty: 30 0RF mupirocin 2 % ointment 1 appl topical TID 7 Days Qty: 15 0RF (DME) NEBULIZER See Rx Instructions .Route .MEDSUPPLY Qty: 1 0RF Rx Instructions: As directed 4 times a day as needed albuterol sulfate 2.5 mg /3 mL (0.083 %) solution for nebulization 2.5 mg continuous nebulization QID PRN (Reason: shortness of breath or wheezing) fluticasone propion-salmeterol [Wixela Inhub] 250-50 mcg/dose blister with device 1 inh inhalation BID 30 Days Qty: 60 3RF trazodone 100 mg tablet 100 mg PO BEDTIME PRN Referrals: Angelo Smith MD [Primary Care Provider, Internal Medicine] - 2 days Referral Note: wound recheck Stand Alone Forms: Work/School Release Interventions: ED Discharge Assessment Last Done: 09/29/24 18:06 Discharge Date/Time: 09/29/24 18:06 Print Language: Citizen [place] Laceration Repair Procedure Location: right upper posterior mid arm EMLA: 1% Lidocaine Text: After discussion of risk and benefits, written informed consent was obtained. The area was cleaned, prepped, and draped using sterile technique. The wound was debrided of any foreign material or devitalized tissue. Wound edges were approximated and closed using both absorbable 5-0 chromic gut (5) in subcutaneous tissue and nonabsorable 4-0 prolene (5) simple interrupted( this length 2.75 cm, 6 steri strips were then applied to distal portion of laceration which was more shallow in depth (3cm x 2mm x 1mm). Standard wound dressing was applied. Wound care instructions were given [ The patient tolerated the procedure well. The patient was instructed to return for increased redness or red streaking, pain, swelling, pus, fevers, chills, or any other signs or symptoms of infection or worsening. x Patient was instructed to return for suture removal in 10-14 days.
--- NOTE | 2024-09-29 17:00 | PC.NURSE ---
provider at bedside, cleaned wounds and sutured patient- pt tolerated well. pt remained a&ox3, vitals stable, pt ambulatory with steady gait, pt to discharge home.
[2024-09-29 17:37] VITALS: BP 133/71; PULSE 66; RESP 16; TEMP 36.9; O2SAT 99
[2024-09-29 18:06] VITALS: BP 133/71; PULSE 66; RESP 16; TEMP 36.9; O2SAT 99
== END 2024-09-29 18:06 | disposition home or self-care (01) ==
PROVIDERS: Emergency Provider Internal Medicine; PCP Internal Medicine
DX: S41.111A Laceration without foreign body of right upper arm, initial encounter (principal); T14.8XXA Other injury of unspecified body region, initial encounter; W01.198A Fall on same level from slipping, tripping and stumbling with subsequent striking against other object, initial encounter; E66.9 Obesity, unspecified; Z68.43 Body mass index [BMI] 50.0-59.9, adult; Y93.01 Activity, walking, marching and hiking; Y92.480 Sidewalk as the place of occurrence of the external cause; Y99.9 Unspecified external cause status
CPT/HCPCS: 12032; 99283; 99284

== ENCOUNTER 2024-10-03 11:45 | Outpatient (REF) | payer OTHER, SELFPAY ==
[2024-10-03 12:38] LABS: Estimated Average Glucose 105 mg/dL; Hemoglobin A1c % 5.3 % (<6.0)
[2024-10-03 12:54] LABS: Alanine Aminotransferase 33 U/L (0-31); Albumin Level 4.6 g/dL (3.5-5.0); Alkaline Phosphatase 95 U/L (39-117); Aspartate Amino Transferase 27 U/L (5-31); Bilirubin Direct 0.2 mg/dL (0.0-0.5); Bilirubin Total 0.4 mg/dL (0.0-1.0); Cholesterol 140 mg/dL (<200); HDL Cholesterol 41 mg/dL (>40); LDL Cholesterol Calculated 82 mg/dL (<100); Total Protein 7.5 g/dL (6.5-8.0); Triglycerides 87 mg/dL (<150)
--- OUTSIDE RECORDS SUMMARY | 2024-10-03 13:15 | XMS_ITS | Clinical Summary ---
Author Organization [facility] it Address [address] [place] [address] Care Team Providers Care Hood Maker Name Role Phone Unavailable Primary Care Provider [...]
[2024-10-04 13:42] LABS: Immunoglobulin A 177 mg/dL (47-310); Immunoglobulin G 1352 mg/dL (600-1640)
[2024-10-04 19:44] LABS: Human Growth Hormone 0.2 ng/mL (< OR = 7.1)
[2024-10-04 20:57] LABS: Transglutaminase Ab IgG <1.0 U/mL
[2024-10-09 13:37] LABS: IGF-1 (Somatomedin C) 103 ng/mL (53-331); IGF-1 Z Score (Female) -0.7 SD (-2.0 - +2.0)
== END 2024-10-03 11:46 | disposition home or self-care (01) ==
LOC: HO.LAB 11:45
PROVIDERS: Internal Medicine; PCP Internal Medicine; Visit Provider Student in an Organized Health Care Education/Training Program
DX: K90.49 Malabsorption due to intolerance, not elsewhere classified (principal); R74.01 Elevation of levels of liver transaminase levels; E66.01 Morbid (severe) obesity due to excess calories; Z68.43 Body mass index [BMI] 50.0-59.9, adult
CPT/HCPCS: 36415; 80061; 80076; 82784; 83003; 83036; 84305; 86364

== ENCOUNTER 2024-10-24 08:01 | Emergency (ER) | payer OTHER, SELFPAY ==
[2024-10-24 08:06] VITALS: BP 143/85; PULSE 65; RESP 16; TEMP 36.8; O2SAT 99; BMI 56.9
[2024-10-24 08:41] LABS: Appearance Urine Clear; Glucose Urine UA Negative (Negative); PH 5.5 (5.0-9.0); Specific Gravity - Urine 1.020 (1.005-1.025); UMIC TRIGGER UACC YES
[2024-10-24 08:43] LABS: UACC Culture Trigger YES
--- OUTSIDE RECORDS SUMMARY | 2024-10-24 09:11 | XMS_ITS | Clinical Summary ---
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
[2024-10-24 09:50] LABS: MANUAL DIFF FLAG NO
[2024-10-24 09:55] LABS: Hematocrit 35.0 % (37.0-47.0); Hemoglobin 12.0 g/dl (12.0-16.0); Imm Gran Abs Auto 0.01 X10*3/uL (0.00-0.03); Imm Gran Pct Auto 0.2 % (0.0-0.4); Lymphocytes Absolute Auto 2.1 X10*3/uL (1.2-4.9); Mean Corpuscular HGB Conc 34.3 g/dl (31.0-35.0); Mean Corpuscular Hemoglobin 28.7 pg (27.0-33.0); Mean Corpuscular Volume 83.7 fL (80.0-98.0); NRBC Abs Auto 0.000 X10*3/uL (0.0-0.012); NRBC Pct Auto 0.0 /100WBC (0.0-0.2); Platelet Count 257 X10*3/uL (160-400); Red Blood Count 4.18 X10*6/uL (4.20-5.50); White Blood Count 6.0 X10*3/uL (4.8-10.8)
[2024-10-24 10:07] LABS: Alanine Aminotransferase 37 U/L (0-31); Albumin Level 4.3 g/dL (3.5-5.0); Alkaline Phosphatase 110 U/L (39-117); Anion Gap 8 (12-20); Aspartate Amino Transferase 28 U/L (5-31); Blood Urea Nitrogen 11 mg/dL (9-16); Calcium 9.1 mg/dL (8.4-10.2); Carbon Dioxide 28 mmol/L (22-29); Chloride 106 mmol/L (96-108); Creatinine Clr Calc Pharmacy 174.5; Estimated Glomerular Filt Rate > 60; Potassium 3.9 mmol/L (3.3-5.1); Sodium 138 mmol/L (135-145); Total Protein 7.2 g/dL (6.5-8.0)
--- NOTE | 2024-10-24 10:58 | ED_ITS ---
HPI - General Adult General Chief complaint: General Medical Stated complaint: suture removal Time Seen by Provider: 10/24/24 10:19 Source: patient, RN notes reviewed and old records reviewed Mode of arrival: ambulatory Limitations: no limitations History of Present Illness ED Provider: Edwige HPI narrative: 34-year-old female presents for evaluation of suture removal. She was seen here on 09/29/2024 after falling into a carter She had 5 sutures placed to her right upper arm in his requesting that they be removed. She has no further pain, no redness or swelling around the area, no drainage from the area. She does complain of burning with urination that she has had for the last few days Denies any fevers or chills pain She reports frequent UTIs and follows with urology Related Data Home Medications ?Medication ?Instructions ?Recorded ?Confirmed albuterol sulfate 2.5 mg/3 mL 2.5 mg continuous nebuli zation QID 08/22/23 09/19/24 (0.083 %) solution for nebulization PRN shortness of b reath or wheezing trazodone 100 mg tablet 100 mg PO BEDTIME PRN 09/19/24 Previous Rx's ?Medication ?Instructions ?Recorded NEBULIZER #1 ea 04/20/21 NEBULIZER and all related #1 ea 01/06/23 accessories ibuprofen 600 mg tablet 600 mg PO Q6H PRN fever or p ain 08/14/23 #30 tabs ferrous sulfate 325 mg (65 mg 325 mg PO DAILY 90 days #90 tabs 01/31/24 iron) tablet fluticasone 250 mcg-salmeterol 50 1 inh inhalation BID 30 days #60 ea 02/02/24 mcg/dose blistr powdr for inhalation (Wixela Inhub) albuterol sulfate 90 mcg/actuation 2 puff PO Q4-6H PRN for wheezing 02/27/24 aerosol inhaler (Ventolin HFA) #18 ea mupirocin 2 % topical ointment 1 appl topical TID Appl y thin 07/25/24 amount to rash on face 7 days #15 grams cholecalciferol (vitamin D3) 1,250 1,250 mcg PO QWEEK 90 days #13 caps 08/19/24 mcg (50,000 unit) capsule cephalexin 500 mg capsule 500 mg PO Q8H #21 caps 09/29 sertraline 100 mg tablet 100 mg PO DAILY #90 tabs cefuroxime axetil 250 mg tablet 250 mg PO Q12H #10 tab s 10/24/24 Allergies Allergy/AdvReac Type Severity Reaction Status Date / Time lithium (From LITHATE) Allergy Severe ANAPHYLAXIS Verified 10/24/24 08:08 codeine (CODEINE) Allergy Unknown UNKNOWN Verified 10/24/24 08:08 Review of Systems 2 Constitutional: Constitutional: Denies body ache(s), Denies chills and Denies fever(s) Cardiovascular: Cardiovascular: Denies chest pain and Denies dyspnea on exertion Respiratory: Respiratory: Denies cough and Denies dyspnea on exertion Gastrointestinal: Gastrointestinal: Denies abdominal pain, Denies nausea and Denies vomiting Genitourinary: Genitourinary: Reports dysuria and Denies pelvic pain Musculoskeletal: Musculoskeletal: Denies back pain Integumentary/Breasts: Skin/Breast: Denies rash and Reports wounds (healing wound to right upper extremity) COUNTS INCLUDE 234 BEDS AT THE [facility] Past Medical History Medical History Cervical cancer screening Anemia Vitamin D deficiency Morbid obesity with BMI of 50.0-59.9, adult Morbid obesity with BMI of 45.0-49.9, adult Missed period Dysuria Right knee pain Lumbar back pain Encounter for Nexplanon removal Etonogestrel implant for control Trichomoniasis Obesity, morbid, BMI 50 or higher Potential exposure to STD Women's annual routine gynecological examination control counseling Recurrent UTI Constipation Uses control Renal cyst UTI (urinary tract infection) Obesity Environmental allergies COVID-19 Dysuria Insomnia Morbid obesity with BMI of 45.0-49.9, adult Attention deficit hyperactivity disorder (ADHD) Bipolar affective disorder, current episode mixed Nocturnal enuresis GERD without esophagitis Pulmonary nodules Asthma Surgical History History of surgery Family History Family History Father Ketoacidosis Diabetes ADHD Chronic mental illness Substance abuse Mother Anxiety Hypertension Crohn disease Family/Other Chronic mental illness Social History Social History Housing: Apartment Alcohol intake: never Patient Tobacco Use Status: Tobacco use Unknown e-Cigarette/Vaping Use: Never Used Second Hand Smoke Exposure: Yes Advance Directives: No Advance Directives Information Provided: Yes Patient : No service: No Current occupational status: employed Current occupational exposures/hazards: No Cognitive needs: No Hearing needs: No Vision needs: No Physical Exam ED Vital Signs: Vital Signs - 24 hr 10/24/24 08:06 Temperature 98.3 F Pulse Rate 65 Respiratory Rate 16 Blood Pressure 143/85 H Pulse Oximetry 99 Oxygen Delivery Method Room Air BMI result Body Mass Index 56.9 Const General: healthy appearing, comfortable, no acute distress, alert and awake Nutritional Appearance: well nourished Orientation/consciousness: patient oriented x3 HENMT Head: Yes normocephalic and Yes atraumatic Eyes Eyelids: Yes eyelids normal Conjunctivae: conjunctivae normal Sclerae: sclerae normal Corneas: corneas normal Pupils: Equal, round and reactive pupils present EOM: EOMs intact bilaterally Neck Neck: Yes full ROM Resp Effort & Inspection: normal respiratory effort, able to speak in complete sentences and not labored GI Inspection: No distended Palpation (GI): Soft to palpation, not firm, nontender, no guarding and not rigid Skin Other: Healing laceration to right upper arm, 5 sutures visible. Wound appears well healed, no surrounding erythema or purulent drainage General skin exam: elasticity normal Neuro General: patient oriented x3 Cranial nerves: Yes Equal, round and reactive pupils present and Yes Bilaterally intact EOM present Cognition (Neuro): normal cognition Extrem Other: Moving all extremities well without any obvious deformities Medical Decision Making Medical Decision Making [facility] Narrative: 34-year-old female presents for evaluation of a suture removal. Also notes symptoms with burning with urination. She has frequent UTIs, all of her recent cultures have shown E coli susceptible to cephalosporins. We will treat with cefuroxime b.i.d. x5 days. There was no evidence of systemic infection, no fevers or chills, no leukocytosis. The patient has 5 sutures are removed easily. Differential Diagnosis Differential Diagnoses: The differential diagnosis associated with the presentation includes UTI Cystitis Laceration Suture removal Lab Data [facility] Lab Attestation statement: I reviewed the patient's lab results. No leukocytosis or significant anemia. Normal platelet count. No electrolyte abnormalities warranting intervention 10/24/24 09:45 10/24/24 09:45 Labs: Lab Results 10/24/24 10/24/24 Range/Units 08:30 09:45 WBC 6.0 (4.8-10.8) X10*3/uL RBC 4.18 L (4.20-5.50) X10*6/uL Hgb 12.0 (12.0-16.0) g/dl Hct 35.0 L (37.0-47.0) % MCV 83.7 (80.0-98.0) fL MCH 28.7 (27.0-33.0) pg MCHC 34.3 (31.0-35.0) g/dl RDW 12.8 (11.0-16.0) % Plt Count 257 (160-400) X10*3/uL MPV 9.3 L (9.4-12.3) fL Immature Gran % (Auto) 0.2 (0.0-0.4) % Neut % (Auto) 57.9 (45-73) % Lymph % (Auto) 34.6 (20-40) % [place] % (Auto) 6.3 (2-11) % Eos % (Auto) 0.7 (0-4) % Baso % (Auto) 0.3 (0-2) % Lymph # (Auto) 2.1 (1.2-4.9) X10*3/uL [place] # (Auto) 0.4 (0.1-1.2) X10*3/uL Eos # (Auto) 0.0 (0.0-0.4) X10*3/uL Baso # (Auto) 0.0 (0.0-0.2) X10*3/uL Abs Immat Gran (auto) 0.01 (0.00-0.03) X10*3/uL Absolute Neuts (auto) 3.5 (2.0-8.3) x10*3/uL Absolute Nucleated RBC 0.000 (0.0-0.012) X10*3/uL Nucleated RBC % (auto) 0.0 (0.0-0.2) /100WBC Sodium 138 (135-145) mmol/L Potassium 3.9 (3.3-5.1) mmol/L Chloride 106 (96-108) mmol/L Carbon Dioxide 28 (22-29) mmol/L Anion Gap 8 L (12-20) BUN 11 (9-16) mg/dL Creatinine 0.69 (0.5-1.4) mg/dL Estim Creat Clear Calc 174.5 Estimated GFR > 60 Random Glucose 92 (60-115) mg/dL Calcium 9.1 (8.4-10.2) mg/dL Total Bilirubin 0.3 (0.0-1.0) mg/dL AST 28 (5-31) U/L ALT 37 H (0-31) U/L Alkaline Phosphatase 110 (39-117) U/L Total Protein 7.2 (6.5-8.0) g/dL Albumin 4.3 (3.5-5.0) g/dL Urine Color Yellow Urine Appearance Clear Urine pH 5.5 (5.0-9.0) Ur Specific [place] 1.020 (1.005-1.025) Urine Protein Negative (Neg-Trace) mg/dL Urine Glucose (UA) Negative (Negative) mg/dL Urine Ketones Negative (Negative) mg/dL Urine Blood Negative (Negative) Urine Nitrite Positive H (Negative) Ur Leukocyte Esterase Small (1+) H (Negative) Urine RBC 0-2 (0-2) /HPF Urine WBC 11-20 H (0-5) /HPF Ur Squamous Epith Cells 0-2 (0-2) /HPF Urine Bacteria 4+ (None Seen) Hyaline Casts 0-2 (0-2) /LPF Discharge Plan Discharge Clinical Impression: Encounter for removal of sutures, UTI (urinary tract infection) Patient Disposition: Home, Self-Care Instructions: Stitches Removal (ED) Additional Instructions: You had 4 sutures removed today. Your wound appears to be healing quite well. Return for any redness, swelling or increasing pain in the area. Take cefuroxime twice daily for the next 5 days to treat your urinary tract infection Prescriptions: New cefuroxime axetil 250 mg tablet 250 mg PO Q12H Qty: 10 0RF No Action (DME) NEBULIZER and all related accessories See Rx Instructions .Route .MEDSUPPLY Qty: 1 0RF Rx Instructions: As directed ferrous sulfate 325 mg (65 mg iron) tablet 325 mg PO DAILY 90 Days Qty: 90 1RF albuterol sulfate [Ventolin HFA] 90 mcg/actuation HFA aerosol inhaler 2 puff PO Q4-6H PRN (Reason: for wheezing) Qty: 18 1RF cholecalciferol (vitamin D3) 1,250 mcg (50,000 unit) capsule 1,250 mcg PO QWEEK 90 Days Qty: 13 1RF sertraline 100 mg tablet 100 mg PO DAILY Qty: 90 0RF cephalexin 500 mg capsule 500 mg PO Q8H Qty: 21 0RF ibuprofen 600 mg tablet 600 mg PO Q6H PRN (Reason: fever or pain) Qty: 30 0RF mupirocin 2 % ointment 1 appl topical TID 7 Days Qty: 15 0RF (DME) NEBULIZER See Rx Instructions .Route .MEDSUPPLY Qty: 1 0RF Rx Instructions: As directed 4 times a day as needed albuterol sulfate 2.5 mg /3 mL (0.083 %) solution for nebulization 2.5 mg continuous nebulization QID PRN (Reason: shortness of breath or wheezing) fluticasone propion-salmeterol [Wixela Inhub] 250-50 mcg/dose blister with device 1 inh inhalation BID 30 Days Qty: 60 3RF trazodone 100 mg tablet 100 mg PO BEDTIME PRN Interventions: ED Discharge Assessment Last Done: 10/24/24 11:20 Print Language: [place]
[2024-10-24 11:20] VITALS: BP 00/00; PULSE 0; RESP 0; TEMP -17.7; TEMP 0; O2SAT 0
== END 2024-10-24 11:21 | disposition home or self-care (01) ==
PROVIDERS: Emergency Provider Emergency Medicine; PCP Internal Medicine
DX: Z48.02 Encounter for removal of sutures (principal); N39.0 Urinary tract infection, site not specified; R30.0 Dysuria; E66.01 Morbid (severe) obesity due to excess calories; B96.20 Unspecified Escherichia coli [E. coli] as the cause of diseases classified elsewhere; Z71.3 Dietary counseling and surveillance; Z79.899 Other long term (current) drug therapy; Z68.43 Body mass index [BMI] 50.0-59.9, adult
CPT/HCPCS: 36415; 80053; 81001; 85025; 87086; 87088; 87186; 97802; 99283; 99284

== ENCOUNTER 2024-10-24 13:17 | Outpatient (AMB) | payer OTHER, SELFPAY ==
[2024-10-24 13:19] VITALS: BMI 55.9
--- NOTE | 2024-10-24 13:19 | MHC.AMNUTRGE ---
VS Expanded 10/24/24 13:19 10/29/24 13:37 Height 5 ft 5 in 5 ft 5 in Weight 335 lb 15.752 oz 336 lb BMI 55.9 55.9 Intake Visit Reasons: f/u obesity Allergies lithium (From LITHATE) Allergy (Severe, Verified 10/24/24 08:08) ANAPHYLAXIS codeine (CODEINE) Allergy (Unknown, Verified 10/24/24 08:08) UNKNOWN Nutrition Presentation Details: Pt presents for MNT for obesity Pt reports typically eating out the majority of the time and large portion sizes. food frequency fruits: 0-1/d dairy: 0- 2/d ve-2/d fish : 0-/wk beverages:water, juices, soda etoh/smoking-denies physical activity: ADL BS Monitoring Most Recent Diabetes Results: Cholesterol, (<200) 140 mg/dL 10/03/24 HDL Cholesterol, (>40) 41 mg/dL 10/03/24 Triglycerides, (<150) 87 mg/dL 10/03/24 Creatinine, (0.5-1.4) 0.69 mg/dL 10/24/24 BUN, (9-16) 11 mg/dL 10/24/24 Sodium, (135-145) 138 mmol/L 10/24/24 Potassium, (3.3-5.1) 3.9 mmol/L 10/24/24 Chloride, (96-108) 106 mmol/L 10/24/24 Carbon Dioxide, (22-29) 28 mmol/L 10/24/24 Calcium, (8.4-10.2) 9.1 mg/dL 10/24/24 AST, (5-31) 28 U/L 10/24/24 ALT, (0-31) 37 U/L H 10/24/24 Total Protein, (6.5-8.0) 7.2 g/dL 10/24/24 Albumin, (3.5-5.0) 4.3 g/dL 10/24/24 [id number] Equation Height: 5 ft 5 in Weight: 336 lb Resting Metabolic Rate: 2226.14 Calculated Activity Level: Sedentary Calories Needed to Maintain Weight: 2671.37 Diagnosis Nutrition problem #1: food nutri know defi As related to (etiology) #1: diagnosis As evidenced by (sign/symptom) #1: knowledge deficit of diet [facility] Medical History Cervical cancer screening Anemia Vitamin D deficiency Morbid obesity with BMI of 50.0-59.9, adult Morbid obesity with BMI of 45.0-49.9, adult Missed period Dysuria Right knee pain Lumbar back pain Encounter for Nexplanon removal Etonogestrel implant for control Trichomoniasis Obesity, morbid, BMI 50 or higher Potential exposure to STD Women's annual routine gynecological examination control counseling Recurrent UTI Constipation Uses control Renal cyst UTI (urinary tract infection) Obesity Environmental allergies COVID-19 Dysuria Insomnia Morbid obesity with BMI of 45.0-49.9, adult Attention deficit hyperactivity disorder (ADHD) Bipolar affective disorder, current episode mixed Nocturnal enuresis GERD without esophagitis Pulmonary nodules Asthma Surgical History History of surgery Family History Father Ketoacidosis Diabetes ADHD Chronic mental illness Substance abuse Mother Anxiety Hypertension Crohn disease Family/Other Chronic mental illness Social History Housing: Apartment Alcohol intake: never Patient Tobacco Use Status: Tobacco use Unknown e-Cigarette/Vaping Use: Never Used Second Hand Smoke Exposure: Yes service: No Current occupational status: employed Current occupational exposures/hazards: No Cognitive needs: No Hearing needs: No Vision needs: No Female Reproductive History Menstrual Age of Menarche: 11 Assessment & Plan Assessment & Plan (1) Morbid obesity with BMI of 50.0-59.9, adult: Code(s): E66.01 - Morbid (severe) obesity due to excess calories; Z68.43 - Body mass index [BMI] 50.0-59.9, adult Category: Medical Plan: Wt: 153 Kg ( 11/08 ) Est kcal needs as per MSJ: 2700 (40% carb, 30% protein/fat) Est fluid needs as per 25-30 ml/d: 4600 Est prot per day as per 1 g/kg bw: 160 Recommend fiber intake : 8-10 g per day and gradually increase to 25-28 g per day for women and 35-38 g for men or as tolerated Recommend sodium intake per day : less than 1500 mg less than 2000 mg Educated patient on: ( R = reviewed V = verbalizes understanding N/R = needs review N/A = not applicable Food sources of carbohydrate, adequate serving sizes and its role in various health conditions: R V N/R Differences between complex carbohydrates a simple carbohydrates, role of fiber in diet: R Lean protein sources of foods: R Differences between types of fats and role in diet (mono on saturated fat fatty acids, saturated fatty acids, trans fats): R basic Food sources of sodium in salt and healthy modifications for heart health in kidney health: R V R/V Vitamins and minerals: R V N/R Healthy plate method concept: R V N/R Physical activity: Benefits a precaution: R V N/R Patient Instructions: Practice mindful eating Reduce on sugar - choose water, fruit/herb infused water , read food labels follow healthy plate method at dinner Coding Level of Care Code Nutr Indiv Intake (71988) Diagnoses Morbid obesity with BMI of 50.0-59.9, adult E66.01; Z68.43 Time Spent (min) 30
[2024-10-29 13:37] VITALS: BMI 55.9
== END 2024-10-24 13:48 | disposition home or self-care (01) ==
LOC: HO.ENCR 13:17
PROVIDERS: PCP Internal Medicine; Visit Provider Dietitian, Registered
DX: E66.01 Morbid (severe) obesity due to excess calories (principal); Z68.43 Body mass index [BMI] 50.0-59.9, adult

== ENCOUNTER 2024-11-03 23:22 | Emergency (ER) | payer OTHER, SELFPAY ==
--- NOTE | ~2024-11-03 | XR_ITS ---
CLINICAL HISTORY: cough, weakness 2 view chest x-ray Comparison: 12/06/2023 Findings: Lungs are clear without acute infiltrates. No pneumothorax. Heart size normal. No acute bony abnormalities. Impression: No acute processes This document has been electronically signed by: Dex Jean MD on 11/04/2024 00:49:16
[2024-11-03 23:30] VITALS: BP 137/89; BP 140/48; PULSE 76; PULSE 78; RESP 20; TEMP 36.4; O2SAT 95; BMI 57.1
--- NOTE | 2024-11-03 23:36 | ED_ITS ---
HPI - Female Genitourinary General Chief complaint: Urogenital-Female Stated complaint: CHEST DISCOMFORT/LOWER BACK PAIN/COUGH Time Seen by Provider: 11/03/24 23:36 Source: patient Mode of arrival: ambulatory Limitations: no limitations History of Present Illness ED Provider: HPI Narrative: 34-year-old woman with history of asthma, restrictive lung disease, states that she has stood did have a chance to fill her antibiotics for recent UTI, and presenting feeling worse feels chills, coughing, no rashes no nausea no vomiting. Related Data Home Medications ?Medication ?Instructions ?Recorded ?Confirmed albuterol sulfate 2.5 mg/3 mL 2.5 mg continuous nebuli zation QID 08/22/23 09/19/24 (0.083 %) solution for nebulization PRN shortness of b reath or wheezing trazodone 100 mg tablet 100 mg PO BEDTIME PRN 09/19/24 Previous Rx's ?Medication ?Instructions ?Recorded NEBULIZER #1 ea 04/20/21 NEBULIZER and all related #1 ea 01/06/23 accessories ibuprofen 600 mg tablet 600 mg PO Q6H PRN fever or p ain 08/14/23 #30 tabs ferrous sulfate 325 mg (65 mg 325 mg PO DAILY 90 days #90 tabs 01/31/24 iron) tablet fluticasone 250 mcg-salmeterol 50 1 inh inhalation BID 30 days #60 ea 02/02/24 mcg/dose blistr powdr for inhalation (Wixela Inhub) albuterol sulfate 90 mcg/actuation 2 puff PO Q4-6H PRN for wheezing 02/27/24 aerosol inhaler (Ventolin HFA) #18 ea mupirocin 2 % topical ointment 1 appl topical TID Appl y thin 07/25/24 amount to rash on face 7 days #15 grams cholecalciferol (vitamin D3) 1,250 1,250 mcg PO QWEEK 90 days #13 caps 08/19/24 mcg (50,000 unit) capsule cephalexin 500 mg capsule 500 mg PO Q8H #21 caps 09/29 sertraline 100 mg tablet 100 mg PO DAILY #90 tabs cefuroxime axetil 250 mg tablet 250 mg PO Q12H #10 tab s 10/24/24 Allergies Allergy/AdvReac Type Severity Reaction Status Date / Time lithium (From LITHATE) Allergy Severe ANAPHYLAXIS Verified 11/03/24 23:35 codeine (CODEINE) Allergy Unknown UNKNOWN Verified 11/03/24 23:35 Review of Systems 2 Constitutional: Constitutional: Reports as per HPI [facility] Past Medical History Medical History Cervical cancer screening Anemia Vitamin D deficiency Morbid obesity with BMI of 50.0-59.9, adult Morbid obesity with BMI of 45.0-49.9, adult Missed period Dysuria Right knee pain Lumbar back pain Encounter for Nexplanon removal Etonogestrel implant for control Trichomoniasis Obesity, morbid, BMI 50 or higher Potential exposure to STD Women's annual routine gynecological examination control counseling Recurrent UTI Constipation Uses control Renal cyst UTI (urinary tract infection) Obesity Environmental allergies COVID-19 Dysuria Insomnia Morbid obesity with BMI of 45.0-49.9, adult Attention deficit hyperactivity disorder (ADHD) Bipolar affective disorder, current episode mixed Nocturnal enuresis GERD without esophagitis Pulmonary nodules Asthma Surgical History History of surgery Family History Family History Father Ketoacidosis Diabetes ADHD Chronic mental illness Substance abuse Mother Anxiety Hypertension Crohn disease Family/Other Chronic mental illness Social History Social History Housing: Apartment Alcohol intake: never Patient Tobacco Use Status: Tobacco use Unknown Smoked in Last 30 Days: No e-Cigarette/Vaping Use: Never Used Second Hand Smoke Exposure: Yes Use of substances other than those prescribed or required for medical reasons: No Advance Directives: No Advance Directives Information Provided: No service: No Current occupational status: employed Current occupational exposures/hazards: No Cognitive needs: No Hearing needs: No Vision needs: No Physical Exam 2 Vital Signs: Vital Signs: Last Vital Signs Temp 97.6 F 11/03/24 23:30 Pulse 78 11/03/24 23:30 Resp 20 11/03/24 23:30 BP 140/48 H 11/03/24 23:30 Pulse Ox 95 11/03/24 23:30 O2 Del Method Room Air 11/03/24 23:30 BMI result Body Mass Index 57.1 Const: Other: * Gen: ?Overall well-appearing patient * HEENT: PERRLA, EOMI, MMM, * Neck: Supple, no LAD * CV: RRR, no obvious murmurs appreciated * Resp: ?Had minimal wheezing, no rhonchi and no stridor * Abd: ?Bowel sounds are present, no tenderness no rebound no rigidity * MSK: FROM, strength 5/5 all extremities * Skin: Warm, dry, intact, * Neuro: ?Alert and oriented x3, moving upper and lower extremities symmetrically, no obvious facial asymmetry noted Medications Administered Discontinued Medications Generic Name Dose Route Start Last Admin Trade Name Freq PRN Reason Stop Dose Admin Cefuroxime Axetil 500 mg 11/03/24 23:58 11/04/24 00:13 Cefuroxime Axetil 500 Mg Tablet PO 11/03/24 23:59 500 mg ONCE ONE Administration Medical Decision Making Medical Decision Making MDM Narrative: Patient reports unable to or her antibiotics because she was busy and also has been coughing now and felt like she is having chills, on examination she is afebrile, minimal wheezing she does have history of asthma, we will obtain chest x-ray to make sure his underlying pneumonia, we will check blood work to make sure there was no worsening renal function or significant spike and leukocytes, we will hold off urine for now, did review culture, she is on appropriate antibiotic, we will dose her in the ER and 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 Differential Diagnosis Differential Diagnoses: The differential diagnosis associated with the presentation includes Pneumonia, PEPITO, pyelonephritis, asthma, bacteremia Admission/Observation Consideration of admission/observation: Escalation of care including admission/observation considered 2022 Emergency Medicine Coding Guide from [email or web address] on 11/03/2024 All calculations should be rechecked by clinician prior to use RESULT SUMMARY: 4 Estimated Level of Service Problems: Low (3) Risk: Moderate (4) Data: Moderate (4) NARRATIVE MDM: This patient's problem complexity is Low as patient: has =2 minor problems. This patient's risk is Moderate due to: overall presentation requiring evaluation for a potentially Moderate-risk process. This patient's data complexity is Moderate due to: -independent interpretation of imaging or EKG INPUTS: Number and Complexity ?> 8 = 3: 2 minor problems (h) Risk level ?> 3 = Moderate Tests ordered ?> 1 = 1 Tests results reviewed (excluding labs) ?> 1 = 1 Prior external notes reviewed ?> 0 = 0 Assessment requiring and independent historian ?> 0 = No Independent interpretation of tests ?> 1 = Yes Discussed management/test interpretation w/external professional ?> 0 = No Lab Data MDM Lab Attestation statement: I reviewed the patient's lab results. 11/04/24 00:17 11/04/24 00:17 Labs: Lab Results 11/04/24 Range/Units 00:17 WBC 13.0 H (4.8-10.8) X10*3/uL RBC 4.40 (4.20-5.50) X10*6/uL Hgb 12.4 (12.0-16.0) g/dl Hct 37.2 (37.0-47.0) % MCV 84.5 (80.0-98.0) fL MCH 28.2 (27.0-33.0) pg MCHC 33.3 (31.0-35.0) g/dl RDW 12.9 (11.0-16.0) % Plt Count 271 (160-400) X10*3/uL MPV 9.6 (9.4-12.3) fL Immature Gran % (Auto) 0.4 (0.0-0.4) % Neut % (Auto) 74.6 H (45-73) % Lymph % (Auto) 18.6 L (20-40) % [place] % (Auto) 5.9 (2-11) % Eos % (Auto) 0.3 (0-4) % Baso % (Auto) 0.2 (0-2) % Lymph # (Auto) 2.4 (1.2-4.9) X10*3/uL [place] # (Auto) 0.8 (0.1-1.2) X10*3/uL Eos # (Auto) 0.0 (0.0-0.4) X10*3/uL Baso # (Auto) 0.0 (0.0-0.2) X10*3/uL Abs Immat Gran (auto) 0.05 H (0.00-0.03) X10*3/uL Absolute Neuts (auto) 9.7 H (2.0-8.3) x10*3/uL Absolute Nucleated RBC 0.000 (0.0-0.012) X10*3/uL Nucleated RBC % (auto) 0.0 (0.0-0.2) /100WBC Sodium 140 (135-145) mmol/L Potassium 4.0 (3.3-5.1) mmol/L Chloride 104 (96-108) mmol/L Carbon Dioxide 26 (22-29) mmol/L Anion Gap 14 (12-20) BUN 12 (9-16) mg/dL Creatinine 0.82 (0.5-1.4) mg/dL Estim Creat Clear Calc 147.1 Estimated GFR > 60 Random Glucose 98 (60-115) mg/dL Calcium 9.4 (8.4-10.2) mg/dL Independent Interpretation I performed an independent interpretation of an: Plain X-Ray (My independent chest xray interpretation: Lungs: Lungs are clear bilaterally without evidence of focal consolidation, pleural effusion, or pneumothorax. Cardiac silhouette is unremarkable, no obvious mediastinal widening, no obvious bony abnormalities such as fractures. Impression: Normal chest X-r) Radiology Impression Discussion of test interpretation with radiology: I have reviewed the radiologist's reading. Discharge Plan Discharge Clinical Impression: UTI (urinary tract infection), Wheezing Additional Instructions: Your workup today has been reassuring, blood work, chest x-ray, physical exam and vital signs, I gave you a dose of antibiotics for the day, continue antibiotics starting tomorrow Follow up with the PCP any other issues concerns come back to the ER Prescriptions: No Action (DME) NEBULIZER and all related accessories See Rx Instructions .Route .MEDSUPPLY Qty: 1 0RF Rx Instructions: As directed ferrous sulfate 325 mg (65 mg iron) tablet 325 mg PO DAILY 90 Days Qty: 90 1RF albuterol sulfate [Ventolin HFA] 90 mcg/actuation HFA aerosol inhaler 2 puff PO Q4-6H PRN (Reason: for wheezing) Qty: 18 1RF cholecalciferol (vitamin D3) 1,250 mcg (50,000 unit) capsule 1,250 mcg PO QWEEK 90 Days Qty: 13 1RF sertraline 100 mg tablet 100 mg PO DAILY Qty: 90 0RF cephalexin 500 mg capsule 500 mg PO Q8H Qty: 21 0RF ibuprofen 600 mg tablet 600 mg PO Q6H PRN (Reason: fever or pain) Qty: 30 0RF mupirocin 2 % ointment 1 appl topical TID 7 Days Qty: 15 0RF cefuroxime axetil 250 mg tablet 250 mg PO Q12H Qty: 10 0RF (DME) NEBULIZER See Rx Instructions .Route .MEDSUPPLY Qty: 1 0RF Rx Instructions: As directed 4 times a day as needed albuterol sulfate 2.5 mg /3 mL (0.083 %) solution for nebulization 2.5 mg continuous nebulization QID PRN (Reason: shortness of breath or wheezing) fluticasone propion-salmeterol [Wixela Inhub] 250-50 mcg/dose blister with device 1 inh inhalation BID 30 Days Qty: 60 3RF trazodone 100 mg tablet 100 mg PO BEDTIME PRN Stand Alone Forms: Work/School Release Print Language: Nepali
[2024-11-04 00:25] LABS: Hematocrit 37.2 % (37.0-47.0); Hemoglobin 12.4 g/dl (12.0-16.0); Imm Gran Abs Auto 0.05 X10*3/uL (0.00-0.03); Imm Gran Pct Auto 0.4 % (0.0-0.4); Lymphocytes Absolute Auto 2.4 X10*3/uL (1.2-4.9); MANUAL DIFF FLAG NO; Mean Corpuscular HGB Conc 33.3 g/dl (31.0-35.0); Mean Corpuscular Hemoglobin 28.2 pg (27.0-33.0); Mean Corpuscular Volume 84.5 fL (80.0-98.0); NRBC Abs Auto 0.000 X10*3/uL (0.0-0.012); NRBC Pct Auto 0.0 /100WBC (0.0-0.2); Platelet Count 271 X10*3/uL (160-400); Red Blood Count 4.40 X10*6/uL (4.20-5.50); White Blood Count 13.0 X10*3/uL (4.8-10.8)
[2024-11-04 00:39] LABS: Anion Gap 14 (12-20); Blood Urea Nitrogen 12 mg/dL (9-16); Calcium 9.4 mg/dL (8.4-10.2); Carbon Dioxide 26 mmol/L (22-29); Chloride 104 mmol/L (96-108); Creatinine Clr Calc Pharmacy 147.1; Estimated Glomerular Filt Rate > 60; Potassium 4.0 mmol/L (3.3-5.1); Sodium 140 mmol/L (135-145)
[2024-11-04 01:26] VITALS: BP 138/79; PULSE 77; RESP 20; TEMP 36.6; O2SAT 96
== END 2024-11-04 01:40 | disposition home or self-care (01) ==
PROVIDERS: Emergency Provider Emergency Medicine
DX: N39.0 Urinary tract infection, site not specified (principal); R06.2 Wheezing; R07.89 Other chest pain; M54.50 Low back pain, unspecified; R05.9 Cough, unspecified; Z79.899 Other long term (current) drug therapy
CPT/HCPCS: 36415; 71046; 80048; 85025; 99283

== ENCOUNTER → 2024-11-03 23:49 | Outpatient (BNV) | payer OTHER, SELFPAY | PROVIDERS: Emergency Provider Emergency Medicine; Visit Provider Radiology Diagnostic Radiology | DX: R05.9 Cough, unspecified (principal); R53.1 Weakness | CPT/HCPCS: 71046 ==

== ENCOUNTER 2025-01-02 15:07 | Outpatient (AMB) | payer OTHER, SELFPAY ==
[2025-01-02 15:38] VITALS: BP 120/80; PULSE 83; RESP 18; TEMP 36.3; O2SAT 96; BMI 56.8
--- NOTE | 2025-01-02 15:38 | MHC.PC.OV ---
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 Accompanied by: Self / Same As Patient Allergies lithium (From LITHATE) Allergy (Severe, Verified 01/02/25 16:05) ANAPHYLAXIS codeine (CODEINE) Allergy (Unknown, Verified 01/02/25 16:05) UNKNOWN Medication List - Last Reconciled 01/02/25 by JACQUELINE Islas albuterol sulfate 2.5 mg continuous nebulization QID PRN albuterol sulfate 90 mcg/actuation (Ventolin HFA) 2 puffs PO Q4-6H PRN cephalexin 500 mg PO Q8H cholecalciferol (vitamin D3) 1,250 mcg PO QWEEK 90 days ferrous sulfate 325 mg PO DAILY 90 days fluticasone propion-salmeterol 250-50 mcg/dose (Wixela Inhub) 1 inh inhalation BID 30 days ibuprofen 600 mg PO Q6H PRN [NEBULIZER As directed 4 times a day as needed] [NEBULIZER and all related accessories As directed] sertraline 100 mg PO DAILY trazodone 100 mg PO BEDTIME PRN 30 days Tobacco use date assessed: 01/02/25 Dental Screening Dental Screen Date: 01/02/25 Did you have a dental visit in the last 12 months?: Yes Did you have a dental problem in the last 6 months where you did not have access to dental care?: No Was dental information given to patient?: Patient has dentist HPI annual exam HPI Details Dentist: up to date Eye: Snellen: Right: Left: Corrected vision: glasses, needs to see a new ophthalmology. Decreased vision STI screening: Colonoscopy: n/a Pap Smer: Needs to be referral to obyn PHQ-9: Flu: COVID:x2 Tdap:2018 Diet:regular Exercise: reports that she walks intermittently The patient is a 34-year-old female presenting for a wellness visit and management of chronic conditions. The patient reports difficulty seeing at a distance, which is consistent with myopia. She also mentions having astigmatism, which affects her vision clarity. The patient has a history of asthma and requires a nebulizer for management. She recently moved and left her equipment behind, necessitating a new nebulizer. The patient expresses concern about a possible urinary tract infection and requests testing. She is overdue for a Pap smear and influenza vaccination, which are part of her preventative care. [facility] Medical History Cervical cancer screening Anemia Vitamin D deficiency Morbid obesity with BMI of 50.0-59.9, adult Morbid obesity with BMI of 45.0-49.9, adult Missed period Dysuria Right knee pain Lumbar back pain Encounter for Nexplanon removal Etonogestrel implant for control Trichomoniasis Obesity, morbid, BMI 50 or higher Potential exposure to STD Women's annual routine gynecological examination control counseling Recurrent UTI Constipation Uses control Renal cyst UTI (urinary tract infection) Obesity Environmental allergies COVID-19 Dysuria Insomnia Morbid obesity with BMI of 45.0-49.9, adult Attention deficit hyperactivity disorder (ADHD) Bipolar affective disorder, current episode mixed Nocturnal enuresis GERD without esophagitis Pulmonary nodules Asthma Surgical History History of surgery Family History Father Ketoacidosis Diabetes ADHD Chronic mental illness Substance abuse Mother Anxiety Hypertension Crohn disease Family/Other Chronic mental illness Social History Housing: Apartment Alcohol intake: never Patient Tobacco Use Status: Tobacco use Unknown e-Cigarette/Vaping Use: Never Used Second Hand Smoke Exposure: Yes service: No Current occupational status: employed Current occupational exposures/hazards: No Cognitive needs: No Hearing needs: No Vision needs: No Female Reproductive History Menstrual Age of Menarche: 11 Questionnaire PHQ-9 Over the last 2 weeks, how often have you been bothered by any of the following problems? 1. Little interest or pleasure in doing things: not at all 2. Feeling down, depressed, or hopeless: not at all 3. Trouble falling or staying asleep, or sleeping too much: not at all 4. Feeling tired or having little energy: not at all 5. Poor appetite or overeating: not at all 6. Feeling bad about yourself - or that you are a failure or have let yourself or your family down: not at all 7. Trouble concentrating on things, such as reading the newspaper or watching television: not at all 8. Moving or speaking so slowly that other people could have noticed. Or the opposite - being so fidgety or restless that you have been moving around a lot more than usual: not at all 9. Thoughts that you would be better off or of hurting yourself in some way: not at all Total score: 0 Depression Screening Interpretation: Negative Depression Screening Done: Yes 60569 - PHQ-9 Billing: Yes Source: Developed by Drs. Gerald Costa, Emily Villalobos, Jonathon Delcid and colleagues, with an educational yandel from [employer]. Thrive Questionnaire Date Thrive assessed: 01/02/25 I am a: Patient What is your living situation today?: I have a steady place to live Within the past 12 months, did the food you bought not last and you didn't have the money to get more?: Never true Within the past 12 months, did you worry whether your food would run out before you got money to buy more?: Never true Do you have trouble paying for medicines?: No Do you have trouble getting transportation to medical appointments?: No Do you have trouble paying your heating and electricity bill?: I choose not to answer this question Do you have trouble taking care of your child, family member or friend?: No Do you have trouble with day-to-day activities such as bathing, preparing meals, shopping, managing finances, etc.?: No Are you currently unemployed and looking for a job?: No Are you interested in more education?: No Please select the resources that you would like help with: None Currently or been in a relationship where the following occur: No concerns reported THRIVE Score: 0 AUDIT C Alcohol Use Questionnaire (AUDIT-C) 1. How often do you have a drink containing alcohol?: Never Total Score: 0 DESIRE-7 AMB Questionnaire DESIRE-7 Date DESIRE - 7 assessed: 01/02/25 Feeling nervous, anxious, or on edge: 0 = Not at all Not being able to stop or control worryin = Not at all Worrying too much about different things: 0 = Not at all Trouble relaxin = Not at all Being so restless that it is hard to sit still: 0 = Not at all Becoming easily annoyed or irritable: 0 = Not at all Feeling afraid as if something awful might happen: 0 = Not at all Total DESIRE-7 score (0-4 normal; 5-9 mild; 10-14 moderate; 15-21 severe): 0 Source: Developed by Drs. Gerald Costa, Emily Villalobos, Jonathon Delcid and colleagues, with an educational yandel from [employer]. DESIRE-7 Assessment Billing DESIRE-7 Assessment Tool: DESIRE-7 Assessment 78219 Review of Systems Const Denies headache(s) Eyes Denies loss of vision ENT Denies vertigo, Denies dizziness, Denies headache(s) and Denies sore throat Card Denies chest pain, Denies leg edema and Denies lightheadedness Resp Denies cough, Denies hemoptysis and Denies wheezing GI Denies abdominal pain, Denies melena, Denies constipation, Reports GI cramping (On and off), Reports diarrhea (On and off) and Denies vomiting Denies urinary frequency, Denies dysuria, Denies urinary urgency and Reports other (Frequent urination) Musc Denies arthralgias, Denies joint swelling, Denies numbness and Denies tingling Neuro Denies Abnormal speech present, Denies behavioral changes, Denies vertigo, Denies dizziness, Denies headache(s), Denies loss of vision, Denies memory loss, Denies numbness and Denies tingling Psych Denies anxiety, Denies behavioral changes, Denies depression, Denies memory loss and Denies panic attacks Osman/Lymph Denies easy bleeding and Denies easy bruising Aller/Immun Denies wheezing Physical exam (Primary Care) Vital Signs: Last Vital Signs Temp 97.3 F 01/02/25 15:38 Pulse 83 01/02/25 15:38 Resp 18 01/02/25 15:38 BP 120/80 01/02/25 15:38 Pulse Ox 96 01/02/25 15:38 Oxygen Delivery Method Room Air 01/02/25 15:38 BMI result Body Mass Index 56.8 Tobacco/Smoking Status: Tobacco use Status Tobacco use date assessed 01/02/25 01/02/25 15:50 Patient Tobacco Use Status Tobacco use Unknown 01/02/25 15:50 e-Cigarette/Vaping Use Never Used 01/02/25 15:50 PHQ-9: PHQ-9 Score PHQ-9: Total score 0 01/02/25 16:09 Depression Screening Interpretation: Negative Thrive Assessment: Date of Thrive Assessment Date Thrive assessed 01/02/25 01/02/25 15:50 Currently or been in a relationship where the following occur: No concerns reported Const General: healthy appearing, no acute distress, alert and awake Nutritional Appearance: well nourished Orientation/consciousness: oriented to person, oriented to place and oriented to time HENMT Ears: TM's normal bilaterally General nose exam: Normal nasal mucous membranes and turbinates present Eyes Conjunctivae: conjunctivae normal Sclerae: sclerae normal Pupils: Equal, round and reactive pupils present Neck Neck: Yes no lymphadenopathy and Yes no JVD Thyroid: Thyroid normal Carotids: no bruits Resp Effort & Inspection: normal respiratory effort and not tachypneic Auscultation: no crackles, no rales, no rhonchi and no wheezes Cardio Rate: regular rate Rhythm: regular rhythm Heart sounds: no murmurs and normal S1 and S2 GI Inspection: Yes obesity Palpation (GI): Soft to palpation, nontender, no hepatomegaly and no splenomegaly Auscultation: normal bowel sounds Back/Spine/Pelvis Thoracic/Lumbar Spine: thoracic and lumbar spine normal to inspection Skin General skin exam: no rashes or lesions noted and dry skin Neuro General: oriented to person, oriented to place and oriented to time Cranial nerves: Yes CN's II-XII intact bilaterally and Yes Equal, round and reactive pupils present Speech: No Abnormal speech present Gait exam (Neuro): Normal gait present Motor exam (neuro): no tremor noted Deep tendon reflexes (DTR's): Right triceps reflex intensity grade: 2+, Left triceps reflex intensity grade: 2+, Rt Biceps (C5, C6): 2+, Left biceps reflex intensity grade: 2+, Right brachioradialis reflex intensity grade: 2+, Left brachioradialis reflex intensity grade: 2+, Right patellar reflex intensity grade: 2+ and Left patellar reflex intensity grade: 2+ Extrem Right upper extremity: full ROM Left upper extremity: full ROM Right lower extremity: full ROM; no edema Left lower extremity: full ROM; no edema Psych Mental Status: mental status grossly normal Speech and movement: Normal speech and movement present Affect: normal affect Attitude: cooperative Thought process: Normal thought process present Coding Level of Care Code Est Pt Prev Care 18-39y([id number]) Diagnoses Annual physical exam Z00.00 Moderate persistent asthma, unspecified whether complicated J45.40 Asthma complication type: unspecified Asthma persistence: persistent Asthma severity: moderate Morbid obesity with BMI of 50.0-59.9, adult E66.01; Z68.43 GERD without esophagitis K21.9 Chronic diarrhea K52.9 Screening for STD (sexually transmitted disease) Z11.3 Additional Codes PHQ-9 - 39286 - PHQ-9 Billing: Yes ([id number]) DESIRE-7 Assessment Billing - DESIRE-7 Assessment Tool: DESIRE-7 Assessment [id number] ([id number]) Time Spent (min) 38 Assessment & Plan Assessment & Plan (1) Annual physical exam: Code(s): Z00.00 - Encounter for general adult medical examination without abnormal findings Category: Medical Plan: Preventative guidelines and labs from 2 months ago reviewed with the patient. She is due for her Pap smear and thinks that she might need a new referral. She was referred to [facility]. (2) Asthma: Code(s): J45.909 - Unspecified asthma, uncomplicated Category: Medical Qualifiers: Asthma complication type: unspecified Asthma persistence: persistent Asthma severity: moderate Qualified Code(s): J45.40 - Moderate persistent asthma, uncomplicated Plan: Reports being stable on current regimen. Continue neb treatment q.i.d. p.r.n., MDI 2 puffs q.4 to 6 H p.r.n., Wixela Inhub 1 inh BID (3) Morbid obesity with BMI of 50.0-59.9, adult: Code(s): E66.01 - Morbid (severe) obesity due to excess calories; Z68.43 - Body mass index [BMI] 50.0-59.9, adult Category: Medical Plan: The patient is requesting to be started on a GLP-1, discussed with the patient that she has a follow up appointment with Endocrine coming up to evaluate her weight. The patient stated that she is aware that the medication is difficult to get approved and she wants to get the process started and have her insurance personnel help with her with getting it approved. Encouraged the patient to continue a low cholesterol diet and increase activity as tolerated. Follow up with Endocrine for weight management as scheduled. (4) GERD without esophagitis: Code(s): K21.9 - Gastro-esophageal reflux disease without esophagitis Category: Medical Plan: Do not eat meals or drink carbonated beverages within 3 hr of bedtime Decrease the amount of fried, fatty, and spicy foods to decrease gastric acid production Raise the head of the bed using 4 to 6-inch blocks, especially if nocturnal symptoms are present Lose weight if indicated; avoid tight-fitting clothing, especially around the waist Avoid foods that relax the Lower esophageal sphincter (chocolate, peppermint, high-fat foods etc.,) (5) Chronic diarrhea: Code(s): K52.9 - Noninfective gastroenteritis and colitis, unspecified Category: Medical Plan: Continue FODMAP diet and follow up with GI as scheduled (6) Screening for STD (sexually transmitted disease): Code(s): Z11.3 - Encounter for screening for infections with a predominantly sexual mode of transmission Category: Medical Plan: STD tests ordered Orders: Orders Comprehensive [place]. Panel Fast 01/02/25 D50.0 - Iron deficiency anemia secondary to blood loss (chronic), E55.9 - Vitamin D deficiency, unspecified, E66.01 - Morbid (severe) obesity due to excess calories, F31.60 - Bipolar disorder, current episode mixed, unspecified, F41.9 - Anxiety disorder, unspecified, F90.9 - Attention-deficit hyperactivity disorder, unspecified type, G47.00 - Insomnia, unspecified, J45.40 - Moderate persistent asthma, uncomplicated, K21.9 - Gastro-esophageal reflux disease without esophagitis, K52.9 - Noninfective gastroenteritis and colitis, unspecified, K90.49 - Malabsorption due to intolerance, not elsewhere classified, R74.01 - Elevation of levels of liver transaminase levels, Z11.3 - Encounter for screening for infections with a predominantly sexual mode of transmission, Z68.42 - Body mass index [BMI] 45.0-49.9, adult Lipid Panel 01/02/25 D50.0 - Iron deficiency anemia secondary to blood loss (chronic), E55.9 - Vitamin D deficiency, unspecified, E66.01 - Morbid (severe) obesity due to excess calories, F31.60 - Bipolar disorder, current episode mixed, unspecified, F41.9 - Anxiety disorder, unspecified, F90.9 - Attention-deficit hyperactivity disorder, unspecified type, G47.00 - Insomnia, unspecified, J45.40 - Moderate persistent asthma, uncomplicated, K21.9 - Gastro-esophageal reflux disease without esophagitis, K52.9 - Noninfective gastroenteritis and colitis, unspecified, K90.49 - Malabsorption due to intolerance, not elsewhere classified, R74.01 - Elevation of levels of liver transaminase levels, Z11.3 - Encounter for screening for infections with a predominantly sexual mode of transmission, Z68.42 - Body mass index [BMI] 45.0-49.9, adult Syphilis Screen 01/02/25 D50.0 - Iron deficiency anemia secondary to blood loss (chronic), E55.9 - Vitamin D deficiency, unspecified, E66.01 - Morbid (severe) obesity due to excess calories, F31.60 - Bipolar disorder, current episode mixed, unspecified, F41.9 - Anxiety disorder, unspecified, F90.9 - Attention-deficit hyperactivity disorder, unspecified type, G47.00 - Insomnia, unspecified, J45.40 - Moderate persistent asthma, uncomplicated, K21.9 - Gastro-esophageal reflux disease without esophagitis, K52.9 - Noninfective gastroenteritis and colitis, unspecified, K90.49 - Malabsorption due to intolerance, not elsewhere classified, R74.01 - Elevation of levels of liver transaminase levels, Z11.3 - Encounter for screening for infections with a predominantly sexual mode of transmission, Z68.42 - Body mass index [BMI] 45.0-49.9, adult HIV Ab/Ag 01/02/25 D50.0 - Iron deficiency anemia secondary to blood loss (chronic), E55.9 - Vitamin D deficiency, unspecified, E66.01 - Morbid (severe) obesity due to excess calories, F31.60 - Bipolar disorder, current episode mixed, unspecified, F41.9 - Anxiety disorder, unspecified, F90.9 - Attention-deficit hyperactivity disorder, unspecified type, G47.00 - Insomnia, unspecified, J45.40 - Moderate persistent asthma, uncomplicated, K21.9 - Gastro-esophageal reflux disease without esophagitis, K52.9 - Noninfective gastroenteritis and colitis, unspecified, K90.49 - Malabsorption due to intolerance, not elsewhere classified, R74.01 - Elevation of levels of liver transaminase levels, Z11.3 - Encounter for screening for infections with a predominantly sexual mode of transmission, Z68.42 - Body mass index [BMI] 45.0-49.9, adult Hemoglobin A1c 01/02/25 D50.0 - Iron deficiency anemia secondary to blood loss (chronic), E55.9 - Vitamin D deficiency, unspecified, E66.01 - Morbid (severe) obesity due to excess calories, F31.60 - Bipolar disorder, current episode mixed, unspecified, F41.9 - Anxiety disorder, unspecified, F90.9 - Attention-deficit hyperactivity disorder, unspecified type, G47.00 - Insomnia, unspecified, J45.40 - Moderate persistent asthma, uncomplicated, K21.9 - Gastro-esophageal reflux disease without esophagitis, K52.9 - Noninfective gastroenteritis and colitis, unspecified, K90.49 - Malabsorption due to intolerance, not elsewhere classified, R74.01 - Elevation of levels of liver transaminase levels, Z11.3 - Encounter for screening for infections with a predominantly sexual mode of transmission, Z68.42 - Body mass index [BMI] 45.0-49.9, adult Complete Blood Count Auto Diff 01/02/25 D50.0 - Iron deficiency anemia secondary to blood loss (chronic), E55.9 - Vitamin D deficiency, unspecified, E66.01 - Morbid (severe) obesity due to excess calories, F31.60 - Bipolar disorder, current episode mixed, unspecified, F41.9 - Anxiety disorder, unspecified, F90.9 - Attention-deficit hyperactivity disorder, unspecified type, G47.00 - Insomnia, unspecified, J45.40 - Moderate persistent asthma, uncomplicated, K21.9 - Gastro-esophageal reflux disease without esophagitis, K52.9 - Noninfective gastroenteritis and colitis, unspecified, K90.49 - Malabsorption due to intolerance, not elsewhere classified, R74.01 - Elevation of levels of liver transaminase levels, Z11.3 - Encounter for screening for infections with a predominantly sexual mode of transmission, Z68.42 - Body mass index [BMI] 45.0-49.9, adult UA CC w/rflx Micro + Cult 01/02/25 D50.0 - Iron deficiency anemia secondary to blood loss (chronic), E55.9 - Vitamin D deficiency, unspecified, E66.01 - Morbid (severe) obesity due to excess calories, F31.60 - Bipolar disorder, current episode mixed, unspecified, F41.9 - Anxiety disorder, unspecified, F90.9 - Attention-deficit hyperactivity disorder, unspecified type, G47.00 - Insomnia, unspecified, J45.40 - Moderate persistent asthma, uncomplicated, K21.9 - Gastro-esophageal reflux disease without esophagitis, K52.9 - Noninfective gastroenteritis and colitis, unspecified, K90.49 - Malabsorption due to intolerance, not elsewhere classified, R74.01 - Elevation of levels of liver transaminase levels, Z11.3 - Encounter for screening for infections with a predominantly sexual mode of transmission, Z68.42 - Body mass index [BMI] 45.0-49.9, adult TSH reflex Free T4 01/02/25 D50.0 - Iron deficiency anemia secondary to blood loss (chronic), E55.9 - Vitamin D deficiency, unspecified, E66.01 - Morbid (severe) obesity due to excess calories, F31.60 - Bipolar disorder, current episode mixed, unspecified, F41.9 - Anxiety disorder, unspecified, F90.9 - Attention-deficit hyperactivity disorder, unspecified type, G47.00 - Insomnia, unspecified, J45.40 - Moderate persistent asthma, uncomplicated, K21.9 - Gastro-esophageal reflux disease without esophagitis, K52.9 - Noninfective gastroenteritis and colitis, unspecified, K90.49 - Malabsorption due to intolerance, not elsewhere classified, R74.01 - Elevation of levels of liver transaminase levels, Z11.3 - Encounter for screening for infections with a predominantly sexual mode of transmission, Z68.42 - Body mass index [BMI] 45.0-49.9, adult CT NG by PCR Urine 01/02/25 D50.0 - Iron deficiency anemia secondary to blood loss (chronic), E55.9 - Vitamin D deficiency, unspecified, E66.01 - Morbid (severe) obesity due to excess calories, F31.60 - Bipolar disorder, current episode mixed, unspecified, F41.9 - Anxiety disorder, unspecified, F90.9 - Attention-deficit hyperactivity disorder, unspecified type, G47.00 - Insomnia, unspecified, J45.40 - Moderate persistent asthma, uncomplicated, K21.9 - Gastro-esophageal reflux disease without esophagitis, K52.9 - Noninfective gastroenteritis and colitis, unspecified, K90.49 - Malabsorption due to intolerance, not elsewhere classified, R74.01 - Elevation of levels of liver transaminase levels, Z11.3 - Encounter for screening for infections with a predominantly sexual mode of transmission, Z68.42 - Body mass index [BMI] 45.0-49.9, adult Referrals GRAPH[employer] ARTIST Referral Z01.419 - Encounter for gynecological examination (general) (routine) without abnormal findings Medications: New albuterol sulfate 2.5 mg (3 mL) continuous nebulization QID PRN 75 mL 3RF shortness of breath or wheezing J45.909 - Unspecified asthma, uncomplicated Refilled fluticasone propion-salmeterol 250-50 mcg/dose (Wixela Inhub) 1 inh inhalation BID 60 ea 3RF 30 days albuterol sulfate 90 mcg/actuation (Ventolin HFA) 2 puffs PO Q4-6H PRN 18 ea 1RF for wheezing
== END 2025-01-02 17:37 | disposition home or self-care (01) ==
LOC: HO.HMCH 15:08
PROVIDERS: PCP Internal Medicine
DX: Z00.00 Encounter for general adult medical examination without abnormal findings (principal); J45.40 Moderate persistent asthma, uncomplicated; E66.01 Morbid (severe) obesity due to excess calories; Z68.43 Body mass index [BMI] 50.0-59.9, adult; K21.9 Gastro-esophageal reflux disease without esophagitis; K52.9 Noninfective gastroenteritis and colitis, unspecified; Z11.3 Encounter for screening for infections with a predominantly sexual mode of transmission

== ENCOUNTER → 2025-01-02 15:07 | Outpatient (BNVA) | payer OTHER, SELFPAY | PROVIDERS: PCP Internal Medicine | DX: Z00.00 Encounter for general adult medical examination without abnormal findings (principal); J45.40 Moderate persistent asthma, uncomplicated; E66.01 Morbid (severe) obesity due to excess calories; K52.9 Noninfective gastroenteritis and colitis, unspecified; D50.0 Iron deficiency anemia secondary to blood loss (chronic); E55.9 Vitamin D deficiency, unspecified; F31.60 Bipolar disorder, current episode mixed, unspecified; Z68.43 Body mass index [BMI] 50.0-59.9, adult; Z79.899 Other long term (current) drug therapy | CPT/HCPCS: 96127; 99395 ==

== ENCOUNTER 2025-01-06 12:19 | Outpatient (REF) | payer OTHER, SELFPAY ==
[2025-01-06 12:43] LABS: MANUAL DIFF FLAG NO
[2025-01-06 13:11] LABS: Hematocrit 37.0 % (37.0-47.0); Hemoglobin 12.2 g/dl (12.0-16.0); Imm Gran Abs Auto 0.03 X10*3/uL (0.00-0.03); Imm Gran Pct Auto 0.4 % (0.0-0.4); Lymphocytes Absolute Auto 2.3 X10*3/uL (1.2-4.9); Mean Corpuscular HGB Conc 33.0 g/dl (31.0-35.0); Mean Corpuscular Hemoglobin 28.4 pg (27.0-33.0); Mean Corpuscular Volume 86.0 fL (80.0-98.0); NRBC Abs Auto 0.000 X10*3/uL (0.0-0.012); NRBC Pct Auto 0.0 /100WBC (0.0-0.2); Platelet Count 278 X10*3/uL (160-400); Red Blood Count 4.30 X10*6/uL (4.20-5.50); White Blood Count 8.0 X10*3/uL (4.8-10.8)
[2025-01-06 13:31] LABS: Hemoglobin A1C 114.9370 umol/L; Total Hemoglobin (HGBA1C) 3243.3104 umol/L
[2025-01-06 13:51] LABS: Appearance Urine Clear; Glucose Urine UA Negative (Negative); PH 6.0 (5.0-9.0); Specific Gravity - Urine 1.020 (1.005-1.025); UMIC TRIGGER UACC YES
[2025-01-06 13:57] LABS: UACC Culture Trigger YES
[2025-01-06 14:17] LABS: Alanine Aminotransferase 42 U/L (0-31); Albumin Level 4.7 g/dL (3.5-5.0); Anion Gap 11 (12-20); Aspartate Amino Transferase 28 U/L (5-31); Blood Urea Nitrogen 14 mg/dL (9-16); Calcium 9.3 mg/dL (8.4-10.2); Carbon Dioxide 27 mmol/L (22-29); Chloride 103 mmol/L (96-108); Cholesterol 139 mg/dL (<200); Estimated Glomerular Filt Rate > 60; Potassium 3.8 mmol/L (3.3-5.1); Sodium 137 mmol/L (135-145); Total Protein 7.6 g/dL (6.5-8.0); Triglycerides 94 mg/dL (<150)
[2025-01-06 14:18] LABS: Alkaline Phosphatase 112 U/L (39-117); HDL Cholesterol 45 mg/dL (>40)
[2025-01-06 15:11] LABS: CT PCR Urine NOT DETECTED (Not Detect.); NG PCR Urine NOT DETECTED (Not Detect.)
[2025-01-07 13:08] LABS: Syphilis Screen Nonreactive (Nonreactive)
[2025-01-07 13:51] LABS: HIV Num 1 0.04 S/CO (0.00-0.99)
== END 2025-01-06 12:20 | disposition home or self-care (01) ==
LOC: HO.LAB 12:19
PROVIDERS: PCP Internal Medicine
DX: Z11.3 Encounter for screening for infections with a predominantly sexual mode of transmission (principal); Z13.1 Encounter for screening for diabetes mellitus; Z11.8 Encounter for screening for other infectious and parasitic diseases; Z11.4 Encounter for screening for human immunodeficiency virus [HIV]; F31.60 Bipolar disorder, current episode mixed, unspecified; F90.9 Attention-deficit hyperactivity disorder, unspecified type; F41.9 Anxiety disorder, unspecified; E66.01 Morbid (severe) obesity due to excess calories; E55.9 Vitamin D deficiency, unspecified; K21.9 Gastro-esophageal reflux disease without esophagitis; K52.9 Noninfective gastroenteritis and colitis, unspecified; K90.49 Malabsorption due to intolerance, not elsewhere classified; R74.01 Elevation of levels of liver transaminase levels; D50.0 Iron deficiency anemia secondary to blood loss (chronic); J45.40 Moderate persistent asthma, uncomplicated; G47.00 Insomnia, unspecified; Z68.42 Body mass index [BMI] 45.0-49.9, adult
CPT/HCPCS: 80053; 80061; 81001; 83036; 84443; 85025; 86780; 87086; 87088; 87186; 87389; 87491; 87591

== ENCOUNTER 2025-02-01 03:16 | Emergency (ER) | payer OTHER, SELFPAY ==
--- NOTE | ~2025-02-01 | XR_ITS ---
CLINICAL HISTORY: cough 1 view chest x-ray Comparison: 11/04/2024 Findings: No consolidation or effusion. Normal size heart. No acute fracture. IMPRESSION: 1. No acute findings. This document has been electronically signed by: Luke West MD on 02/01/2025 05:09:41
[2025-02-01 03:19] VITALS: BP 143/78; PULSE 84; RESP 18; TEMP 37.2; O2SAT 98; BMI 55.7
[2025-02-01 04:11] LABS: Hematocrit 37.3 % (37.0-47.0); Hemoglobin 12.2 g/dl (12.0-16.0); Imm Gran Abs Auto 0.02 X10*3/uL (0.00-0.03); Imm Gran Pct Auto 0.3 % (0.0-0.4); Lymphocytes Absolute Auto 2.5 X10*3/uL (1.2-4.9); MANUAL DIFF FLAG NO; Mean Corpuscular HGB Conc 32.7 g/dl (31.0-35.0); Mean Corpuscular Hemoglobin 27.9 pg (27.0-33.0); Mean Corpuscular Volume 85.4 fL (80.0-98.0); NRBC Abs Auto 0.000 X10*3/uL (0.0-0.012); NRBC Pct Auto 0.0 /100WBC (0.0-0.2); Platelet Count 262 X10*3/uL (160-400); Red Blood Count 4.37 X10*6/uL (4.20-5.50); White Blood Count 7.1 X10*3/uL (4.8-10.8)
[2025-02-01 04:24] LABS: Alanine Aminotransferase 37 U/L (0-31); Albumin Level 4.2 g/dL (3.5-5.0); Alkaline Phosphatase 114 U/L (39-117); Anion Gap 12 (12-20); Aspartate Amino Transferase 28 U/L (5-31); Blood Urea Nitrogen 13 mg/dL (9-16); Calcium 9.3 mg/dL (8.4-10.2); Carbon Dioxide 26 mmol/L (22-29); Chloride 105 mmol/L (96-108); Creatinine Clr Calc Pharmacy 169.7; Estimated Glomerular Filt Rate > 60; Potassium 4.0 mmol/L (3.3-5.1); Sodium 139 mmol/L (135-145); Total Protein 7.0 g/dL (6.5-8.0)
[2025-02-01 04:28] LABS: COVID-19 Test Negative (Negative); IDNOW Serial# 55D5AD1C
[2025-02-01 04:29] LABS: IDNOW Serial# 58CA691E; Influenza B2 Negative (Negative)
--- NOTE | 2025-02-01 04:47 | ED.GENADULT ---
HPI - General Adult General Chief complaint: General Medical Stated complaint: Dyspnea Time Seen by Provider: 02/01/25 04:25 Source: patient Mode of arrival: ambulatory Limitations: no limitations History of Present Illness ED Provider: Dr. Gemma Villareal HPI narrative: Patient comes to the emergency room complaining of cough, congestion for about 2-3 days. Furthermore, patient has numerous other complaints including subjective fever, malodorous urine, without flank pain or dysuria. Also complaining of having diarrhea after a time that she eats. Reported staying newly diagnosed elevated LFTs according to the patient she was informed by her PCP. Patient complaining of intermittent lower abdominal pain for several years. Also complaining of mild lower back pain, denies urinary/fecal retention or incontinence Related Data Previous Rx's ?Medication ?Instructions ?Recorded NEBULIZER #1 ea 04/20/21 NEBULIZER and all related #1 ea 01/06/23 accessories ibuprofen 600 mg tablet 600 mg PO Q6H PRN fever or pain 08/14/23 #30 tabs cephalexin 500 mg capsule 500 mg PO Q8H #21 caps 09/29/24 albuterol sulfate 2.5 mg/3 mL 2.5 mg (3 mL) continuous 01/02/25 (0.083 %) solution for nebulization nebulization QID PRN shortness of breath or wheezing #75 mL albuterol sulfate 90 mcg/actuation 2 puff PO Q4-6H PRN for wheezing 01/02/25 aerosol inhaler (Ventolin HFA) #18 ea fluticasone 250 mcg-salmeterol 50 1 inh inhalation BID 30 days #60 ea 01/02/25 mcg/dose blistr powdr for inhalation (Wixela Inhub) cholecalciferol (vitamin D3) 1,250 1,250 mcg PO QWEEK 90 days #13 caps 01/09/25 mcg (50,000 unit) capsule ciprofloxacin HCl 500 mg tablet 500 mg PO BID 5 days #10 tabs 01/09/25 ferrous sulfate 325 mg (65 mg 325 mg PO DAILY 90 days #90 tabs 01/09/25 iron) tablet sertraline 100 mg tablet 100 mg PO DAILY #90 tabs 01/10/25 trazodone 100 mg tablet 100 mg PO BEDTIME PRN insomnia 30 01/10/25 days #30 tabs Allergies Allergy/AdvReac Type Severity Reaction Status Date / Time lithium (From LITHATE) Allergy Severe ANAPHYLAXIS Verified 02/01/25 03:20 codeine (CODEINE) Allergy Unknown UNKNOWN Verified 02/01/25 03:20 Review of Systems Review of Systems: Constitutional : No Weight loss, No Fever, No Chills, No Night Sweats, No Fatigue, No Malaise ENT/Mouth : No Hearing loss, No Ear Pain, No Nasal Congestion, No Sinus Pain, No Hoarseness, No sore throat, No Rhinorrhea, No Swallowing Difficulty Eyes: No Eye Pain, No Swelling, No Redness, No Foreign Body, No Discharge, No Vision Changes Cardiovascular : No Chest Pain, No SOB, No Dyspnea on Exertion, No Orthopnea, No Edema, No Palpitations Respiratory : Complaining of cough, chest congestion, occasional wheezing Gastrointestinal : No Nausea, No Vomiting, No Diarrhea, No Constipation, No abdominal Pain, No Hematochezia, No Melena Genitourinary : no irregular bleeding, complaining of Dysuria, No Urinary Frequency, No Hematuria, No Urinary Incontinence, No Urgency, No Flank Pain, No Urinary Flow Changes, No Hesitancy Musculoskeletal : No joint pain, No Myalgias, No Joint Swelling Skin : No Skin Lesions, No rash Neuro : No Weakness, No Numbness, No Paresthesias, No Loss of Consciousness, No Dizziness, No Headache Psych : No Anxiety/Panic, No Depression, No SI/HI/AH/VH, No Social Issues, Heme/Lymph: No Bruising, No Bleeding,No Lymphadenopathy Endocrine : No Polyuria, No Polydipsia, No Temperature Intolerance PMFSH Past Medical History Medical History Cervical cancer screening Anemia Vitamin D deficiency Morbid obesity with BMI of 50.0-59.9, adult Morbid obesity with BMI of 45.0-49.9, adult Missed period Dysuria Right knee pain Lumbar back pain Encounter for Nexplanon removal Etonogestrel implant for control Trichomoniasis Obesity, morbid, BMI 50 or higher Potential exposure to STD Women's annual routine gynecological examination control counseling Recurrent UTI Constipation Uses control Renal cyst UTI (urinary tract infection) Obesity Environmental allergies COVID-19 Dysuria Insomnia Morbid obesity with BMI of 45.0-49.9, adult Attention deficit hyperactivity disorder (ADHD) Bipolar affective disorder, current episode mixed Nocturnal enuresis GERD without esophagitis Pulmonary nodules Asthma Surgical History History of surgery Family History Family History Father Ketoacidosis Diabetes ADHD Chronic mental illness Substance abuse Mother Anxiety Hypertension Crohn disease Family/Other Chronic mental illness Social History Social History Housing: Apartment Alcohol intake: never Patient Tobacco Use Status: Tobacco use Unknown e-Cigarette/Vaping Use: Never Used Second Hand Smoke Exposure: Yes Advance Directives: No Advance Directives Information Provided: Yes service: No Current occupational status: employed Current occupational exposures/hazards: No Cognitive needs: No Hearing needs: No Vision needs: No Physical Exam ED Exam Exam: Appearance: Alert. Oriented X3. No acute distress. Eyes: Pupils equal, round and reactive to light. ENT: Pharynx normal. Neck: Normal inspection. Neck supple. No lymph nodes noted. No crepitus CVS: Normal heart rate and rhythm. Pulses normal. Normal S1 and S2 Respiratory: No respiratory distress. Breath sounds normal. No Wheezing. No rales Abdomen: Soft and nontender. No rigidity. No distention. No CVA tenderness Skin: Skin warm and dry. Normal skin color. Normal skin turgor. Extremities: No lower extremity edema. No Lacerations. No Rash Neuro: Oriented X 3. No motor deficit. No sensory deficit. Moving all extremities. No slurred speech. CN 2 through 12 grossly intact Psych: calm, cooperative, normal affect Vital Signs: Vital Signs - 24 hr 02/01/25 03:19 02/01/25 06:25 Temperature 98.9 F Pulse Rate 84 77 Respiratory Rate 18 18 Blood Pressure 143/78 H 103/51 L Pulse Oximetry 98 97 Oxygen Delivery Method Room Air Room Air BMI result Body Mass Index 55.7 Medical Decision Making Medical Decision Making [facility] Narrative: My interpretation of labs: No significant abnormality patient's hematology and chemistry His x-ray does not show any acute abnormality Patient has been here for over 3 hours, patient has not provided a urine sample yet. Pending: Urinalysis Differential Diagnosis Differential Diagnoses: The differential diagnosis associated with the presentation includes (Viral URI, bronchitis, UTI) Lab Data [facility] Lab Attestation statement: I reviewed the patient's lab results. 02/01/25 04:04 02/01/25 04:04 Labs: Lab Results 02/01/25 Range/Units 04:04 WBC 7.1 (4.8-10.8) X10*3/uL RBC 4.37 (4.20-5.50) X10*6/uL Hgb 12.2 (12.0-16.0) g/dl Hct 37.3 (37.0-47.0) % MCV 85.4 (80.0-98.0) fL MCH 27.9 (27.0-33.0) pg MCHC 32.7 (31.0-35.0) g/dl RDW 13.2 (11.0-16.0) % Plt Count 262 (160-400) X10*3/uL MPV 10.1 (9.4-12.3) fL Immature Gran % (Auto) 0.3 (0.0-0.4) % Neut % (Auto) 56.7 (45-73) % Lymph % (Auto) 35.5 (20-40) % [place] % (Auto) 6.5 (2-11) % Eos % (Auto) 0.9 (0-4) % Baso % (Auto) 0.1 (0-2) % Lymph # (Auto) 2.5 (1.2-4.9) X10*3/uL [place] # (Auto) 0.5 (0.1-1.2) X10*3/uL Eos # (Auto) 0.1 (0.0-0.4) X10*3/uL Baso # (Auto) 0.0 (0.0-0.2) X10*3/uL Abs Immat Gran (auto) 0.02 (0.00-0.03) X10*3/uL Absolute Neuts (auto) 4.0 (2.0-8.3) x10*3/uL Absolute Nucleated RBC 0.000 (0.0-0.012) X10*3/uL Nucleated RBC % (auto) 0.0 (0.0-0.2) /100WBC Sodium 139 (135-145) mmol/L Potassium 4.0 (3.3-5.1) mmol/L Chloride 105 (96-108) mmol/L Carbon Dioxide 26 (22-29) mmol/L Anion Gap 12 (12-20) BUN 13 (9-16) mg/dL Creatinine 0.70 (0.5-1.4) mg/dL Estim Creat Clear Calc 169.7 Estimated GFR > 60 Random Glucose 99 (60-115) mg/dL Calcium 9.3 (8.4-10.2) mg/dL Total Bilirubin 0.3 (0.0-1.0) mg/dL Direct Bilirubin 0.2 (0.0-0.5) mg/dL AST 28 (5-31) U/L ALT 37 H (0-31) U/L Alkaline Phosphatase 114 (39-117) U/L Total Protein 7.0 (6.5-8.0) g/dL Albumin 4.2 (3.5-5.0) g/dL COVID-19 (COSMO) Negative (Negative) COVID-19 Clin Com See Note Influenza Type A (AMEE) Negative (Negative) Influenza Type B (AMEE) Negative (Negative) Influenza A & B Note See Note Independent Interpretation I performed an independent interpretation of an: Plain X-Ray Radiology Impression Discussion of test interpretation with radiology: I have reviewed the radiologist's reading. Radiologist Impression: No consolidation or effusion. Normal size heart. No acute fracture. IMPRESSION: 1. No acute findings. Discharge Plan Discharge Clinical Impression: Viral URI Patient Disposition: Home, Self-Care Instructions: Upper Respiratory Infection (ED) Additional Instructions: Please follow-up with your primary care physician tomorrow. If you have any worsening or new symptoms, please return to the emergency room or call 911 Prescriptions: No Action (DME) NEBULIZER and all related accessories See Rx Instructions .Route .MEDSUPPLY Qty: 1 0RF Rx Instructions: As directed ciprofloxacin HCl 500 mg tablet 500 mg PO BID 5 Days Qty: 10 0RF ferrous sulfate 325 mg (65 mg iron) tablet 325 mg PO DAILY 90 Days Qty: 90 1RF cholecalciferol (vitamin D3) 1,250 mcg (50,000 unit) capsule 1,250 mcg PO QWEEK 90 Days Qty: 13 1RF sertraline 100 mg tablet 100 mg PO DAILY Qty: 90 3RF trazodone 100 mg tablet 100 mg PO BEDTIME PRN (Reason: insomnia) 30 Days Qty: 30 1RF cephalexin 500 mg capsule 500 mg PO Q8H Qty: 21 0RF ibuprofen 600 mg tablet 600 mg PO Q6H PRN (Reason: fever or pain) Qty: 30 0RF (DME) NEBULIZER See Rx Instructions .Route .MEDSUPPLY Qty: 1 0RF Rx Instructions: As directed 4 times a day as needed albuterol sulfate 2.5 mg /3 mL (0.083 %) solution for nebulization 2.5 mg continuous nebulization QID PRN (Reason: shortness of breath or wheezing) Qty: 75 3RF fluticasone propion-salmeterol [Wixela Inhub] 250-50 mcg/dose blister with device 1 inh inhalation BID 30 Days Qty: 60 3RF albuterol sulfate [Ventolin HFA] 90 mcg/actuation HFA aerosol inhaler 2 puff PO Q4-6H PRN (Reason: for wheezing) Qty: 18 1RF Print Language: Djib[place]ian
[2025-02-01 06:25] VITALS: BP 103/51; PULSE 77; RESP 18; O2SAT 97
--- NOTE | 2025-02-01 06:59 | PC.NURSE ---
Pt going to be discharged, just waiting for urine to result.
[2025-02-01 07:02] LABS: Appearance Urine Cloudy; Glucose Urine UA Negative (Negative); PH 6.0 (5.0-9.0); Specific Gravity - Urine 1.025 (1.005-1.025); UPreg QC Valid YES
[2025-02-01 07:16] VITALS: BP 103/51; PULSE 77; RESP 18; TEMP -17.7; TEMP 0; O2SAT 97
[2025-02-01 07:23] LABS: UACC Culture Trigger YES
== END 2025-02-01 07:16 | disposition home or self-care (01) ==
PROVIDERS: Emergency Provider Emergency Medicine; PCP Internal Medicine
DX: J06.9 Acute upper respiratory infection, unspecified (principal); R06.00 Dyspnea, unspecified; Z03.818 Encounter for observation for suspected exposure to other biological agents ruled out; R05.9 Cough, unspecified; R19.7 Diarrhea, unspecified; R10.9 Unspecified abdominal pain; M54.50 Low back pain, unspecified
CPT/HCPCS: 71045; 80053; 81001; 81025; 82248; 85025; 87086; 87502; 87635; 99283

== ENCOUNTER → 2025-02-01 03:40 | Outpatient (BNV) | payer OTHER, SELFPAY | PROVIDERS: Emergency Provider Emergency Medicine; PCP Internal Medicine; Visit Provider Specialist | DX: R05.9 Cough, unspecified (principal) | CPT/HCPCS: 71045 ==

== ENCOUNTER 2025-02-10 12:45 | Emergency (ER) | payer OTHER, SELFPAY ==
--- NOTE | ~2025-02-10 | XR_ITS ---
EXAMINATION: XR CHEST CLINICAL INFORMATION: chest pain COMPARISON: 02/01/2025 TECHNIQUE: 2 views of the chest were obtained. FINDINGS: The cardiac silhouette is enlarged. No airspace opacities are present. There is no pleural effusion. XR/XR chest 2V IMPRESSION: Cardiomegaly. Electronically signed by: Marcus Gao MD 02/10/2025 01:58 PM EDT RP
--- NOTE | 2025-02-10 12:47 | ECG_ITS ---
Test Reason : chest pain Blood Pressure : */* mmHG Vent. Rate : 87 BPM Atrial Rate : 87 BPM P-R Int : 176 ms QRS Dur : 94 ms QT Int : 378 ms P-R-T Axes : 33 8 37 degrees QTcB Int : 454 ms Normal sinus rhythm Nonspecific T wave abnormality Abnormal ECG When compared with ECG of 06-Dec-2023 14:57, Incomplete right bundle branch block is no longer Present Referred By: Generic ED Physician Electronically Signed By: RAMONA ALEJO
--- NOTE | 2025-02-10 12:59 | ED.GENADULT ---
HPI - General Adult General Chief complaint: Chest Pain Stated complaint: CP Time Seen by Provider: 02/10/25 16:02 Source: patient, RN notes reviewed and old records reviewed Mode of arrival: ambulatory Limitations: no limitations History of Present Illness ED Provider: Edwige HPI narrative: 34-year-old female presents for evaluation of chest pain. She reports her chest pain started 2 hours prior to arrival when she woke up. She still has cough, shortness of breath and she was seen here 9 days ago for a viral upper respiratory infection. The patient was treating herself with symptomatic care and reports his symptoms have not improved and the fact her chest pain is worsening. She does have a history of asthma, GERD bipolar disorder, ADHD, anxiety, no history of coronary artery disease she has been using her inhalers without any significant improvement in pain Denies any fevers or chills pain She reports that her pain has been constant but worse with coughing or deep breathing Related Data Previous Rx's ?Medication ?Instructions ?Recorded NEBULIZER #1 ea 04/20/21 NEBULIZER and all related #1 ea 01/06/23 accessories ibuprofen 600 mg tablet 600 mg PO Q6H PRN fever or pain 08/14/23 #30 tabs cephalexin 500 mg capsule 500 mg PO Q8H #21 caps 09/29/24 albuterol sulfate 2.5 mg/3 mL 2.5 mg (3 mL) continuous 01/02/25 (0.083 %) solution for nebulization nebulization QID PRN shortness of breath or wheezing #75 mL albuterol sulfate 90 mcg/actuation 2 puff PO Q4-6H PRN for wheezing 01/02/25 aerosol inhaler (Ventolin HFA) #18 ea fluticasone 250 mcg-salmeterol 50 1 inh inhalation BID 30 days #60 ea 01/02/25 mcg/dose blistr powdr for inhalation (Wixela Inhub) cholecalciferol (vitamin D3) 1,250 1,250 mcg PO QWEEK 90 days #13 caps 01/09/25 mcg (50,000 unit) capsule ciprofloxacin HCl 500 mg tablet 500 mg PO BID 5 days #10 tabs 01/09/25 ferrous sulfate 325 mg (65 mg 325 mg PO DAILY 90 days #90 tabs 01/09/25 iron) tablet sertraline 100 mg tablet 100 mg PO DAILY #90 tabs 01/10/25 trazodone 100 mg tablet 100 mg PO BEDTIME for insomnia #90 02/04/25 tabs azithromycin 250 mg tablet See Rx Instructions PO .COMPLEX #6 02/10/25 tabs prednisone 20 mg tablet 40 mg (2 x 20 mg) PO DAILY #10 tabs 02/10/25 Allergies Allergy/AdvReac Type Severity Reaction Status Date / Time lithium (From LITHATE) Allergy Severe ANAPHYLAXIS Verified 02/10/25 13:00 codeine (CODEINE) Allergy Unknown UNKNOWN Verified 02/10/25 13:00 Review of Systems Constitutional: Constitutional: Denies body ache(s), Denies chills, Denies fever(s) and Denies headache(s) Eyes: Eyes: Denies blurry vision ENT: Denies dysphagia, Denies vertigo, Denies dizziness and Denies headache(s) Cardiovascular: Cardiovascular: Reports chest pain, Reports chest pain at rest, Reports dyspnea and Reports dyspnea on exertion Respiratory: Respiratory: Reports chest congestion, Reports cough, Denies hemoptysis, Reports pain on inspiration, Reports pain with cough, Reports dyspnea, Reports dyspnea on exertion and Reports wheezing Gastrointestinal: Gastrointestinal: Denies abdominal pain, Denies dysphagia, Denies nausea and Denies vomiting Musculoskeletal: Musculoskeletal: Denies back pain Integumentary/Breasts: Skin/Breast: Denies rash Neurologic: Denies vertigo, Denies dizziness and Denies headache(s) Psychiatric: Psychiatric: Denies anxiety Allergic/Immunologic: Allergic/Immunologic: Reports wheezing PMFSH Past Medical History Medical History Cervical cancer screening Anemia Vitamin D deficiency Morbid obesity with BMI of 50.0-59.9, adult Morbid obesity with BMI of 45.0-49.9, adult Missed period Dysuria Right knee pain Lumbar back pain Encounter for Nexplanon removal Etonogestrel implant for control Trichomoniasis Obesity, morbid, BMI 50 or higher Potential exposure to STD Women's annual routine gynecological examination control counseling Recurrent UTI Constipation Uses control Renal cyst UTI (urinary tract infection) Obesity Environmental allergies COVID-19 Dysuria Insomnia Morbid obesity with BMI of 45.0-49.9, adult Attention deficit hyperactivity disorder (ADHD) Bipolar affective disorder, current episode mixed Nocturnal enuresis GERD without esophagitis Pulmonary nodules Asthma Surgical History History of surgery Family History Family History Father Ketoacidosis Diabetes ADHD Chronic mental illness Substance abuse Mother Anxiety Hypertension Crohn disease Family/Other Chronic mental illness Social History Social History Housing: Apartment Alcohol intake: current Alcohol intake frequency: a few times a month Patient Tobacco Use Status: Tobacco use Unknown Smoked in Last 30 Days: No e-Cigarette/Vaping Use: Never Used Second Hand Smoke Exposure: Yes Use of substances other than those prescribed or required for medical reasons: No Advance Directives: No Advance Directives Information Provided: Yes Do you have a plan to hurt others: No Plan service: No Current occupational status: employed Current occupational exposures/hazards: No Cognitive needs: No Hearing needs: No Vision needs: No Physical Exam ED Vital Signs: Vital Signs - 24 hr 02/10/25 13:00 02/10/25 16:43 Temperature 97.6 F Pulse Rate 85 77 Respiratory Rate 16 20 Blood Pressure 154/76 H 147/82 H Pulse Oximetry 99 98 Oxygen Delivery Method Room Air Room Air BMI result Body Mass Index 56.8 Const General: healthy appearing, comfortable, no acute distress, alert and awake Nutritional Appearance: well nourished Orientation/consciousness: patient oriented x3 HENMT Head: Yes normocephalic and Yes atraumatic Eyes Eyelids: Yes eyelids normal Conjunctivae: conjunctivae normal Sclerae: sclerae normal Corneas: corneas normal Pupils: Equal, round and reactive pupils present EOM: EOMs intact bilaterally Neck Neck: Yes full ROM Resp Effort & Inspection: normal respiratory effort, able to speak in complete sentences and not labored Auscultation: not clear to auscultation bilaterally and wheezes ( coarse wheeze throughout) Cardio Rate: regular rate Rhythm: regular rhythm GI Inspection: No distended Palpation (GI): Soft to palpation, not firm, nontender, no guarding and not rigid Skin General skin exam: elasticity normal Neuro General: patient oriented x3 Cranial nerves: Yes Equal, round and reactive pupils present and Yes Bilaterally intact EOM present Cognition (Neuro): normal cognition Extrem Other: Moving all extremities well without any obvious deformities Course Course Course Narrative: Rapid medical examination performed in triage by Belinda Cobian PA-C. Patient is a 34 year old assigned female at presenting to the emergency department with chest pain. Detailed physical exam and review of systems are deferred to the billing clinician. EKG, labs, imaging, and swabs ordered. Patient placed back in the waiting room pending room availability and results. Reevaluation(s) Reevaluation #1: the patient's in his show workup unremarkable. , chest x-ray shows no evidence of pneumonia, initial troponin negative, EKG is nonischemic. Plan for repeat troponin to rule out ACS definitively. She had a D-dimer 9 days ago in his PERC negative. Low suspicion for PE. Given that she has had symptoms for over a week, I think it is reasonable to treat with prednisone and azithromycin she is still having wheezing with coughing Time: 17:44 Medical Decision Making Medical Decision Making [facility] Narrative: 34-year-old female presents for evaluation of chest pain with associated cough, shortness of breath. She was seen here 9 days ago and was diagnosed with a viral URI. Her pain is most likely related to costochondritis or a chest wall strain from coughing. However plan for cardiac workup to rule out ACS, we will also evaluate for pneumonia. Patient's vital signs are stable. She does have some wheezing on exam. Differential Diagnosis Differential Diagnoses: The differential diagnosis associated with the presentation includes costochondritis Bronchitis Chest wall strain Pneumonia ACS less likely Admission/Observation Consideration of admission/observation: Escalation of care including admission/observation considered patient rules out for ACS symptoms does not require admission Lab Data [facility] Lab Attestation statement: I reviewed the patient's lab results. no leukocytosis or anemia. Normal platelet count. No electrolyte abnormalities warranting dimension. Troponin negative on initial lab draw 02/10/25 13:33 02/10/25 13:33 Labs: Lab Results 02/10/25 Range/Units 13:33 WBC 10.7 (4.8-10.8) X10*3/uL RBC 4.59 (4.20-5.50) X10*6/uL Hgb 13.0 (12.0-16.0) g/dl Hct 39.0 (37.0-47.0) % MCV 85.0 (80.0-98.0) fL MCH 28.3 (27.0-33.0) pg MCHC 33.3 (31.0-35.0) g/dl RDW 13.1 (11.0-16.0) % Plt Count 303 (160-400) X10*3/uL MPV 10.0 (9.4-12.3) fL Immature Gran % (Auto) 0.4 (0.0-0.4) % Neut % (Auto) 69.5 (45-73) % Lymph % (Auto) 22.3 (20-40) % [place] % (Auto) 7.1 (2-11) % Eos % (Auto) 0.4 (0-4) % Baso % (Auto) 0.3 (0-2) % Lymph # (Auto) 2.4 (1.2-4.9) X10*3/uL [place] # (Auto) 0.8 (0.1-1.2) X10*3/uL Eos # (Auto) 0.0 (0.0-0.4) X10*3/uL Baso # (Auto) 0.0 (0.0-0.2) X10*3/uL Abs Immat Gran (auto) 0.04 H (0.00-0.03) X10*3/uL Absolute Neuts (auto) 7.4 (2.0-8.3) x10*3/uL Absolute Nucleated RBC 0.000 (0.0-0.012) X10*3/uL Nucleated RBC % (auto) 0.0 (0.0-0.2) /100WBC PT 12.2 (10.9-12.4) SEC INR 1.1 (0.9-1.1) Sodium 141 (135-145) mmol/L Potassium 3.9 (3.3-5.1) mmol/L Chloride 105 (96-108) mmol/L Carbon Dioxide 28 (22-29) mmol/L Anion Gap 12 (12-20) BUN 14 (9-16) mg/dL Creatinine 0.68 (0.5-1.4) mg/dL Estim Creat Clear Calc 170.8 Estimated GFR > 60 Random Glucose 120 H (60-115) mg/dL Calcium 9.9 D (8.4-10.2) mg/dL Magnesium 1.8 (1.6-2.6) mg/dL Total Bilirubin 0.6 (0.0-1.0) mg/dL AST 33 H (5-31) U/L ALT 50 H (0-31) U/L Alkaline Phosphatase 112 (39-117) U/L Troponin I High Sens < 2.7 D (<3.5-17.0) ng/L Total Protein 7.8 (6.5-8.0) g/dL Albumin 4.8 (3.5-5.0) g/dL Lipase 15 (8-78) U/L COVID-19 (COSMO) Negative (Negative) COVID-19 Clin Com See Note Influenza Type A (AMEE) Negative (Negative) Influenza Type B (AMEE) Negative (Negative) Influenza A & B Note See Note Independent Interpretation I performed an independent interpretation of an: EKG ( normal sinus rhythm with a rate of [address] segment elevations or depressions. Nondiagnostic EKG) and Plain X-Ray Interpretation: agree with Radiology interpretation Radiology Impression Discussion of test interpretation with radiology: I have reviewed the radiologist's reading. Radiologist Impression: FINDINGS: The cardiac silhouette is enlarged. No airspace opacities are present. There is no pleural effusion. XR/XR chest 2V IMPRESSION: Cardiomegaly. Electronically signed by: Marcus aGo MD 02/10/2025 01:58 PM EDT RP Discharge Plan Discharge Clinical Impression: Chest pain Asthma exacerbation Qualifiers: Asthma severity: moderate Asthma persistence: persistent Qualified Code(s): J45.41 - Moderate persistent asthma with (acute) exacerbation Patient Disposition: Home, Self-Care Instructions: Asthma (ED) Additional Instructions: your workup in the ER today was reassuring. Take prednisone and azithromycin as prescribed. Continue to use your inhalers pain Follow up with your primary doctor, return for new or worsening symptoms Prescriptions: New azithromycin 250 mg tablet See Rx Instructions .ROUTE .COMPLEX Qty: 6 0RF Rx Instructions: For 250 mg dose pack: take 500 mg today (day 1), then 250 mg for 4 days (days 2-5) prednisone 20 mg tablet 40 mg PO DAILY Qty: 10 0RF No Action (DME) NEBULIZER and all related accessories See Rx Instructions .Route .MEDSUPPLY Qty: 1 0RF Rx Instructions: As directed ciprofloxacin HCl 500 mg tablet 500 mg PO BID 5 Days Qty: 10 0RF ferrous sulfate 325 mg (65 mg iron) tablet 325 mg PO DAILY 90 Days Qty: 90 1RF cholecalciferol (vitamin D3) 1,250 mcg (50,000 unit) capsule 1,250 mcg PO QWEEK 90 Days Qty: 13 1RF sertraline 100 mg tablet 100 mg PO DAILY Qty: 90 3RF trazodone 100 mg tablet 100 mg PO BEDTIME Qty: 90 1RF cephalexin 500 mg capsule 500 mg PO Q8H Qty: 21 0RF ibuprofen 600 mg tablet 600 mg PO Q6H PRN (Reason: fever or pain) Qty: 30 0RF (DME) NEBULIZER See Rx Instructions .Route .MEDSUPPLY Qty: 1 0RF Rx Instructions: As directed 4 times a day as needed albuterol sulfate 2.5 mg /3 mL (0.083 %) solution for nebulization 2.5 mg continuous nebulization QID PRN (Reason: shortness of breath or wheezing) Qty: 75 3RF fluticasone propion-salmeterol [Wixela Inhub] 250-50 mcg/dose blister with device 1 inh inhalation BID 30 Days Qty: 60 3RF albuterol sulfate [Ventolin HFA] 90 mcg/actuation HFA aerosol inhaler 2 puff PO Q4-6H PRN (Reason: for wheezing) Qty: 18 1RF Print Language: Estonian
[2025-02-10 13:00] VITALS: BP 154/76; PULSE 85; RESP 16; TEMP 36.4; O2SAT 99; BMI 56.8
[2025-02-10 13:37] LABS: MANUAL DIFF FLAG NO
[2025-02-10 13:44] LABS: INTERNATIONAL NORM RATIO 1.1 (0.9-1.1); Prothrombin Time 12.2 SEC (10.9-12.4)
[2025-02-10 13:49] LABS: Hematocrit 39.0 % (37.0-47.0); Hemoglobin 13.0 g/dl (12.0-16.0); Imm Gran Abs Auto 0.04 X10*3/uL (0.00-0.03); Imm Gran Pct Auto 0.4 % (0.0-0.4); Lymphocytes Absolute Auto 2.4 X10*3/uL (1.2-4.9); Mean Corpuscular HGB Conc 33.3 g/dl (31.0-35.0); Mean Corpuscular Hemoglobin 28.3 pg (27.0-33.0); Mean Corpuscular Volume 85.0 fL (80.0-98.0); NRBC Abs Auto 0.000 X10*3/uL (0.0-0.012); NRBC Pct Auto 0.0 /100WBC (0.0-0.2); Platelet Count 303 X10*3/uL (160-400); Red Blood Count 4.59 X10*6/uL (4.20-5.50); White Blood Count 10.7 X10*3/uL (4.8-10.8)
[2025-02-10 13:52] LABS: COVID-19 Test Negative (Negative); IDNOW Serial# 6674DD1D
[2025-02-10 13:55] LABS: IDNOW Serial# 08D9AD1C; Influenza B2 Negative (Negative)
[2025-02-10 13:58] LABS: Alanine Aminotransferase 50 U/L (0-31); Albumin Level 4.8 g/dL (3.5-5.0); Alkaline Phosphatase 112 U/L (39-117); Anion Gap 12 (12-20); Aspartate Amino Transferase 33 U/L (5-31); Blood Urea Nitrogen 14 mg/dL (9-16); Calcium 9.9 mg/dL (8.4-10.2); Carbon Dioxide 28 mmol/L (22-29); Chloride 105 mmol/L (96-108); Creatinine Clr Calc Pharmacy 170.8; Estimated Glomerular Filt Rate > 60; Lipase 15 U/L (8-78); Magnesium 1.8 mg/dL (1.6-2.6); Potassium 3.9 mmol/L (3.3-5.1); Sodium 141 mmol/L (135-145); Total Protein 7.8 g/dL (6.5-8.0)
[2025-02-10 14:03] LABS: Troponin-I High Sensitivity < 2.7 ng/L (<3.5-17.0)
[2025-02-10 16:43] VITALS: BP 147/82; PULSE 77; RESP 20; O2SAT 98
[2025-02-10 17:45] LABS: Troponin-I High Sensitivity < 2.7 ng/L (<3.5-17.0)
[2025-02-10 18:33] VITALS: BP 147/82; PULSE 77; RESP 20; TEMP -17.7; TEMP 0; O2SAT 98
== END 2025-02-10 18:33 | disposition home or self-care (01) ==
PROVIDERS: Physician Assistant; Physician Assistant Medical; Emergency Provider Student in an Organized Health Care Education/Training Program; PCP Internal Medicine
DX: R07.9 Chest pain, unspecified (principal); J45.41 Moderate persistent asthma with (acute) exacerbation; R94.31 Abnormal electrocardiogram [ECG] [EKG]; I51.7 Cardiomegaly; Z03.818 Encounter for observation for suspected exposure to other biological agents ruled out
CPT/HCPCS: 36415; 71046; 80053; 83690; 83735; 84484; 85025; 85610; 87502; 87635; 93005; 99283; 99284

== ENCOUNTER → 2025-02-10 12:47 | Outpatient (BNV) | payer OTHER, SELFPAY | PROVIDERS: Emergency Provider Student in an Organized Health Care Education/Training Program; PCP Internal Medicine; Visit Provider Internal Medicine | DX: R94.31 Abnormal electrocardiogram [ECG] [EKG] (principal); R07.9 Chest pain, unspecified | CPT/HCPCS: 93010 ==

== ENCOUNTER → 2025-02-10 13:00 | Outpatient (BNV) | payer OTHER, SELFPAY | PROVIDERS: PCP Internal Medicine; Visit Provider Radiology Diagnostic Radiology | DX: I51.7 Cardiomegaly (principal) | CPT/HCPCS: 71046 ==

== ENCOUNTER 2025-03-12 08:16 | Outpatient (AMB) | payer OTHER, SELFPAY ==
--- NOTE | 2025-03-12 08:21 | MHC.OFFWIV ---
Intake Vital Signs 03/12/25 08:22 Height 5 ft 5 in Weight 336 lb BMI 55.9 BP 126/84 Blood Pressure Location Rt brachial Position Sitting Pulse 68 Pulse Source Pulse Oximeter Pulse Oximetry (%) 97 Oxygen Delivery Method Room Air Intake Visit Reasons: EP body aches burning when urinating headache Intake Note: Patient presents c/o burning with urination x3 days. Patient Tobacco Use Status: Tobacco use Unknown Allergies lithium (From LITHATE) Allergy (Severe, Verified 03/12/25 08:26) ANAPHYLAXIS codeine (CODEINE) Allergy (Unknown, Verified 03/12/25 08:26) UNKNOWN HPI HPI Comments History of Present Illness Details History - The patient is a 34 year old individual presenting with symptoms consistent with a urinary tract infection. - The patient reports a two to three day history of symptoms including burning on urination, urinary frequency, and some cramping with associated bladder spasms. - The patient notes these symptoms are identical to prior episodes of urinary tract infections. - The patient also reports fatigue and feels the symptoms may have been brought on by overexertion at the gym. - She has no blood in the urine, vaginal discharge, back pain, fever, or chills. Physical Exam General: Cooperative, healthy appearing, comfortable, no acute distress and well developed Cardiac: Normal S1 and S2. RRR, no M/R/G noted. Respiratory: Normal respiratory effort and able to speak in complete sentences. Clear to auscultation bilaterally. No w/r/r noted. Skin: No rashes or lesions noted. GI: Normal inspection. Normal BS noted. Soft, non-tender, non-distended. No TTP of all 4 quadrants. No guarding or rebound tenderness noted. Back: Negative CVA bilaterally Patient was informed and verbally consented to the use of an ambient scribe for clinic note documentation during this visit. [facility] Medical History Cervical cancer screening Anemia Vitamin D deficiency Morbid obesity with BMI of 50.0-59.9, adult Morbid obesity with BMI of 45.0-49.9, adult Missed period Dysuria Right knee pain Lumbar back pain Encounter for Nexplanon removal Etonogestrel implant for control Trichomoniasis Obesity, morbid, BMI 50 or higher Potential exposure to STD Women's annual routine gynecological examination control counseling Recurrent UTI Constipation Uses control Renal cyst UTI (urinary tract infection) Obesity Environmental allergies COVID-19 Dysuria Insomnia Morbid obesity with BMI of 45.0-49.9, adult Attention deficit hyperactivity disorder (ADHD) Bipolar affective disorder, current episode mixed Nocturnal enuresis GERD without esophagitis Pulmonary nodules Asthma Surgical History History of surgery Family History Father Ketoacidosis Diabetes ADHD Chronic mental illness Substance abuse Mother Anxiety Hypertension Crohn disease Family/Other Chronic mental illness Social History Housing: Apartment Alcohol intake: current Alcohol intake frequency: a few times a month Patient Tobacco Use Status: Tobacco use Unknown e-Cigarette/Vaping Use: Never Used Second Hand Smoke Exposure: Yes service: No Current occupational status: employed Current occupational exposures/hazards: No Cognitive needs: No Hearing needs: No Vision needs: No Female Reproductive History Menstrual Age of Menarche: 11 Review of Systems Const All systems reviewed & are unremarkable except as noted in HPI and below Physical Exam Vital Signs: Last Vital Signs Pulse 68 03/12/25 08:22 BP 126/84 03/12/25 08:22 Pulse Ox 97 03/12/25 08:22 Oxygen Delivery Method Room Air 03/12/25 08:22 BMI result Body Mass Index 55.9 Assessment & Plan Assessment & Plan (1) Dysuria: Code(s): R30.0 - Dysuria Plan Most likely UTI UA is negative plan - Although the urine dipstick test was negative, treatment for a presumed urinary tract infection will be initiated based on the patient's symptoms and history of recurrent UTIs. - A urine culture will be sent for analysis, with results expected on Monday. - An antibiotic will be prescribed. - A prescription for medication to manage bladder spasms, which may turn the urine orange, will also be sent to the pharmacy; the patient has been advised that it may not be covered by insurance. - The patient was advised to discontinue the antibiotic if the urine culture shows no bacterial growth. - The patient was counseled to increase fluid intake, drink cranberry juice, and monitor for signs of a yeast infection or worsening symptoms, such as fever. - The patient was instructed to follow up if symptoms do not improve after starting the antibiotics. Orders: Orders Urine Culture Today N39.0 - Urinary tract infection, site not specified Medications: New cefuroxime axetil 500 mg PO Q12H 10 tabs 0RF phenazopyridine 100 mg PO tid PRN 6 tabs 0RF Pain Coding Level of Care Code Est Pt Level 3 (87123) Diagnoses Dysuria R30.0
[2025-03-12 08:22] VITALS: BP 126/84; PULSE 68; O2SAT 97; BMI 55.9
== END 2025-03-12 09:15 | disposition home or self-care (01) ==
PROVIDERS: PCP Internal Medicine; Visit Provider Physician Assistant Medical
DX: Z13.9 Encounter for screening, unspecified (principal); R30.0 Dysuria

== ENCOUNTER 2025-03-12 08:16 | Outpatient (REF) | payer OTHER, SELFPAY | END 2025-03-12 08:17 | disposition home or self-care (01) | LOC: HO.LAB 08:16 | PROVIDERS: PCP Internal Medicine; Visit Provider Physician Assistant Medical | DX: R30.0 Dysuria (principal) | CPT/HCPCS: 81003; 87086; 99212 ==

== ENCOUNTER 2025-03-24 15:13 | Outpatient (REF) | payer OTHER, SELFPAY ==
[2025-03-24 17:37] LABS: Alanine Aminotransferase 33 U/L (0-31); Albumin Level 4.6 g/dL (3.5-5.0); Alkaline Phosphatase 114 U/L (39-117); Anion Gap 12 (12-20); Aspartate Amino Transferase 24 U/L (5-31); Blood Urea Nitrogen 13 mg/dL (9-16); Calcium 8.9 mg/dL (8.4-10.2); Carbon Dioxide 26 mmol/L (22-29); Chloride 106 mmol/L (96-108); Estimated Glomerular Filt Rate > 60; Potassium 3.8 mmol/L (3.3-5.1); Sodium 140 mmol/L (135-145); Total Protein 7.3 g/dL (6.5-8.0)
[2025-03-24 18:49] LABS: Appearance Urine Hazy; Glucose Urine UA Negative (Negative); PH 5.5 (5.0-9.0); Specific Gravity - Urine >= 1.030 (1.005-1.025); UMIC TRIGGER UACC YES
[2025-03-24 20:07] LABS: UACC Culture Trigger YES
[2025-03-30 14:47] LABS: Plasma Renin Activity 0.72 ng/mL/h (0.25-5.82)
[2025-03-30 15:43] LABS: Testosterone, Free 2.3 pg/mL (0.1-6.4)
== END 2025-03-24 15:14 | disposition home or self-care (01) ==
LOC: HO.LAB 15:13
PROVIDERS: PCP Internal Medicine; Visit Provider Student in an Organized Health Care Education/Training Program
DX: R30.0 Dysuria (principal); N92.6 Irregular menstruation, unspecified; I10 Essential (primary) hypertension; R74.01 Elevation of levels of liver transaminase levels
CPT/HCPCS: 36415; 80053; 81001; 82088; 82384; 82627; 83498; 84402; 84403; 87086

== ENCOUNTER 2025-04-07 16:10 | Emergency (ER) | payer OTHER, SELFPAY ==
[2025-04-07 16:14] VITALS: BP 107/68; BP 151/92; PULSE 83; PULSE 86; RESP 18; TEMP 36.6; O2SAT 100; BMI 49.8
--- NOTE | 2025-04-07 18:58 | ECG_ITS ---
Test Reason : diziness Blood Pressure : */* mmHG Vent. Rate : 59 BPM Atrial Rate : 59 BPM P-R Int : 196 ms QRS Dur : 96 ms QT Int : 450 ms P-R-T Axes : 21 -1 23 degrees QTcB Int : 445 ms Sinus bradycardia Otherwise normal ECG When compared with ECG of 10-Feb-2025 13:30, No significant change was found Referred By: Júnior Gibbons Electronically Signed By: HARMAN RONQUILLO MD
--- NOTE | 2025-04-07 19:15 | ED.GENADULT ---
HPI - General Adult General Chief complaint: General Medical Stated complaint: behavioral Time Seen by Provider: 04/07/25 18:50 Source: patient, RN notes reviewed and old records reviewed Mode of arrival: EMS Limitations: no limitations History of Present Illness ED Provider: Edwige HPI narrative: 34-year-old female with a past medical history significant for anxiety, GERD, asthma, obesity, bipolar disorder presents for evaluation of agitation. Patient reports that she was donating plasma at [facility] and [place]. She reports that she was annoyed that she has felt that the machine was not working properly and there was a bubble in the line. She felt that staff was being rude to her and there was an altercation with the patient and staff yelling at each other. The police were called and the patient decided she wanted to be evaluated in the hospital due to nausea and dizziness. There was no physical altercation The patient denies any chest pain, palpitations. She did have some bleeding from the left arm where her IV was after she ripped the IV out. There iss no current bleeding Related Data Previous Rx's ?Medication ?Instructions ?Recorded NEBULIZER #1 ea 04/20/21 ibuprofen 600 mg tablet 600 mg PO Q6H PRN fever or pain 08/14/23 #30 tabs albuterol sulfate 2.5 mg/3 mL 2.5 mg (3 mL) continuous 01/02/25 (0.083 %) solution for nebulization nebulization QID PRN shortness of breath or wheezing #75 mL albuterol sulfate 90 mcg/actuation 2 puff PO Q4-6H PRN for wheezing 01/02/25 aerosol inhaler (Ventolin HFA) #18 ea fluticasone 250 mcg-salmeterol 50 1 inh inhalation BID 30 days #60 ea 01/02/25 mcg/dose blistr powdr for inhalation (Wixela Inhub) cholecalciferol (vitamin D3) 1,250 1,250 mcg PO QWEEK 90 days #13 caps 01/09/25 mcg (50,000 unit) capsule ferrous sulfate 325 mg (65 mg 325 mg PO DAILY 90 days #90 tabs 01/09/25 iron) tablet sertraline 100 mg tablet 100 mg PO DAILY #90 tabs 01/10/25 trazodone 100 mg tablet 100 mg PO BEDTIME for insomnia #90 02/04/25 tabs phenazopyridine 100 mg tablet 100 mg PO tid PRN Pain #6 tabs 03/12/25 NEBULIZER and all related #1 ea 03/21/25 accessories blood pressure cuff kit #1 ea 03/24/25 blood pressure test kit-large #1 ea 03/24/25 nitrofurantoin macrocrystal 100 mg 100 mg PO BID #10 caps 03/24/25 capsule Allergies Allergy/AdvReac Type Severity Reaction Status Date / Time lithium (From LITHATE) Allergy Severe ANAPHYLAXIS Verified 04/07/25 16:25 codeine (CODEINE) Allergy Unknown UNKNOWN Verified 04/07/25 16:25 Review of Systems Constitutional: Constitutional: Denies body ache(s), Denies chills, Denies fever(s) and Denies headache(s) Eyes: Eyes: Denies irritation ENT: Reports dizziness and Denies headache(s) Cardiovascular: Cardiovascular: Denies chest pain, Denies chest pain at rest and Denies dyspnea on exertion Respiratory: Respiratory: Denies cough and Denies dyspnea on exertion Gastrointestinal: Gastrointestinal: Denies abdominal pain, Reports nausea and Denies vomiting Musculoskeletal: Musculoskeletal: Denies back pain Integumentary/Breasts: Skin/Breast: Denies rash Neurologic: Reports dizziness and Denies headache(s) Psychiatric: Psychiatric: Denies anxiety PMFSH Past Medical History Medical History Cervical cancer screening Anemia Vitamin D deficiency Morbid obesity with BMI of 50.0-59.9, adult Morbid obesity with BMI of 45.0-49.9, adult Missed period Dysuria Right knee pain Lumbar back pain Encounter for Nexplanon removal Etonogestrel implant for control Trichomoniasis Obesity, morbid, BMI 50 or higher Potential exposure to STD Women's annual routine gynecological examination control counseling Recurrent UTI Constipation Uses control Renal cyst UTI (urinary tract infection) Obesity Environmental allergies COVID-19 Dysuria Insomnia Morbid obesity with BMI of 45.0-49.9, adult Attention deficit hyperactivity disorder (ADHD) Bipolar affective disorder, current episode mixed Nocturnal enuresis GERD without esophagitis Pulmonary nodules Asthma Surgical History History of surgery Family History Family History Father Ketoacidosis Diabetes ADHD Chronic mental illness Substance abuse Mother Anxiety Hypertension Crohn disease Family/Other Chronic mental illness Social History Social History (Updated 03/24/25 @ 15:21 by PARKER Cadena) Housing: Apartment Alcohol intake: current Alcohol intake frequency: a few times a month Patient Tobacco Use Status: Never used Tobacco e-Cigarette/Vaping Use: Never Used Second Hand Smoke Exposure: Yes Advance Directives: No Advance Directives Information Provided: No Do you have a plan to hurt others: No Plan service: No Current occupational status: employed Current occupational exposures/hazards: No Cognitive needs: No Hearing needs: No Vision needs: No Physical Exam ED Vital Signs: Vital Signs - 24 hr 04/07/25 16:14 Temperature 97.9 F Pulse Rate 83 Respiratory Rate 18 Blood Pressure 107/68 Pulse Oximetry 100 Oxygen Delivery Method Room Air BMI result Body Mass Index 49.8 Const General: healthy appearing, comfortable, no acute distress, alert and awake Nutritional Appearance: well nourished Orientation/consciousness: patient oriented x3 HENMT Head: Yes normocephalic and Yes atraumatic Eyes Eyelids: Yes eyelids normal Conjunctivae: conjunctivae normal Sclerae: sclerae normal Corneas: corneas normal Pupils: Equal, round and reactive pupils present EOM: EOMs intact bilaterally Neck Neck: Yes full ROM Resp Effort & Inspection: normal respiratory effort, able to speak in complete sentences, no audible wheezes and not labored Auscultation: clear to auscultation bilaterally Cardio Rate: regular rate Rhythm: regular rhythm GI Inspection: No distended Palpation (GI): Soft to palpation, not firm, nontender, no guarding and not rigid Skin General skin exam: no rashes or lesions noted and elasticity normal Neuro General: patient oriented x3 Cranial nerves: Yes CN's II-XII intact bilaterally, Yes Equal, round and reactive pupils present and Yes Bilaterally intact EOM present Cognition (Neuro): normal cognition Extrem Other: Moving all extremities well without any obvious deformities Medications Administered Discontinued Medications Generic Name Dose Route Start Last Admin Trade Name Freq PRN Reason Stop Dose Admin Ibuprofen 600 mg 04/07/25 18:58 04/07/25 19:11 Ibuprofen 600 Mg Tablet PO 04/07/25 18:59 600 mg ONCE ONE Administration Ondansetron HCl 4 mg 04/07/25 18:58 04/07/25 19:11 Ondansetron Odt 4 Mg Tab.Fan ARCOS 04/07/25 18:59 4 mg ONCE ONE Administration Medical Decision Making Medical Decision Making MDM Narrative: 34-year-old female presents for evaluation of agitation. The patient was agitated earlier with staff at [employer]. A verbal altercation ensued. There was no physical altercation or trauma. The patient reports feeling better but still complains of nausea and a headache. She denies chest pain but does complain of dizziness. We will get an EKG for the dizziness. Her vital signs are within normal limits. The patient's symptoms are likely due to anxiety and the fact that she was aggravated. We will treat her headache with ibuprofen and nausea with Zofran Differential Diagnosis Differential Diagnoses: The differential diagnosis associated with the presentation includes Agitation Anxiety Acute headache Bipolar disorder Discharge Plan Discharge Clinical Impression: Anxiety Patient Disposition: Home, Self-Care Instructions: Anxiety (ED) Additional Instructions: Your EKG today was reassuring. Your vital signs are within normal limits. Your physical exam was also reassuring. You may use ibuprofen as needed for any further headaches. Follow up with your primary doctor, return for new or worsening symptoms Prescriptions: No Action ferrous sulfate 325 mg (65 mg iron) tablet 325 mg PO DAILY 90 Days Qty: 90 1RF cholecalciferol (vitamin D3) 1,250 mcg (50,000 unit) capsule 1,250 mcg PO QWEEK 90 Days Qty: 13 1RF sertraline 100 mg tablet 100 mg PO DAILY Qty: 90 3RF trazodone 100 mg tablet 100 mg PO BEDTIME Qty: 90 1RF (DME) NEBULIZER See Rx Instructions .Route .MEDSUPPLY Qty: 1 0RF Rx Instructions: As directed 4 times a day as needed (DME) NEBULIZER and all related accessories See Rx Instructions .Route .MEDSUPPLY Qty: 1 0RF Rx Instructions: As directed ibuprofen 600 mg tablet 600 mg PO Q6H PRN (Reason: fever or pain) Qty: 30 0RF phenazopyridine 100 mg tablet 100 mg PO tid PRN (Reason: Pain) Qty: 6 0RF albuterol sulfate 2.5 mg /3 mL (0.083 %) solution for nebulization 2.5 mg continuous nebulization QID PRN (Reason: shortness of breath or wheezing) Qty: 75 3RF fluticasone propion-salmeterol [Wixela Inhub] 250-50 mcg/dose blister with device 1 inh inhalation BID 30 Days Qty: 60 3RF albuterol sulfate [Ventolin HFA] 90 mcg/actuation HFA aerosol inhaler 2 puff PO Q4-6H PRN (Reason: for wheezing) Qty: 18 1RF nitrofurantoin macrocrystal 100 mg capsule 100 mg PO BID Qty: 10 0RF Rx Instructions: must administer with a meal/food (DME) blood pressure test kit-large Kit See Rx Instructions .Route Qty: 1 0RF Rx Instructions: As directed (DME) blood pressure cuff kit See Rx Instructions .Route .MEDSUPPLY Qty: 1 0RF Rx Instructions: As directed Print Language: Korean
[2025-04-07 19:23] VITALS: BP 106/56; PULSE 72; TEMP 37.1; O2SAT 98
[2025-04-07 19:46] VITALS: BP 106/56; PULSE 72; RESP 16; TEMP 37.1; O2SAT 98
== END 2025-04-07 19:46 | disposition home or self-care (01) ==
PROVIDERS: Emergency Provider Emergency Medicine; PCP Internal Medicine
DX: F41.1 Generalized anxiety disorder (principal); F43.0 Acute stress reaction; R42 Dizziness and giddiness; R00.1 Bradycardia, unspecified
CPT/HCPCS: 93005; 99283; 99284

== ENCOUNTER → 2025-04-07 18:58 | Outpatient (BNV) | payer OTHER, SELFPAY | PROVIDERS: Emergency Provider Emergency Medicine; PCP Internal Medicine; Visit Provider Internal Medicine Cardiovascular Disease | DX: R00.1 Bradycardia, unspecified (principal) | CPT/HCPCS: 93010 ==